=== PATIENT | female | born 1955 | race Caucasian/White ===

== ENCOUNTER 2016-09-24 12:48 | Observation (INO) | payer OTHER, MEDICAID ==
[2016-09-24 14:10] LABS: BASOPHILS # (AUTO) 0.1 X10^3/uL (0.0-0.1); BASOPHILS % (AUTO) 0.9 % (0.2-1.0); EOSINOPHILS # (AUTO) 0.2 x10^3/uL (0.0-0.2); EOSINOPHILS % (AUTO) 3.6 % (0.9-2.9); HEMATOCRIT 32.3 % (36.0-47.0); HEMOGLOBIN 11.1 g/dL (12.0-16.0); LYMPHOCYTES # (AUTO) 1.3 X10^3/uL (1.3-2.9); MEAN CORPUSCULAR HEMOGLOBIN 29.9 pg (27.0-34.0); MEAN CORPUSCULAR HGB CONC 34.2 g/dL (33.0-35.0); MEAN CORPUSCULAR VOLUME 87.4 fL (80.0-100.0); MEAN PLATELET VOLUME 8.6 fL (7.4-11.0); MONOCYTES # (AUTO) 0.5 x10^3/uL (0.3-0.8); MONOCYTES % (AUTO) 7.9 % (0.0-13.0); NEUTROPHILS % (AUTO) 66.6 % (42.0-75.0); PLATELET COUNT 192 X10^3/uL (150.0-450.0); RED CELL DISTRIBUTION WIDTH 15.4 % (11.6-16.5); WHITE BLOOD COUNT 6.1 X10^3/uL (3.6-10.0)
[2016-09-24 14:36] LABS: B-TYPE NATRIURETIC PEPTIDE 205 pg/mL (0-79)
[2016-09-24 14:48] VITALS: BMI 39.3
[2016-09-24 14:55] LABS: ALANINE AMINOTRANSFERASE 25 Units/L (12-78); ALBUMIN 3.5 g/dL (3.4-5.0); ALKALINE PHOSPHATASE 172 Units/L (46-116); ASPARTATE AMINO TRANSFERASE 19 Units/L (15-37); BLOOD UREA NITROGEN 25 mg/dL (7-18); CALCIUM 9.1 mg/dL (8.5-10.1); CARBON DIOXIDE 31.6 mmol/L (21-32); CHLORIDE 107 mmol/L (98-107); CKMB % 3.6 % (<4); CREATINE KINASE 129 Units/L (26-192); GLUCOSE 81 mg/dL (65-99); SODIUM 143 mmol/L (136-145); TOTAL PROTEIN 7.6 g/dL (6.4-8.2); TROPONIN I < 0.02 ng/mL (0-1.5); eGFR BLACK RACES > 60 (>60); eGFR NON BLACK RACES > 60 (>60)
[2016-09-24 14:56] LABS: CREATINE KINASE MB 4.7 ng/mL (0-4.0)
[2016-09-24] MEDS: NS 1000 ML 1,000 ML IV SCH (15:30)
[2016-09-24] MEDS: LASIX IVP SCH ×2 (15:30→20:56)
--- NOTE | 2016-09-24 15:37 | RAD ---
HISTORY: CHF. Study: Portable chest. Comparison: Chest x-ray dated October 22, 2015. Findings: The cardiac silhouette is at the upper limits of normal. Prominent perihilar vasculature with cephal ization of vessels and diffuse alveolar /interstitial markings . No obvious pleural effusion, pneumo thorax , or focal consolidation . Persistent eventration of the right hemidiaphragm. The osseous str uctures appear unchanged. IMPRESSION: Constellation of findings likely representing pulmonary edema secondary to congestive he art failure. Underlying infiltrate not entirely excluded. Reported By:
[2016-09-24 18:15] LABS: CKMB % 2.3 % (<4); CREATINE KINASE 177 Units/L (26-192); TROPONIN I < 0.02 ng/mL (0-1.5)
[2016-09-24] MEDS: COREG TAB 6.25 MG PO SCH (20:56)
[2016-09-24] MEDS: KLONOPIN TAB 1 MG PO SCH (20:56)
[2016-09-24] MEDS: TOUJEO SOLOSTAR PEN SC SCH (20:57)
[2016-09-24] MEDS: ISOSORBIDE DINITRATE PO SCH (20:57)
[2016-09-24] MEDS: ZYLOPRIM PO SCH (20:57)
[2016-09-24] MEDS: CELEXA PO SCH (20:57)
[2016-09-24] MEDS: LYRICA CAP 150 MG PO SCH (20:57)
[2016-09-24] MEDS ORDERED: CRESTOR TAB 10 MG PO SCH (21:00)
[2016-09-24] MEDS: LASIX PO SCH (21:01)
[2016-09-24 22:04] LABS: CKMB % 3.2 % (<4); CREATINE KINASE 109 Units/L (26-192); CREATINE KINASE MB 3.5 ng/mL (0-4.0); TROPONIN I < 0.02 ng/mL (0-1.5)
[2016-09-24] MEDS ORDERED: NORCO 5/325 MG TAB PO PRN (22:52)
[2016-09-25] MEDS ORDERED: GLUCOPHAGE ONE ×2 (05:14→17:12)
[2016-09-25] MEDS: LASIX PO SCH (05:28)
[2016-09-25] MEDS: GLUCOTROL PO SCH ×2 (06:28→17:16)
[2016-09-25] MEDS: GLUCOPHAGE PO SCH ×2 (06:28→17:15)
[2016-09-25 06:37] LABS: BASOPHILS # (AUTO) 0.1 X10^3/uL (0.0-0.1); BASOPHILS % (AUTO) 0.9 % (0.2-1.0); EOSINOPHILS # (AUTO) 0.3 x10^3/uL (0.0-0.2); EOSINOPHILS % (AUTO) 4.4 % (0.9-2.9); HEMATOCRIT 30.4 % (36.0-47.0); HEMOGLOBIN 10.6 g/dL (12.0-16.0); LYMPHOCYTES # (AUTO) 1.4 X10^3/uL (1.3-2.9); LYMPHOCYTES % (AUTO) 21.3 % (21.0-51.0); MEAN CORPUSCULAR HEMOGLOBIN 30.3 pg (27.0-34.0); MEAN CORPUSCULAR HGB CONC 34.8 g/dL (33.0-35.0); MEAN CORPUSCULAR VOLUME 87.2 fL (80.0-100.0); MEAN PLATELET VOLUME 9.3 fL (7.4-11.0); MONOCYTES # (AUTO) 0.7 x10^3/uL (0.3-0.8); MONOCYTES % (AUTO) 10.4 % (0.0-13.0); PLATELET COUNT 196 X10^3/uL (150.0-450.0); RED BLOOD COUNT 3.48 X10^6/uL (3.5-5.4); RED CELL DISTRIBUTION WIDTH 15.3 % (11.6-16.5); WHITE BLOOD COUNT 6.4 X10^3/uL (3.6-10.0)
[2016-09-25 06:53] LABS: ALANINE AMINOTRANSFERASE 21 Units/L (12-78); ALKALINE PHOSPHATASE 149 Units/L (46-116); ASPARTATE AMINO TRANSFERASE 15 Units/L (15-37); BLOOD UREA NITROGEN 28 mg/dL (7-18); CALCIUM 8.6 mg/dL (8.5-10.1); CARBON DIOXIDE 33.1 mmol/L (21-32); CHLORIDE 104 mmol/L (98-107); COR CA(FOR HYPOALB) 9.4 mg/dL (8.5-10.1); COR NA(FOR HYPERGLY) 144 mmol/L (136-145); CREATININE 1.07 mg/dL (0.55-1.02); GLUCOSE 174 mg/dL (65-99); SODIUM 142 mmol/L (136-145); TOTAL PROTEIN 6.8 g/dL (6.4-8.2); eGFR BLACK RACES > 60 (>60); eGFR NON BLACK RACES 55 (>60)
[2016-09-25 07:13] LABS: B-TYPE NATRIURETIC PEPTIDE 168 pg/mL (0-79)
--- NOTE | 2016-09-25 07:31 | RAD ---
HISTORY: Follow up congestive heart failure, shortness of breath Study: Chest one view Comparison: September 24, 2016 Findings: The heart is mildly enlarged. No definite congestive heart failure is identified. No acute alveolar infiltrates or pleural effusions are identified. The right hemidiaphragm is elevated. Perihilar subs egmental atelectasis is present on the right and to a lesser extent on the left. No pleural effusion s are identified. The bony thorax is unremarkable. IMPRESSION: Cardiomegaly without congestive heart failure Bilateral perihilar subsegmental atelectasis Reported By:
[2016-09-25] MEDS: ISOSORBIDE DINITRATE PO SCH ×2 (09:28→21:01)
[2016-09-25] MEDS: LYRICA CAP 150 MG PO SCH ×2 (09:28→21:00)
[2016-09-25] MEDS: ZYLOPRIM PO SCH (09:28)
[2016-09-25] MEDS: HYZAAR 50/12.5 MG PO SCH (09:28)
[2016-09-25] MEDS: COREG TAB 6.25 MG PO SCH ×2 (09:28→21:02)
--- NOTE | 2016-09-25 11:20 | DR.UPDATE ---
H&P Update History and Physical Update: WAS SEEN IN OUR OFFICE TODAY. A H&P WAS COMPLETED PRIOR TO DISCHARGE. PATIENT HAS BEEN SEEN AND EXAMINED WITH NO CHANGES NOTED. Changes noted: NO Yes with the following:
[2016-09-25] MEDS: LASIX IVP SCH ×2 (11:50→21:00)
[2016-09-25] MEDS: ECOTRIN TAB 325 MG PO SCH (11:51)
[2016-09-25] MEDS ORDERED: SNACK - Diabetic Appropriate PO SCH (20:00)
[2016-09-25] MEDS ORDERED: CRESTOR TAB 10 MG PO SCH (21:00)
[2016-09-25] MEDS: KLONOPIN TAB 1 MG PO SCH (21:03)
[2016-09-25] MEDS: CELEXA PO SCH (21:03)
[2016-09-25] MEDS: TOUJEO SOLOSTAR PEN SC SCH (21:04)
[2016-09-26] MEDS: NS 1000 ML 1,000 ML IV SCH ×2 (03:41→14:34)
[2016-09-26 06:09] LABS: BASOPHILS # (AUTO) 0.1 X10^3/uL (0.0-0.1); HEMATOCRIT 32.5 % (36.0-47.0); LYMPHOCYTES # (AUTO) 1.5 X10^3/uL (1.3-2.9); WHITE BLOOD COUNT 6.5 X10^3/uL (3.6-10.0)
[2016-09-26 06:15] LABS: BASOPHILS % (AUTO) 0.8 % (0.2-1.0); EOSINOPHILS # (AUTO) 0.2 x10^3/uL (0.0-0.2); EOSINOPHILS % (AUTO) 3.7 % (0.9-2.9); HEMOGLOBIN 11.1 g/dL (12.0-16.0); MEAN CORPUSCULAR HEMOGLOBIN 29.7 pg (27.0-34.0); MEAN CORPUSCULAR HGB CONC 34.2 g/dL (33.0-35.0); MEAN CORPUSCULAR VOLUME 86.9 fL (80.0-100.0); MEAN PLATELET VOLUME 9.2 fL (7.4-11.0); MONOCYTES # (AUTO) 0.5 x10^3/uL (0.3-0.8); MONOCYTES % (AUTO) 8.3 % (0.0-13.0); NEUTROPHILS # (AUTO) 4.2 x10^3/uL (2.2-4.8); NEUTROPHILS % (AUTO) 64.2 % (42.0-75.0); PLATELET COUNT 219 X10^3/uL (150.0-450.0); RED BLOOD COUNT 3.74 X10^6/uL (3.5-5.4); RED CELL DISTRIBUTION WIDTH 15.3 % (11.6-16.5)
[2016-09-26] MEDS ORDERED: GLUCOPHAGE ONE (06:17)
[2016-09-26] MEDS: GLUCOPHAGE PO SCH (06:18)
[2016-09-26] MEDS: GLUCOTROL PO SCH (06:19)
[2016-09-26 06:21] LABS: ALANINE AMINOTRANSFERASE 19 Units/L (12-78); ALKALINE PHOSPHATASE 143 Units/L (46-116); ASPARTATE AMINO TRANSFERASE 14 Units/L (15-37); BLOOD UREA NITROGEN 36 mg/dL (7-18); CALCIUM 8.5 mg/dL (8.5-10.1); CARBON DIOXIDE 34.8 mmol/L (21-32); CHLORIDE 106 mmol/L (98-107); COR CA(FOR HYPOALB) 9.3 mg/dL (8.5-10.1); CREATININE 1.05 mg/dL (0.55-1.02); GLUCOSE 66 mg/dL (65-99); SODIUM 144 mmol/L (136-145); TOTAL PROTEIN 6.8 g/dL (6.4-8.2); eGFR BLACK RACES > 60 (>60); eGFR NON BLACK RACES 56 (>60)
[2016-09-26 08:42] VITALS: BP 132/63
[2016-09-26] MEDS: LYRICA CAP 150 MG PO SCH (09:49)
[2016-09-26] MEDS: COREG TAB 6.25 MG PO SCH (09:50)
[2016-09-26] MEDS: ISOSORBIDE DINITRATE PO SCH (09:50)
[2016-09-26] MEDS: HYZAAR 50/12.5 MG PO SCH (09:50)
[2016-09-26] MEDS: ECOTRIN TAB 325 MG PO SCH (09:50)
[2016-09-26] MEDS: ZYLOPRIM PO SCH (09:51)
[2016-09-26] MEDS ORDERED: K-LYTE EFFERVESCENT PO PRN (12:53)
[2016-09-26] MEDS ORDERED: K-RIDER 10 MEQ/NS 100 ML 10 MEQ/100 ML BAG IV PRN (12:53)
[2016-09-26] MEDS ORDERED: POTASSIUM CHLORIDE LIQ 20 MEQ UDC PO PRN (12:53)
[2016-09-26] MEDS ORDERED: K-DUR TAB 20 MEQ PO PRN (12:53)
== END 2016-09-26 16:10 | disposition home or self-care (01) ==
LOC: OBS 12:48 → MED/SURG 09-25 16:35
PROVIDERS: ADMIT Internal Medicine; ATTEND Internal Medicine
DX: I50.9 Heart failure, unspecified (principal); R60.0 Localized edema; I25.10 Atherosclerotic heart disease of native coronary artery without angina pectoris; E11.8 Type 2 diabetes mellitus with unspecified complications; I25.2 Old myocardial infarction; R06.02 Shortness of breath; D64.89 Other specified anemias; I51.7 Cardiomegaly; R94.30 Abnormal result of cardiovascular function study, unspecified
CPT/HCPCS: 36415; 71010; 80053; 82550; 82553; 82947; 83880; 84484; 85025; 93005; 94760; 99217; A4216; A4222; G0378; J1940

== ENCOUNTER 2018-02-09 16:04 | Inpatient (IN) ==
[2018-02-09 17:59] LABS: BASOPHILS # (AUTO) 0.1 X10^3/uL (0.0-0.1); BASOPHILS % (AUTO) 0.9 % (0.2-1.0); EOSINOPHILS # (AUTO) 0.3 x10^3/uL (0.0-0.2); EOSINOPHILS % (AUTO) 4.4 % (0.9-2.9); HEMATOCRIT 31.8 % (36.0-47.0); HEMOGLOBIN 10.8 g/dL (12.0-16.0); LYMPHOCYTES # (AUTO) 0.9 X10^3/uL (1.3-2.9); LYMPHOCYTES % (AUTO) 14.2 % (21.0-51.0); MEAN CORPUSCULAR HEMOGLOBIN 29.9 pg (27.0-34.0); MEAN CORPUSCULAR VOLUME 87.8 fL (80.0-100.0); MEAN PLATELET VOLUME 8.3 fL (7.4-11.0); MONOCYTES # (AUTO) 0.4 x10^3/uL (0.3-0.8); MONOCYTES % (AUTO) 6.8 % (0.0-13.0); NEUTROPHILS # (AUTO) 4.6 x10^3/uL (2.2-4.8); NEUTROPHILS % (AUTO) 73.7 % (42.0-75.0); PLATELET COUNT 190 X10^3/uL (150.0-450.0); RED BLOOD COUNT 3.62 X10^6/uL (3.5-5.4); WHITE BLOOD COUNT 6.2 X10^3/uL (3.6-10.0)
--- NOTE | 2018-02-09 18:01 | RAD ---
History: Shortness of breath Study: PA and lateral chest Comparison: September 25, 2016 Findings: There is unchanged elevation of the right hemidiaphragm. There is horizontal linear density in the right upper lobe similar to prior exam. There is horizontal linear densities at the right lung base as well. The left lung is clear. There is no evidence for effusion. Impression: Chronically elevated right hemidiaphragm with apparent scarring in the right upper and lower lobes. Reported By:
[2018-02-09] MEDS ORDERED: HEPARIN SODIUM IN D5W 25,000 UNITS/500 ML BAG IV PRN (18:07)
[2018-02-09] MEDS: ULTRAM PO PRN (18:09)
[2018-02-09] MEDS: ASPIRIN 81 MG CHEWTAB PO SCH (18:09)
[2018-02-09] MEDS: LASIX IVP SCH ×2 (18:10→21:57)
[2018-02-09] MEDS: HYZAAR 50/12.5 MG PO SCH (18:10)
[2018-02-09 18:19] LABS: ALANINE AMINOTRANSFERASE 21 Units/L (12-78); ALBUMIN 3.5 g/dL (3.4-5.0); ALKALINE PHOSPHATASE 172 Units/L (46-116); ASPARTATE AMINO TRANSFERASE 16 Units/L (15-37); BLOOD UREA NITROGEN 40 mg/dL (7-18); CALCIUM 9.2 mg/dL (8.5-10.1); CARBON DIOXIDE 29.3 mmol/L (21-32); CHLORIDE 104 mmol/L (98-107); COR NA(FOR HYPERGLY) 141 mmol/L (136-145); CREATINE KINASE 96 Units/L (26-192); CREATINE KINASE MB 2.9 ng/mL (0-4.0); CREATININE 1.38 mg/dL (0.55-1.02); SODIUM 141 mmol/L (136-145); TOTAL PROTEIN 7.4 g/dL (6.4-8.2); TROPONIN I < 0.02 ng/mL (0-1.5); eGFR NON BLACK RACES 41 (>60)
[2018-02-09 18:21] LABS: B-TYPE NATRIURETIC PEPTIDE 294 pg/mL (0-79)
[2018-02-09] MEDS ORDERED: HEPARIN SODIUM INJ 5000 UNITS ONE (19:19)
[2018-02-09] MEDS ORDERED: HEPARIN SODIUM INJ 5000 UNITS IVP ONE (19:33)
[2018-02-09] MEDS: SNACK - Diabetic Appropriate PO SCH (20:20)
[2018-02-09 21:26] LABS: BILIRUBIN,URINE NEGATIVE (NEGATIVE); BLOOD/HEMOGLOBIN,URINE 1+ (NEGATIVE); GLUCOSE, URINE NEGATIVE (NEGATIVE); KETONES,URINE NEGATIVE (NEGATIVE); LEUKOCYTE ESTERASE ,URINE NEGATIVE (NEGATIVE); NITRITES,URINE NEGATIVE (NEGATIVE); PH,URINE 6.5 (5.0 - 8.0); PROTEIN,URINE 2+ (NEGATIVE); UROBILINOGEN,URINE NORMAL (NORMAL)
[2018-02-09 21:43] LABS: AMORPHOUS SEDIMENT,UR 1+ /HPF (NEGATIVE); APPEARANCE,URINE SLIGHTLY HAZY (CLEAR); BACTERIA,URINE 2+ /HPF (NEGATIVE); COLOR,URINE PALE YELLOW (YELLOW); RBC,URINE 0-2 /HPF (NONE SEEN); SQUAMOUS EPITHELIAL CELL,UR RARE /HPF (NEGATIVE)
[2018-02-09 21:48] LABS: CKMB % 2.6 % (<4); CREATINE KINASE 91 Units/L (26-192); CREATINE KINASE MB 2.4 ng/mL (0-4.0); TROPONIN I < 0.02 ng/mL (0-1.5)
[2018-02-09] MEDS: TOUJEO SOLOSTAR PEN SC SCH (21:50)
[2018-02-09] MEDS: CRESTOR TAB 10 MG PO SCH (21:57)
[2018-02-09] MEDS: KLONOPIN TAB 1 MG PO SCH (21:57)
[2018-02-09] MEDS: COREG TAB 6.25 MG PO SCH (21:57)
[2018-02-09] MEDS: ZANAFLEX PO SCH (21:58)
[2018-02-10 01:31] VITALS: BMI 36.8
[2018-02-10 02:02] LABS: CREATINE KINASE 76 Units/L (26-192); CREATINE KINASE MB 2.3 ng/mL (0-4.0); TROPONIN I < 0.02 ng/mL (0-1.5)
[2018-02-10 06:34] LABS: BASOPHILS % (AUTO) 0.8 % (0.2-1.0); EOSINOPHILS # (AUTO) 0.3 x10^3/uL (0.0-0.2); EOSINOPHILS % (AUTO) 4.2 % (0.9-2.9); HEMATOCRIT 28.5 % (36.0-47.0); HEMOGLOBIN 9.7 g/dL (12.0-16.0); LYMPHOCYTES # (AUTO) 1.1 X10^3/uL (1.3-2.9); LYMPHOCYTES % (AUTO) 17.7 % (21.0-51.0); MEAN CORPUSCULAR HEMOGLOBIN 30.1 pg (27.0-34.0); MEAN CORPUSCULAR HGB CONC 34.2 g/dL (33.0-35.0); MEAN CORPUSCULAR VOLUME 88.2 fL (80.0-100.0); MEAN PLATELET VOLUME 8.8 fL (7.4-11.0); MONOCYTES # (AUTO) 0.5 x10^3/uL (0.3-0.8); MONOCYTES % (AUTO) 8.3 % (0.0-13.0); NEUTROPHILS # (AUTO) 4.2 x10^3/uL (2.2-4.8); PLATELET COUNT 184 X10^3/uL (150.0-450.0); RED BLOOD COUNT 3.23 X10^6/uL (3.5-5.4); RED CELL DISTRIBUTION WIDTH 15.1 % (11.6-16.5); WHITE BLOOD COUNT 6.1 X10^3/uL (3.6-10.0)
[2018-02-10 06:56] LABS: ALBUMIN 3.2 g/dL (3.4-5.0); CARBON DIOXIDE 28.9 mmol/L (21-32); COR CA(FOR HYPOALB) 9.6 mg/dL (8.5-10.1); CREATININE 1.25 mg/dL (0.55-1.02); TOTAL PROTEIN 6.8 g/dL (6.4-8.2)
[2018-02-10] MEDS: HYZAAR 50/12.5 MG PO SCH (10:11)
[2018-02-10] MEDS: ASPIRIN 81 MG CHEWTAB PO SCH (10:11)
[2018-02-10] MEDS: COREG TAB 6.25 MG PO SCH ×2 (10:11→21:45)
[2018-02-10] MEDS: PLAVIX PO SCH (10:12)
[2018-02-10] MEDS: LASIX IVP SCH (10:12)
[2018-02-10] MEDS ORDERED: MAG-OX TAB PO SCH (10:30)
[2018-02-10] MEDS: NEURONTIN TAB 600 MG PO SCH ×3 (11:52→21:45)
[2018-02-10] MEDS: MAG-OX TAB PO SCH (12:01)
[2018-02-10] MEDS ORDERED: NORMODYNE INJ 20 MG VIAL IVP PRN (17:12)
[2018-02-10] MEDS: SNACK - Diabetic Appropriate PO SCH (20:42)
[2018-02-10] MEDS ORDERED: CELEXA PO SCH (21:00)
[2018-02-10] MEDS: TOUJEO SOLOSTAR PEN SC SCH (21:40)
[2018-02-10] MEDS: ZANAFLEX PO SCH (21:46)
[2018-02-10] MEDS: CRESTOR TAB 10 MG PO SCH (21:46)
[2018-02-10] MEDS: KLONOPIN TAB 1 MG PO SCH (21:46)
[2018-02-10] MEDS: ULTRAM PO PRN (21:51)
[2018-02-11 06:22] LABS: BASOPHILS % (AUTO) 0.6 % (0.2-1.0); EOSINOPHILS # (AUTO) 0.3 x10^3/uL (0.0-0.2); EOSINOPHILS % (AUTO) 3.9 % (0.9-2.9); HEMATOCRIT 30.6 % (36.0-47.0); HEMOGLOBIN 10.5 g/dL (12.0-16.0); LYMPHOCYTES # (AUTO) 0.9 X10^3/uL (1.3-2.9); LYMPHOCYTES % (AUTO) 12.4 % (21.0-51.0); MEAN CORPUSCULAR HEMOGLOBIN 30.1 pg (27.0-34.0); MEAN CORPUSCULAR HGB CONC 34.3 g/dL (33.0-35.0); MEAN CORPUSCULAR VOLUME 87.7 fL (80.0-100.0); MEAN PLATELET VOLUME 8.8 fL (7.4-11.0); MONOCYTES # (AUTO) 0.6 x10^3/uL (0.3-0.8); MONOCYTES % (AUTO) 8.9 % (0.0-13.0); NEUTROPHILS # (AUTO) 5.1 x10^3/uL (2.2-4.8); NEUTROPHILS % (AUTO) 74.2 % (42.0-75.0); PLATELET COUNT 207 X10^3/uL (150.0-450.0); RED BLOOD COUNT 3.49 X10^6/uL (3.5-5.4); WHITE BLOOD COUNT 6.9 X10^3/uL (3.6-10.0)
[2018-02-11 06:35] LABS: ALANINE AMINOTRANSFERASE 16 Units/L (12-78); ALBUMIN 3.2 g/dL (3.4-5.0); ALKALINE PHOSPHATASE 148 Units/L (46-116); ASPARTATE AMINO TRANSFERASE 11 Units/L (15-37); BLOOD UREA NITROGEN 35 mg/dL (7-18); CALCIUM 9.1 mg/dL (8.5-10.1); CARBON DIOXIDE 30.8 mmol/L (21-32); CHLORIDE 104 mmol/L (98-107); COR CA(FOR HYPOALB) 9.7 mg/dL (8.5-10.1); COR NA(FOR HYPERGLY) 145 mmol/L (136-145); CREATININE 1.12 mg/dL (0.55-1.02); SODIUM 142 mmol/L (136-145); TOTAL PROTEIN 6.8 g/dL (6.4-8.2); eGFR NON BLACK RACES 52 (>60)
[2018-02-11] MEDS: NEURONTIN TAB 600 MG PO SCH (06:59)
[2018-02-11] MEDS: ASPIRIN 81 MG CHEWTAB PO SCH (09:58)
[2018-02-11] MEDS: PLAVIX PO SCH (09:58)
[2018-02-11] MEDS: HYZAAR 50/12.5 MG PO SCH (09:59)
[2018-02-11] MEDS: COREG TAB 6.25 MG PO SCH (09:59)
[2018-02-11] MEDS: MAG-OX TAB PO SCH (09:59)
[2018-02-11 10:37] VITALS: BP 161/72
[2018-02-11] MEDS ORDERED: NS 100 ML IV 100 ML IV ONE (11:49)
[2018-02-11] MEDS ORDERED: MAXZIDE 37.5/25 MG PO SCH (13:00)
--- NOTE | 2018-02-11 13:34 | CT ---
HISTORY: Shortness of breath, hypertension Study: CT chest with contrast Comparison: Radiograph 02/09/2018, CT 03/08/2015 Technique: Multiple axial images of the chest were obtained from the thoracic inlet to the upper abdomen after the administration of IV contrast. Dose reduction techniques including Automated Exposure Control (AEC) and adjustment of mA and kV were utilized. Findings: Coronary atherosclerotic disease with interval placement of stents in the LAD and RCA. Normal sized heart. No pericardial effusion. There is chronic right pleural thickening. There is bibasilar atelectasis. No infiltrate, pneumothorax or significant effusion is identified The lungs are clear without effusion, consolidation, or pneumothorax. Airways are patent. No mass or adenopathy is seen. There are degenerative changes of the bony thorax with mild vertebral body height loss is sclerosis of the T12 vertebral body that is unchanged from prior. No new fracture identified. Incidental note of pneumobilia suggesting previous sphincterotomy. IMPRESSION: 1. No evidence of acute cardiopulmonary abnormality. 2. Coronary atherosclerotic disease with interval placement of stents in the LAD and RCA. 3. Additional stable chronic findings as described. Reported By:
--- NOTE | 2018-02-12 19:19 | DR.UPDATE ---
H&P Update History and Physical Update: PRESENTED TO THE OFFICE WITH COMPLAINTS OF SHORTNESS OF BREATH. SHE IS STATUS POST STENT REPLACEMENT 3 WEEKS AGO. SHE WAS ADMITTED FOR FURTHER EVALUATION AND TREATMENT. SHE HAS BEEN SEEN AND EXAMINED WITH NO CHANGES NOTED TO H&P. Changes noted: NO Yes with the following:
== END 2018-02-11 14:30 | disposition home or self-care (01) | DRG 292 ==
LOC: OBS → ICU 17:26
PROVIDERS: ADMIT Internal Medicine; ATTEND Internal Medicine
DX: R06.02 Shortness of breath; B96.1 Klebsiella pneumoniae [K. pneumoniae] as the cause of diseases classified elsewhere; N39.0 Urinary tract infection, site not specified; I50.9 Heart failure, unspecified; Z95.5 Presence of coronary angioplasty implant and graft; I25.10 Atherosclerotic heart disease of native coronary artery without angina pectoris; E11.65 Type 2 diabetes mellitus with hyperglycemia
CPT/HCPCS: 36415; 71020; 71046; 71260; 80053; 81001; 82550; 82553; 83605; 83880; 84484; 85025; 85610; 85730; 87086; 87088; 87186; 93005; 93306; A4216; A4222; G0378; J1644; J1940; J7050

== ENCOUNTER 2020-05-18 07:57 | Inpatient (IN) ==
--- NOTE | 2020-05-18 08:41 | DR.SOBA ---
HPI Time Seen Time Seen by Provider: 05/18/20 08:35 Primary Care Physician Primary Care Physician: LAURA SANCHEZ HPI Comment HPI Comment: Cough and sob for the past week which has worsened since going to ER in [place] yesterday where she was told cxr was "alright" but her daughter then asks her "how much fluid did they get off"? She's not sure if she was in failure but was sent home on amoxil and prednisone which have not helped; some chills but no fever, abd pain, n/v/d, le swelling or rash; she got her second covid vaccine more than two weeks ago. Complaints Chief Complaint:: PT C/O SOB FOR A WEEK , AND PT CALLED LAURA SANCHEZ ON WEDNESDAY AND PT WAS TOLD TO KEEP DOING WHAT SHE HAD BEEN DOING ,BR Self Treatment fo Chief Complaint: NONE COVID-19 Coronavirus risk:travel/contact w/high risk person: No Has patient experienced Coronavirus symptoms: No Source History Provided: Patient Mode of Arrival Mode of Arrival: Wheelchair Timing Onset of Chief Complaint: 05/11/20 PMH PMH Past Medical History: Yes Past Medical History: COPD, Coronary Artery Disease, Dyslipidemia and Hypertension Past Surgical History: Yes Surgical History: Angioplasty/Stents, Cholecystectomy and Lithotripsy Family History History of Family Medical Conditions: Yes Family Medical History: Diabetes Mellitus, Cancer and Hypertension Social History Does patient currently use any type of tobacco product: No Have you used tobacco products in the last 12 months: No Type of Tobacco Use: None Does any household member use tobacco: No Alcohol Use: None Do you use any recreational Drugs:: No Lives With: Family Lives Where: Home Travel Risk Coronavirus risk:travel/contact w/high risk person: No Has patient experienced Coronavirus symptoms: No Infectious screening In the last 2 months have you had wt loss of >10#?: NO Have you had fever, night sweats or hemotysis?: No Have you traveled outside the country in the last 6 months?: No Isolation: Droplet ROS Review of Systems Eyes: No Symptoms Reported ENTM: No Symptoms Reported Cardiovascular: No Symptoms Reported Gastrointestinal/Abdominal: No Symptoms Reported Genitourinary: No Symptoms Reported Musculoskeletal: No Symptoms Reported Integumentary: No Symptoms Reported Hematologic/Lymphatic: No Symptoms Reported Endocrine: No Symptoms Reported PE Vital Signs Vitals: Temperature 97.9 F Pulse Rate 76 Respiratory Rate 18 Blood Pressure [Right Arm] 125/56 Blood Pressure 119/55 O2 Sat by Pulse Oximetry 96 General Limitations: No Limitations General Appearance: Alert and In No Apparent Distress Head Head Exam: Normal Inspection Eyes Eye exam: Normal Appearance ENT ENT Exam: Normal Exam Neck Neck Exam: Normal Inspection Chest Chest Inspection: Normal Inspection Respiratory Respiratory Exam: Other (sob with talking) Respiratory Exam: Bilateral: Clear to Auscultation and Bilateral: Decreased Breath Sounds Cardiovascular Cardiovascular Exam: Regular Rate and Normal Rhythm Abdominal Exam Abdominal Exam: Normal Inspection, Normal Bowel Sounds and Soft Extremities Extremities Exam: Normal Inspection Back Back Exam: Normal Inspection Neurologic Neurological Exam: Alert and Oriented X3 Psychiatric Psychiatric Exam: Anxious Skin Skin Exam: Warm, Dry, Intact and Normal Color MDM Differential Diagnosis Differential Diagnosis: Bronchitis, COPD, Pneumonia and Pulmonary embolism COURSE Reevaluation 1st: Improved (breathing easier) Consultation Call Returned: 12:00 (s/w Roberta Griffith; accepts admission for Dr Johnson; advis ed levaqchris and denise; abx switched) Consultation Comments: confirmed w/Dr Teran at 1:15 pm [facility] Labs Reviewed Laboratory Results Reviewed?: Yes Result Diagrams: 05/18/20 08:57 05/18/20 08:57 Laboratory: WBC 16.1 X10^3/uL (3.6-10.0) H 05/18/20 08:57 RBC 3.84 X10^6/uL (3.5-5.4) 05/18/20 08:57 Hgb 10.9 g/dL (12.0-16.0) L 05/18/20 08:57 Hct 33.5 % (36.0-47.0) L 05/18/20 08:57 MCV 87.2 fL (80.0-100.0) 05/18/20 08:57 MCH 28.5 pg (27.0-34.0) 05/18/20 08:57 MCHC 32.7 g/dL (33.0-35.0) L 05/18/20 08:57 RDW 14.6 % (11.6-16.5) 05/18/20 08:57 Plt Count 306 X10^3/uL (150.0-450.0) 05/18/20 08:57 Plt Count Comment Adequate (ADEQUATE) 05/18/20 08:57 MPV 8.0 fL (7.4-11.0) 05/18/20 08:57 Neut % (Auto) 89.1 % (42.0-75.0) H 05/18/20 08:57 Lymph % (Auto) 2.7 % (21.0-51.0) L 05/18/20 08:57 [place] % (Auto) 6.7 % (0.0-13.0) 05/18/20 08:57 Eos % (Auto) 0.2 % (0.9-2.9) L 05/18/20 08:57 Baso % (Auto) 1.3 % (0.2-1.0) H 05/18/20 08:57 Neut # (Auto) 14.4 x10^3/uL (2.2-4.8) H 05/18/20 08:57 Lymph # (Auto) 0.4 X10^3/uL (1.3-2.9) L 05/18/20 08:57 [place] # (Auto) 1.1 x10^3/uL (0.3-0.8) H 05/18/20 08:57 Eos # (Auto) 0.0 x10^3/uL (0.0-0.2) 05/18/20 08:57 Baso # (Auto) 0.2 X10^3/uL (0.0-0.1) H 05/18/20 08:57 Absolute Nucleated RBC 0.0 /100WBC 05/18/20 08:57 Total Counted 100 05/18/20 08:57 Neutrophils % (Manual) 86 % (39-76) H 05/18/20 08:57 Band Neutrophils % 8 % (0-10) 05/18/20 08:57 Lymphocytes % (Manual) 3 % (13-43) L 05/18/20 08:57 Monocytes % (Manual) 3 % (4-9) L 05/18/20 08:57 Plt Morphology Comment Normal (NORMAL) 05/18/20 08:57 RBC Morphology Normal (NORMAL) 05/18/20 08:57 D-Dimer 1.78 ug/ml (0.0-0.57) H* 05/18/20 08:57 Sample Site Right brachial 05/18/20 09:01 ABG pH 7.450 (7.35-7.45) 05/18/20 09:01 ABG pCO2 32.0 mmHg (35.0-45.0) L 05/18/20 09:01 ABG pO2 53.0 mmHg (80.0-100.0) L 05/18/20 09:01 ABG HCO3 22.2 mmol/L (22-26) 05/18/20 09:01 ABG O2 Saturation 89.0 % (90-100) L 05/18/20 09:01 ABG Base Excess -1.1 mmol/L (-2.0-2.0) 05/18/20 09:01 Russ Test Na 05/18/20 09:01 A-a Gradient 57.0 mmHg 05/18/20 09:01 FiO2 21.0 05/18/20 09:01 Blood Gas Comments Jakub well aw 05/18/20 09:01 Sodium 137 mmol/L (136-145) 05/18/20 08:57 Corrected Sodium 141 mmol/L (136-145) 05/18/20 08:57 Potassium 4.6 mmol/L (3.5-5.1) 05/18/20 08:57 Chloride 103 mmol/L (98-107) 05/18/20 08:57 Carbon Dioxide 23.8 mmol/L (21-32) 05/18/20 08:57 BUN 47 mg/dL (7-18) H 05/18/20 08:57 Creatinine 1.28 mg/dL (0.55-1.02) H 05/18/20 08:57 Est GFR (MDRD) Af Amer 54 (>60) L 05/18/20 08:57 Est GFR (MDRD) Non-Af 44 (>60) L 05/18/20 08:57 Glucose 252 mg/dL (65-99) H 05/18/20 08:57 Calcium 9.0 mg/dL (8.5-10.1) 05/18/20 08:57 Corrected Calcium 10.2 mg/dL (8.5-10.1) H 05/18/20 08:57 Total Bilirubin 0.40 mg/dL (0.2-1.0) 05/18/20 08:57 AST 15 Units/L (15-37) 05/18/20 08:57 ALT 28 Units/L (12-78) 05/18/20 08:57 Alkaline Phosphatase 301 Units/L (46-116) H 05/18/20 08:57 Creatine Kinase 57 Units/L (26-192) 05/18/20 08:57 CK-MB (CK-2) 1.4 ng/mL (0-4.0) 05/18/20 08:57 CK/CKMB % Calc 2.5 % (<4) 05/18/20 08:57 Troponin I < 0.02 ng/mL (0-1.5) 05/18/20 08:57 B-Natriuretic Peptide 930 pg/mL (0-79) H* 05/18/20 08:57 Total Protein 7.1 g/dL (6.4-8.2) 05/18/20 08:57 Albumin 2.5 g/dL (3.4-5.0) L 05/18/20 08:57 Globulin 4.6 g/dL (2.5-4.5) H 05/18/20 08:57 Albumin/Globulin Ratio 0.5 Ratio (1.1-2.1) L 05/18/20 08:57 Specimen Type Clean catch urine 05/18/20 08:53 Urine Color Yellow (YELLOW) 05/18/20 08:53 Urine Appearance Clear (CLEAR) 05/18/20 08:53 Urine pH 5.0 (5.0 - 8.0) 05/18/20 08:53 Ur Specific [place] 1.010 (1.000-1.030) 05/18/20 08:53 Urine Protein 3+ (NEGATIVE) 05/18/20 08:53 Urine Glucose (UA) 4+ (NEGATIVE) 05/18/20 08:53 Urine Ketones Negative (NEGATIVE) 05/18/20 08:53 Urine Occult Blood 1+ (NEGATIVE) 05/18/20 08:53 Urine Nitrite Negative (NEGATIVE) 05/18/20 08:53 Urine Bilirubin Negative (NEGATIVE) 05/18/20 08:53 Urine Urobilinogen Normal (NORMAL) 05/18/20 08:53 Ur Leukocyte Esterase Negative (NEGATIVE) 05/18/20 08:53 Urine RBC 3-5 /HPF (0-3) A 05/18/20 08:53 Urine WBC 0-2 /HPF (0-5) 05/18/20 08:53 Ur Squamous Epith Cells Few /HPF (NEGATIVE) 05/18/20 08:53 Amorphous Sediment 1+ /HPF (NEGATIVE) 05/18/20 08:53 Urine Bacteria 1+ /HPF (NEGATIVE) 05/18/20 08:53 Granular Casts Few /LPF (NEGATIVE) 05/18/20 08:53 Ur Culture Indicated? No/not indicated 05/18/20 08:53 XRAY XRAY Interpreted by: Radiologist X-ray Results: CXR: Cardiac enlargement with pulmonary vascular congestion. Airspace disease medial right lung may represent pneumonia, less likely asymmetric alveolar edema. Correlate clinically with follow-up. CT chest: 1. No evidence of pulmonary thromboembolism. 2. Right upper and right lower lobe pneumonia 3. Other findings, as above Opioid Opioid Risk Tool Age (Jaden box if 16-45): No History of Preadolescent Sexual Abuse: No Total: 0 Total Score Risk Category: Low Risk Copyright: Tamez predicting aberrant behaviors Diagnosis Discharge Problem: Acquired lymphocytosis, Acute renal insufficiency CHF (congestive heart failure) Qualifiers: Heart failure type: unspecified Heart failure chronicity: acute on chronic Qualified Code(s): I50.9 - Heart failure, unspecified Pneumonia involving right lung Qualifiers: Pneumonia type: due to unspecified organism Lung location: upper lobe of lung Qualified Code(s): J18.9 - Pneumonia, unspecified organism Chest pain Qualifiers: Chest pain type: chest pain on breathing Qualified Code(s): R07.1 - Chest pain on breathing Instructions Forms: Patient Portal Social Distancing ADDITIONAL NOTES Additional Notes Additional Notes: failed outpt therapy; admit with iv abx, gentle diuresis
[2020-05-18 09:07] LABS: ABG BASE EXCESS -1.1 mmol/L (-2.0-2.0); ABG HCO3 22.2 mmol/L (22-26)
--- NOTE | 2020-05-18 09:23 | RAD ---
HISTORYSOBSTUDYAP [id number] cardiac enlargement and right diaphragm elevation. Marked pulmonary vascular congestion with probable airspace disease in the medial right lung, obscuring the hilar complex and right superior mediastinal border. No pleural fluid or pneumothorax seen.IMPRESSIONCardiac enlargement with pulmonary vascular congestion. Airspace disease medial right lung may represent pneumonia, less likely asymmetric alveolar edema. Correlate clinically with follow-up.Electronically signed by: LEXX MUNOZ (May 18, 2020 09:21:31)
[2020-05-18] MEDS ORDERED: NORCO 5/325 MG TAB PO ONE (09:26)
[2020-05-18] MEDS ORDERED: LASIX IVP ONE ×3 (09:26→19:48)
[2020-05-18 09:27] LABS: BASOPHILS # (AUTO) 0.2 X10^3/uL (0.0-0.1); BASOPHILS % (AUTO) 1.3 % (0.2-1.0); EOSINOPHILS % (AUTO) 0.2 % (0.9-2.9); HEMATOCRIT 33.5 % (36.0-47.0); HEMOGLOBIN 10.9 g/dL (12.0-16.0); LYMPHOCYTES # (AUTO) 0.4 X10^3/uL (1.3-2.9); LYMPHOCYTES % (AUTO) 2.7 % (21.0-51.0); MEAN CORPUSCULAR HEMOGLOBIN 28.5 pg (27.0-34.0); MEAN CORPUSCULAR HGB CONC 32.7 g/dL (33.0-35.0); MEAN CORPUSCULAR VOLUME 87.2 fL (80.0-100.0); MONOCYTES # (AUTO) 1.1 x10^3/uL (0.3-0.8); MONOCYTES % (AUTO) 6.7 % (0.0-13.0); NEUTROPHILS # (AUTO) 14.4 x10^3/uL (2.2-4.8); NEUTROPHILS % (AUTO) 89.1 % (42.0-75.0); PLATELET COUNT 306 X10^3/uL (150.0-450.0); RED BLOOD COUNT 3.84 X10^6/uL (3.5-5.4); RED CELL DISTRIBUTION WIDTH 14.6 % (11.6-16.5); WHITE BLOOD COUNT 16.1 X10^3/uL (3.6-10.0)
[2020-05-18] MEDS ORDERED: ROCEPHIN VIAL 1 GRAM 1 G in NS 100 ML IV + SPIKE MINIBAG* 100 ML IV ONE (09:27)
[2020-05-18 09:28] LABS: BLOOD UREA NITROGEN 47 mg/dL (7-18); CARBON DIOXIDE 23.8 mmol/L (21-32); CHLORIDE 103 mmol/L (98-107); COR NA(FOR HYPERGLY) 141 mmol/L (136-145); CREATININE 1.28 mg/dL (0.55-1.02); SODIUM 137 mmol/L (136-145); TROPONIN I < 0.02 ng/mL (0-1.5); eGFR NON BLACK RACES 44 (>60)
[2020-05-18 09:33] LABS: ALANINE AMINOTRANSFERASE 28 Units/L (12-78); ALBUMIN 2.5 g/dL (3.4-5.0); ALKALINE PHOSPHATASE 301 Units/L (46-116); ASPARTATE AMINO TRANSFERASE 15 Units/L (15-37); CKMB % 2.5 % (<4); COR CA(FOR HYPOALB) 10.2 mg/dL (8.5-10.1); CREATINE KINASE 57 Units/L (26-192); CREATINE KINASE MB 1.4 ng/mL (0-4.0); TOTAL PROTEIN 7.1 g/dL (6.4-8.2)
[2020-05-18 09:34] LABS: BILIRUBIN,URINE NEGATIVE (NEGATIVE); BLOOD/HEMOGLOBIN,URINE 1+ (NEGATIVE); GLUCOSE, URINE 4+ (NEGATIVE); KETONES,URINE NEGATIVE (NEGATIVE); LEUKOCYTE ESTERASE ,URINE NEGATIVE (NEGATIVE); NITRITES,URINE NEGATIVE (NEGATIVE); PROTEIN,URINE 3+ (NEGATIVE); UROBILINOGEN,URINE NORMAL (NORMAL)
[2020-05-18 09:35] LABS: APPEARANCE,URINE CLEAR (CLEAR); COLOR,URINE YELLOW (YELLOW)
[2020-05-18] MEDS ORDERED: ROCEPHIN 1 GRAM IV PREMIX 1 G/50 ML IV.SOLN. IV ONE (09:35)
[2020-05-18] MEDS ORDERED: NORCO 5/325 MG TAB ONE (09:35)
[2020-05-18 09:44] LABS: BAND NEUTROPHILS % 8 % (0-10)
[2020-05-18 09:45] LABS: PLATELET MORPHOLOGY COMMENT NORMAL (NORMAL)
[2020-05-18 09:46] LABS: AMORPHOUS SEDIMENT,UR 1+ /HPF (NEGATIVE); BACTERIA,URINE 1+ /HPF (NEGATIVE); GRANULAR CASTS,URINE FEW /LPF (NEGATIVE); SQUAMOUS EPITHELIAL CELL,UR FEW /HPF (NEGATIVE)
--- NOTE | 2020-05-18 11:15 | CT ---
HISTORYELEVATED D DIMER, SOBSTUDYCTA CHESTCOMPARISONChest radiograph from 05/18/2020TECHNIQUEMultiple axial images of the chest were obtained from the thoracic inlet to the upper abdomen after the administration of IV contrast. 3D reconstructions utilizing axial MIPS imaging was performed and reviewed. Dose reduction techniques including Automated Exposure Control (AEC) and adjustment of mA and kV were utilized.FINDINGSPulmonary Arteries:No central or segmental pulmonary embolus.Thoracic Aorta:The thoracic aorta is normal in its contour without evidence for aneurysmal dilatation.Heart: No significant abnormality.Lungs/Pleura: There is ground-glass opacity and airspace consolidation within the medial right upper lobe and right lower lobe, most compatible with pneumonia. Left lung clear. No pleural effusion or pneumothorax.Lymph nodes: No significant thoracic lymphadenopathy.Other: NoneUpper abdomen: Pneumobilia is likely related to prior instrumentation of the ampulla. No acute findings in the upper abdomenOsseous Structures: No acute osseous findings.IMPRESSION1. No evidence of pulmonary thromboembolism.2. Right upper and right lower lobe pneumonia3. Other findings, as aboveElectronically signed by: Sonny Pappas (May 18, 2020 11:13:30)
[2020-05-18] MEDS ORDERED: NORCO 5/325 MG TAB PO PRN (11:44)
[2020-05-18] MEDS ORDERED: ROCEPHIN VIAL 1 GRAM 1 G in NS 100 ML IV + SPIKE MINIBAG* 100 ML IV SCH (11:46)
[2020-05-18] MEDS ORDERED: ZITHROMAX INJ 500 MG VIAL 500 MG in NS 250 ML IV 250 ML IV SCH (11:47)
[2020-05-18] MEDS ORDERED: FORTAZ or TAZICEF VIAL INJ 2 G in NS 100 ML IV + SPIKE MINIBAG* 100 ML IV SCH (12:04)
[2020-05-18] MEDS ORDERED: NS 250 ML IV 250 ML IV ONE (12:36)
[2020-05-18] MEDS ORDERED: LEVAQUIN PREMIX IV 500 MG 500 MG/100 ML BAG IV ONE (12:37)
[2020-05-18] MEDS: LEVAQUIN PREMIX IV 500 MG 500 MG/100 ML BAG IV SCH (12:44)
[2020-05-18] MEDS: FORTAZ or TAZICEF VIAL INJ 2 G in NS 100 ML IV + SPIKE MINIBAG* 100 ML IV SCH ×2 (15:32→22:00)
[2020-05-18] MEDS: NORCO 5/325 MG TAB PO PRN (15:54)
[2020-05-18] MEDS ORDERED: DUONEB 0.5 MG/3 MG (3 mL) NEB ONE (16:09)
[2020-05-18] MEDS ORDERED: SALINE 3% 15 ML NEB TX ONE (16:10)
[2020-05-18] MEDS ORDERED: SALINE 3% 15 ML NEB TX NEB ONE (16:21)
[2020-05-18] MEDS: DUONEB 0.5 MG/3 MG (3 mL) NEB SCH ×2 (16:30→20:18)
[2020-05-18] MEDS: HumuLIN R SUBCUT PRN ×2 (17:44→20:51)
[2020-05-18] MEDS ORDERED: PULMICORT NEB TX 0.5 MG NEB ONE (19:37)
[2020-05-18] MEDS ORDERED: CELEXA ONE (19:49)
[2020-05-18] MEDS ORDERED: CRESTOR TAB 10 MG PO ONE (19:49)
[2020-05-18] MEDS ORDERED: COREG TAB 6.25 MG ONE (19:49)
--- NOTE | 2020-05-18 19:49 | DR.H&P ---
H&P - History & Physical for Day of: H&P Date: 05/18/20 - Chief Complaint Chief Complaint: SOB, COUGH, CHILLS - History of Present Illness History of Present Illness: IS A 64 YEAR OLD PATIENT OF OURS WHO PRESENTED TO THE ER WITH COMPLAINTS OF COUGH, SHORNESS OF BREATH, AND CHILLS SYPOTOMS REPORTEDLY STARTED ABOUT A WEEK AGO AND HAVE PROGRESSIVELY GOTTEN WORSE. SHORTNESS OF BREATH IS WORSE ON EXERTION. SHE WAS SEEN IN THE [place], [place] ER YESTERDAY, WHERE SHE WAS TREATED FOR BRONCHITIS AND SENT HOME ON AMOXIL AND PREDNISONE. SHE DENIES FEVER, ABDOMINAL PAIN, CHEST PAIN, NAUSEA, VOMITING, DIARRHEA, LE SWELLING, OR RASH. OTHER PMH INCLUDES COPD, CAD, DYSLIPIDEMIA, HTN. ON EXAMINATION, HEART IS REGULAR IN RATE AND RHYTHM. BILATERAL LUNGS ARE NOTED WITH SCATTERED WHEEZING THROUGHOUT. ABDOMEN IS ROUND, SOFT, AND NON-TENDER WITH NORMAL BOWEL SOUNDS NOTED IN ALL QUADRANTS. NO SWELLING NOTED TO LOWER EXTREMITIES. HER VITALS ON ARRIVAL TO THE ER WERE: 97.9-87-20-92%-119/75. LABS WERE OBTAINED. ABNORMAL LAB VALUES INCLUDE THE FOLLOWING: WBC 16.1, HGB 10.9, HCT 33.5, D-DIMER 1.78, BUN 47, CREATININE 1.28, GLUCOSE 252, ALK PHOS 301, BNP 930, ALBUMIN 2.5, GLOBULIN 4.6. URINALYSIS REVEALED: WBC 0-2, RBC 3-5, BACTERIA 1+, LEUKOCYTES NEGATIVE, OCCULT BLOOD 1+, PROTEIN 3+. BLOOD AND SPUTUM CULTURES WERE SET UP. COVID, INFLUENZA, AND RSV NEGATIVE. AN ABG WAS OBTAINED AND REVEALED: PH 7.450, PC02 32, P02 53, HC03 22.2, 02 SAT 89, A-A GRADIENT 57, FI02 21.0. A CHEST XRAY WAS OBTAINED AND REVEALED: Cardiac enlargement with pulmonary vascular congestion. Airspace disease medial right lung may represent pneumonia, less likely asymmetric alveolar edema. EKG OBTAINED AND REVEALED: SINUS RHYTHM WITH HR 85. CHEST CTA OBTAINED AND REVEALED: 1. No evidence of pulmonary thromboembolism. 2. Right upper and right lower lobe pneumonia. SHE WAS PLACED ON NASAL CANNULA. SATURATIONS INCREASED TO 96-97%. IN THE ER, SHE WAS GIVEN LASIX 40MG IV X 1 DOSE, NORCO 5/325MG PO X 1 DOSE, ROCEPHIN 1G IV X 1 DOSE, AND A SALINE NEB TX. SHE REPORTED ONLY SLIGHT IMPROVEMENT IN SYMPTOMS. SHE WAS ADMITTED TO THE HOSPITAL FOR FURTHER EVALUATION AND TREATMENT OF RUL AND RLL PNEUMONIA, MILD CHF, HYPOXIA, AND COPD. SHE WAS STARTED ON LEVAQUIN 500MG IV D AILY, FORTAZ 2G IV Q8H, DUONEBS QID, PULMICORT BID, LASIX 40MG IV DAILY, HUMULIN R SLIDING SCALE, OTBS ACHS, COREG 6.25MG PO BID, CELEXA 20MG PO HS, KLONOPIN 1MG PO HS, PLAVIX 75MG PO DAILY, NORCO 5/325MG PO Q6H PRN, COZAAR 50MG PO DAILY, MAG-OX 400MG PO DAILY, CRESTOR 20MG PO HS. OTHERWISE, WE PLAN TO FOLLOW UP WITH AM LABS AND CONTINUE TO MONITOR. TIME SPENT ON CLINICAL ASSESSMENT, REVIEWING LABS AND IMAGING, DECISION MAKING, AND DOCUMENTATION WAS GREATER THAN 75 MINUTES. - Past Medical History Past Medical History: Coronary Artery Disease, Hypertension, Dyslipidemia, COPD - Past Surgical History Surgical History: Angioplasty/Stents, Cholecystectomy, Lithotripsy, Other - Family History Family Medical History: Diabetes Mellitus, Cancer, ID, Hypertension - Social History Does patient currently use any type of tobacco product: No Have you used tobacco products in the last 12 months: No Type of Tobacco Use: None Does any household member use tobacco: No Alcohol Use: None Drug Use: None - Medications Home Medications: codeine Allergy (Verified 02/09/18 18:08) doxycycline Allergy (Verified 02/09/18 18:08) CONTINUE taking the following medications cyclobenzaprine 10 mg PO BID PRN 05/18/20 [History] empagliflozin [Jardiance] 25 mg PO DAILY 05/18/20 [History] glipizide 10 mg PO DAILY 05/18/20 [History] insulin detemir U-100 [Levemir U-100 Insulin] 43 unit SUBCUT BID 05/18/20 [History] losartan 50 mg PO QDAY 05/18/20 [History] - Review of Systems Constitutional: See HPI, Chills, Weakness Eyes: No Symptoms Reported ENT: No Symptoms Reported Respiratory: See HPI, Cough, Shortness of Breath, Wheezing. denies: Sputum Cardiovascular: No Symptoms Reported Gastrointestinal: No Symptoms Reported Genitourinary: No Symptoms Reported Musculoskeletal: No Symptoms Reported Skin: No Symptoms Reported Neurological: Weakness - Physical Exam Vital Signs: Temperature 98.1 F Pulse Rate 80 Respiratory Rate 18 Blood Pressure [Right Arm] 123/60 Blood Pressure 119/55 O2 Sat by Pulse Oximetry 100 Oriented: Normal Eyes: Normal Ear: Normal Nose: Normal Throat: Normal Respiratory: Wheezes Throughout Cardiovascular: Normal : Normal Auscultation: Bowel Sounds: Normal Palpation: Normal Tenderness: Normal Skin: Normal Musculoskeletal: Normal Psychiatric: Normal Mood Description: Calm Affect: Normal Speech Pattern: Clear - Assessment/Plan (1) Multifocal pneumonia Status: Acute Plan: ADMIT, SUPPLEMENTAL OXYGEN, LEVAQUIN 500MG IV DAILY, FORTAZ 2G IV Q8H, DUONEBS QID, PULMICORT BID, LASIX 40MG IV DAILY, HUMULIN R SLIDING SCALE, OTBS ACHS, COREG 6.25MG PO BID, CELEXA 20MG PO HS, KLONOPIN 1MG PO HS, PLAVIX 75MG PO DAILY, NORCO 5/325MG PO Q6H PRN, COZAAR 50MG PO DAILY, MAG-OX 400MG PO DAILY, CRESTOR 20MG PO HS. (2) Hypoxia Status: Acute (3) COPD (chronic obstructive pulmonary disease) Qualifiers: COPD type: unspecified COPD Qualified Code(s): J44.9 - Chronic obstructive pulmonary disease, unspecified Status: Acute (4) CHF (congestive heart failure) Qualifiers: Heart failure type: unspecified Heart failure chronicity: acute on chronic Qualified Code(s): I50.9 - Heart failure, unspecified Status: Acute - Review H&P Reviewed: Yes Patient was examined?: No - Allergies Allergies/Adverse Reactions: Allergies Allergy/AdvReac Type Severity Reaction Status Date / Time codeine Allergy Verified 02/09/18 18:08 doxycycline Allergy Verified 02/09/18 18:08
[2020-05-18] MEDS: SNACK - Diabetic Appropriate PO SCH (20:00)
[2020-05-18] MEDS: PULMICORT NEB TX 0.5 MG NEB SCH (20:18)
[2020-05-18] MEDS: CELEXA PO SCH (20:45)
[2020-05-18] MEDS: COREG TAB 6.25 MG PO SCH (20:45)
[2020-05-18] MEDS: CRESTOR TAB 10 MG PO SCH (20:46)
[2020-05-18] MEDS: KLONOPIN TAB 1 MG PO PRN (20:46)
[2020-05-18] MEDS: LASIX IVP SCH (20:51)
[2020-05-19] MEDS: NORCO 5/325 MG TAB PO PRN (00:02)
[2020-05-19] MEDS ORDERED: MAG-OX TAB ONE (04:55)
[2020-05-19] MEDS: HumuLIN R SUBCUT PRN ×3 (06:05→20:42)
[2020-05-19] MEDS: FORTAZ or TAZICEF VIAL INJ 2 G in NS 100 ML IV + SPIKE MINIBAG* 100 ML IV SCH ×3 (06:07→21:00)
[2020-05-19] MEDS: MAG-OX TAB PO SCH (06:07)
[2020-05-19 06:32] LABS: BASOPHILS % (AUTO) 0.2 % (0.2-1.0); EOSINOPHILS # (AUTO) 0.2 x10^3/uL (0.0-0.2); EOSINOPHILS % (AUTO) 1.3 % (0.9-2.9); HEMATOCRIT 31.1 % (36.0-47.0); HEMOGLOBIN 10.4 g/dL (12.0-16.0); LYMPHOCYTES # (AUTO) 0.8 X10^3/uL (1.3-2.9); LYMPHOCYTES % (AUTO) 6.9 % (21.0-51.0); MEAN CORPUSCULAR HEMOGLOBIN 28.8 pg (27.0-34.0); MEAN CORPUSCULAR HGB CONC 33.4 g/dL (33.0-35.0); MEAN CORPUSCULAR VOLUME 86.4 fL (80.0-100.0); MEAN PLATELET VOLUME 7.9 fL (7.4-11.0); MONOCYTES % (AUTO) 8.1 % (0.0-13.0); NEUTROPHILS # (AUTO) 9.8 x10^3/uL (2.2-4.8); NEUTROPHILS % (AUTO) 83.5 % (42.0-75.0); PLATELET COUNT 253 X10^3/uL (150.0-450.0); RED CELL DISTRIBUTION WIDTH 14.3 % (11.6-16.5); WHITE BLOOD COUNT 11.7 X10^3/uL (3.6-10.0)
[2020-05-19 06:39] LABS: ALBUMIN 2.1 g/dL (3.4-5.0); CALCIUM 8.6 mg/dL (8.5-10.1); CARBON DIOXIDE 23.7 mmol/L (21-32); COR CA(FOR HYPOALB) 10.1 mg/dL (8.5-10.1); CREATININE 1.42 mg/dL (0.55-1.02); TOTAL PROTEIN 6.7 g/dL (6.4-8.2)
[2020-05-19] MEDS: PLAVIX PO SCH (09:10)
[2020-05-19] MEDS: LASIX IVP SCH (09:10)
[2020-05-19] MEDS: LEVAQUIN PREMIX IV 500 MG 500 MG/100 ML BAG IV SCH (09:10)
[2020-05-19] MEDS: COZAAR PO SCH (09:10)
[2020-05-19] MEDS: COREG TAB 6.25 MG PO SCH ×2 (09:10→20:39)
[2020-05-19] MEDS: DUONEB 0.5 MG/3 MG (3 mL) NEB SCH ×4 (09:30→21:05)
[2020-05-19] MEDS: PULMICORT NEB TX 0.5 MG NEB SCH ×2 (09:30→21:05)
[2020-05-19] MEDS: TORADOL 30 MG VIAL IVP SCH ×3 (11:51→21:00)
[2020-05-19 12:55] VITALS: BMI 34.8
[2020-05-19] MEDS: KLONOPIN TAB 1 MG PO PRN (20:39)
[2020-05-19] MEDS: CRESTOR TAB 10 MG PO SCH (20:39)
[2020-05-19] MEDS: CELEXA PO SCH (20:40)
[2020-05-19] MEDS: SNACK - Diabetic Appropriate PO SCH (20:53)
--- NOTE | 2020-05-19 22:28 | PCM.PROG ---
Progress Note - Progress Note for Day of Date of Exam: 05/19/20 - Subjective Subjective: WAS ADMITTED FOR TREATMENT OF MULTIFOCAL PNEUMONIA, HYPOXIA, COPD, AND CHF. SHE HAS A PMH OF PMH INCLUDES COPD, CAD, DYSLIPIDEMIA, HTN. TODAY, SHE IS ALERT AND ORIENTED, LYING IN BED ON MORNING ROUNDS. SHE CONTINUES WITH COMPLAINTS OF SHORTNESS OF BREATH AND A NON-PRODUCTIVE COUGH. SHE REPORTS BILATERAL RIB PAIN WHEN SHE COUGHS. SHE IS CURRENTLY UTILIZING OXYGEN VIA NASAL CANNULA AT 2 L/MIN. ON EXAMINATION, HEART IS REGULAR IN RATE AND RHYTHM. BILATERAL LUNGS ARE NOTED WITH SCATTERED WHEEZING THROUGHOUT. ABDOMEN IS ROUND, SOFT, AND NON-TENDER WITH NORMAL BOWEL SOUNDS NOTED IN ALL QUADRANTS. HER VITALS THIS MORNING ARE: 97.6-74-20-98%-121/56. LABS WERE OBTAINED. ABNORMAL LAB VALUES INCLUDE THE FOLLOWING: WBC 11.7, HGB 10.4, HCT 31.1, BUN 47, CREATININE 1.42, GLUCOSE 162, ALK PHOS 274, BNP 390, ALBUMIN 2.1, GLOBULIN 4.6. BLOOD AND SPUTUM CULTURES ARE PENDING. CHEST XRAY REVEALED: PERSISTENT RIGHT SIDED AIRSPACE DISEASE CONSITENT WITH UPPER AND LOWER LOBE PNEUMONIA. HE IS CURRENTLY RECEIVING LEVAQUIN 500MG IV DAILY, FORTAZ 2G IV Q8H, DUONEBS QID, PULMICORT BID, LASIX 40MG IV DAILY, HUMULIN R SLIDING SCALE, OTBS ACHS, COREG 6.25MG PO BID, CELEXA 20MG PO HS, KLONOPIN 1MG PO HS, PLAVIX 75MG PO DAILY, NORCO 5/325MG PO Q6H PRN, COZAAR 50MG PO DAILY, MAG-OX 400MG PO DAILY, CRESTOR 20MG PO HS. TODAY, WE WILL ADD TORADOL 15MG IV Q6H. WE WILL CHANGE LASIX TO 20MG IV BID. OTHERWISE, WE WILL CONTINUE WITH CURRENT PLAN OF CARE TODAY. WE PLAN TO FOLLOW UP WITH AM LABS AND CONTINUE TO MONITOR. TIME SPENT ON CLINICAL ASSESSMENT, REVIEWING LABS AND IMAGING, DECISION MAKING, AND DOCUMENTATION WAS GREATER THAN 45 MINUTES. - Past Medical Family Social History Past Med/Fam/Surg Hx: No changes since H&P Allergies: Allergies codeine Allergy (Verified 02/09/18 18:08) doxycycline Allergy (Verified 02/09/18 18:08) - Review of Systems ROS: No change since H&P - Vital Signs and I&O's Vital Signs: Temperature 98.0 F Pulse Rate [Left Radial] 75 Pulse Rate 75 Respiratory Rate 20 Blood Pressure [Left Arm] 134/61 Blood Pressure [Right Arm] 124/60 Blood Pressure 119/55 O2 Sat by Pulse Oximetry 96 Intake and Output: Intake & Output 05/17/20 05/18/20 05/19/20 05/20/20 11:59 11:59 11:59 11:59 Intake Total 1696 / 1696 2200 / 2200 Balance 1696 / 1696 2200 / 2200 - Physical Exam Oriented: Normal Eyes: Normal Ear: Normal Nose: Normal Throat: Normal Respiratory: Generalized, Wheezes Cardiovascular: Normal : Normal Auscultation: Bowel Sounds: Normal Palpation: Normal Tenderness: Normal Skin: Normal Musculoskeletal: Normal Psychiatric: Normal Mood Description: Calm Affect: Normal Speech Pattern: Clear, Appropriate - Laboratory and Diagnostics Result Diagrams: 05/19/20 05:59 05/19/20 05:59 Labs: 05/18/20 17:00 Sputum - Expectorated Sputum - Final Laboratory WBC 11.7 X10^3/uL (3.6-10.0) H 05/19/20 05:59 RBC 3.60 X10^6/uL (3.5-5.4) 05/19/20 05:59 Hgb 10.4 g/dL (12.0-16.0) L 05/19/20 05:59 Hct 31.1 % (36.0-47.0) L 05/19/20 05:59 MCV 86.4 fL (80.0-100.0) 05/19/20 05:59 MCH 28.8 pg (27.0-34.0) 05/19/20 05:59 MCHC 33.4 g/dL (33.0-35.0) 05/19/20 05:59 RDW 14.3 % (11.6-16.5) 05/19/20 05:59 Plt Count 253 X10^3/uL (150.0-450.0) 05/19/20 05:59 Plt Count Comment Adequate (ADEQUATE) 05/18/20 08:57 MPV 7.9 fL (7.4-11.0) 05/19/20 05:59 Neut % (Auto) 83.5 % (42.0-75.0) H 05/19/20 05:59 Lymph % (Auto) 6.9 % (21.0-51.0) L 05/19/20 05:59 [place] % (Auto) 8.1 % (0.0-13.0) 05/19/20 05:59 Eos % (Auto) 1.3 % (0.9-2.9) 05/19/20 05:59 Baso % (Auto) 0.2 % (0.2-1.0) 05/19/20 05:59 Neut # (Auto) 9.8 x10^3/uL (2.2-4.8) H 05/19/20 05:59 Lymph # (Auto) 0.8 X10^3/uL (1.3-2.9) L 05/19/20 05:59 [place] # (Auto) 1.0 x10^3/uL (0.3-0.8) H 05/19/20 05:59 Eos # (Auto) 0.2 x10^3/uL (0.0-0.2) 05/19/20 05:59 Baso # (Auto) 0.0 X10^3/uL (0.0-0.1) 05/19/20 05:59 Absolute Nucleated RBC 0.1 /100WBC 05/19/20 05:59 Total Counted 100 05/18/20 08:57 Neutrophils % (Manual) 86 % (39-76) H 05/18/20 08:57 Band Neutrophils % 8 % (0-10) 05/18/20 08:57 Lymphocytes % (Manual) 3 % (13-43) L 05/18/20 08:57 Monocytes % (Manual) 3 % (4-9) L 05/18/20 08:57 Plt Morphology Comment Normal (NORMAL) 05/18/20 08:57 RBC Morphology Normal (NORMAL) 05/18/20 08:57 D-Dimer 1.78 ug/ml (0.0-0.57) H* 05/18/20 08:57 Sample Site Right brachial 05/18/20 09:01 ABG pH 7.450 (7.35-7.45) 05/18/20 09:01 ABG pCO2 32.0 mmHg (35.0-45.0) L 05/18/20 09:01 ABG pO2 53.0 mmHg (80.0-100.0) L 05/18/20 09:01 ABG HCO3 22.2 mmol/L (22-26) 05/18/20 09:01 ABG O2 Saturation 89.0 % (90-100) L 05/18/20 09:01 ABG Base Excess -1.1 mmol/L (-2.0-2.0) 05/18/20 09:01 Russ Test Na 05/18/20 09:01 A-a Gradient 57.0 mmHg 05/18/20 09:01 FiO2 21.0 05/18/20 09:01 Blood Gas Comments Jakub well aw 05/18/20 09:01 Sodium 136 mmol/L (136-145) 05/19/20 05:59 Corrected Sodium 137 mmol/L (136-145) 05/19/20 05:59 Potassium 4.4 mmol/L (3.5-5.1) 05/19/20 05:59 Chloride 103 mmol/L (98-107) 05/19/20 05:59 Carbon Dioxide 23.7 mmol/L (21-32) 05/19/20 05:59 BUN 47 mg/dL (7-18) H 05/19/20 05:59 Creatinine 1.42 mg/dL (0.55-1.02) H 05/19/20 05:59 Est GFR (MDRD) Af Amer 48 (>60) L 05/19/20 05:59 Est GFR (MDRD) Non-Af 39 (>60) L 05/19/20 05:59 Glucose 162 mg/dL (65-99) H 05/19/20 05:59 POC Glucose (mg/dL) 338 mg/dL (65-99) H 05/19/20 19:40 Calcium 8.6 mg/dL (8.5-10.1) 05/19/20 05:59 Corrected Calcium 10.1 mg/dL (8.5-10.1) 05/19/20 05:59 Magnesium 2.3 mg/dL (1.7-2.9) 05/18/20 17:56 Total Bilirubin 0.60 mg/dL (0.2-1.0) 05/19/20 05:59 AST 17 Units/L (15-37) 05/19/20 05:59 ALT 20 Units/L (12-78) 05/19/20 05:59 Alkaline Phosphatase 274 Units/L (46-116) H 05/19/20 05:59 Creatine Kinase 57 Units/L (26-192) 05/18/20 08:57 CK-MB (CK-2) 1.4 ng/mL (0-4.0) 05/18/20 08:57 CK/CKMB % Calc 2.5 % (<4) 05/18/20 08:57 Troponin I < 0.02 ng/mL (0-1.5) 05/18/20 08:57 B-Natriuretic Peptide 390 pg/mL (0-79) H 05/19/20 05:59 Total Protein 6.7 g/dL (6.4-8.2) 05/19/20 05:59 Albumin 2.1 g/dL (3.4-5.0) L 05/19/20 05:59 Globulin 4.6 g/dL (2.5-4.5) H 05/19/20 05:59 Albumin/Globulin Ratio 0.5 Ratio (1.1-2.1) L 05/19/20 05:59 Specimen Type Clean catch urine 05/18/20 08:53 Urine Color Yellow (YELLOW) 05/18/20 08:53 Urine Appearance Clear (CLEAR) 05/18/20 08:53 Urine pH 5.0 (5.0 - 8.0) 05/18/20 08:53 Ur Specific [place] 1.010 (1.000-1.030) 05/18/20 08:53 Urine Protein 3+ (NEGATIVE) 05/18/20 08:53 Urine Glucose (UA) 4+ (NEGATIVE) 05/18/20 08:53 Urine Ketones Negative (NEGATIVE) 05/18/20 08:53 Urine Occult Blood 1+ (NEGATIVE) 05/18/20 08:53 Urine Nitrite Negative (NEGATIVE) 05/18/20 08:53 Urine Bilirubin Negative (NEGATIVE) 05/18/20 08:53 Urine Urobilinogen Normal (NORMAL) 05/18/20 08:53 Ur Leukocyte Esterase Negative (NEGATIVE) 05/18/20 08:53 Urine RBC 3-5 /HPF (0-3) A 05/18/20 08:53 Urine WBC 0-2 /HPF (0-5) 05/18/20 08:53 Ur Squamous Epith Cells Few /HPF (NEGATIVE) 05/18/20 08:53 Amorphous Sediment 1+ /HPF (NEGATIVE) 05/18/20 08:53 Urine Bacteria 1+ /HPF (NEGATIVE) 05/18/20 08:53 Granular Casts Few /LPF (NEGATIVE) 05/18/20 08:53 Ur Culture Indicated? No/not indicated 05/18/20 08:53 SARS-CoV-2 (PCR) Negative (NEGATIVE) 05/18/20 11:33 Influenza Type A (PCR) Negative (NEGATIVE) 05/18/20 11:33 Influenza Type B (PCR) Negative (NEGATIVE) 05/18/20 11:33 RSV (PCR) Negative (NEGATIVE) 05/18/20 11:33 - Plan (1) Multifocal pneumonia Status: Acute Plan: SUPPLEMENTAL OXYGEN, LEVAQUIN 500MG IV DAILY, FORTAZ 2G IV Q8H, DUONEBS QID, PULMICORT BID, LASIX 20MG IV BID, TORADOL 15MG IV Q6H, HUMULIN R SLIDING SCALE, OTBS ACHS, COREG 6.25MG PO BID, CELEXA 20MG PO HS, KLONOPIN 1MG PO HS, PLAVIX 75MG PO DAILY, NORCO 5/325MG PO Q6H PRN, COZAAR 50MG PO DAILY, MAG-OX 400MG PO DAILY, CRESTOR 20MG PO HS. (2) Hypoxia Status: Acute (3) COPD (chronic obstructive pulmonary disease) Status: Acute Qualifiers: COPD type: unspecified COPD Qualified Code(s): J44.9 - Chronic obstructive pulmonary disease, unspecified (4) CHF (congestive heart failure) Status: Acute Qualifiers: Heart failure type: unspecified Heart failure chronicity: acute on chronic Qualified Code(s): I50.9 - Heart failure, unspecified
[2020-05-20] MEDS: TORADOL 30 MG VIAL IVP SCH ×3 (03:36→16:55)
[2020-05-20] MEDS: HumuLIN R SUBCUT PRN ×3 (06:08→21:20)
[2020-05-20] MEDS: FORTAZ or TAZICEF VIAL INJ 2 G in NS 100 ML IV + SPIKE MINIBAG* 100 ML IV SCH ×3 (06:09→20:45)
[2020-05-20] MEDS: MAG-OX TAB PO SCH (06:10)
[2020-05-20 06:13] LABS: BASOPHILS % (AUTO) 0.3 % (0.2-1.0); EOSINOPHILS # (AUTO) 0.2 x10^3/uL (0.0-0.2); EOSINOPHILS % (AUTO) 1.8 % (0.9-2.9); HEMATOCRIT 28.7 % (36.0-47.0); HEMOGLOBIN 9.8 g/dL (12.0-16.0); LYMPHOCYTES # (AUTO) 0.5 X10^3/uL (1.3-2.9); LYMPHOCYTES % (AUTO) 4.9 % (21.0-51.0); MEAN CORPUSCULAR HEMOGLOBIN 29.5 pg (27.0-34.0); MEAN CORPUSCULAR HGB CONC 34.1 g/dL (33.0-35.0); MEAN CORPUSCULAR VOLUME 86.6 fL (80.0-100.0); MEAN PLATELET VOLUME 7.8 fL (7.4-11.0); MONOCYTES # (AUTO) 0.7 x10^3/uL (0.3-0.8); MONOCYTES % (AUTO) 6.9 % (0.0-13.0); NEUTROPHILS # (AUTO) 8.7 x10^3/uL (2.2-4.8); NEUTROPHILS % (AUTO) 86.1 % (42.0-75.0); PLATELET COUNT 240 X10^3/uL (150.0-450.0); RED BLOOD COUNT 3.31 X10^6/uL (3.5-5.4); RED CELL DISTRIBUTION WIDTH 14.5 % (11.6-16.5); WHITE BLOOD COUNT 10.1 X10^3/uL (3.6-10.0)
[2020-05-20 06:30] LABS: ALBUMIN 1.8 g/dL (3.4-5.0); CALCIUM 8.5 mg/dL (8.5-10.1); CARBON DIOXIDE 23.7 mmol/L (21-32); COR CA(FOR HYPOALB) 10.3 mg/dL (8.5-10.1); CREATININE 1.38 mg/dL (0.55-1.02); TOTAL PROTEIN 6.3 g/dL (6.4-8.2)
--- NOTE | 2020-05-20 07:32 | RAD ---
HISTORYSOBSTUDYCHEST, 1 VIEWCOMPARISONOne day prior.TECHNIQUEAP view of the chestFINDINGSCardiac and mediastinal contours are within normal limits. Similar appearance of right perihilar airspace opacity. No discernible pleural effusion or pneumothorax.IMPRESSIONNo significant change.Electronically signed by: Ishaan Noriega (May 20, 2020 07:29:58)
[2020-05-20] MEDS: PLAVIX PO SCH (08:47)
[2020-05-20] MEDS: LASIX IVP SCH ×2 (08:48→16:55)
[2020-05-20] MEDS: COREG TAB 6.25 MG PO SCH ×2 (08:48→20:45)
[2020-05-20] MEDS: COZAAR PO SCH (08:48)
[2020-05-20] MEDS: LEVAQUIN PREMIX IV 500 MG 500 MG/100 ML BAG IV SCH (08:49)
[2020-05-20] MEDS: DUONEB 0.5 MG/3 MG (3 mL) NEB SCH ×4 (09:20→20:55)
[2020-05-20] MEDS: PULMICORT NEB TX 0.5 MG NEB SCH ×2 (09:20→20:55)
[2020-05-20] MEDS ORDERED: ALBUMIN HUMAN 25%- 100 ML 100 ML ONE (09:56)
[2020-05-20] MEDS ORDERED: DIFLUCAN 200 MG IV PREMIX* 200 MG/100 ML BAG IV ONE (09:56)
[2020-05-20] MEDS: ALBUMIN HUMAN 25%- 100 ML 100 ML IV SCH (10:01)
--- NOTE | 2020-05-20 10:02 | PCM.PROG ---
Progress Note - Progress Note for Day of Date of Exam: 05/20/20 - Subjective Subjective: WAS ADMITTED FOR TREATMENT OF MULTIFOCAL PNEUMONIA, HYPOXIA, COPD, AND CHF. SHE HAS A PMH OF PMH INCLUDES COPD, CAD, DYSLIPIDEMIA, HTN. TODAY, SHE IS ALERT AND ORIENTED, LYING IN BED ON MORNING ROUNDS. SHE CONTINUES WITH COMPLAINTS OF SHORTNESS OF BREATH AND A NON-PRODUCTIVE COUGH. SHE REPORTS BILATERAL RIB PAIN WHEN SHE COUGHS. SHE DOES ADMIT TO SLIGHT IMPROVEMENT IN SYMPTOMS SINCE ADMISSION. SHE IS CURRENTLY UTILIZING OXYGEN VIA NASAL CANNULA AT 2 L/MIN. ON EXAMINATION, HEART IS REGULAR IN RATE AND RHYTHM. BILATERAL LUNGS ARE NOTED WITH SCATTERED WHEEZING THROUGHOUT. ABDOMEN IS ROUND, SOFT, AND NON- TENDER WITH NORMAL BOWEL SOUNDS NOTED IN ALL QUADRANTS. HER VITALS THIS MORNING ARE: 99.0-74-24-96%-133/60. LABS WERE OBTAINED. ABNORMAL LAB VALUES INCLUDE THE FOLLOWING: WBC 10.1, RBC 3.31, HGB 9.8, HCT 28.7, BUN 47, CREATININE 1.38, GLUCOSE 226, AST 14, ALK PHOS 266, TOTAL PROTEIN 6.3, ALBUMIN 1.8. BLOOD AND SPUTUM CULTURES ARE PENDING. SHE DOES HAVE AN ABUNDANT AMOUNT OF YEAST IN SPUTUM. CHEST XRAY REVEALED: Cardiac and mediastinal contours are within normal limits. Similar appearance of right perihilar airspace opacity. No discernible pleural effusion or pneumothorax. SHE IS CURRENTLY RECEIVING LEVAQUIN 500MG IV DAILY, FORTAZ 2G IV Q8H, DUONEBS QID, PULMICORT BID, LASIX 20MG IV BID, TORADOL 15MG IV Q6H, HUMULIN R SLIDING SCALE, OTBS ACHS, COREG 6.25MG PO BID, CELEXA 20MG PO HS, KLONOPIN 1MG PO HS, PLAVIX 75MG PO DAILY, NORCO 5/325MG PO Q6H PRN, COZAAR 50MG PO DAILY, MAG-OX 400MG PO DAILY, CRESTOR 20MG PO HS. WE WILL CONTINUE WITH CURRENT PLAN OF CARE TODAY AND ADD DIFLUCAN 200MG IV DAILY. OTHERWISE, WE PLAN TO FOLLOW UP WITH AM LABS AND CONTINUE TO MONITOR. TIME SPENT ON CLINICAL ASSESSMENT, REVIEWING LABS AND IMAGING, DECISION MAKING, AND DOCUMENTATION WAS GREATER THAN 45 MINUTES. - Past Medical Family Social History Past Med/Fam/Surg Hx: No changes since H&P Allergies: Allergies codeine Allergy (Verified 12/12/18 18:08) doxycycline Allergy (Verified 02/09/18 18:08) - Review of Systems ROS: No change since H&P - Vital Signs and I&O's Vital Signs: Temperature 99.0 F Pulse Rate [Left Radial] 74 Pulse Rate 74 Respiratory Rate 24 Blood Pressure [Left Arm] 133/60 Blood Pressure [Right Arm] 124/60 Blood Pressure 119/55 O2 Sat by Pulse Oximetry 96 Intake and Output: Intake & Output 05/17/20 05/18/20 05/19/20 05/20/20 11:59 11:59 11:59 11:59 Intake Total 1696 / 1696 4200 / 4200 Balance 1696 / 1696 4200 / 4200 - Physical Exam Oriented: Normal Eyes: Normal Ear: Normal Nose: Normal Throat: Normal Respiratory: Generalized, Wheezes Cardiovascular: Normal : Normal Auscultation: Bowel Sounds: Normal Palpation: Normal Tenderness: Normal Skin: Normal Musculoskeletal: Normal Psychiatric: Normal Mood Description: Calm Affect: Normal Speech Pattern: Clear, Appropriate - Laboratory and Diagnostics Result Diagrams: 05/20/20 05:30 05/20/20 05:30 Labs: 05/18/20 14:12 Blood Blood Culture - Preliminary 05/18/20 14:06 Blood Blood Culture - Preliminary 05/18/20 17:00 Sputum - Expectorated Sputum Sputum Culture - Preliminary 05/18/20 17:00 Sputum - Expectorated Sputum - Final Laboratory WBC 10.1 X10^3/uL (3.6-10.0) H 05/20/20 05:30 RBC 3.31 X10^6/uL (3.5-5.4) L 05/20/20 05:30 Hgb 9.8 g/dL (12.0-16.0) L 05/20/20 05:30 Hct 28.7 % (36.0-47.0) L 05/20/20 05:30 MCV 86.6 fL (80.0-100.0) 05/20/20 05:30 MCH 29.5 pg (27.0-34.0) 05/20/20 05:30 MCHC 34.1 g/dL (33.0-35.0) 05/20/20 05:30 RDW 14.5 % (11.6-16.5) 05/20/20 05:30 Plt Count 240 X10^3/uL (150.0-450.0) 05/20/20 05:30 Plt Count Comment Adequate (ADEQUATE) 05/18/20 08:57 MPV 7.8 fL (7.4-11.0) 05/20/20 05:30 Neut % (Auto) 86.1 % (42.0-75.0) H 05/20/20 05:30 Lymph % (Auto) 4.9 % (21.0-51.0) L 05/20/20 05:30 [place] % (Auto) 6.9 % (0.0-13.0) 05/20/20 05:30 Eos % (Auto) 1.8 % (0.9-2.9) 05/20/20 05:30 Baso % (Auto) 0.3 % (0.2-1.0) 05/20/20 05:30 Neut # (Auto) 8.7 x10^3/uL (2.2-4.8) H 05/20/20 05:30 Lymph # (Auto) 0.5 X10^3/uL (1.3-2.9) L 05/20/20 05:30 [place] # (Auto) 0.7 x10^3/uL (0.3-0.8) 05/20/20 05:30 Eos # (Auto) 0.2 x10^3/uL (0.0-0.2) 05/20/20 05:30 Baso # (Auto) 0.0 X10^3/uL (0.0-0.1) 05/20/20 05:30 Absolute Nucleated RBC 0.1 /100WBC 05/20/20 05:30 Total Counted 100 05/18/20 08:57 Neutrophils % (Manual) 86 % (39-76) H 05/18/20 08:57 Band Neutrophils % 8 % (0-10) 05/18/20 08:57 Lymphocytes % (Manual) 3 % (13-43) L 05/18/20 08:57 Monocytes % (Manual) 3 % (4-9) L 05/18/20 08:57 Plt Morphology Comment Normal (NORMAL) 05/18/20 08:57 RBC Morphology Normal (NORMAL) 05/18/20 08:57 D-Dimer 1.78 ug/ml (0.0-0.57) H* 05/18/20 08:57 Sample Site Right brachial 05/18/20 09:01 ABG pH 7.450 (7.35-7.45) 05/18/20 09:01 ABG pCO2 32.0 mmHg (35.0-45.0) L 05/18/20 09:01 ABG pO2 53.0 mmHg (80.0-100.0) L 05/18/20 09:01 ABG HCO3 22.2 mmol/L (22-26) 05/18/20 09:01 ABG O2 Saturation 89.0 % (90-100) L 05/18/20 09:01 ABG Base Excess -1.1 mmol/L (-2.0-2.0) 05/18/20 09:01 Russ Test Na 05/18/20 09:01 A-a Gradient 57.0 mmHg 05/18/20 09:01 FiO2 21.0 05/18/20 09:01 Blood Gas Comments Jakub well aw 05/18/20 09:01 Sodium 138 mmol/L (136-145) 05/20/20 05:30 Corrected Sodium 141 mmol/L (136-145) 05/20/20 05:30 Potassium 4.5 mmol/L (3.5-5.1) 05/20/20 05:30 Chloride 104 mmol/L (98-107) 05/20/20 05:30 Carbon Dioxide 23.7 mmol/L (21-32) 05/20/20 05:30 BUN 47 mg/dL (7-18) H 05/20/20 05:30 Creatinine 1.38 mg/dL (0.55-1.02) H 05/20/20 05:30 Est GFR (MDRD) Af Amer 49 (>60) L 05/20/20 05:30 Est GFR (MDRD) Non-Af 41 (>60) L 05/20/20 05:30 Glucose 226 mg/dL (65-99) H 05/20/20 05:30 POC Glucose (mg/dL) 201 mg/dL (65-99) H 05/20/20 05:38 Calcium 8.5 mg/dL (8.5-10.1) 05/20/20 05:30 Corrected Calcium 10.3 mg/dL (8.5-10.1) H 05/20/20 05:30 Magnesium 2.3 mg/dL (1.7-2.9) 05/18/20 17:56 Total Bilirubin 0.40 mg/dL (0.2-1.0) 05/20/20 05:30 AST 14 Units/L (15-37) L 05/20/20 05:30 ALT 24 Units/L (12-78) 05/20/20 05:30 Alkaline Phosphatase 266 Units/L (46-116) H 05/20/20 05:30 Creatine Kinase 57 Units/L (26-192) 05/18/20 08:57 CK-MB (CK-2) 1.4 ng/mL (0-4.0) 05/18/20 08:57 CK/CKMB % Calc 2.5 % (<4) 05/18/20 08:57 Troponin I < 0.02 ng/mL (0-1.5) 05/18/20 08:57 B-Natriuretic Peptide 390 pg/mL (0-79) H 05/19/20 05:59 Total Protein 6.3 g/dL (6.4-8.2) L 05/20/20 05:30 Albumin 1.8 g/dL (3.4-5.0) L 05/20/20 05:30 Globulin 4.5 g/dL (2.5-4.5) 05/20/20 05:30 Albumin/Globulin Ratio 0.4 Ratio (1.1-2.1) L 05/20/20 05:30 Specimen Type Clean catch urine 05/18/20 08:53 Urine Color Yellow (YELLOW) 05/18/20 08:53 Urine Appearance Clear (CLEAR) 05/18/20 08:53 Urine pH 5.0 (5.0 - 8.0) 05/18/20 08:53 Ur Specific [place] 1.010 (1.000-1.030) 05/18/20 08:53 Urine Protein 3+ (NEGATIVE) 05/18/20 08:53 Urine Glucose (UA) 4+ (NEGATIVE) 05/18/20 08:53 Urine Ketones Negative (NEGATIVE) 05/18/20 08:53 Urine Occult Blood 1+ (NEGATIVE) 05/18/20 08:53 Urine Nitrite Negative (NEGATIVE) 05/18/20 08:53 Urine Bilirubin Negative (NEGATIVE) 05/18/20 08:53 Urine Urobilinogen Normal (NORMAL) 05/18/20 08:53 Ur Leukocyte Esterase Negative (NEGATIVE) 05/18/20 08:53 Urine RBC 3-5 /HPF (0-3) A 05/18/20 08:53 Urine WBC 0-2 /HPF (0-5) 05/18/20 08:53 Ur Squamous Epith Cells Few /HPF (NEGATIVE) 05/18/20 08:53 Amorphous Sediment 1+ /HPF (NEGATIVE) 05/18/20 08:53 Urine Bacteria 1+ /HPF (NEGATIVE) 05/18/20 08:53 Granular Casts Few /LPF (NEGATIVE) 05/18/20 08:53 Ur Culture Indicated? No/not indicated 05/18/20 08:53 SARS-CoV-2 (PCR) Negative (NEGATIVE) 05/18/20 11:33 Influenza Type A (PCR) Negative (NEGATIVE) 05/18/20 11:33 Influenza Type B (PCR) Negative (NEGATIVE) 05/18/20 11:33 RSV (PCR) Negative (NEGATIVE) 05/18/20 11:33 - Plan (1) Multifocal pneumonia Status: Acute Plan: SUPPLEMENTAL OXYGEN, LEVAQUIN 500MG IV DAILY, FORTAZ 2G IV Q8H, DIFLUCAN 200MG IV DAILY, DUONEBS QID, PULMICORT BID, LASIX 20MG IV BID, TORADOL 15MG IV Q6H, HUMULIN R SLIDING SCALE, OTBS ACHS, COREG 6.25MG PO BID, CELEXA 20MG PO HS, KLONOPIN 1MG PO HS, PLAVIX 75MG PO DAILY, NORCO 5/325MG PO Q6H PRN, COZAAR 50MG PO DAILY, MAG-OX 400MG PO DAILY, CRESTOR 20MG PO HS. (2) Hypoxia Status: Acute (3) COPD (chronic obstructive pulmonary disease) Status: Acute Qualifiers: COPD type: unspecified COPD Qualified Code(s): J44.9 - Chronic obstructive pulmonary disease, unspecified (4) CHF (congestive heart failure) Status: Acute Qualifiers: Heart failure type: unspecified Heart failure chronicity: acute on chronic Qualified Code(s): I50.9 - Heart failure, unspecified
[2020-05-20] MEDS: DIFLUCAN 200 MG IV PREMIX* 200 MG/100 ML BAG IV SCH (10:05)
[2020-05-20] MEDS ORDERED: LOVENOX INJ 40 MG SYR SC ONE (10:30)
[2020-05-20] MEDS: LOVENOX INJ 40 MG SYR SC SCH (10:40)
[2020-05-20] MEDS: TORADOL 15 MG VIAL IVP SCH (20:45)
[2020-05-20] MEDS: CELEXA PO SCH (20:45)
[2020-05-20] MEDS: CRESTOR TAB 10 MG PO SCH (20:45)
[2020-05-20] MEDS: SNACK - Diabetic Appropriate PO SCH (23:29)
[2020-05-21] MEDS: TORADOL 15 MG VIAL IVP SCH ×2 (04:49→10:10)
[2020-05-21] MEDS: FORTAZ or TAZICEF VIAL INJ 2 G in NS 100 ML IV + SPIKE MINIBAG* 100 ML IV SCH ×2 (05:02→14:48)
[2020-05-21 05:24] LABS: BASOPHILS # (AUTO) 0.1 X10^3/uL (0.0-0.1); BASOPHILS % (AUTO) 1.2 % (0.2-1.0); EOSINOPHILS # (AUTO) 0.2 x10^3/uL (0.0-0.2); EOSINOPHILS % (AUTO) 1.5 % (0.9-2.9); HEMATOCRIT 29.3 % (36.0-47.0); HEMOGLOBIN 9.6 g/dL (12.0-16.0); LYMPHOCYTES # (AUTO) 0.5 X10^3/uL (1.3-2.9); LYMPHOCYTES % (AUTO) 5.5 % (21.0-51.0); MEAN CORPUSCULAR HEMOGLOBIN 28.7 pg (27.0-34.0); MEAN CORPUSCULAR HGB CONC 32.9 g/dL (33.0-35.0); MEAN CORPUSCULAR VOLUME 87.3 fL (80.0-100.0); MEAN PLATELET VOLUME 8.1 fL (7.4-11.0); MONOCYTES # (AUTO) 0.7 x10^3/uL (0.3-0.8); MONOCYTES % (AUTO) 6.9 % (0.0-13.0); NEUTROPHILS # (AUTO) 8.5 x10^3/uL (2.2-4.8); NEUTROPHILS % (AUTO) 84.9 % (42.0-75.0); PLATELET COUNT 251 X10^3/uL (150.0-450.0); RED BLOOD COUNT 3.36 X10^6/uL (3.5-5.4); RED CELL DISTRIBUTION WIDTH 14.3 % (11.6-16.5)
[2020-05-21 05:44] LABS: ALBUMIN 2.1 g/dL (3.4-5.0); CALCIUM 8.6 mg/dL (8.5-10.1); CARBON DIOXIDE 24.5 mmol/L (21-32); COR CA(FOR HYPOALB) 10.1 mg/dL (8.5-10.1); CREATININE 1.21 mg/dL (0.55-1.02); TOTAL PROTEIN 6.5 g/dL (6.4-8.2)
[2020-05-21] MEDS: HumuLIN R SUBCUT PRN ×2 (06:29→11:14)
[2020-05-21] MEDS: DUONEB 0.5 MG/3 MG (3 mL) NEB SCH (08:18)
[2020-05-21] MEDS: PULMICORT NEB TX 0.5 MG NEB SCH (08:18)
[2020-05-21] MEDS ORDERED: DIFLUCAN 200 MG IV PREMIX* 200 MG/100 ML BAG IV ONE (09:45)
[2020-05-21] MEDS ORDERED: ALBUMIN HUMAN 25%- 100 ML 100 ML ONE (09:46)
[2020-05-21] MEDS ORDERED: LOVENOX INJ 40 MG SYR SC ONE (09:46)
[2020-05-21] MEDS ORDERED: TORADOL 15 MG VIAL ONE (09:46)
[2020-05-21 10:04] LABS: ABG BASE EXCESS 0.5 mmol/L (-2.0-2.0); ABG HCO3 24.6 mmol/L (22-26)
[2020-05-21 10:05] LABS: ABG ALLEN TEST POS
[2020-05-21] MEDS: ALBUMIN HUMAN 25%- 100 ML 100 ML IV SCH (10:08)
[2020-05-21] MEDS: MAG-OX TAB PO SCH (10:08)
[2020-05-21] MEDS: DIFLUCAN 200 MG IV PREMIX* 200 MG/100 ML BAG IV SCH (10:09)
[2020-05-21] MEDS: LOVENOX INJ 40 MG SYR SC SCH (10:09)
[2020-05-21] MEDS: LEVAQUIN PREMIX IV 500 MG 500 MG/100 ML BAG IV SCH (10:09)
[2020-05-21] MEDS: COZAAR PO SCH (10:09)
[2020-05-21] MEDS: LASIX IVP SCH (10:09)
[2020-05-21] MEDS: COREG TAB 6.25 MG PO SCH (10:09)
[2020-05-21] MEDS: PLAVIX PO SCH (10:10)
[2020-05-21 12:47] VITALS: BP 153/67
== END 2020-05-21 15:10 | disposition home or self-care (01) | DRG 193 ==
LOC: ER 08:05 → MED/SURG 11:28
PROVIDERS: ADMIT Internal Medicine; ATTEND Internal Medicine
DX: E78.2 Mixed hyperlipidemia; R26.89 Other abnormalities of gait and mobility; Z20.822 Contact with and (suspected) exposure to COVID-19; R07.1 Chest pain on breathing; I50.9 Heart failure, unspecified; I11.0 Hypertensive heart disease with heart failure; I25.10 Atherosclerotic heart disease of native coronary artery without angina pectoris; J18.8 Other pneumonia, unspecified organism; R06.02 Shortness of breath; B37.1 Pulmonary candidiasis; J44.9 Chronic obstructive pulmonary disease, unspecified

== ENCOUNTER 2020-12-19 09:10 | Inpatient (IN) ==
[2020-12-19] MEDS ORDERED: PHARMACY CONSULT - VANCOMYCIN XX SCH (12:20)
[2020-12-19 12:29] VITALS: BMI 34.3
[2020-12-19 13:14] LABS: BASOPHILS # (AUTO) 0.1 X10^3/uL (0.0-0.1); BASOPHILS % (AUTO) 0.8 % (0.2-1.0); EOSINOPHILS # (AUTO) 0.3 x10^3/uL (0.0-0.2); EOSINOPHILS % (AUTO) 3.7 % (0.9-2.9); HEMATOCRIT 36.1 % (36.0-47.0); HEMOGLOBIN 12.5 g/dL (12.0-16.0); LYMPHOCYTES # (AUTO) 1.4 X10^3/uL (1.3-2.9); LYMPHOCYTES % (AUTO) 16.5 % (21.0-51.0); MEAN CORPUSCULAR HEMOGLOBIN 29.4 pg (27.0-34.0); MEAN CORPUSCULAR HGB CONC 34.5 g/dL (33.0-35.0); MEAN PLATELET VOLUME 7.6 fL (7.4-11.0); MONOCYTES # (AUTO) 0.7 x10^3/uL (0.3-0.8); MONOCYTES % (AUTO) 8.1 % (0.0-13.0); NEUTROPHILS # (AUTO) 6.1 x10^3/uL (2.2-4.8); NEUTROPHILS % (AUTO) 70.9 % (42.0-75.0); PLATELET COUNT 256 X10^3/uL (150.0-450.0); RED BLOOD COUNT 4.24 X10^6/uL (3.5-5.4); RED CELL DISTRIBUTION WIDTH 14.4 % (11.6-16.5); WHITE BLOOD COUNT 8.7 X10^3/uL (3.6-10.0)
[2020-12-19 13:30] LABS: ALBUMIN 2.9 g/dL (3.4-5.0); CALCIUM 8.9 mg/dL (8.5-10.1); CARBON DIOXIDE 23.6 mmol/L (21-32); COR CA(FOR HYPOALB) 9.8 mg/dL (8.5-10.1); CREATININE 1.44 mg/dL (0.55-1.02); TOTAL PROTEIN 7.4 g/dL (6.4-8.2)
[2020-12-19] MEDS: VANCOMYCIN IV *PREMIX 1 G/200 ML BAG 1 G/200 ML PIGGYBACK IV SCH ×2 (13:36→21:02)
[2020-12-19] MEDS ORDERED: POLYMYXIN B SULFATE ONE (13:37)
[2020-12-19] MEDS ORDERED: BETADINE SOLN ONE (13:37)
[2020-12-19] MEDS ORDERED: XYLOCAINE 1 % (PLAIN) ONE (13:37)
[2020-12-19] MEDS: MORPHINE SULFATE INJ 2 MG INJ IVP PRN ×3 (13:37→21:16)
[2020-12-19] MEDS ORDERED: NS 1000 ML 1,000 ML ONE (13:39)
[2020-12-19 13:50] LABS: BILIRUBIN,URINE NEGATIVE (NEGATIVE); BLOOD/HEMOGLOBIN,URINE 2+ (NEGATIVE); GLUCOSE, URINE 4+ (NEGATIVE); KETONES,URINE NEGATIVE (NEGATIVE); LEUKOCYTE ESTERASE ,URINE 3+ (NEGATIVE); NITRITES,URINE NEGATIVE (NEGATIVE); PROTEIN,URINE 3+ (NEGATIVE); UROBILINOGEN,URINE NORMAL (NORMAL)
[2020-12-19] MEDS: DUONEB 0.5 MG/3 MG (3 mL) NEB SCH ×2 (13:50→21:17)
[2020-12-19] MEDS ORDERED: FENTANYL VIAL INJ 100 mcg ONE (13:51)
[2020-12-19] MEDS ORDERED: VERSED ONE (13:59)
[2020-12-19] MEDS ORDERED: DIPRIVAN VIAL ONE (13:59)
[2020-12-19] MEDS ORDERED: DUONEB 0.5 MG/3 MG (3 mL) NEB SCH (14:00)
[2020-12-19] MEDS ORDERED: BACTROBAN TOPICAL OINT ONE (14:21)
[2020-12-19 14:22] LABS: APPEARANCE,URINE HAZY (CLEAR); COLOR,URINE PALE YELLOW (YELLOW)
[2020-12-19 14:23] LABS: BACTERIA,URINE 2+ /HPF (NEGATIVE); RBC,URINE 0-2 /HPF (0-3); SQUAMOUS EPITHELIAL CELL,UR NUMEROUS /HPF (NEGATIVE)
[2020-12-19 14:24] LABS: RENAL EPITHELIAL CELLS,URINE MODERATE /HPF (NEGATIVE); YEAST,URINE RARE /HPF (NEGATIVE)
[2020-12-19] MEDS: COREG TAB 6.25 MG PO SCH ×2 (16:55→21:04)
[2020-12-19] MEDS: HumuLIN R SUBCUT PRN ×2 (16:56→21:21)
[2020-12-19] MEDS: SNACK - Diabetic Appropriate PO SCH (20:05)
[2020-12-19] MEDS: CELEXA PO SCH (21:02)
[2020-12-19] MEDS: CRESTOR TAB 10 MG PO SCH (21:04)
[2020-12-19] MEDS: LEVEMIR SC SCH (21:07)
[2020-12-20] MEDS: ULTRAM PO PRN ×2 (01:48→08:10)
[2020-12-20] MEDS: KLONOPIN TAB 1 MG PO PRN ×2 (01:49→21:02)
[2020-12-20] MEDS: DUONEB 0.5 MG/3 MG (3 mL) NEB SCH ×3 (05:45→20:16)
[2020-12-20] MEDS: MORPHINE SULFATE INJ 2 MG INJ IVP PRN ×3 (05:45→22:08)
[2020-12-20 06:13] LABS: BASOPHILS # (AUTO) 0.1 X10^3/uL (0.0-0.1); BASOPHILS % (AUTO) 0.8 % (0.2-1.0); EOSINOPHILS # (AUTO) 0.2 x10^3/uL (0.0-0.2); EOSINOPHILS % (AUTO) 3.3 % (0.9-2.9); HEMATOCRIT 34.7 % (36.0-47.0); LYMPHOCYTES # (AUTO) 1.1 X10^3/uL (1.3-2.9); LYMPHOCYTES % (AUTO) 15.1 % (21.0-51.0); MEAN CORPUSCULAR HEMOGLOBIN 29.3 pg (27.0-34.0); MEAN CORPUSCULAR HGB CONC 34.4 g/dL (33.0-35.0); MEAN CORPUSCULAR VOLUME 85.2 fL (80.0-100.0); MEAN PLATELET VOLUME 8.1 fL (7.4-11.0); MONOCYTES # (AUTO) 0.6 x10^3/uL (0.3-0.8); NEUTROPHILS # (AUTO) 5.4 x10^3/uL (2.2-4.8); NEUTROPHILS % (AUTO) 72.8 % (42.0-75.0); PLATELET COUNT 207 X10^3/uL (150.0-450.0); RED BLOOD COUNT 4.08 X10^6/uL (3.5-5.4); RED CELL DISTRIBUTION WIDTH 14.6 % (11.6-16.5); WHITE BLOOD COUNT 7.4 X10^3/uL (3.6-10.0)
[2020-12-20 06:22] LABS: ALBUMIN 2.6 g/dL (3.4-5.0); CALCIUM 8.5 mg/dL (8.5-10.1); CARBON DIOXIDE 21.9 mmol/L (21-32); COR CA(FOR HYPOALB) 9.6 mg/dL (8.5-10.1); CREATININE 1.26 mg/dL (0.55-1.02); TOTAL PROTEIN 6.8 g/dL (6.4-8.2)
[2020-12-20] MEDS: HumuLIN R SUBCUT PRN ×4 (07:02→21:14)
[2020-12-20] MEDS: VANCOMYCIN IV *PREMIX 1 G/200 ML BAG 1 G/200 ML PIGGYBACK IV SCH ×2 (08:09→22:07)
[2020-12-20] MEDS: ELAVIL PO SCH (08:10)
[2020-12-20] MEDS: COREG TAB 6.25 MG PO SCH ×2 (08:10→21:02)
[2020-12-20] MEDS: MAG-OX TAB PO SCH (08:10)
[2020-12-20] MEDS: COZAAR PO SCH (08:10)
[2020-12-20] MEDS: GLUCOTROL XL 24-HR PO SCH (08:10)
[2020-12-20] MEDS: LEVEMIR SC SCH ×2 (08:12→21:02)
[2020-12-20] MEDS ORDERED: PATIENT'S HOME MEDICATION (Magnesium Oxide 400 mg magnesium Tablet) PO SCH (09:00)
--- NOTE | 2020-12-20 09:29 | DR.H&P ---
H&P - History & Physical for Day of: H&P Date: 12/19/20 - Chief Complaint Chief Complaint: RIGHT INDEX FINGER WOUND, SWELLING - History of Present Illness History of Present Illness: IS A 65 YEAR OLD PATIENT OF OURS. SHE IS A DIRECT ADMISSION TO THE HOSPITAL DUE TO INFECTED WOUND AND CELLULITIS OF THE RIGHT INDEX FINGER. PATIENT REPORTS THAT SHE WAS GRATING CORN ABOUT TWO WEEKS AGO AND RAN THE TIP OF HER FINGER ACROSS THE GRATER. PATIENT HAS ERYTHEMA AND EDEMA FROM THE TIP OF THE FINGER, TO THE BASE. THERE IS ABSCESS FORMATION AND NECROTIC TISSUE AROUND THE DISTAL INDEX FINGER. SHE WAS EVALUATED BY , GENERAL SURGEON, TODAY. HE RECOMMENDED DEBRIDEMENT AND IV ANTIBIOTICS. PATIENT REPORTS THROBBING PAIN TO THE RIGHT INDEX FINGER. PAIN IS RATED A 6/10. HER PMH INCLUDES CAD, HYPERLIPIDEMIA, HTN, COPD, DM II, CARDIAC STENTS, CHOLECYSTECTOMY, AND LITHOTRIPSY. ON ARRIVAL TO THE HOSPITAL, VITALS WERE 98.1-62-20-97%-153/68. LABS WERE OBTAINED. ABNORMAL LAB VALUES INCLUDED THE FOLLOWING: SODIUM 135, BUN 36, CREATININE 1.44, GLUCOSE 162, AST 12, ALK PHOS 137, ALBUMIN 2.9. WBC WAS NORMAL AT 8.7. URINALYSIS WAS OBTAINED DUE TO PAINFUL URINATION AND REAVEALED: WBC 20-30, RBC 0-2, LEUKOCYTES 3+, BACTERIA 2+, OCCULT BLOOD 2+. COVID, INFLUENZA, AND RSV NEGATIVE. BLOOD AND WOUND CULTURES WERE OBTAINED. PLANS FOR DEBRIDEMENT TODAY. WE ARE IN AGREEMENT WITH PLANS. SHE WAS STARTED ON NORMAL SALINE AT 50 ML/HR, VANCOMYCIN 1G IV Q12H, LEVAQUIN 500MG IV DAILY, MORPHINE SULFATE 2MG IV Q4H PRN, OTBS ACHS, HUMULIN R SLIDING SCALE, AND HOME MEDICATIONS OF [place], COREG, CELEXA, KLONOPIN, FLEXERIL, GLUCOTROL, LEVEMIR, COZAAR, MAG-OX, CRESTOR, AND ULTRAM WERE RESUMED. OTHERWISE, WE PLAN TO FOLLOW UP WITH AM LABS AND CONTINUE TO MONITOR. TIME SPENT ON CLINICAL ASSESSMENT, REVIEWING LABS AND IMAGING, DECISION MAKING, AND DOCUMENTATION GREATER THAN 75 MINUTES. - Past Medical History Past Medical History: Coronary Artery Disease, Hypertension, Dyslipidemia, COPD - Past Surgical History Surgical History: Angioplasty/Stents, Cholecystectomy, Lithotripsy, Other - Family History Family Medical History: Diabetes Mellitus, Cancer, [place], Hypertension - Social History Does patient currently use any type of tobacco product: No Have you used tobacco products in the last 12 months: No Type of Tobacco Use: None Does any household member use tobacco: No Alcohol Use: None Drug Use: None - Medications Home Medications: codeine Allergy (Verified 02/09/18 18:08) doxycycline Allergy (Verified 02/09/18 18:08) CONTINUE taking the following medications amitriptyline 25 mg PO DAILY 12/19/20 [History] losartan 50 mg PO DAILY 12/19/20 [History] sulfamethoxazole-trimethoprim 1 tab PO BID 12/19/20 [History] tramadol 50 mg PO QID PRN 12/19/20 [History] - Review of Systems Constitutional: Weakness Eyes: No Symptoms Reported ENT: No Symptoms Reported Respiratory: No Symptoms Reported Cardiovascular: No Symptoms Reported Gastrointestinal: No Symptoms Reported Genitourinary: See HPI, Dysuria Musculoskeletal: See HPI, Other (RIGHT INDEX FINGER PAIN ) Skin: See HPI (RIGHT INDEX FINGER WOUND, ABSCESS, SWELLING ), Wound Neurological: No Symptoms Reported - Physical Exam Vital Signs: Temperature 97.1 F Pulse Rate [Left Brachial] 66 Pulse Rate [Right Brachial] 62 Pulse Rate 97 Respiratory Rate 20 Blood Pressure [Right Arm] 153/68 Blood Pressure [Left Arm] 138/63 O2 Sat by Pulse Oximetry 93 Oriented: Normal Eyes: Normal Ear: Normal Nose: Normal Throat: Normal Respiratory: Clear Throughout Cardiovascular: Normal : Dysuria Auscultation: Bowel Sounds: Normal Palpation: Normal Tenderness: Normal Skin: Red, Tender, Hot, Wound Musculoskeletal: Right (RIGHT INDEX FINGER SWELLING ), Swelling, Tender Psychiatric: Normal Mood Description: Calm Affect: Normal Speech Pattern: Clear - Assessment/Plan (1) Cellulitis of finger of right hand Status: Acute Plan: DEBRIDEMENT TODAY, NORMAL SALINE AT 50 ML/HR, VANCOMYCIN 1G IV Q12H, LEVAQUIN 500MG IV DAILY, MORPHINE SULFATE 2MG IV Q4H PRN, OTBS ACHS, HUMULIN R SLIDING SCALE, RESUME HOME MEDS (2) Abscess of finger, right Status: Acute (3) Urinary tract infection Qualifiers: Urinary tract infection type: site unspecified Hematuria presence: with hematuria Qualified Code(s): N39.0 - Urinary tract infection, site not specified; R31.9 - Hematuria, unspecified Status: Acute - Allergies Allergies/Adverse Reactions: Allergies Allergy/AdvReac Type Severity Reaction Status Date / Time codeine Allergy Verified 02/09/18 18:08 doxycycline Allergy Verified 02/09/18 18:08
[2020-12-20] MEDS ORDERED: NS 100 ML IV 100 ML ONE (09:41)
[2020-12-20] MEDS: LEVAQUIN PREMIX IV 500 MG 500 MG/100 ML BAG IV SCH (10:50)
--- NOTE | 2020-12-20 11:02 | PCM.PROG ---
Progress Note - Progress Note for Day of Date of Exam: 12/20/20 - Subjective Subjective: IS BEING TREATED FOR CELLULITIS OF THE RIGHT INDEX FINGER, RIGHT FINGER ABSCESS, AND URINARY TRACT INFECTION. SHE IS STATUS POST DEBRIDEMENT OF WOUND. TODAY, SHE IS ALERT AND ORIENTED, SITTING UP IN BED ON MORNING ROUNDS. SHE REPORTS MILD, THROBBING PAIN TO THE FINGER. SHE ALSO C ONTINUES WITH PAINFUL URINATION, BUT DOES REPORT MILD IMPROVEMENT IN SYMPTOMS TODAY. ON EXAMINATION, HEART IS REGULAR IN RATE AND RHYTHM. BILATERAL LUNGS ARE CLEAR TO AUSCULTATION. ABDOMEN IS ROUND, SOFT, AND NON-TENDER WITH NON-TENDER WITH NORMAL BOWEL SOUNDS NOTED IN ALL QUADRANTS. BULKY DRESSING NOTED TO RIGHT HAND. HER VITALS THIS MORNING ARE: 97.1-66-18-93%-138/63. LABS WERE OBTAINED. ABNORMAL LAB VALUES INCLUDE THE FOLLOWING: HCT 34.7, BUN 34, CREATININE 1.26, GLUCOSE 205, ALT 11, ALK PHOS 126, ALBUMIN 2.6. BLOOD AND WOUND CULTURES PENDING. SHE IS CURRENTLY RECEIVING NORMAL SALINE AT 50 ML/HR, VANCOMYCIN 1G IV Q12H, LEVAQUIN 500MG IV DAILY, MORPHINE SULFATE 2MG IV Q4H PRN, OTBS ACHS, H UMULIN R SLIDING SCALE, AND HOME MEDICATIONS OF ELAVIL, COREG, CELEXA, KLONOPIN, FLEXERIL, GLUCOTROL, LEVEMIR, COZAAR, MAG-OX, CRESTOR, AND ULTRAM WERE RESUMED. WE WILL CONTINUE WITH CURRENT PLAN OF CARE TODAY. OTHERWISE, WE WILL FOLLOW UP WITH AM LABS AND CONTINUE TO MONITOR. TIME SPENT ON CLINICAL ASSESSMENT, REVIEWING LABS AND IMAGING, DECISION MAKING, AND DOCUMENTATION GREATER THAN 75 MINUTES. - Past Medical Family Social History Past Med/Fam/Surg Hx: No changes since H&P Allergies: Allergies codeine Allergy (Verified 02/09/18 18:08) doxycycline Allergy (Verified 02/09/18 18:08) - Review of Systems ROS: No change since H&P - Vital Signs and I&O's Vital Signs: Temperature 97.1 F Pulse Rate [Left Brachial] 66 Pulse Rate [Right Brachial] 62 Pulse Rate 97 Respiratory Rate 20 Blood Pressure [Right Arm] 153/68 Blood Pressure [Left Arm] 138/63 O2 Sat by Pulse Oximetry 93 Intake and Output: Intake & Output 10/19/12/18/20 12/19/20 12/20/20 11:59 11:59 11:59 11:59 Intake Total 2250 Output Total 160 / 160 Balance 2090 - Physical Exam Oriented: Normal Eyes: Normal Ear: Normal Nose: Normal Throat: Normal Respiratory: Generalized, Diminished Cardiovascular: Normal : Dysuria Auscultation: Bowel Sounds: Normal Palpation: Normal Tenderness: Normal Skin: Red, Tender, Hot, Wound Musculoskeletal: Right (RIGHT INDEX FINGER SWELLING ), Swelling, Tender Psychiatric: Normal Mood Description: Calm Affect: Normal Speech Pattern: Clear - Laboratory and Diagnostics Result Diagrams: 12/20/20 05:30 12/20/20 05:30 Labs: 12/19/20 14:13 Finger - Right Index Wound Gram Stain - Final 12/19/20 14:13 Finger - Right Index Wound Culture - Preliminary Laboratory WBC 7.4 X10^3/uL (3.6-10.0) 12/20/20 05:30 RBC 4.08 X10^6/uL (3.5-5.4) 12/20/20 05:30 Hgb 12.0 g/dL (12.0-16.0) 12/20/20 05:30 Hct 34.7 % (36.0-47.0) L 12/20/20 05:30 MCV 85.2 fL (80.0-100.0) 12/20/20 05:30 MCH 29.3 pg (27.0-34.0) 12/20/20 05:30 MCHC 34.4 g/dL (33.0-35.0) 12/20/20 05:30 RDW 14.6 % (11.6-16.5) 12/20/20 05:30 Plt Count 207 X10^3/uL (150.0-450.0) 12/20/20 05:30 MPV 8.1 fL (7.4-11.0) 12/20/20 05:30 Neut % (Auto) 72.8 % (42.0-75.0) 12/20/20 05:30 Lymph % (Auto) 15.1 % (21.0-51.0) L 12/20/20 05:30 [place] % (Auto) 8.0 % (0.0-13.0) 12/20/20 05:30 Eos % (Auto) 3.3 % (0.9-2.9) H 12/20/20 05:30 Baso % (Auto) 0.8 % (0.2-1.0) 12/20/20 05:30 Neut # (Auto) 5.4 x10^3/uL (2.2-4.8) H 12/20/20 05:30 Lymph # (Auto) 1.1 X10^3/uL (1.3-2.9) L 12/20/20 05:30 [place] # (Auto) 0.6 x10^3/uL (0.3-0.8) 12/20/20 05:30 Eos # (Auto) 0.2 x10^3/uL (0.0-0.2) 12/20/20 05:30 Baso # (Auto) 0.1 X10^3/uL (0.0-0.1) 12/20/20 05:30 Absolute Nucleated RBC 0.1 /100WBC 12/20/20 05:30 Sodium 136 mmol/L (136-145) 12/20/20 05:30 Corrected Sodium 139 mmol/L (136-145) 12/20/20 05:30 Potassium 5.1 mmol/L (3.5-5.1) 12/20/20 05:30 Chloride 104 mmol/L (98-107) 12/20/20 05:30 Carbon Dioxide 21.9 mmol/L (21-32) 12/20/20 05:30 BUN 34 mg/dL (7-18) H 12/20/20 05:30 Creatinine 1.26 mg/dL (0.55-1.02) H 12/20/20 05:30 Est GFR (MDRD) Af Amer 54 (>60) L 12/20/20 05:30 Est GFR (MDRD) Non-Af 45 (>60) L 12/20/20 05:30 Glucose 205 mg/dL (65-99) H 12/20/20 05:30 POC Glucose (mg/dL) 193 mg/dL (65-99) H 12/20/20 05:44 Calcium 8.5 mg/dL (8.5-10.1) 12/20/20 05:30 Corrected Calcium 9.6 mg/dL (8.5-10.1) 12/20/20 05:30 Total Bilirubin 0.30 mg/dL (0.2-1.0) 12/20/20 05:30 AST 20 Units/L (15-37) 12/20/20 05:30 ALT 11 Units/L (12-78) L 12/20/20 05:30 Alkaline Phosphatase 126 Units/L (46-116) H 12/20/20 05:30 Total Protein 6.8 g/dL (6.4-8.2) 12/20/20 05:30 Albumin 2.6 g/dL (3.4-5.0) L 12/20/20 05:30 Globulin 4.2 g/dL (2.5-4.5) 12/20/20 05:30 Albumin/Globulin Ratio 0.6 Ratio (1.1-2.1) L 12/20/20 05:30 Specimen Type Clean catch urine 12/19/20 13:30 Urine Color Pale yellow (YELLOW) 12/19/20 13:30 Urine Appearance Hazy (CLEAR) 12/19/20 13:30 Urine pH 5.0 (5.0 - 8.0) 12/19/20 13:30 Ur Specific [place] 1.015 (1.000-1.030) 12/19/20 13:30 Urine Protein 3+ (NEGATIVE) 12/19/20 13:30 Urine Glucose (UA) 4+ (NEGATIVE) 12/19/20 13:30 Urine Ketones Negative (NEGATIVE) 12/19/20 13:30 Urine Occult Blood 2+ (NEGATIVE) 12/19/20 13:30 Urine Nitrite Negative (NEGATIVE) 12/19/20 13:30 Urine Bilirubin Negative (NEGATIVE) 12/19/20 13:30 Urine Urobilinogen Normal (NORMAL) 12/19/20 13:30 Ur Leukocyte Esterase 3+ (NEGATIVE) 12/19/20 13:30 Urine RBC 0-2 /HPF (0-3) 12/19/20 13:30 Urine WBC 20-30 /HPF (0-5) A 12/19/20 13:30 Ur Squamous Epith Cells Numerous /HPF (NEGATIVE) 12/19/20 13:30 Ur Renal Epithelial Cell Moderate /HPF (NEGATIVE) 12/19/20 13:30 Urine Bacteria 2+ /HPF (NEGATIVE) 12/19/20 13:30 Urine Yeast Rare /HPF (NEGATIVE) 12/19/20 13:30 Ur Culture Indicated? No/not indicated 12/19/20 13:30 SARS-CoV-2 (PCR) Negative (NEGATIVE) 12/19/20 09:53 Influenza Type A (PCR) Negative (NEGATIVE) 12/19/20 09:53 Influenza Type B (PCR) Negative (NEGATIVE) 12/19/20 09:53 RSV (PCR) Negative (NEGATIVE) 12/19/20 09:53 - Plan (1) Cellulitis of finger of right hand Status: Acute Plan: NORMAL SALINE AT 50 ML/HR, VANCOMYCIN 1G IV Q12H, LEVAQUIN 500MG IV DAILY, MORPHINE SULFATE 2MG IV Q4H PRN, OTBS ACHS, HUMULIN R SLIDING SCALE, RESUME HOME MEDS (2) Abscess of finger, right Status: Acute (3) Urinary tract infection Status: Acute Qualifiers: Urinary tract infection type: site unspecified Hematuria presence: with hematuria Qualified Code(s): N39.0 - Urinary tract infection, site not specified; R31.9 - Hematuria, unspecified
[2020-12-20] MEDS: PATIENT'S HOME MEDICATION (Empagliflozin [Jardiance] 25 mg Tablet) PO SCH (11:23)
[2020-12-20] MEDS: PERCOCET TAB 5/325 MG PO PRN (11:24)
--- NOTE | 2020-12-20 12:52 | DR.PROGNOT ---
Hospital Progress Notes - Progress Note for Day of: Progress Note Date: 12/20/20 - Chief Complaint Chief Complaint: c/o pain RT index finger .. mild drainage . dressing was changed .. packing in place . culture showed Staph Coag positive so far . LEDY/CREA 34/1.6. BS 238. U/A with positive Bacteria and WBC . afebrile . - Past Medical Family Social History Past Med/Fam/Surg Hx: No changes since H&P Allergies: Allergies codeine Allergy (Verified 02/09/18 18:08) doxycycline Allergy (Verified 02/09/18 18:08) - Review Of Systems ROS: No change since H&P - Vital Signs Vital Signs: Temperature 97.9 F Pulse Rate [Left Brachial] 62 Pulse Rate [Right Brachial] 62 Pulse Rate 97 Respiratory Rate 20 Blood Pressure [Right Arm] 153/68 Blood Pressure [Left Arm] 136/63 O2 Sat by Pulse Oximetry 92 - Physical Exam Oriented: Normal Eyes: Normal Ear: Normal Nose: Normal Throat: Normal Respiratory: Generalized, Diminished Cardiovascular: Normal : Dysuria GI:Auscultation: Normal GI:Palpation: Normal GI: Tenderness: Normal Skin: Red, Tender, Hot, Wound (cellulitis RT index finger with erythema , edema and tendernes of the 2nd , third phalanx .. ) Musculoskeletal: Right (RIGHT INDEX FINGER SWELLING ), Swelling, Tender Psychiatric: Normal Mood Description: Calm Affect: Normal Speech Pattern: Clear - Laboratory and Diagnostics Result Diagrams: 12/20/20 05:30 12/20/20 05:30 Labs: 12/19/20 14:13 Finger - Right Index Wound Gram Stain - Final 12/19/20 14:13 Finger - Right Index Wound Culture - Preliminary Laboratory WBC 7.4 X10^3/uL (3.6-10.0) 12/20/20 05:30 RBC 4.08 X10^6/uL (3.5-5.4) 12/20/20 05:30 Hgb 12.0 g/dL (12.0-16.0) 12/20/20 05:30 Hct 34.7 % (36.0-47.0) L 12/20/20 05:30 MCV 85.2 fL (80.0-100.0) 12/20/20 05:30 MCH 29.3 pg (27.0-34.0) 12/20/20 05:30 MCHC 34.4 g/dL (33.0-35.0) 12/20/20 05:30 RDW 14.6 % (11.6-16.5) 12/20/20 05:30 Plt Count 207 X10^3/uL (150.0-450.0) 12/20/20 05:30 MPV 8.1 fL (7.4-11.0) 12/20/20 05:30 Neut % (Auto) 72.8 % (42.0-75.0) 12/20/20 05:30 Lymph % (Auto) 15.1 % (21.0-51.0) L 12/20/20 05:30 [place] % (Auto) 8.0 % (0.0-13.0) 12/20/20 05:30 Eos % (Auto) 3.3 % (0.9-2.9) H 12/20/20 05:30 Baso % (Auto) 0.8 % (0.2-1.0) 12/20/20 05:30 Neut # (Auto) 5.4 x10^3/uL (2.2-4.8) H 12/20/20 05:30 Lymph # (Auto) 1.1 X10^3/uL (1.3-2.9) L 12/20/20 05:30 [place] # (Auto) 0.6 x10^3/uL (0.3-0.8) 12/20/20 05:30 Eos # (Auto) 0.2 x10^3/uL (0.0-0.2) 12/20/20 05:30 Baso # (Auto) 0.1 X10^3/uL (0.0-0.1) 12/20/20 05:30 Absolute Nucleated RBC 0.1 /100WBC 12/20/20 05:30 Sodium 136 mmol/L (136-145) 12/20/20 05:30 Corrected Sodium 139 mmol/L (136-145) 12/20/20 05:30 Potassium 5.1 mmol/L (3.5-5.1) 12/20/20 05:30 Chloride 104 mmol/L (98-107) 12/20/20 05:30 Carbon Dioxide 21.9 mmol/L (21-32) 12/20/20 05:30 BUN 34 mg/dL (7-18) H 12/20/20 05:30 Creatinine 1.26 mg/dL (0.55-1.02) H 12/20/20 05:30 Est GFR (MDRD) Af Amer 54 (>60) L 12/20/20 05:30 Est GFR (MDRD) Non-Af 45 (>60) L 12/20/20 05:30 Glucose 205 mg/dL (65-99) H 12/20/20 05:30 POC Glucose (mg/dL) 238 mg/dL (65-99) H 12/20/20 11:19 Calcium 8.5 mg/dL (8.5-10.1) 12/20/20 05:30 Corrected Calcium 9.6 mg/dL (8.5-10.1) 12/20/20 05:30 Total Bilirubin 0.30 mg/dL (0.2-1.0) 12/20/20 05:30 AST 20 Units/L (15-37) 12/20/20 05:30 ALT 11 Units/L (12-78) L 12/20/20 05:30 Alkaline Phosphatase 126 Units/L (46-116) H 12/20/20 05:30 Total Protein 6.8 g/dL (6.4-8.2) 12/20/20 05:30 Albumin 2.6 g/dL (3.4-5.0) L 12/20/20 05:30 Globulin 4.2 g/dL (2.5-4.5) 12/20/20 05:30 Albumin/Globulin Ratio 0.6 Ratio (1.1-2.1) L 12/20/20 05:30 Specimen Type Clean catch urine 12/19/20 13:30 Urine Color Pale yellow (YELLOW) 12/19/20 13:30 Urine Appearance Hazy (CLEAR) 12/19/20 13:30 Urine pH 5.0 (5.0 - 8.0) 12/19/20 13:30 Ur Specific [place] 1.015 (1.000-1.030) 12/19/20 13:30 Urine Protein 3+ (NEGATIVE) 12/19/20 13:30 Urine Glucose (UA) 4+ (NEGATIVE) 12/19/20 13:30 Urine Ketones Negative (NEGATIVE) 12/19/20 13:30 Urine Occult Blood 2+ (NEGATIVE) 12/19/20 13:30 Urine Nitrite Negative (NEGATIVE) 12/19/20 13:30 Urine Bilirubin Negative (NEGATIVE) 12/19/20 13:30 Urine Urobilinogen Normal (NORMAL) 12/19/20 13:30 Ur Leukocyte Esterase 3+ (NEGATIVE) 12/19/20 13:30 Urine RBC 0-2 /HPF (0-3) 12/19/20 13:30 Urine WBC 20-30 /HPF (0-5) A 12/19/20 13:30 Ur Squamous Epith Cells Numerous /HPF (NEGATIVE) 12/19/20 13:30 Ur Renal Epithelial Cell Moderate /HPF (NEGATIVE) 12/19/20 13:30 Urine Bacteria 2+ /HPF (NEGATIVE) 12/19/20 13:30 Urine Yeast Rare /HPF (NEGATIVE) 12/19/20 13:30 Ur Culture Indicated? No/not indicated 12/19/20 13:30 SARS-CoV-2 (PCR) Negative (NEGATIVE) 12/19/20 09:53 Influenza Type A (PCR) Negative (NEGATIVE) 12/19/20 09:53 Influenza Type B (PCR) Negative (NEGATIVE) 12/19/20 09:53 RSV (PCR) Negative (NEGATIVE) 12/19/20 09:53 - Assessment and Plan 1: cellulitis with abscess formation RT index ( infected old wound ..). s/p debridement in the OR .( staph infection, R.O MRSA ) .. DM Type ll . CAD and stenting .., HTN .CKD,. same local care ,keep packing , elevation on IV pole . IV Vancomycin awaiting final culture . pain control . Diabetic control and medical consult - Problem Patient Problems: Patient Problems Abscess of finger, right (Acute) L02.511 Cellulitis of finger of right hand (Acute) L03.011 Urinary tract infection (Acute) N39.0
[2020-12-20] MEDS: NS 1000 ML 1,000 ML IV SCH (14:14)
[2020-12-20] MEDS: SNACK - Diabetic Appropriate PO SCH (20:04)
[2020-12-20] MEDS ORDERED: PHARMACY COMMENT IV ONE (20:30)
[2020-12-20] MEDS: CRESTOR TAB 10 MG PO SCH (21:02)
[2020-12-20] MEDS: CELEXA PO SCH (21:02)
[2020-12-20] MEDS: FLEXERIL TAB 10 MG PO PRN (21:02)
[2020-12-20 22:02] LABS: CREATININE 1.53 mg/dL (0.55-1.02)
--- NOTE | 2020-12-21 05:34 | DR.PROGNOT ---
Hospital Progress Notes - Progress Note for Day of: Progress Note Date: 12/21/20 - Chief Complaint Chief Complaint: less pain RT index finger .. mild drainage . dressing was changed .. packing in place . culture showed Staph Coag positive so far . LEDY/CREA 34/1.6. BS 265. Vancomycin level 19. afebrile . U/A with positive Bacteria and WBC . afebrile . - Past Medical Family Social History Past Med/Fam/Surg Hx: No changes since H&P Allergies: Allergies codeine Allergy (Verified 02/09/18 18:08) doxycycline Allergy (Verified 02/09/18 18:08) - Review Of Systems ROS: No change since H&P - Vital Signs Vital Signs: Temperature 97.8 F Pulse Rate [Left Brachial] 66 Pulse Rate [Right Brachial] 62 Pulse Rate 69 Respiratory Rate 18 Blood Pressure [Right Arm] 153/68 Blood Pressure [Left Arm] 132/62 O2 Sat by Pulse Oximetry 97 - Physical Exam Oriented: Normal Eyes: Normal Ear: Normal Nose: Normal Throat: Normal Respiratory: Generalized, Diminished Cardiovascular: Normal : Dysuria GI:Auscultation: Normal GI:Palpation: Normal GI: Tenderness: Normal Skin: Red, Tender, Hot, Wound (cellulitis RT index finger with erythema , edema and tendernes of the 2nd , third phalanx .. ) Musculoskeletal: Right (RIGHT INDEX FINGER SWELLING ), Swelling, Tender Psychiatric: Normal Mood Description: Calm Affect: Normal Speech Pattern: Clear, Appropriate - Laboratory and Diagnostics Result Diagrams: 12/20/20 05:30 12/20/20 21:10 Labs: 12/19/20 14:13 Finger - Right Index Wound Gram Stain - Final 12/19/20 14:13 Finger - Right Index Wound Culture - Preliminary Laboratory WBC 7.4 X10^3/uL (3.6-10.0) 12/20/20 05:30 RBC 4.08 X10^6/uL (3.5-5.4) 12/20/20 05:30 Hgb 12.0 g/dL (12.0-16.0) 12/20/20 05:30 Hct 34.7 % (36.0-47.0) L 12/20/20 05:30 MCV 85.2 fL (80.0-100.0) 12/20/20 05:30 MCH 29.3 pg (27.0-34.0) 12/20/20 05:30 MCHC 34.4 g/dL (33.0-35.0) 12/20/20 05:30 RDW 14.6 % (11.6-16.5) 12/20/20 05:30 Plt Count 207 X10^3/uL (150.0-450.0) 12/20/20 05:30 MPV 8.1 fL (7.4-11.0) 12/20/20 05:30 Neut % (Auto) 72.8 % (42.0-75.0) 12/20/20 05:30 Lymph % (Auto) 15.1 % (21.0-51.0) L 12/20/20 05:30 [place] % (Auto) 8.0 % (0.0-13.0) 12/20/20 05:30 Eos % (Auto) 3.3 % (0.9-2.9) H 12/20/20 05:30 Baso % (Auto) 0.8 % (0.2-1.0) 12/20/20 05:30 Neut # (Auto) 5.4 x10^3/uL (2.2-4.8) H 12/20/20 05:30 Lymph # (Auto) 1.1 X10^3/uL (1.3-2.9) L 12/20/20 05:30 [place] # (Auto) 0.6 x10^3/uL (0.3-0.8) 12/20/20 05:30 Eos # (Auto) 0.2 x10^3/uL (0.0-0.2) 12/20/20 05:30 Baso # (Auto) 0.1 X10^3/uL (0.0-0.1) 12/20/20 05:30 Absolute Nucleated RBC 0.1 /100WBC 12/20/20 05:30 Sodium 136 mmol/L (136-145) 12/20/20 05:30 Corrected Sodium 139 mmol/L (136-145) 12/20/20 05:30 Potassium 5.1 mmol/L (3.5-5.1) 12/20/20 05:30 Chloride 104 mmol/L (98-107) 12/20/20 05:30 Carbon Dioxide 21.9 mmol/L (21-32) 12/20/20 05:30 BUN 34 mg/dL (7-18) H 12/20/20 05:30 Creatinine 1.53 mg/dL (0.55-1.02) H 12/20/20 21:10 Est GFR (MDRD) Af Amer 54 (>60) L 12/20/20 05:30 Est GFR (MDRD) Non-Af 45 (>60) L 12/20/20 05:30 Glucose 205 mg/dL (65-99) H 12/20/20 05:30 POC Glucose (mg/dL) 265 mg/dL (65-99) H 12/20/20 19:34 Calcium 8.5 mg/dL (8.5-10.1) 12/20/20 05:30 Corrected Calcium 9.6 mg/dL (8.5-10.1) 12/20/20 05:30 Total Bilirubin 0.30 mg/dL (0.2-1.0) 12/20/20 05:30 AST 20 Units/L (15-37) 12/20/20 05:30 ALT 11 Units/L (12-78) L 12/20/20 05:30 Alkaline Phosphatase 126 Units/L (46-116) H 12/20/20 05:30 Total Protein 6.8 g/dL (6.4-8.2) 12/20/20 05:30 Albumin 2.6 g/dL (3.4-5.0) L 12/20/20 05:30 Globulin 4.2 g/dL (2.5-4.5) 12/20/20 05:30 Albumin/Globulin Ratio 0.6 Ratio (1.1-2.1) L 12/20/20 05:30 Specimen Type Clean catch urine 12/19/20 13:30 Urine Color Pale yellow (YELLOW) 12/19/20 13:30 Urine Appearance Hazy (CLEAR) 12/19/20 13:30 Urine pH 5.0 (5.0 - 8.0) 12/19/20 13:30 Ur Specific [place] 1.015 (1.000-1.030) 12/19/20 13:30 Urine Protein 3+ (NEGATIVE) 12/19/20 13:30 Urine Glucose (UA) 4+ (NEGATIVE) 12/19/20 13:30 Urine Ketones Negative (NEGATIVE) 12/19/20 13:30 Urine Occult Blood 2+ (NEGATIVE) 12/19/20 13:30 Urine Nitrite Negative (NEGATIVE) 12/19/20 13:30 Urine Bilirubin Negative (NEGATIVE) 12/19/20 13:30 Urine Urobilinogen Normal (NORMAL) 12/19/20 13:30 Ur Leukocyte Esterase 3+ (NEGATIVE) 12/19/20 13:30 Urine RBC 0-2 /HPF (0-3) 12/19/20 13:30 Urine WBC 20-30 /HPF (0-5) A 12/19/20 13:30 Ur Squamous Epith Cells Numerous /HPF (NEGATIVE) 12/19/20 13:30 Ur Renal Epithelial Cell Moderate /HPF (NEGATIVE) 12/19/20 13:30 Urine Bacteria 2+ /HPF (NEGATIVE) 12/19/20 13:30 Urine Yeast Rare /HPF (NEGATIVE) 12/19/20 13:30 Ur Culture Indicated? No/not indicated 12/19/20 13:30 Vancomycin Trough 19.0 ug/mL (15-20) 12/20/20 21:10 SARS-CoV-2 (PCR) Negative (NEGATIVE) 12/19/20 09:53 Influenza Type A (PCR) Negative (NEGATIVE) 12/19/20 09:53 Influenza Type B (PCR) Negative (NEGATIVE) 12/19/20 09:53 RSV (PCR) Negative (NEGATIVE) 12/19/20 09:53 - Assessment and Plan 1: cellulitis with abscess formation RT index ( infected old wound ..). s/p debridement in the OR .( staph infection, R.O MRSA ) .. DM Type ll . CAD and stenting .., HTN .CKD,. same local care ,keep packing , elevation on IV pole . IV Vancomycin. pain control . Diabetic control and medical f/u - Problem Patient Problems: Patient Problems Abscess of finger, right (Acute) L02.511 Cellulitis of finger of right hand (Acute) L03.011 Urinary tract infection (Acute) N39.0
[2020-12-21] MEDS: HumuLIN R SUBCUT PRN ×4 (06:01→21:06)
[2020-12-21] MEDS: DUONEB 0.5 MG/3 MG (3 mL) NEB SCH ×3 (06:05→20:07)
[2020-12-21 06:58] LABS: BASOPHILS # (AUTO) 0.1 X10^3/uL (0.0-0.1); BASOPHILS % (AUTO) 0.7 % (0.2-1.0); EOSINOPHILS # (AUTO) 0.3 x10^3/uL (0.0-0.2); EOSINOPHILS % (AUTO) 4.9 % (0.9-2.9); HEMATOCRIT 30.8 % (36.0-47.0); HEMOGLOBIN 10.7 g/dL (12.0-16.0); LYMPHOCYTES # (AUTO) 1.3 X10^3/uL (1.3-2.9); LYMPHOCYTES % (AUTO) 18.6 % (21.0-51.0); MEAN CORPUSCULAR HEMOGLOBIN 29.7 pg (27.0-34.0); MEAN CORPUSCULAR HGB CONC 34.7 g/dL (33.0-35.0); MEAN CORPUSCULAR VOLUME 85.7 fL (80.0-100.0); MEAN PLATELET VOLUME 7.7 fL (7.4-11.0); MONOCYTES # (AUTO) 0.5 x10^3/uL (0.3-0.8); MONOCYTES % (AUTO) 8.1 % (0.0-13.0); NEUTROPHILS # (AUTO) 4.6 x10^3/uL (2.2-4.8); NEUTROPHILS % (AUTO) 67.7 % (42.0-75.0); PLATELET COUNT 249 X10^3/uL (150.0-450.0); RED BLOOD COUNT 3.59 X10^6/uL (3.5-5.4); RED CELL DISTRIBUTION WIDTH 14.6 % (11.6-16.5); WHITE BLOOD COUNT 6.7 X10^3/uL (3.6-10.0)
[2020-12-21 07:18] LABS: ALBUMIN 2.5 g/dL (3.4-5.0); CALCIUM 8.6 mg/dL (8.5-10.1); CARBON DIOXIDE 21.9 mmol/L (21-32); COR CA(FOR HYPOALB) 9.8 mg/dL (8.5-10.1); CREATININE 1.35 mg/dL (0.55-1.02); TOTAL PROTEIN 6.6 g/dL (6.4-8.2)
[2020-12-21] MEDS: MORPHINE SULFATE INJ 2 MG INJ IVP PRN (07:41)
[2020-12-21] MEDS: LEVEMIR SC SCH ×2 (08:38→20:59)
[2020-12-21] MEDS: PATIENT'S HOME MEDICATION (Empagliflozin [Jardiance] 25 mg Tablet) PO SCH (08:48)
[2020-12-21] MEDS: COZAAR PO SCH (08:48)
[2020-12-21] MEDS: ELAVIL PO SCH (08:48)
[2020-12-21] MEDS: COREG TAB 6.25 MG PO SCH ×2 (08:48→20:59)
[2020-12-21] MEDS: MAG-OX TAB PO SCH (08:49)
[2020-12-21] MEDS: LEVAQUIN PREMIX IV 500 MG 500 MG/100 ML BAG IV SCH (08:49)
[2020-12-21] MEDS: VANCOMYCIN IV *PREMIX 1 G/200 ML BAG 1 G/200 ML PIGGYBACK IV SCH ×2 (08:49→20:58)
[2020-12-21] MEDS: GLUCOTROL XL 24-HR PO SCH (08:49)
[2020-12-21] MEDS: NS 1000 ML 1,000 ML IV SCH (09:31)
--- NOTE | 2020-12-21 10:40 | PCM.PROG ---
Progress Note - Progress Note for Day of Date of Exam: 12/21/20 - Subjective Subjective: IS BEING TREATED FOR CELLULITIS OF THE RIGHT INDEX FINGER, RIGHT FINGER ABSCESS, AND URINARY TRACT INFECTION. SHE IS STATUS POST DEBRIDEMENT OF WOUND. TODAY, SHE IS ALERT AND ORIENTED, SITTING UP IN BED ON MORNING ROUNDS. SHE REPORTS MILD, THROBBING PAIN TO THE FINGER. SHE ALSO C ONTINUES WITH PAINFUL URINATION, BUT DOES REPORT MILD IMPROVEMENT IN SYMPTOMS TODAY. ON EXAMINATION, HEART IS REGULAR IN RATE AND RHYTHM. BILATERAL LUNGS ARE CLEAR TO AUSCULTATION. ABDOMEN IS ROUND, SOFT, AND NON-TENDER WITH NON-TENDER WITH NORMAL BOWEL SOUNDS NOTED IN ALL QUADRANTS. BULKY DRESSING NOTED TO RIGHT HAND. HER VITALS THIS MORNING ARE: 97.8-68-18-98%-137/63. LABS WERE OBTAINED. ABNORMAL LAB VALUES INCLUDE THE FOLLOWING: HGB 10.7, HCT 30.8, CHLORIDE 108, BUN 32, CREATININE 1.35, GLUCOSE 225, AST 11, ALT 11, ALK PHOS 129, ALBUMIN 2.5. WOUND CULTURES REPORTS GROWTH OF MRSA. SHE IS CURRENTLY RECEIVING NORMAL SALINE AT 50 ML/HR, VANCOMYCIN 1G IV Q12H, LEVAQUIN 500MG IV DAILY, MORPHINE SULFATE 2MG IV Q4H PRN, OTBS ACHS, HUMULIN R SLIDING SCALE, AND HOME MEDICATIONS OF ELAV[place], COREG, CELEXA, KLONOPIN, FLEXERIL, GLUCOTROL, LEVEMIR, COZAAR, MAG-OX, CRESTOR, AND ULTRAM WERE RESUMED. WE WILL CONTINUE WITH CURRENT PLAN OF CARE TODAY. OTHERWISE, WE WILL FOLLOW UP WITH AM LABS AND CONTINUE TO MONITOR. TIME SPENT ON CLINICAL ASSESSMENT, REVIEWING LABS AND IMAGING, DECISION MAKING, AND D OCUMENTATION GREATER THAN 75 MINUTES. - Past Medical Family Social History Past Med/Fam/Surg Hx: No changes since H&P Allergies: Allergies codeine Allergy (Verified 02/09/18 18:08) doxycycline Allergy (Verified 02/09/18 18:08) - Review of Systems ROS: No change since H&P - Vital Signs and I&O's Vital Signs: Temperature 97.8 F Pulse Rate [Left Brachial] 68 Pulse Rate [Right Brachial] 62 Pulse Rate 66 Respiratory Rate 18 Blood Pressure [Right Arm] 153/68 Blood Pressure [Left Arm] 137/63 O2 Sat by Pulse Oximetry 98 Intake and Output: Intake & Output 12/18/20 12/19/20 12/20/20 12/21/20 11:59 11:59 11:59 11:59 Intake Total 2251 / 2251 2923 / 2923 Output Total 160 / 160 Balance 2090 2923 / 2923 - Physical Exam Oriented: Normal Eyes: Normal Ear: Normal Nose: Normal Throat: Normal Respiratory: Generalized, Diminished Cardiovascular: Normal : Dysuria Auscultation: Bowel Sounds: Normal Palpation: Normal Tenderness: Normal Skin: Red, Tender, Hot, Wound (cellulitis RT index finger with erythema , edema and tendernes of the 2nd , third phalanx .. ) Musculoskeletal: Right (RIGHT INDEX FINGER SWELLING ), Swelling, Tender Psychiatric: Normal Mood Description: Calm Affect: Normal Speech Pattern: Clear, Appropriate - Laboratory and Diagnostics Result Diagrams: 12/21/20 06:36 12/21/20 06:36 Labs: 12/19/20 14:13 Finger - Right Index Wound Gram Stain - Final 12/19/20 14:13 Finger - Right Index Wound Culture - Final Methicillin Resis Staph Aureus Laboratory WBC 6.7 X10^3/uL (3.6-10.0) 12/21/20 06:36 RBC 3.59 X10^6/uL (3.5-5.4) 12/21/20 06:36 Hgb 10.7 g/dL (12.0-16.0) L 12/21/20 06:36 Hct 30.8 % (36.0-47.0) L 12/21/20 06:36 MCV 85.7 fL (80.0-100.0) 12/21/20 06:36 MCH 29.7 pg (27.0-34.0) 12/21/20 06:36 MCHC 34.7 g/dL (33.0-35.0) 12/21/20 06:36 RDW 14.6 % (11.6-16.5) 12/21/20 06:36 Plt Count 249 X10^3/uL (150.0-450.0) 12/21/20 06:36 MPV 7.7 fL (7.4-11.0) 12/21/20 06:36 Neut % (Auto) 67.7 % (42.0-75.0) 12/21/20 06:36 Lymph % (Auto) 18.6 % (21.0-51.0) L 12/21/20 06:36 [place] % (Auto) 8.1 % (0.0-13.0) 12/21/20 06:36 Eos % (Auto) 4.9 % (0.9-2.9) H 12/21/20 06:36 Baso % (Auto) 0.7 % (0.2-1.0) 12/21/20 06:36 Neut # (Auto) 4.6 x10^3/uL (2.2-4.8) 12/21/20 06:36 Lymph # (Auto) 1.3 X10^3/uL (1.3-2.9) 12/21/20 06:36 [place] # (Auto) 0.5 x10^3/uL (0.3-0.8) 12/21/20 06:36 Eos # (Auto) 0.3 x10^3/uL (0.0-0.2) H 12/21/20 06:36 Baso # (Auto) 0.1 X10^3/uL (0.0-0.1) 12/21/20 06:36 Absolute Nucleated RBC 0.0 /100WBC 12/21/20 06:36 Sodium 139 mmol/L (136-145) 12/21/20 06:36 Corrected Sodium 142 mmol/L (136-145) 12/21/20 06:36 Potassium 4.7 mmol/L (3.5-5.1) 12/21/20 06:36 Chloride 108 mmol/L (98-107) H 12/21/20 06:36 Carbon Dioxide 21.9 mmol/L (21-32) 12/21/20 06:36 BUN 32 mg/dL (7-18) H 12/21/20 06:36 Creatinine 1.35 mg/dL (0.55-1.02) H 12/21/20 06:36 Est GFR (MDRD) Af Amer 50 (>60) L 12/21/20 06:36 Est GFR (MDRD) Non-Af 42 (>60) L 12/21/20 06:36 Glucose 225 mg/dL (65-99) H 12/21/20 06:36 POC Glucose (mg/dL) 198 mg/dL (65-99) H 12/21/20 05:55 Calcium 8.6 mg/dL (8.5-10.1) 12/21/20 06:36 Corrected Calcium 9.8 mg/dL (8.5-10.1) 12/21/20 06:36 Total Bilirubin 0.20 mg/dL (0.2-1.0) 12/21/20 06:36 AST 11 Units/L (15-37) L 12/21/20 06:36 ALT 11 Units/L (12-78) L 12/21/20 06:36 Alkaline Phosphatase 129 Units/L (46-116) H 12/21/20 06:36 Total Protein 6.6 g/dL (6.4-8.2) 12/21/20 06:36 Albumin 2.5 g/dL (3.4-5.0) L 12/21/20 06:36 Globulin 4.1 g/dL (2.5-4.5) 12/21/20 06:36 Albumin/Globulin Ratio 0.6 Ratio (1.1-2.1) L 12/21/20 06:36 Specimen Type Clean catch urine 12/19/20 13:30 Urine Color Pale yellow (YELLOW) 12/19/20 13:30 Urine Appearance Hazy (CLEAR) 12/19/20 13:30 Urine pH 5.0 (5.0 - 8.0) 12/19/20 13:30 Ur Specific [place] 1.015 (1.000-1.030) 12/19/20 13:30 Urine Protein 3+ (NEGATIVE) 12/19/20 13:30 Urine Glucose (UA) 4+ (NEGATIVE) 12/19/20 13:30 Urine Ketones Negative (NEGATIVE) 12/19/20 13:30 Urine Occult Blood 2+ (NEGATIVE) 12/19/20 13:30 Urine Nitrite Negative (NEGATIVE) 12/19/20 13:30 Urine Bilirubin Negative (NEGATIVE) 12/19/20 13:30 Urine Urobilinogen Normal (NORMAL) 12/19/20 13:30 Ur Leukocyte Esterase 3+ (NEGATIVE) 12/19/20 13:30 Urine RBC 0-2 /HPF (0-3) 12/19/20 13:30 Urine WBC 20-30 /HPF (0-5) A 12/19/20 13:30 Ur Squamous Epith Cells Numerous /HPF (NEGATIVE) 12/19/20 13:30 Ur Renal Epithelial Cell Moderate /HPF (NEGATIVE) 12/19/20 13:30 Urine Bacteria 2+ /HPF (NEGATIVE) 12/19/20 13:30 Urine Yeast Rare /HPF (NEGATIVE) 12/19/20 13:30 Ur Culture Indicated? No/not indicated 12/19/20 13:30 Vancomycin Trough 19.0 ug/mL (15-20) 12/20/20 21:10 SARS-CoV-2 (PCR) Negative (NEGATIVE) 12/19/20 09:53 Influenza Type A (PCR) Negative (NEGATIVE) 12/19/20 09:53 Influenza Type B (PCR) Negative (NEGATIVE) 12/19/20 09:53 RSV (PCR) Negative (NEGATIVE) 12/19/20 09:53 - Plan (1) Cellulitis of finger of right hand Status: Acute Plan: NORMAL SALINE AT 50 ML/HR, VANCOMYCIN 1G IV Q12H, LEVAQUIN 500MG IV DAILY, MORPHINE SULFATE 2MG IV Q4H PRN, OTBS ACHS, HUMULIN R SLIDING SCALE, RESUME HOME MEDS (2) Abscess of finger, right Status: Acute (3) Urinary tract infection Status: Acute Qualifiers: Urinary tract infection type: site unspecified Hematuria presence: with hematuria Qualified Code(s): N39.0 - Urinary tract infection, site not specified; R31.9 - Hematuria, unspecified
[2020-12-21] MEDS: TORADOL 30 MG VIAL IVP SCH ×3 (11:20→23:00)
[2020-12-21] MEDS: SNACK - Diabetic Appropriate PO SCH (20:00)
[2020-12-21] MEDS: CRESTOR TAB 10 MG PO SCH (20:58)
[2020-12-21] MEDS: KLONOPIN TAB 1 MG PO PRN (20:58)
[2020-12-21] MEDS: CELEXA PO SCH (20:59)
[2020-12-22] MEDS: MORPHINE SULFATE INJ 2 MG INJ IVP PRN ×4 (02:06→23:49)
[2020-12-22] MEDS: DUONEB 0.5 MG/3 MG (3 mL) NEB SCH ×4 (05:05→21:05)
[2020-12-22] MEDS: TORADOL 30 MG VIAL IVP SCH ×4 (05:07→22:00)
[2020-12-22] MEDS: HumuLIN R SUBCUT PRN ×4 (05:50→22:01)
[2020-12-22 06:44] LABS: BASOPHILS % (AUTO) 0.7 % (0.2-1.0); EOSINOPHILS # (AUTO) 0.3 x10^3/uL (0.0-0.2); EOSINOPHILS % (AUTO) 3.7 % (0.9-2.9); HEMATOCRIT 32.2 % (36.0-47.0); HEMOGLOBIN 11.2 g/dL (12.0-16.0); LYMPHOCYTES # (AUTO) 1.2 X10^3/uL (1.3-2.9); LYMPHOCYTES % (AUTO) 17.3 % (21.0-51.0); MEAN CORPUSCULAR HEMOGLOBIN 29.5 pg (27.0-34.0); MEAN CORPUSCULAR HGB CONC 34.7 g/dL (33.0-35.0); MEAN CORPUSCULAR VOLUME 85.1 fL (80.0-100.0); MEAN PLATELET VOLUME 7.6 fL (7.4-11.0); MONOCYTES # (AUTO) 0.5 x10^3/uL (0.3-0.8); NEUTROPHILS # (AUTO) 4.8 x10^3/uL (2.2-4.8); NEUTROPHILS % (AUTO) 70.3 % (42.0-75.0); PLATELET COUNT 224 X10^3/uL (150.0-450.0); RED BLOOD COUNT 3.79 X10^6/uL (3.5-5.4); RED CELL DISTRIBUTION WIDTH 14.7 % (11.6-16.5); WHITE BLOOD COUNT 6.8 X10^3/uL (3.6-10.0)
[2020-12-22 06:52] LABS: ALBUMIN 2.4 g/dL (3.4-5.0); CALCIUM 8.3 mg/dL (8.5-10.1); CARBON DIOXIDE 21.1 mmol/L (21-32); COR CA(FOR HYPOALB) 9.6 mg/dL (8.5-10.1); CREATININE 1.24 mg/dL (0.55-1.02); TOTAL PROTEIN 6.5 g/dL (6.4-8.2)
[2020-12-22] MEDS: LEVEMIR SC SCH ×2 (08:37→22:00)
[2020-12-22] MEDS: ELAVIL PO SCH (08:49)
[2020-12-22] MEDS: COZAAR PO SCH (08:49)
[2020-12-22] MEDS: PATIENT'S HOME MEDICATION (Empagliflozin [Jardiance] 25 mg Tablet) PO SCH (08:49)
[2020-12-22] MEDS: LEVAQUIN PREMIX IV 500 MG 500 MG/100 ML BAG IV SCH (08:49)
[2020-12-22] MEDS: GLUCOTROL XL 24-HR PO SCH (08:49)
[2020-12-22] MEDS: COREG TAB 6.25 MG PO SCH ×2 (08:49→21:59)
[2020-12-22] MEDS: MAG-OX TAB PO SCH (08:50)
[2020-12-22 09:48] LABS: CREATININE 1.18 mg/dL (0.55-1.02)
[2020-12-22 09:55] LABS: VANCOMYCIN,TROUGH 25.6 ug/mL (15-20)
[2020-12-22] MEDS: VANCOMYCIN IV *PREMIX 1 G/200 ML BAG 1 G/200 ML PIGGYBACK IV SCH (09:57)
[2020-12-22] MEDS: MYCOLOG-II CREAM TOP SCH ×2 (10:15→22:00)
[2020-12-22] MEDS: NS 1000 ML 1,000 ML IV SCH (10:24)
[2020-12-22] MEDS: MILK OF MAGNESIA PO SCH (14:48)
--- NOTE | 2020-12-22 18:14 | PCM.PROG ---
Progress Note - Progress Note for Day of Date of Exam: 12/22/20 - Subjective Subjective: IS BEING TREATED FOR CELLULITIS OF THE RIGHT INDEX FINGER, RIGHT FINGER ABSCESS, AND URINARY TRACT INFECTION. SHE IS STATUS POST DEBRIDEMENT OF WOUND. TODAY, SHE IS ALERT AND ORIENTED, SITTING UP IN BED ON MORNING ROUNDS. SHE REPORTS MILD, THROBBING PAIN TO THE FINGER. SHE ALSO C ONTINUES WITH PAINFUL URINATION, BUT DOES REPORT MILD IMPROVEMENT IN SYMPTOMS TODAY. ON EXAMINATION, HEART IS REGULAR IN RATE AND RHYTHM. BILATERAL LUNGS ARE CLEAR TO AUSCULTATION. ABDOMEN IS ROUND, SOFT, AND NON-TENDER WITH NON-TENDER WITH NORMAL BOWEL SOUNDS NOTED IN ALL QUADRANTS. BULKY DRESSING NOTED TO RIGHT HAND. HER VITALS THIS MORNING ARE: 97.6-58-20-96%-153/69. LABS WERE OBTAINED. ABNORMAL LAB VALUES INCLUDE THE FOLLOWING: HGB 11.2, HCT 32.2, CHLORIDE 110, BUN 29, CREATININE 1.24, GLUCOSE 202, CALCIUM 8.3, AST 14, ALK PHOS 120, ALBUMIN 2.4. WOUND CULTURES REPORTS GROWTH OF MRSA. SHE IS CURRENTLY RECEIVING NORMAL SALINE AT 50 ML/HR, VANCOMYCIN 1G IV Q12H, LEVAQUIN 500MG IV DAILY, MORPHINE SULFATE 2MG IV Q4H PRN, OTBS ACHS, HUMULIN R SLIDING SCALE, AND HOME MEDICATIONS OF ELAVIL, COREG, CELEXA, KLONOPIN, FLEXERIL, GLUCOTROL, LEVEMIR, COZAAR, MAG- OX, CRESTOR, AND ULTRAM WERE RESUMED. WE WILL CONTINUE WITH CURRENT PLAN OF CARE TODAY. OTHERWISE, WE WILL FOLLOW UP WITH AM LABS AND CONTINUE TO MONITOR. TIME SPENT ON CLINICAL ASSESSMENT, REVIEWING LABS AND IMAGING, DECISION MAKING, AND DOCUMENTATION GREATER THAN 45 MINUTES. - Past Medical Family Social History Past Med/Fam/Surg Hx: No changes since H&P Allergies: Allergies codeine Allergy (Verified 02/09/18 18:08) doxycycline Allergy (Verified 02/09/18 18:08) - Review of Systems ROS: No change since H&P - Vital Signs and I&O's Vital Signs: Temperature 97.7 F Pulse Rate [Left Brachial] 69 Pulse Rate [Right Brachial] 62 Pulse Rate 70 Respiratory Rate 20 Blood Pressure [Right Arm] 153/68 Blood Pressure [Left Arm] 156/69 O2 Sat by Pulse Oximetry 99 Intake and Output: Intake & Output 10/22/21 10/23/21 10/24/21 10/25/21 11:59 11:59 11:59 11:59 Intake Total 2251 / 2251 2923 / 2923 4239 / 4239 1508 / 1508 Output Total 160 / 160 Balance 2090 2923 / 2923 4239 / 4239 1508 / 1508 - Physical Exam Oriented: Normal Eyes: Normal Ear: Normal Nose: Normal Throat: Normal Respiratory: Generalized, Diminished Cardiovascular: Normal : Dysuria Auscultation: Bowel Sounds: Normal Tenderness: Normal Skin: Red, Tender, Hot, Wound (cellulitis RT index finger with erythema , edema and tendernes of the 2nd , third phalanx .. ) Musculoskeletal: Right (RIGHT INDEX FINGER SWELLING ), Swelling, Tender Psychiatric: Normal Mood Description: Calm Affect: Normal Speech Pattern: Clear, Appropriate - Laboratory and Diagnostics Result Diagrams: 12/22/20 06:03 12/22/20 09:02 Labs: 12/20/20 14:10 Urine,Clean Catch Urine Culture - Final 12/19/20 13:00 Blood Blood Culture - Preliminary 12/19/20 13:00 Blood Blood Culture - Preliminary 12/19/20 14:13 Finger - Right Index Wound Gram Stain - Final 12/19/20 14:13 Finger - Right Index Wound Culture - Final Methicillin Resis Staph Aureus Laboratory WBC 6.8 X10^3/uL (3.6-10.0) 12/22/20 06:03 RBC 3.79 X10^6/uL (3.5-5.4) 12/22/20 06:03 Hgb 11.2 g/dL (12.0-16.0) L 12/22/20 06:03 Hct 32.2 % (36.0-47.0) L 12/22/20 06:03 MCV 85.1 fL (80.0-100.0) 12/22/20 06:03 MCH 29.5 pg (27.0-34.0) 12/22/20 06:03 MCHC 34.7 g/dL (33.0-35.0) 12/22/20 06:03 RDW 14.7 % (11.6-16.5) 12/22/20 06:03 Plt Count 224 X10^3/uL (150.0-450.0) 12/22/20 06:03 MPV 7.6 fL (7.4-11.0) 12/22/20 06:03 Neut % (Auto) 70.3 % (42.0-75.0) 12/22/20 06:03 Lymph % (Auto) 17.3 % (21.0-51.0) L 12/22/20 06:03 [place] % (Auto) 8.0 % (0.0-13.0) 12/22/20 06:03 Eos % (Auto) 3.7 % (0.9-2.9) H 12/22/20 06:03 Baso % (Auto) 0.7 % (0.2-1.0) 12/22/20 06:03 Neut # (Auto) 4.8 x10^3/uL (2.2-4.8) 12/22/20 06:03 Lymph # (Auto) 1.2 X10^3/uL (1.3-2.9) L 12/22/20 06:03 [place] # (Auto) 0.5 x10^3/uL (0.3-0.8) 12/22/20 06:03 Eos # (Auto) 0.3 x10^3/uL (0.0-0.2) H 12/22/20 06:03 Baso # (Auto) 0.0 X10^3/uL (0.0-0.1) 12/22/20 06:03 Absolute Nucleated RBC 0.1 /100WBC 12/22/20 06:03 Sodium 142 mmol/L (136-145) 12/22/20 06:03 Corrected Sodium 144 mmol/L (136-145) 12/22/20 06:03 Potassium 4.4 mmol/L (3.5-5.1) 12/22/20 06:03 Chloride 110 mmol/L (98-107) H 12/22/20 06:03 Carbon Dioxide 21.1 mmol/L (21-32) 12/22/20 06:03 BUN 29 mg/dL (7-18) H 12/22/20 06:03 Creatinine 1.18 mg/dL (0.55-1.02) H 12/22/20 09:02 Est GFR (MDRD) Af Amer 55 (>60) L 12/22/20 06:03 Est GFR (MDRD) Non-Af 46 (>60) L 12/22/20 06:03 Glucose 202 mg/dL (65-99) H 12/22/20 06:03 POC Glucose (mg/dL) 227 mg/dL (65-99) H 12/22/20 16:07 Calcium 8.3 mg/dL (8.5-10.1) L 12/22/20 06:03 Corrected Calcium 9.6 mg/dL (8.5-10.1) 12/22/20 06:03 Total Bilirubin 0.20 mg/dL (0.2-1.0) 12/22/20 06:03 AST 14 Units/L (15-37) L 12/22/20 06:03 ALT 15 Units/L (12-78) 12/22/20 06:03 Alkaline Phosphatase 120 Units/L (46-116) H 12/22/20 06:03 Total Protein 6.5 g/dL (6.4-8.2) 12/22/20 06:03 Albumin 2.4 g/dL (3.4-5.0) L 12/22/20 06:03 Globulin 4.1 g/dL (2.5-4.5) 12/22/20 06:03 Albumin/Globulin Ratio 0.6 Ratio (1.1-2.1) L 12/22/20 06:03 Specimen Type Clean catch urine 12/19/20 13:30 Urine Color Pale yellow (YELLOW) 12/19/20 13:30 Urine Appearance Hazy (CLEAR) 12/19/20 13:30 Urine pH 5.0 (5.0 - 8.0) 12/19/20 13:30 Ur Specific [place] 1.015 (1.000-1.030) 12/19/20 13:30 Urine Protein 3+ (NEGATIVE) 12/19/20 13:30 Urine Glucose (UA) 4+ (NEGATIVE) 12/19/20 13:30 Urine Ketones Negative (NEGATIVE) 12/19/20 13:30 Urine Occult Blood 2+ (NEGATIVE) 12/19/20 13:30 Urine Nitrite Negative (NEGATIVE) 12/19/20 13:30 Urine Bilirubin Negative (NEGATIVE) 12/19/20 13:30 Urine Urobilinogen Normal (NORMAL) 12/19/20 13:30 Ur Leukocyte Esterase 3+ (NEGATIVE) 12/19/20 13:30 Urine RBC 0-2 /HPF (0-3) 12/19/20 13:30 Urine WBC 20-30 /HPF (0-5) A 12/19/20 13:30 Ur Squamous Epith Cells Numerous /HPF (NEGATIVE) 12/19/20 13:30 Ur Renal Epithelial Cell Moderate /HPF (NEGATIVE) 12/19/20 13:30 Urine Bacteria 2+ /HPF (NEGATIVE) 12/19/20 13:30 Urine Yeast Rare /HPF (NEGATIVE) 12/19/20 13:30 Ur Culture Indicated? No/not indicated 12/19/20 13:30 Vancomycin Trough 25.6 ug/mL (15-20) H* 12/22/20 09:02 SARS-CoV-2 (PCR) Negative (NEGATIVE) 12/19/20 09:53 Influenza Type A (PCR) Negative (NEGATIVE) 12/19/20 09:53 Influenza Type B (PCR) Negative (NEGATIVE) 12/19/20 09:53 RSV (PCR) Negative (NEGATIVE) 12/19/20 09:53 - Plan (1) Cellulitis of finger of right hand Status: Acute Plan: NORMAL SALINE AT 50 ML/HR, VANCOMYCIN 1G IV Q12H, LEVAQUIN 500MG IV DAILY, MORPHINE SULFATE 2MG IV Q4H PRN, OTBS ACHS, HUMULIN R SLIDING SCALE, RESUME HOME MEDS (2) Abscess of finger, right Status: Acute (3) Urinary tract infection Status: Acute Qualifiers: Urinary tract infection type: site unspecified Hematuria presence: with hematuria Qualified Code(s): N39.0 - Urinary tract infection, site not specified; R31.9 - Hematuria, unspecified
[2020-12-22] MEDS: SNACK - Diabetic Appropriate PO SCH (20:05)
[2020-12-22] MEDS ORDERED: COLACE CAP 100 MG PO SCH (21:00)
[2020-12-22] MEDS: CELEXA PO SCH (21:59)
[2020-12-22] MEDS: CRESTOR TAB 10 MG PO SCH (21:59)
[2020-12-22] MEDS: VANCOMYCIN IV *PREMIX 750 mg/150 ML BAG 750 MG/150 ML PIGGYBACK IV SCH (22:00)
[2020-12-22] MEDS: MIRALAX POWDER (1 DOSE 17 G) PO SCH (22:00)
[2020-12-22] MEDS: KLONOPIN TAB 1 MG PO PRN (22:05)
[2020-12-22] MEDS ORDERED: DULCOLAX SUPPOSITORY 10 MG RECTAL ONE (22:31)
[2020-12-23] MEDS: TORADOL 30 MG VIAL IVP SCH ×4 (05:18→22:25)
[2020-12-23 05:42] LABS: BASOPHILS # (AUTO) 0.1 X10^3/uL (0.0-0.1); BASOPHILS % (AUTO) 0.5 % (0.2-1.0); EOSINOPHILS # (AUTO) 0.3 x10^3/uL (0.0-0.2); EOSINOPHILS % (AUTO) 3.5 % (0.9-2.9); HEMATOCRIT 35.5 % (36.0-47.0); HEMOGLOBIN 12.1 g/dL (12.0-16.0); LYMPHOCYTES % (AUTO) 10.9 % (21.0-51.0); MEAN CORPUSCULAR HEMOGLOBIN 29.1 pg (27.0-34.0); MEAN CORPUSCULAR HGB CONC 34.2 g/dL (33.0-35.0); MEAN CORPUSCULAR VOLUME 85.1 fL (80.0-100.0); MEAN PLATELET VOLUME 7.9 fL (7.4-11.0); MONOCYTES # (AUTO) 0.8 x10^3/uL (0.3-0.8); MONOCYTES % (AUTO) 8.2 % (0.0-13.0); NEUTROPHILS # (AUTO) 7.3 x10^3/uL (2.2-4.8); NEUTROPHILS % (AUTO) 76.9 % (42.0-75.0); PLATELET COUNT 211 X10^3/uL (150.0-450.0); RED BLOOD COUNT 4.17 X10^6/uL (3.5-5.4); RED CELL DISTRIBUTION WIDTH 14.6 % (11.6-16.5); WHITE BLOOD COUNT 9.4 X10^3/uL (3.6-10.0)
[2020-12-23 05:59] LABS: ALANINE AMINOTRANSFERASE 18 Units/L (12-78); ALBUMIN 2.6 g/dL (3.4-5.0); ALKALINE PHOSPHATASE 136 Units/L (46-116); ASPARTATE AMINO TRANSFERASE 26 Units/L (15-37); BLOOD UREA NITROGEN 24 mg/dL (7-18); CALCIUM 8.6 mg/dL (8.5-10.1); CARBON DIOXIDE 19.1 mmol/L (21-32); CHLORIDE 111 mmol/L (98-107); COR CA(FOR HYPOALB) 9.7 mg/dL (8.5-10.1); COR NA(FOR HYPERGLY) 142 mmol/L (136-145); CREATININE 0.96 mg/dL (0.55-1.02); SODIUM 141 mmol/L (136-145); TOTAL PROTEIN 6.7 g/dL (6.4-8.2); eGFR NON BLACK RACES > 60 (>60)
[2020-12-23] MEDS: DUONEB 0.5 MG/3 MG (3 mL) NEB SCH ×3 (06:08→21:21)
[2020-12-23] MEDS: MILK OF MAGNESIA PO SCH ×3 (08:26→21:21)
[2020-12-23] MEDS: LEVAQUIN PREMIX IV 500 MG 500 MG/100 ML BAG IV SCH (08:27)
[2020-12-23] MEDS: COZAAR PO SCH (08:28)
[2020-12-23] MEDS: ELAVIL PO SCH (08:29)
[2020-12-23] MEDS: GLUCOTROL XL 24-HR PO SCH (08:29)
[2020-12-23] MEDS: COREG TAB 6.25 MG PO SCH ×2 (08:30→21:20)
[2020-12-23] MEDS: MAG-OX TAB PO SCH (08:31)
[2020-12-23] MEDS ORDERED: HYDROGEN PEROXIDE 3% ONE (09:41)
[2020-12-23] MEDS: MYCOLOG-II CREAM TOP SCH ×2 (10:00→21:21)
[2020-12-23] MEDS: VANCOMYCIN IV *PREMIX 750 mg/150 ML BAG 750 MG/150 ML PIGGYBACK IV SCH ×2 (10:00→21:22)
[2020-12-23] MEDS ORDERED: BACTROBAN TOPICAL OINT ONE (10:26)
[2020-12-23] MEDS: COLACE CAP 100 MG PO SCH ×2 (11:00→21:20)
--- NOTE | 2020-12-23 11:37 | PCM.PROG ---
Progress Note - Progress Note for Day of Date of Exam: 12/23/20 - Subjective Subjective: IS BEING TREATED FOR CELLULITIS OF THE RIGHT INDEX FINGER, RIGHT FINGER ABSCESS, AND URINARY TRACT INFECTION. SHE IS STATUS POST DEBRIDEMENT OF WOUND. TODAY, SHE IS ALERT AND ORIENTED, SITTING UP IN BED ON MORNING ROUNDS. SHE CONTINUES WITH MILD, THROBBING PAIN TO THE FINGER. SHE ALSO REPORTS CONSTIPATION TODAY. ON EXAMINATION, HEART IS REGULAR IN RATE AND RHYTHM. BILATERAL LUNGS ARE CLEAR TO AUSCULTATION. ABDOMEN IS ROUND, SOFT, AND NON- TENDER WITH NON-TENDER WITH NORMAL BOWEL SOUNDS NOTED IN ALL QUADRANTS. BULKY DRESSING NOTED TO RIGHT HAND. HER VITALS THIS MORNING ARE: 9 7.4-82-20-95%-125/58. LABS WERE OBTAINED. ABNORMAL LAB VALUES INCLUDE THE FOLLOWING: HCT 35.5, POTASSIUM 5.2, CHLORIDE 111, CARBON DIOXIDE 19.1, BUN 24, GLUCOSE 139, ALK PHOS 136, ALBUMIN 2.6. WOUND CULTURES REPORTS GROWTH OF MRSA. SHE IS CURRENTLY RECEIVING NORMAL SALINE AT 50 ML/HR, VANCOMYCIN 1G IV Q12H, LEVAQUIN 500MG IV DAILY, MORPHINE SULFATE 2MG IV Q4H PRN, OTBS ACHS, HUMULIN R SLIDING SCALE, AND HOME MEDICATIONS OF ELAVIL, COREG, CELEXA, KLONOPIN, FLEXERIL, GLUCOTROL, LEVEMIR, COZAAR, MAG-OX, CRESTOR, AND ULTRAM WERE RESUMED. WE WILL CONTINUE WITH CURRENT PLAN OF CARE TODAY. WE WILL ADD COLACE 100MG PO BID, MILK OF MAGNESIA 30ML PO BID, AND MIRALAX 17G PO HS. WILL ASSESS WOUND TODAY AND CONTINUE TO FOLLOW. OTHERWISE, WE WILL FOLLOW UP WITH AM LABS AND CONTINUE TO MONITOR. TIME SPENT ON CLINICAL ASSESSMENT, REVIEWING LABS AND IMAGING, DECISION MAKING, AND DOCUMENTATION GREATER THAN 45 MINUTES. - Past Medical Family Social History Past Med/Fam/Surg Hx: No changes since H&P Allergies: Allergies codeine Allergy (Verified 02/09/18 18:08) doxycycline Allergy (Verified 02/09/18 18:08) - Review of Systems ROS: No change since H&P - Vital Signs and I&O's Vital Signs: Temperature 97.4 F Pulse Rate [Left Brachial] 69 Pulse Rate [Right Brachial] 62 Pulse Rate 82 Respiratory Rate 20 Blood Pressure [Right Arm] 153/68 Blood Pressure [Left Arm] 125/58 O2 Sat by Pulse Oximetry 95 Intake and Output: Intake & Output 12/20/20 12/21/20 12/22/20 12/23/20 11:59 11:59 11:59 11:59 Intake Total 2251 / 2251 2923 / 2923 4239 / 4239 2618 / 2618 Output Total 160 / 160 Balance 2090 2923 / 2923 4239 / 4239 2618 / 2618 - Physical Exam Oriented: Normal Eyes: Normal Ear: Normal Nose: Normal Throat: Normal Respiratory: Generalized, Diminished Cardiovascular: Normal : Dysuria Auscultation: Bowel Sounds: Normal Palpation: Normal Tenderness: Normal Skin: Red, Tender, Hot, Wound (cellulitis RT index finger with erythema , edema and tendernes of the 2nd , third phalanx .. ) Musculoskeletal: Right (RIGHT INDEX FINGER SWELLING ), Swelling, Tender Psychiatric: Normal Mood Description: Calm Affect: Normal Speech Pattern: Clear, Appropriate - Laboratory and Diagnostics Result Diagrams: 12/23/20 04:52 12/23/20 04:52 Labs: 12/20/20 14:10 Urine,Clean Catch Urine Culture - Final 12/19/20 13:00 Blood Blood Culture - Preliminary 12/19/20 13:00 Blood Blood Culture - Preliminary 12/19/20 14:13 Finger - Right Index Wound Gram Stain - Final 12/19/20 14:13 Finger - Right Index Wound Culture - Final Methicillin Resis Staph Aureus Laboratory WBC 9.4 X10^3/uL (3.6-10.0) 12/23/20 04:52 RBC 4.17 X10^6/uL (3.5-5.4) 12/23/20 04:52 Hgb 12.1 g/dL (12.0-16.0) 12/23/20 04:52 Hct 35.5 % (36.0-47.0) L 12/23/20 04:52 MCV 85.1 fL (80.0-100.0) 12/23/20 04:52 MCH 29.1 pg (27.0-34.0) 12/23/20 04:52 MCHC 34.2 g/dL (33.0-35.0) 12/23/20 04:52 RDW 14.6 % (11.6-16.5) 12/23/20 04:52 Plt Count 211 X10^3/uL (150.0-450.0) 12/23/20 04:52 MPV 7.9 fL (7.4-11.0) 12/23/20 04:52 Neut % (Auto) 76.9 % (42.0-75.0) H 12/23/20 04:52 Lymph % (Auto) 10.9 % (21.0-51.0) L 12/23/20 04:52 [place] % (Auto) 8.2 % (0.0-13.0) 12/23/20 04:52 Eos % (Auto) 3.5 % (0.9-2.9) H 12/23/20 04:52 Baso % (Auto) 0.5 % (0.2-1.0) 12/23/20 04:52 Neut # (Auto) 7.3 x10^3/uL (2.2-4.8) H 12/23/20 04:52 Lymph # (Auto) 1.0 X10^3/uL (1.3-2.9) L 12/23/20 04:52 [place] # (Auto) 0.8 x10^3/uL (0.3-0.8) 12/23/20 04:52 Eos # (Auto) 0.3 x10^3/uL (0.0-0.2) H 12/23/20 04:52 Baso # (Auto) 0.1 X10^3/uL (0.0-0.1) 12/23/20 04:52 Absolute Nucleated RBC 0.1 /100WBC 12/23/20 04:52 Sodium 141 mmol/L (136-145) 12/23/20 04:52 Corrected Sodium 142 mmol/L (136-145) 12/23/20 04:52 Potassium 5.2 mmol/L (3.5-5.1) H 12/23/20 04:52 Chloride 111 mmol/L (98-107) H 12/23/20 04:52 Carbon Dioxide 19.1 mmol/L (21-32) L 12/23/20 04:52 BUN 24 mg/dL (7-18) H 12/23/20 04:52 Creatinine 0.96 mg/dL (0.55-1.02) 12/23/20 04:52 Est GFR (MDRD) Af Amer > 60 (>60) 12/23/20 04:52 Est GFR (MDRD) Non-Af > 60 (>60) 12/23/20 04:52 Glucose 139 mg/dL (65-99) H 12/23/20 04:52 POC Glucose (mg/dL) 118 mg/dL (65-99) H 12/23/20 05:24 Calcium 8.6 mg/dL (8.5-10.1) 12/23/20 04:52 Corrected Calcium 9.7 mg/dL (8.5-10.1) 12/23/20 04:52 Total Bilirubin 0.20 mg/dL (0.2-1.0) 12/23/20 04:52 AST 26 Units/L (15-37) 12/23/20 04:52 ALT 18 Units/L (12-78) 12/23/20 04:52 Alkaline Phosphatase 136 Units/L (46-116) H 12/23/20 04:52 Total Protein 6.7 g/dL (6.4-8.2) 12/23/20 04:52 Albumin 2.6 g/dL (3.4-5.0) L 12/23/20 04:52 Globulin 4.1 g/dL (2.5-4.5) 12/23/20 04:52 Albumin/Globulin Ratio 0.6 Ratio (1.1-2.1) L 12/23/20 04:52 Specimen Type Clean catch urine 12/19/20 13:30 Urine Color Pale yellow (YELLOW) 12/19/20 13:30 Urine Appearance Hazy (CLEAR) 12/19/20 13:30 Urine pH 5.0 (5.0 - 8.0) 12/19/20 13:30 Ur Specific [place] 1.015 (1.000-1.030) 12/19/20 13:30 Urine Protein 3+ (NEGATIVE) 12/19/20 13:30 Urine Glucose (UA) 4+ (NEGATIVE) 12/19/20 13:30 Urine Ketones Negative (NEGATIVE) 12/19/20 13:30 Urine Occult Blood 2+ (NEGATIVE) 12/19/20 13:30 Urine Nitrite Negative (NEGATIVE) 12/19/20 13:30 Urine Bilirubin Negative (NEGATIVE) 12/19/20 13:30 Urine Urobilinogen Normal (NORMAL) 12/19/20 13:30 Ur Leukocyte Esterase 3+ (NEGATIVE) 12/19/20 13:30 Urine RBC 0-2 /HPF (0-3) 12/19/20 13:30 Urine WBC 20-30 /HPF (0-5) A 12/19/20 13:30 Ur Squamous Epith Cells Numerous /HPF (NEGATIVE) 12/19/20 13:30 Ur Renal Epithelial Cell Moderate /HPF (NEGATIVE) 12/19/20 13:30 Urine Bacteria 2+ /HPF (NEGATIVE) 12/19/20 13:30 Urine Yeast Rare /HPF (NEGATIVE) 12/19/20 13:30 Ur Culture Indicated? No/not indicated 12/19/20 13:30 Vancomycin Trough 25.6 ug/mL (15-20) H* 12/22/20 09:02 SARS-CoV-2 (PCR) Negative (NEGATIVE) 12/19/20 09:53 Influenza Type A (PCR) Negative (NEGATIVE) 12/19/20 09:53 Influenza Type B (PCR) Negative (NEGATIVE) 12/19/20 09:53 RSV (PCR) Negative (NEGATIVE) 12/19/20 09:53 - Plan (1) Cellulitis of finger of right hand Status: Acute Plan: NORMAL SALINE AT 50 ML/HR, VANCOMYCIN 1G IV Q12H, LEVAQUIN 500MG IV DAILY, MORPHINE SULFATE 2MG IV Q4H PRN, OTBS ACHS, HUMULIN R SLIDING SCALE, RESUME HOME MEDS (2) Abscess of finger, right Status: Acute (3) Urinary tract infection Status: Acute Qualifiers: Urinary tract infection type: site unspecified Hematuria presence: with hematuria Qualified Code(s): N39.0 - Urinary tract infection, site not specified; R31.9 - Hematuria, unspecified
--- NOTE | 2020-12-23 11:58 | RAD ---
HISTORYR/O OSTEOMYLITIS, RIGHT 2ND DIGIT SWELLING, REDNESS AFTER CUTTING FINGER X 2 WEEKS AGO, PT HAD DEBRIDMENT ON 12/20/2020.brSTUDYHAND, RIGHT three views right handCOMPARISONNoneFINDINGSThere are destructive changes in the distal phalanx of the index finger. In the setting of infection this may be due to osteomyelitis. There is diffuse soft tissue edema at the location. Minimal emphysema in the soft tissues also. 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 No dislocation.IMPRESSION1. Findings consistent with osteomyelitisElectronically signed by: Alfa Hutchins (Dec 23, 2020 11:57:34)
[2020-12-23] MEDS: LEVEMIR SC SCH ×2 (12:54→21:20)
--- NOTE | 2020-12-23 14:17 | DR.PROGNOT ---
Hospital Progress Notes - Progress Note for Day of: Progress Note Date: 12/23/20 - Chief Complaint Chief Complaint: less pain RT index finger .. all packings were removed . finger was soaked with H2O2 and redressed with 4x4 . C&S showed MRSA sensive to Clindamycin and Sulfa . to have CT od the Rt index finer . - Past Medical Family Social History Past Med/Fam/Surg Hx: No changes since H&P Allergies: Allergies codeine Allergy (Verified 02/09/18 18:08) doxycycline Allergy (Verified 02/09/18 18:08) - Review Of Systems ROS: No change since H&P - Vital Signs Vital Signs: Temperature 97.8 F Pulse Rate [Left Brachial] 68 Pulse Rate [Right Brachial] 62 Pulse Rate 82 Respiratory Rate 20 Blood Pressure [Right Arm] 153/68 Blood Pressure [Left Arm] 125/59 O2 Sat by Pulse Oximetry 95 - Physical Exam Oriented: Normal Eyes: Normal Ear: Normal Nose: Normal Throat: Normal Respiratory: Generalized, Diminished Cardiovascular: Normal : Dysuria GI:Auscultation: Normal GI:Palpation: Normal GI: Tenderness: Normal Skin: Red, Tender, Hot, Wound (cellulitis RT index finger with erythema , edema and tendernes of the 2nd , third phalanx .. ) Musculoskeletal: Right (RIGHT INDEX FINGER SWELLING ), Swelling, Tender Psychiatric: Normal Mood Description: Calm Affect: Normal Speech Pattern: Clear, Appropriate - Laboratory and Diagnostics Result Diagrams: 12/23/20 04:52 12/23/20 04:52 Labs: 12/20/20 14:10 Urine,Clean Catch Urine Culture - Final 12/19/20 13:00 Blood Blood Culture - Preliminary 12/19/20 13:00 Blood Blood Culture - Preliminary 12/19/20 14:13 Finger - Right Index Wound Gram Stain - Final 12/19/20 14:13 Finger - Right Index Wound Culture - Final Methicillin Resis Staph Aureus Laboratory WBC 9.4 X10^3/uL (3.6-10.0) 12/23/20 04:52 RBC 4.17 X10^6/uL (3.5-5.4) 12/23/20 04:52 Hgb 12.1 g/dL (12.0-16.0) 12/23/20 04:52 Hct 35.5 % (36.0-47.0) L 12/23/20 04:52 MCV 85.1 fL (80.0-100.0) 12/23/20 04:52 MCH 29.1 pg (27.0-34.0) 12/23/20 04:52 MCHC 34.2 g/dL (33.0-35.0) 12/23/20 04:52 RDW 14.6 % (11.6-16.5) 12/23/20 04:52 Plt Count 211 X10^3/uL (150.0-450.0) 12/23/20 04:52 MPV 7.9 fL (7.4-11.0) 12/23/20 04:52 Neut % (Auto) 76.9 % (42.0-75.0) H 12/23/20 04:52 Lymph % (Auto) 10.9 % (21.0-51.0) L 12/23/20 04:52 [place] % (Auto) 8.2 % (0.0-13.0) 12/23/20 04:52 Eos % (Auto) 3.5 % (0.9-2.9) H 12/23/20 04:52 Baso % (Auto) 0.5 % (0.2-1.0) 12/23/20 04:52 Neut # (Auto) 7.3 x10^3/uL (2.2-4.8) H 12/23/20 04:52 Lymph # (Auto) 1.0 X10^3/uL (1.3-2.9) L 12/23/20 04:52 [place] # (Auto) 0.8 x10^3/uL (0.3-0.8) 12/23/20 04:52 Eos # (Auto) 0.3 x10^3/uL (0.0-0.2) H 12/23/20 04:52 Baso # (Auto) 0.1 X10^3/uL (0.0-0.1) 12/23/20 04:52 Absolute Nucleated RBC 0.1 /100WBC 12/23/20 04:52 Sodium 141 mmol/L (136-145) 12/23/20 04:52 Corrected Sodium 142 mmol/L (136-145) 12/23/20 04:52 Potassium 5.2 mmol/L (3.5-5.1) H 12/23/20 04:52 Chloride 111 mmol/L (98-107) H 12/23/20 04:52 Carbon Dioxide 19.1 mmol/L (21-32) L 12/23/20 04:52 BUN 24 mg/dL (7-18) H 12/23/20 04:52 Creatinine 0.96 mg/dL (0.55-1.02) 12/23/20 04:52 Est GFR (MDRD) Af Amer > 60 (>60) 12/23/20 04:52 Est GFR (MDRD) Non-Af > 60 (>60) 12/23/20 04:52 Glucose 139 mg/dL (65-99) H 12/23/20 04:52 POC Glucose (mg/dL) 150 mg/dL (65-99) H 12/23/20 12:44 Calcium 8.6 mg/dL (8.5-10.1) 12/23/20 04:52 Corrected Calcium 9.7 mg/dL (8.5-10.1) 12/23/20 04:52 Total Bilirubin 0.20 mg/dL (0.2-1.0) 12/23/20 04:52 AST 26 Units/L (15-37) 12/23/20 04:52 ALT 18 Units/L (12-78) 12/23/20 04:52 Alkaline Phosphatase 136 Units/L (46-116) H 12/23/20 04:52 Total Protein 6.7 g/dL (6.4-8.2) 12/23/20 04:52 Albumin 2.6 g/dL (3.4-5.0) L 12/23/20 04:52 Globulin 4.1 g/dL (2.5-4.5) 12/23/20 04:52 Albumin/Globulin Ratio 0.6 Ratio (1.1-2.1) L 12/23/20 04:52 Specimen Type Clean catch urine 12/19/20 13:30 Urine Color Pale yellow (YELLOW) 12/19/20 13:30 Urine Appearance Hazy (CLEAR) 12/19/20 13:30 Urine pH 5.0 (5.0 - 8.0) 12/19/20 13:30 Ur Specific [place] 1.015 (1.000-1.030) 12/19/20 13:30 Urine Protein 3+ (NEGATIVE) 12/19/20 13:30 Urine Glucose (UA) 4+ (NEGATIVE) 12/19/20 13:30 Urine Ketones Negative (NEGATIVE) 12/19/20 13:30 Urine Occult Blood 2+ (NEGATIVE) 12/19/20 13:30 Urine Nitrite Negative (NEGATIVE) 12/19/20 13:30 Urine Bilirubin Negative (NEGATIVE) 12/19/20 13:30 Urine Urobilinogen Normal (NORMAL) 12/19/20 13:30 Ur Leukocyte Esterase 3+ (NEGATIVE) 12/19/20 13:30 Urine RBC 0-2 /HPF (0-3) 12/19/20 13:30 Urine WBC 20-30 /HPF (0-5) A 12/19/20 13:30 Ur Squamous Epith Cells Numerous /HPF (NEGATIVE) 12/19/20 13:30 Ur Renal Epithelial Cell Moderate /HPF (NEGATIVE) 12/19/20 13:30 Urine Bacteria 2+ /HPF (NEGATIVE) 12/19/20 13:30 Urine Yeast Rare /HPF (NEGATIVE) 12/19/20 13:30 Ur Culture Indicated? No/not indicated 12/19/20 13:30 Vancomycin Trough 25.6 ug/mL (15-20) H* 12/22/20 09:02 SARS-CoV-2 (PCR) Negative (NEGATIVE) 12/19/20 09:53 Influenza Type A (PCR) Negative (NEGATIVE) 12/19/20 09:53 Influenza Type B (PCR) Negative (NEGATIVE) 12/19/20 09:53 RSV (PCR) Negative (NEGATIVE) 12/19/20 09:53 - Assessment and Plan 1: MRSA infection RT index finger .. cellulitis with abscess formation . s/p debridement . DM Type ll . CAD and stenting .., HTN .CKD,. same local care ,keep packing , elevation on IV pole . IV Vancomycin. pain control . Diabetic control and medical f/u. x Ray and CT Rt index finger to R.O osteomyelitis RT hand . - Problem Patient Problems: Patient Problems Abscess of finger, right (Acute) L02.511 Cellulitis of finger of right hand (Acute) L03.011 Urinary tract infection (Acute) N39.0
[2020-12-23] MEDS: NS 1000 ML 1,000 ML IV SCH (14:53)
[2020-12-23] MEDS: MORPHINE SULFATE INJ 2 MG INJ IVP PRN (15:58)
[2020-12-23] MEDS: HumuLIN R SUBCUT PRN ×2 (16:15→21:22)
[2020-12-23] MEDS: SNACK - Diabetic Appropriate PO SCH (21:19)
[2020-12-23] MEDS: CRESTOR TAB 10 MG PO SCH (21:20)
[2020-12-23] MEDS: BACTROBAN TOPICAL OINT TOP SCH (21:20)
[2020-12-23] MEDS: CELEXA PO SCH (21:20)
[2020-12-23] MEDS: MIRALAX POWDER (1 DOSE 17 G) PO SCH (21:21)
[2020-12-23] MEDS: KLONOPIN TAB 1 MG PO PRN (21:22)
[2020-12-24] MEDS: MORPHINE SULFATE INJ 2 MG INJ IVP PRN ×2 (02:25→14:56)
[2020-12-24] MEDS: TORADOL 30 MG VIAL IVP SCH (05:24)
[2020-12-24] MEDS: DUONEB 0.5 MG/3 MG (3 mL) NEB SCH ×3 (05:53→21:12)
[2020-12-24 06:13] LABS: BASOPHILS % (AUTO) 0.4 % (0.2-1.0); EOSINOPHILS # (AUTO) 0.2 x10^3/uL (0.0-0.2); EOSINOPHILS % (AUTO) 1.6 % (0.9-2.9); HEMATOCRIT 31.8 % (36.0-47.0); HEMOGLOBIN 10.9 g/dL (12.0-16.0); LYMPHOCYTES # (AUTO) 0.9 X10^3/uL (1.3-2.9); LYMPHOCYTES % (AUTO) 8.5 % (21.0-51.0); MEAN CORPUSCULAR HEMOGLOBIN 29.3 pg (27.0-34.0); MEAN CORPUSCULAR HGB CONC 34.1 g/dL (33.0-35.0); MEAN CORPUSCULAR VOLUME 85.8 fL (80.0-100.0); MEAN PLATELET VOLUME 7.8 fL (7.4-11.0); MONOCYTES # (AUTO) 0.9 x10^3/uL (0.3-0.8); MONOCYTES % (AUTO) 8.7 % (0.0-13.0); NEUTROPHILS # (AUTO) 8.4 x10^3/uL (2.2-4.8); NEUTROPHILS % (AUTO) 80.8 % (42.0-75.0); PLATELET COUNT 206 X10^3/uL (150.0-450.0); RED CELL DISTRIBUTION WIDTH 14.6 % (11.6-16.5); WHITE BLOOD COUNT 10.5 X10^3/uL (3.6-10.0)
[2020-12-24 06:21] LABS: ALANINE AMINOTRANSFERASE 23 Units/L (12-78); ALBUMIN 2.5 g/dL (3.4-5.0); ALKALINE PHOSPHATASE 151 Units/L (46-116); ASPARTATE AMINO TRANSFERASE 34 Units/L (15-37); BLOOD UREA NITROGEN 26 mg/dL (7-18); CALCIUM 8.6 mg/dL (8.5-10.1); CARBON DIOXIDE 21.1 mmol/L (21-32); CHLORIDE 108 mmol/L (98-107); COR CA(FOR HYPOALB) 9.8 mg/dL (8.5-10.1); CREATININE 0.99 mg/dL (0.55-1.02); SODIUM 139 mmol/L (136-145); TOTAL PROTEIN 6.6 g/dL (6.4-8.2); eGFR NON BLACK RACES 59 (>60)
[2020-12-24] MEDS ORDERED: PHARMACY COMMENT IV NR (08:30)
[2020-12-24] MEDS: LEVAQUIN PREMIX IV 500 MG 500 MG/100 ML BAG IV SCH (08:51)
[2020-12-24] MEDS: COLACE CAP 100 MG PO SCH ×2 (08:52→22:00)
[2020-12-24] MEDS: ELAVIL PO SCH (08:52)
[2020-12-24] MEDS: COREG TAB 6.25 MG PO SCH ×2 (08:52→21:32)
[2020-12-24] MEDS: COZAAR PO SCH (08:52)
[2020-12-24] MEDS: BACTROBAN TOPICAL OINT TOP SCH ×2 (08:53→21:31)
[2020-12-24] MEDS: MILK OF MAGNESIA PO SCH ×2 (08:53→22:00)
[2020-12-24] MEDS: MAG-OX TAB PO SCH (08:53)
[2020-12-24] MEDS: LEVEMIR SC SCH ×2 (08:54→19:45)
[2020-12-24] MEDS ORDERED: HYDROGEN PEROXIDE 3% ONE (09:11)
[2020-12-24] MEDS: MYCOLOG-II CREAM TOP SCH ×2 (09:30→22:45)
--- NOTE | 2020-12-24 09:39 | DR.PROGNOT ---
Hospital Progress Notes - Progress Note for Day of: Progress Note Date: 12/24/20 - Chief Complaint Chief Complaint: feeling better with less pain , less swelling . Vanco level was high 25 .. BS 118 .. K 5.6 . Xray showed osteomyelitis RT index finger tip . - Past Medical Family Social History Past Med/Fam/Surg Hx: No changes since H&P Allergies: Allergies codeine Allergy (Verified 02/09/18 18:08) doxycycline Allergy (Verified 02/09/18 18:08) - Review Of Systems ROS: No change since H&P - Vital Signs Vital Signs: Temperature 98.3 F Pulse Rate [Left Brachial] 72 Pulse Rate [Right Brachial] 62 Pulse Rate 87 Respiratory Rate 20 Blood Pressure [Right Arm] 153/68 Blood Pressure [Left Arm] 106/53 O2 Sat by Pulse Oximetry 95 - Physical Exam Oriented: Normal Eyes: Normal Ear: Normal Nose: Normal Throat: Normal Respiratory: Generalized, Diminished Cardiovascular: Normal : Dysuria GI:Auscultation: Normal GI:Palpation: Normal GI: Tenderness: Normal Skin: Red, Tender, Hot, Wound (cmoderate swelling of RT index finger . less erythema .) Musculoskeletal: Right (RIGHT INDEX FINGER SWELLING ), Swelling, Tender Psychiatric: Normal Mood Description: Calm Affect: Normal Speech Pattern: Clear, Appropriate - Laboratory and Diagnostics Result Diagrams: 12/24/20 05:18 12/24/20 05:18 Labs: 12/20/20 14:10 Urine,Clean Catch Urine Culture - Final 12/19/20 13:00 Blood Blood Culture - Preliminary 12/19/20 13:00 Blood Blood Culture - Preliminary 12/19/20 14:13 Finger - Right Index Wound Gram Stain - Final 12/19/20 14:13 Finger - Right Index Wound Culture - Final Methicillin Resis Staph Aureus Laboratory WBC 10.5 X10^3/uL (3.6-10.0) H 12/24/20 05:18 RBC 3.70 X10^6/uL (3.5-5.4) 12/24/20 05:18 Hgb 10.9 g/dL (12.0-16.0) L 12/24/20 05:18 Hct 31.8 % (36.0-47.0) L 12/24/20 05:18 MCV 85.8 fL (80.0-100.0) 12/24/20 05:18 MCH 29.3 pg (27.0-34.0) 12/24/20 05:18 MCHC 34.1 g/dL (33.0-35.0) 12/24/20 05:18 RDW 14.6 % (11.6-16.5) 12/24/20 05:18 Plt Count 206 X10^3/uL (150.0-450.0) 12/24/20 05:18 MPV 7.8 fL (7.4-11.0) 12/24/20 05:18 Neut % (Auto) 80.8 % (42.0-75.0) H 12/24/20 05:18 Lymph % (Auto) 8.5 % (21.0-51.0) L 12/24/20 05:18 [place] % (Auto) 8.7 % (0.0-13.0) 12/24/20 05:18 Eos % (Auto) 1.6 % (0.9-2.9) 12/24/20 05:18 Baso % (Auto) 0.4 % (0.2-1.0) 12/24/20 05:18 Neut # (Auto) 8.4 x10^3/uL (2.2-4.8) H 12/24/20 05:18 Lymph # (Auto) 0.9 X10^3/uL (1.3-2.9) L 12/24/20 05:18 [place] # (Auto) 0.9 x10^3/uL (0.3-0.8) H 12/24/20 05:18 Eos # (Auto) 0.2 x10^3/uL (0.0-0.2) 12/24/20 05:18 Baso # (Auto) 0.0 X10^3/uL (0.0-0.1) 12/24/20 05:18 Absolute Nucleated RBC 0.1 /100WBC 12/24/20 05:18 Sodium 139 mmol/L (136-145) 12/24/20 05:18 Corrected Sodium TNP 12/24/20 05:18 Potassium 5.6 mmol/L (3.5-5.1) H 12/24/20 05:18 Chloride 108 mmol/L (98-107) H 12/24/20 05:18 Carbon Dioxide 21.1 mmol/L (21-32) 12/24/20 05:18 BUN 26 mg/dL (7-18) H 12/24/20 05:18 Creatinine 0.99 mg/dL (0.55-1.02) 12/24/20 05:18 Est GFR (MDRD) Af Amer > 60 (>60) 12/24/20 05:18 Est GFR (MDRD) Non-Af 59 (>60) 12/24/20 05:18 Glucose 78 mg/dL (65-99) 12/24/20 05:18 POC Glucose (mg/dL) 80 mg/dL (65-99) 12/24/20 05:22 Calcium 8.6 mg/dL (8.5-10.1) 12/24/20 05:18 Corrected Calcium 9.8 mg/dL (8.5-10.1) 12/24/20 05:18 Total Bilirubin 0.50 mg/dL (0.2-1.0) 12/24/20 05:18 AST 34 Units/L (15-37) 12/24/20 05:18 ALT 23 Units/L (12-78) 12/24/20 05:18 Alkaline Phosphatase 151 Units/L (46-116) H 12/24/20 05:18 Total Protein 6.6 g/dL (6.4-8.2) 12/24/20 05:18 Albumin 2.5 g/dL (3.4-5.0) L 12/24/20 05:18 Globulin 4.1 g/dL (2.5-4.5) 12/24/20 05:18 Albumin/Globulin Ratio 0.6 Ratio (1.1-2.1) L 12/24/20 05:18 Specimen Type Clean catch urine 12/19/20 13:30 Urine Color Pale yellow (YELLOW) 12/19/20 13:30 Urine Appearance Hazy (CLEAR) 12/19/20 13:30 Urine pH 5.0 (5.0 - 8.0) 12/19/20 13:30 Ur Specific [place] 1.015 (1.000-1.030) 12/19/20 13:30 Urine Protein 3+ (NEGATIVE) 12/19/20 13:30 Urine Glucose (UA) 4+ (NEGATIVE) 12/19/20 13:30 Urine Ketones Negative (NEGATIVE) 12/19/20 13:30 Urine Occult Blood 2+ (NEGATIVE) 12/19/20 13:30 Urine Nitrite Negative (NEGATIVE) 12/19/20 13:30 Urine Bilirubin Negative (NEGATIVE) 12/19/20 13:30 Urine Urobilinogen Normal (NORMAL) 12/19/20 13:30 Ur Leukocyte Esterase 3+ (NEGATIVE) 12/19/20 13:30 Urine RBC 0-2 /HPF (0-3) 12/19/20 13:30 Urine WBC 20-30 /HPF (0-5) A 12/19/20 13:30 Ur Squamous Epith Cells Numerous /HPF (NEGATIVE) 12/19/20 13:30 Ur Renal Epithelial Cell Moderate /HPF (NEGATIVE) 12/19/20 13:30 Urine Bacteria 2+ /HPF (NEGATIVE) 12/19/20 13:30 Urine Yeast Rare /HPF (NEGATIVE) 12/19/20 13:30 Ur Culture Indicated? No/not indicated 12/19/20 13:30 Vancomycin Trough 25.6 ug/mL (15-20) H* 12/22/20 09:02 SARS-CoV-2 (PCR) Negative (NEGATIVE) 12/19/20 09:53 Influenza Type A (PCR) Negative (NEGATIVE) 12/19/20 09:53 Influenza Type B (PCR) Negative (NEGATIVE) 12/19/20 09:53 RSV (PCR) Negative (NEGATIVE) 12/19/20 09:53 - Assessment and Plan 1: MRSA infection RT index finger .. cellulitis with abscess formation and osteomyelitis . s/p debridement . DM Type ll . CAD and stenting .., HTN .CKD,. for placement of PIC line . NVA to change dressing , IV ATB at home for 6 weeks - Problem Patient Problems: Patient Problems Abscess of finger, right (Acute) L02.511 Cellulitis of finger of right hand (Acute) L03.011 Urinary tract infection (Acute) N39.0
--- NOTE | 2020-12-24 10:49 | RAD ---
HISTORYPICC PLACEMENT HX: CAD, HTN, COPD, DM SX: STENTS, GB.brSTUDYCHEST, 1 [id number] silhouette is stable in size. There is stable elevation of the right hemidiaphragm. Previously seen right perihilar opacities persist but appear overall improved since prior. Left lung remains predominantly clear. No significant pleural effusion is identified. Left-sided PICC is well positioned, terminating over the SVC without pneumothorax.IMPRESSIONSatisfactory left-sided PICC placement without pneumothorax.Persistent but improving right perihilar airspace disease.Electronically signed by: HUGO MORALES (Dec 24, 2020 10:47:28)
--- NOTE | 2020-12-24 11:11 | PCM.PROG ---
Progress Note - Progress Note for Day of Date of Exam: 12/24/20 - Subjective Subjective: IS BEING TREATED FOR CELLULITIS OF THE RIGHT INDEX FINGER, RIGHT FINGER ABSCESS, AND URINARY TRACT INFECTION. SHE IS STATUS POST DEBRIDEMENT OF WOUND. TODAY, SHE IS ALERT AND ORIENTED, SITTING UP IN BED ON MORNING ROUNDS. SHE CONTINUES WITH MILD, THROBBING PAIN TO THE FINGER. ON EXAMINATION, HEART IS REGULAR IN RATE AND RHYTHM. BILATERAL LUNGS ARE CLEAR TO AUSCULTATION. ABDOMEN IS ROUND, SOFT, AND NON-TENDER WITH NON-TENDER WITH NORMAL BOWEL SOUNDS NOTED IN ALL QUADRANTS. BULKY DRESSING NOTED TO RIGHT HAND. HER VITALS THIS MORNING ARE: 98.3-72-18-96%-106/53. LABS WERE OBTAINED. ABNORMAL LAB VALUES INCLUDE THE FOLLOWING: WBC 10.5, HGB 10.9, HCT 31.8, CHLORIDE 5.6, CHLORIDE 108, BUN 26, ALK PHOS 151, ALBUMIN 2.5. WOUND CULTURES REPORTS GROWTH OF MRSA. A RIGHT HAND XRAY WAS OBTAINED YESTERDAY AND REVEALED: 1. Findings consistent with osteomyelitis. SHE IS CURRENTLY RECEIVING NORMAL SALINE AT 50 ML/HR, VANCOMYCIN 1G IV Q12H, LEVAQUIN 500MG IV DAILY, MORPHINE SULFATE 2MG IV Q4H PRN, COLACE 100MG PO BID, MILK OF MAGNESIA 30ML PO BID, AND MIRALAX 17G PO HS, OTBS ACHS, HUMULIN R SLIDING SCALE, AND HOME MEDICATIONS OF ELAVIL, COREG, CELEXA, KLONOPIN, FLEXERIL, GLUCOTROL, LEVEMIR, COZAAR, MAG-OX, CRESTOR, AND ULTRAM WERE RESUMED. SHE WILL REQUIRE AN EXTENDED COURSE OF IV ANTIBIOTICS. WE WILL INSERT A PICC LINE TODAY. OTHERWISE, WE WILL CONTINUE WITH CURRENT PLAN OF CARE. WILL CONTINUE TO FOLLOW PATIENT. OTHERWISE, WE WILL FOLLOW UP WITH AM LABS AND CONTINUE TO MONITOR. TIME SPENT ON CLINICAL ASSESSMENT, REVIEWING LABS AND IMAGING, DECISION MAKING, AND DOCUMENTATION GREATER THAN 45 MINUTES. - Past Medical Family Social History Past Med/Fam/Surg Hx: No changes since H&P Allergies: Allergies codeine Allergy (Verified 02/09/18 18:08) doxycycline Allergy (Verified 02/09/18 18:08) - Review of Systems ROS: No change since H&P - Vital Signs and I&O's Vital Signs: Temperature 98.3 F Pulse Rate [Left Brachial] 72 Pulse Rate [Right Brachial] 62 Pulse Rate 87 Respiratory Rate 20 Blood Pressure [Right Arm] 153/68 Blood Pressure [Left Arm] 106/53 O2 Sat by Pulse Oximetry 95 Intake and Output: Intake & Output 12/21/20 12/22/20 12/23/20 12/24/20 11:59 11:59 11:59 11:59 Intake Total 2923 / 2923 4239 / 4239 2618 / 2618 4014 / 4014 Balance 2923 / 2923 4239 / 4239 2618 / 2618 4014 / 4014 - Physical Exam Oriented: Normal Eyes: Normal Ear: Normal Nose: Normal Throat: Normal Respiratory: Generalized, Diminished Cardiovascular: Normal : Dysuria Auscultation: Bowel Sounds: Normal Tenderness: Normal Skin: Red, Tender, Hot, Wound (cmoderate swelling of RT index finger . less erythema .) Musculoskeletal: Right (RIGHT INDEX FINGER SWELLING ), Swelling, Tender Psychiatric: Normal Mood Description: Calm Affect: Normal Speech Pattern: Clear, Appropriate - Laboratory and Diagnostics Result Diagrams: 12/24/20 05:18 12/24/20 05:18 Labs: 12/20/20 14:10 Urine,Clean Catch Urine Culture - Final 12/19/20 13:00 Blood Blood Culture - Preliminary 12/19/20 13:00 Blood Blood Culture - Preliminary 12/19/20 14:13 Finger - Right Index Wound Gram Stain - Final 12/19/20 14:13 Finger - Right Index Wound Culture - Final Methicillin Resis Staph Aureus Laboratory WBC 10.5 X10^3/uL (3.6-10.0) H 12/24/20 05:18 RBC 3.70 X10^6/uL (3.5-5.4) 12/24/20 05:18 Hgb 10.9 g/dL (12.0-16.0) L 12/24/20 05:18 Hct 31.8 % (36.0-47.0) L 12/24/20 05:18 MCV 85.8 fL (80.0-100.0) 12/24/20 05:18 MCH 29.3 pg (27.0-34.0) 12/24/20 05:18 MCHC 34.1 g/dL (33.0-35.0) 12/24/20 05:18 RDW 14.6 % (11.6-16.5) 12/24/20 05:18 Plt Count 206 X10^3/uL (150.0-450.0) 12/24/20 05:18 MPV 7.8 fL (7.4-11.0) 12/24/20 05:18 Neut % (Auto) 80.8 % (42.0-75.0) H 12/24/20 05:18 Lymph % (Auto) 8.5 % (21.0-51.0) L 12/24/20 05:18 [place] % (Auto) 8.7 % (0.0-13.0) 12/24/20 05:18 Eos % (Auto) 1.6 % (0.9-2.9) 12/24/20 05:18 Baso % (Auto) 0.4 % (0.2-1.0) 12/24/20 05:18 Neut # (Auto) 8.4 x10^3/uL (2.2-4.8) H 12/24/20 05:18 Lymph # (Auto) 0.9 X10^3/uL (1.3-2.9) L 12/24/20 05:18 [place] # (Auto) 0.9 x10^3/uL (0.3-0.8) H 12/24/20 05:18 Eos # (Auto) 0.2 x10^3/uL (0.0-0.2) 12/24/20 05:18 Baso # (Auto) 0.0 X10^3/uL (0.0-0.1) 12/24/20 05:18 Absolute Nucleated RBC 0.1 /100WBC 12/24/20 05:18 Sodium 139 mmol/L (136-145) 12/24/20 05:18 Corrected Sodium TNP 12/24/20 05:18 Potassium 5.6 mmol/L (3.5-5.1) H 12/24/20 05:18 Chloride 108 mmol/L (98-107) H 12/24/20 05:18 Carbon Dioxide 21.1 mmol/L (21-32) 12/24/20 05:18 BUN 26 mg/dL (7-18) H 12/24/20 05:18 Creatinine 0.99 mg/dL (0.55-1.02) 12/24/20 05:18 Est GFR (MDRD) Af Amer > 60 (>60) 12/24/20 05:18 Est GFR (MDRD) Non-Af 59 (>60) 12/24/20 05:18 Glucose 78 mg/dL (65-99) 12/24/20 05:18 POC Glucose (mg/dL) 80 mg/dL (65-99) 12/24/20 05:22 Calcium 8.6 mg/dL (8.5-10.1) 12/24/20 05:18 Corrected Calcium 9.8 mg/dL (8.5-10.1) 12/24/20 05:18 Total Bilirubin 0.50 mg/dL (0.2-1.0) 12/24/20 05:18 AST 34 Units/L (15-37) 12/24/20 05:18 ALT 23 Units/L (12-78) 12/24/20 05:18 Alkaline Phosphatase 151 Units/L (46-116) H 12/24/20 05:18 Total Protein 6.6 g/dL (6.4-8.2) 12/24/20 05:18 Albumin 2.5 g/dL (3.4-5.0) L 12/24/20 05:18 Globulin 4.1 g/dL (2.5-4.5) 12/24/20 05:18 Albumin/Globulin Ratio 0.6 Ratio (1.1-2.1) L 12/24/20 05:18 Specimen Type Clean catch urine 12/19/20 13:30 Urine Color Pale yellow (YELLOW) 12/19/20 13:30 Urine Appearance Hazy (CLEAR) 12/19/20 13:30 Urine pH 5.0 (5.0 - 8.0) 12/19/20 13:30 Ur Specific [place] 1.015 (1.000-1.030) 12/19/20 13:30 Urine Protein 3+ (NEGATIVE) 12/19/20 13:30 Urine Glucose (UA) 4+ (NEGATIVE) 12/19/20 13:30 Urine Ketones Negative (NEGATIVE) 12/19/20 13:30 Urine Occult Blood 2+ (NEGATIVE) 12/19/20 13:30 Urine Nitrite Negative (NEGATIVE) 12/19/20 13:30 Urine Bilirubin Negative (NEGATIVE) 12/19/20 13:30 Urine Urobilinogen Normal (NORMAL) 12/19/20 13:30 Ur Leukocyte Esterase 3+ (NEGATIVE) 12/19/20 13:30 Urine RBC 0-2 /HPF (0-3) 12/19/20 13:30 Urine WBC 20-30 /HPF (0-5) A 12/19/20 13:30 Ur Squamous Epith Cells Numerous /HPF (NEGATIVE) 12/19/20 13:30 Ur Renal Epithelial Cell Moderate /HPF (NEGATIVE) 12/19/20 13:30 Urine Bacteria 2+ /HPF (NEGATIVE) 12/19/20 13:30 Urine Yeast Rare /HPF (NEGATIVE) 12/19/20 13:30 Ur Culture Indicated? No/not indicated 12/19/20 13:30 Vancomycin Trough 25.6 ug/mL (15-20) H* 12/22/20 09:02 SARS-CoV-2 (PCR) Negative (NEGATIVE) 12/19/20 09:53 Influenza Type A (PCR) Negative (NEGATIVE) 12/19/20 09:53 Influenza Type B (PCR) Negative (NEGATIVE) 12/19/20 09:53 RSV (PCR) Negative (NEGATIVE) 12/19/20 09:53 - Plan (1) Cellulitis of finger of right hand Status: Acute Plan: NORMAL SALINE AT 50 ML/HR, VANCOMYCIN 1G IV Q12H, LEVAQUIN 500MG IV DAILY, MORPHINE SULFATE 2MG IV Q4H PRN, OTBS ACHS, HUMULIN R SLIDING SCALE, RESUME HOME MEDS (2) Abscess of finger, right Status: Acute (3) Urinary tract infection Status: Acute Qualifiers: Urinary tract infection type: site unspecified Hematuria presence: with hematuria Qualified Code(s): N39.0 - Urinary tract infection, site not specified; R31.9 - Hematuria, unspecified
[2020-12-24] MEDS: NS 1000 ML 1,000 ML IV SCH (11:24)
--- NOTE | 2020-12-24 11:25 | DR.UPDATE ---
H&P Update History and Physical Update: History and Physical reviewed and patient examined. Changes noted: NO Yes with the following:will place picc for termite treater helper antibiotics H&P Reviewed: Yes Patient was examined?: Yes Procedures (ALL) - Central Line Placement PCM.CLCO: written consent Time out performed: Yes Patient placed pm monitor/pulse ox: Yes prep: mask, gown, gloves, other Centrial line prep: chlorhexidine scrub, sterile drapes applied Local anesthsia used: lidocane 1% Ultrasound used for placement: Yes (left cephalic id'd via u/s, and cannulation visualized) Central line lumen ininserted: double (5.5fr arrow picc) Post procedure: good blood return, all ports aspirated, flushed,capped, sterile dressing applied Post procedure xray: tip oc catheter in good position, no pneumothorax seen Patient tolerated procedure: Yes Complications: none
[2020-12-24 12:36] LABS: CREATININE 1.28 mg/dL (0.55-1.02)
[2020-12-24 12:44] LABS: VANCOMYCIN,TROUGH 21.5 ug/mL (15-20)
[2020-12-24] MEDS: VANCOMYCIN IV *PREMIX 750 mg/150 ML BAG 750 MG/150 ML PIGGYBACK IV SCH ×2 (13:07→21:35)
[2020-12-24] MEDS: GLUCOTROL XL 24-HR PO SCH (13:07)
[2020-12-24] MEDS ORDERED: LASIX IVP ONE (17:40)
[2020-12-24] MEDS: HumuLIN R SUBCUT PRN (18:05)
[2020-12-24] MEDS: SNACK - Diabetic Appropriate PO SCH (20:30)
[2020-12-24] MEDS: CELEXA PO SCH (21:31)
[2020-12-24] MEDS: CRESTOR TAB 10 MG PO SCH (21:33)
[2020-12-24] MEDS: PERCOCET TAB 5/325 MG PO PRN (21:54)
[2020-12-24] MEDS: KLONOPIN TAB 1 MG PO PRN (22:00)
[2020-12-24] MEDS: MIRALAX POWDER (1 DOSE 17 G) PO SCH (22:00)
[2020-12-24] MEDS: FLEXERIL TAB 10 MG PO PRN (22:00)
[2020-12-25] MEDS: PERCOCET TAB 5/325 MG PO PRN ×4 (04:40→21:40)
[2020-12-25] MEDS: DUONEB 0.5 MG/3 MG (3 mL) NEB SCH ×3 (05:30→20:35)
[2020-12-25 06:08] LABS: BASOPHILS % (AUTO) 0.4 % (0.2-1.0); EOSINOPHILS # (AUTO) 0.1 x10^3/uL (0.0-0.2); HEMATOCRIT 32.1 % (36.0-47.0); HEMOGLOBIN 10.9 g/dL (12.0-16.0); LYMPHOCYTES # (AUTO) 0.9 X10^3/uL (1.3-2.9); LYMPHOCYTES % (AUTO) 8.1 % (21.0-51.0); MEAN CORPUSCULAR HEMOGLOBIN 29.3 pg (27.0-34.0); MEAN PLATELET VOLUME 8.1 fL (7.4-11.0); MONOCYTES % (AUTO) 8.9 % (0.0-13.0); NEUTROPHILS # (AUTO) 9.3 x10^3/uL (2.2-4.8); NEUTROPHILS % (AUTO) 81.6 % (42.0-75.0); PLATELET COUNT 188 X10^3/uL (150.0-450.0); RED BLOOD COUNT 3.74 X10^6/uL (3.5-5.4); WHITE BLOOD COUNT 11.3 X10^3/uL (3.6-10.0)
[2020-12-25 06:11] LABS: ALBUMIN 2.5 g/dL (3.4-5.0); CALCIUM 8.5 mg/dL (8.5-10.1); COR CA(FOR HYPOALB) 9.7 mg/dL (8.5-10.1); CREATININE 1.32 mg/dL (0.55-1.02); TOTAL PROTEIN 6.9 g/dL (6.4-8.2)
--- NOTE | 2020-12-25 08:54 | RAD ---
HISTORYShortness of breathSTUDYChest AP [id number] e is a left-sided PICC line in good position. Heart size is normal. Bilateral perihilar interstitial lung changes and areas of subsegmental atelectasis are slightly less prominent than the prior examination. Right hemidiaphragm is elevated. No alveolar infiltrates, areas of consolidation, pneumothoraces or pleural effusions identified. Bony thorax is unremarkable.IMPRESSIONNo change bilateral perihilar interstitial changes bilateral perihilar subsegmental atelectasisElectronically signed by: MARIO JENSEN (Dec 25, 2020 08:52:46)
[2020-12-25] MEDS ORDERED: LASIX PO SCH (09:00)
[2020-12-25] MEDS: LEVAQUIN PREMIX IV 250 MG 250 MG/50 ML BAG IV SCH (09:59)
[2020-12-25] MEDS: LASIX IVP SCH ×3 (10:00→17:06)
[2020-12-25] MEDS: COREG TAB 6.25 MG PO SCH ×2 (10:00→21:26)
[2020-12-25] MEDS: VANCOMYCIN IV *PREMIX 1 G/200 ML BAG 1 G/200 ML PIGGYBACK IV SCH (10:00)
[2020-12-25] MEDS: ELAVIL PO SCH (10:02)
[2020-12-25] MEDS: MILK OF MAGNESIA PO SCH ×2 (10:03→21:52)
[2020-12-25] MEDS: COZAAR PO SCH (10:03)
[2020-12-25] MEDS: MAG-OX TAB PO SCH (10:03)
[2020-12-25] MEDS: BACTROBAN TOPICAL OINT TOP SCH ×2 (10:03→21:26)
[2020-12-25] MEDS: GLUCOTROL XL 24-HR PO SCH (10:03)
[2020-12-25] MEDS: MYCOLOG-II CREAM TOP SCH ×2 (10:04→21:26)
[2020-12-25] MEDS: COLACE CAP 100 MG PO SCH ×2 (10:12→21:52)
[2020-12-25] MEDS: NS 1000 ML 1,000 ML IV SCH (10:37)
[2020-12-25] MEDS: LEVEMIR SC SCH (10:39)
[2020-12-25] MEDS: HumuLIN R SUBCUT PRN ×3 (12:07→20:40)
--- NOTE | 2020-12-25 12:28 | PCM.PROG ---
Progress Note - Progress Note for Day of Date of Exam: 12/25/20 - Subjective Subjective: IS BEING TREATED FOR CELLULITIS OF THE RIGHT INDEX FINGER, RIGHT FINGER ABSCESS, AND URINARY TRACT INFECTION. SHE IS STATUS POST DEBRIDEMENT OF WOUND. TODAY, SHE IS ALERT AND ORIENTED, SITTING UP IN BED ON MORNING ROUNDS. SHE CONTINUES WITH MILD, THROBBING PAIN TO THE FINGER. SHE ALSO COMPLAINS OF SHORTNESS OF BREATH. ON EXAMINATION, HEART IS REGULAR IN RATE AND RHYTHM. BILATERAL LUNGS ARE NOTED WITH RALES THROUGHOUT. ABDOMEN IS ROUND, SOFT, AND NON-TENDER WITH NON-TENDER WITH NORMAL BOWEL SOUNDS NOTED IN ALL QUADRANTS. HER VITALS THIS MORNING ARE: 98.7-70-20-94%-124/58. LABS WERE OBTAINED. ABNORMAL LAB VALUES INCLUDE THE FOLLOWING: WBC 11.3, HGB 10.9, HCT 32.1, SODIUM 134, CARBON DIOXIDE 20.0, BUN 32, CREATININE 1.32, GLUCOSE 183, ALK PHOS 161, ALBUMIN 2.5. WOUND CULTURES REPORTS GROWTH OF MRSA. A RIGHT HAND XRAY WAS OBTAINED YESTERDAY AND REVEALED: 1. Findings consistent with osteomyelitis. A CHEST XRAY WAS OBTAINED THIS MORNING AND REVEALED: No change bilateral perihilar interstitial changes bilateral perihilar subsegmental atelectasis. SHE IS CURRENTLY RECEIVING NORMAL SALINE AT 50 ML/HR, VANCOMYCIN 1G IV Q12H, LEVAQUIN 500MG IV DAILY, MORPHINE SULFATE 2MG IV Q4H PRN, COLACE 100MG PO BID, MILK OF MAGNESIA 30ML PO BID, AND MIRALAX 17G PO HS, OTBS ACHS, HUMULIN R SLIDING SCALE, AND HOME MEDICATIONS OF ELAVIL, COREG, CELEXA, KLONOPIN, FLEXERIL, GLUCOTROL, L EVEMIR, COZAAR, MAG-OX, CRESTOR, AND ULTRAM WERE RESUMED. SHE WILL REQUIRE AN EXTENDED COURSE OF IV ANTIBIOTICS. A PICC LINE WAS INSERTED YESTERDAY. TODAY, WE WILL ADD LASIX 40MG IV BID. OTHERWISE, WE WILL CONTINUE WITH CURRENT PLAN OF CARE. WILL CONTINUE TO FOLLOW PATIENT. TIME SPENT ON CLINICAL ASSESSMENT, REVIEWING LABS AND IMAGING, DECISION MAKING, AND DOCUMENTATION GREATER THAN 45 MINUTES. - Past Medical Family Social History Past Med/Fam/Surg Hx: No changes since H&P Allergies: Allergies codeine Allergy (Verified 02/09/18 18:08) doxycycline Allergy (Verified 02/09/18 18:08) - Review of Systems ROS: No change since H&P - Vital Signs and I&O's Vital Signs: Temperature 98.7 F Pulse Rate [Left Brachial] 70 Pulse Rate [Right Brachial] 62 Pulse Rate 88 Respiratory Rate 18 Blood Pressure [Right Arm] 153/68 Blood Pressure [Left Arm] 124/58 O2 Sat by Pulse Oximetry 96 Intake and Output: Intake & Output 12/23/20 12/24/20 12/25/20 12/26/20 11:59 11:59 11:59 11:59 Intake Total 2618 / 2618 4014 / 4014 1767 / 1767 Balance 2618 / 2618 4014 / 4014 176 / 176 - Physical Exam Oriented: Normal Eyes: Normal Ear: Normal Nose: Normal Throat: Normal Respiratory: Generalized, Diminished Cardiovascular: Normal : Dysuria Auscultation: Bowel Sounds: Normal Tenderness: Normal Skin: Red, Tender, Hot, Wound (cmoderate swelling of RT index finger . less erythema .) Musculoskeletal: Right (RIGHT INDEX FINGER SWELLING ), Swelling, Tender Psychiatric: Normal Mood Description: Calm Affect: Normal Speech Pattern: Clear, Appropriate - Laboratory and Diagnostics Result Diagrams: 12/25/20 04:54 12/25/20 04:54 Labs: 12/19/20 13:00 Blood Blood Culture - Final 12/19/20 13:00 Blood Blood Culture - Final 12/20/20 14:10 Urine,Clean Catch Urine Culture - Final 12/19/20 14:13 Finger - Right Index Wound Gram Stain - Final 12/19/20 14:13 Finger - Right Index Wound Culture - Final Methicillin Resis Staph Aureus Laboratory WBC 11.3 X10^3/uL (3.6-10.0) H 12/25/20 04:54 RBC 3.74 X10^6/uL (3.5-5.4) 12/25/20 04:54 Hgb 10.9 g/dL (12.0-16.0) L 12/25/20 04:54 Hct 32.1 % (36.0-47.0) L 12/25/20 04:54 MCV 86.0 fL (80.0-100.0) 12/25/20 04:54 MCH 29.3 pg (27.0-34.0) 12/25/20 04:54 MCHC 34.0 g/dL (33.0-35.0) 12/25/20 04:54 RDW 15.0 % (11.6-16.5) 12/25/20 04:54 Plt Count 188 X10^3/uL (150.0-450.0) 12/25/20 04:54 MPV 8.1 fL (7.4-11.0) 12/25/20 04:54 Neut % (Auto) 81.6 % (42.0-75.0) H 12/25/20 04:54 Lymph % (Auto) 8.1 % (21.0-51.0) L 12/25/20 04:54 [place] % (Auto) 8.9 % (0.0-13.0) 12/25/20 04:54 Eos % (Auto) 1.0 % (0.9-2.9) 12/25/20 04:54 Baso % (Auto) 0.4 % (0.2-1.0) 12/25/20 04:54 Neut # (Auto) 9.3 x10^3/uL (2.2-4.8) H 12/25/20 04:54 Lymph # (Auto) 0.9 X10^3/uL (1.3-2.9) L 12/25/20 04:54 [place] # (Auto) 1.0 x10^3/uL (0.3-0.8) H 12/25/20 04:54 Eos # (Auto) 0.1 x10^3/uL (0.0-0.2) 12/25/20 04:54 Baso # (Auto) 0.0 X10^3/uL (0.0-0.1) 12/25/20 04:54 Absolute Nucleated RBC 0.0 /100WBC 12/25/20 04:54 Sodium 134 mmol/L (136-145) L 12/25/20 04:54 Corrected Sodium 136 mmol/L (136-145) 12/25/20 04:54 Potassium 4.8 mmol/L (3.5-5.1) 12/25/20 04:54 Chloride 101 mmol/L (98-107) 12/25/20 04:54 Carbon Dioxide 20.0 mmol/L (21-32) L 12/25/20 04:54 BUN 32 mg/dL (7-18) H 12/25/20 04:54 Creatinine 1.32 mg/dL (0.55-1.02) H 12/25/20 04:54 Est GFR (MDRD) Af Amer 52 (>60) L 12/25/20 04:54 Est GFR (MDRD) Non-Af 43 (>60) L 12/25/20 04:54 Glucose 183 mg/dL (65-99) H 12/25/20 04:54 POC Glucose (mg/dL) 204 mg/dL (65-99) H 12/25/20 11:28 Calcium 8.5 mg/dL (8.5-10.1) 12/25/20 04:54 Corrected Calcium 9.7 mg/dL (8.5-10.1) 12/25/20 04:54 Total Bilirubin 0.80 mg/dL (0.2-1.0) 12/25/20 04:54 AST 16 Units/L (15-37) 12/25/20 04:54 ALT 20 Units/L (12-78) 12/25/20 04:54 Alkaline Phosphatase 161 Units/L (46-116) H 12/25/20 04:54 Total Protein 6.9 g/dL (6.4-8.2) 12/25/20 04:54 Albumin 2.5 g/dL (3.4-5.0) L 12/25/20 04:54 Globulin 4.4 g/dL (2.5-4.5) 12/25/20 04:54 Albumin/Globulin Ratio 0.6 Ratio (1.1-2.1) L 12/25/20 04:54 Specimen Type Clean catch urine 12/19/20 13:30 Urine Color Pale yellow (YELLOW) 12/19/20 13:30 Urine Appearance Hazy (CLEAR) 12/19/20 13:30 Urine pH 5.0 (5.0 - 8.0) 12/19/20 13:30 Ur Specific [place] 1.015 (1.000-1.030) 12/19/20 13:30 Urine Protein 3+ (NEGATIVE) 12/19/20 13:30 Urine Glucose (UA) 4+ (NEGATIVE) 12/19/20 13:30 Urine Ketones Negative (NEGATIVE) 12/19/20 13:30 Urine Occult Blood 2+ (NEGATIVE) 12/19/20 13:30 Urine Nitrite Negative (NEGATIVE) 12/19/20 13:30 Urine Bilirubin Negative (NEGATIVE) 12/19/20 13:30 Urine Urobilinogen Normal (NORMAL) 12/19/20 13:30 Ur Leukocyte Esterase 3+ (NEGATIVE) 12/19/20 13:30 Urine RBC 0-2 /HPF (0-3) 12/19/20 13:30 Urine WBC 20-30 /HPF (0-5) A 12/19/20 13:30 Ur Squamous Epith Cells Numerous /HPF (NEGATIVE) 12/19/20 13:30 Ur Renal Epithelial Cell Moderate /HPF (NEGATIVE) 12/19/20 13:30 Urine Bacteria 2+ /HPF (NEGATIVE) 12/19/20 13:30 Urine Yeast Rare /HPF (NEGATIVE) 12/19/20 13:30 Ur Culture Indicated? No/not indicated 12/19/20 13:30 Vancomycin Trough 21.5 ug/mL (15-20) H* 12/24/20 11:39 SARS-CoV-2 (PCR) Negative (NEGATIVE) 12/19/20 09:53 Influenza Type A (PCR) Negative (NEGATIVE) 12/19/20 09:53 Influenza Type B (PCR) Negative (NEGATIVE) 12/19/20 09:53 RSV (PCR) Negative (NEGATIVE) 12/19/20 09:53 - Plan (1) Cellulitis of finger of right hand Status: Acute Plan: NORMAL SALINE AT 50 ML/HR, VANCOMYCIN 1G IV Q12H, LEVAQUIN 500MG IV DAILY, MORPHINE SULFATE 2MG IV Q4H PRN, OTBS ACHS, HUMULIN R SLIDING SCALE, RESUME HOME MEDS (2) Abscess of finger, right Status: Acute (3) Urinary tract infection Status: Acute Qualifiers: Urinary tract infection type: site unspecified Hematuria presence: with hematuria Qualified Code(s): N39.0 - Urinary tract infection, site not specified; R31.9 - Hematuria, unspecified
--- NOTE | 2020-12-25 15:03 | DR.PROGNOT ---
Hospital Progress Notes - Progress Note for Day of: Progress Note Date: 12/25/20 - Chief Complaint Chief Complaint: moderate SOB . still having Pain RT index finger .no drainage . BS 204... Vanco level 21.5. BUN/Crear 32/1.32. WBC 11.3 - Past Medical Family Social History Past Med/Fam/Surg Hx: No changes since H&P Allergies: Allergies codeine Allergy (Verified 02/09/18 18:08) doxycycline Allergy (Verified 02/09/18 18:08) - Review Of Systems ROS: No change since H&P - Vital Signs Vital Signs: Temperature 98.3 F Pulse Rate [Left Brachial] 78 Pulse Rate [Right Brachial] 62 Pulse Rate 88 Respiratory Rate 20 Blood Pressure [Right Arm] 153/68 Blood Pressure [Left Arm] 142/73 O2 Sat by Pulse Oximetry 98 - Physical Exam Oriented: Normal Eyes: Normal Ear: Normal Nose: Normal Throat: Normal Respiratory: Generalized, Diminished Cardiovascular: Normal : Dysuria GI:Auscultation: Normal GI:Palpation: Normal GI: Tenderness: Normal Skin: Red, Tender, Hot, Wound (cmoderate swelling of RT index finger with erythema .. no active drainage .) Musculoskeletal: Right (RIGHT INDEX FINGER SWELLING ), Swelling, Tender Psychiatric: Normal Mood Description: Calm Affect: Normal Speech Pattern: Clear, Appropriate - Laboratory and Diagnostics Result Diagrams: 12/25/20 04:54 12/25/20 04:54 Labs: 12/19/20 13:00 Blood Blood Culture - Final 12/19/20 13:00 Blood Blood Culture - Final 12/20/20 14:10 Urine,Clean Catch Urine Culture - Final 12/19/20 14:13 Finger - Right Index Wound Gram Stain - Final 12/19/20 14:13 Finger - Right Index Wound Culture - Final Methicillin Resis Staph Aureus Laboratory WBC 11.3 X10^3/uL (3.6-10.0) H 12/25/20 04:54 RBC 3.74 X10^6/uL (3.5-5.4) 12/25/20 04:54 Hgb 10.9 g/dL (12.0-16.0) L 12/25/20 04:54 Hct 32.1 % (36.0-47.0) L 12/25/20 04:54 MCV 86.0 fL (80.0-100.0) 12/25/20 04:54 MCH 29.3 pg (27.0-34.0) 12/25/20 04:54 MCHC 34.0 g/dL (33.0-35.0) 12/25/20 04:54 RDW 15.0 % (11.6-16.5) 12/25/20 04:54 Plt Count 188 X10^3/uL (150.0-450.0) 12/25/20 04:54 MPV 8.1 fL (7.4-11.0) 12/25/20 04:54 Neut % (Auto) 81.6 % (42.0-75.0) H 12/25/20 04:54 Lymph % (Auto) 8.1 % (21.0-51.0) L 12/25/20 04:54 [place] % (Auto) 8.9 % (0.0-13.0) 12/25/20 04:54 Eos % (Auto) 1.0 % (0.9-2.9) 12/25/20 04:54 Baso % (Auto) 0.4 % (0.2-1.0) 12/25/20 04:54 Neut # (Auto) 9.3 x10^3/uL (2.2-4.8) H 12/25/20 04:54 Lymph # (Auto) 0.9 X10^3/uL (1.3-2.9) L 12/25/20 04:54 [place] # (Auto) 1.0 x10^3/uL (0.3-0.8) H 12/25/20 04:54 Eos # (Auto) 0.1 x10^3/uL (0.0-0.2) 12/25/20 04:54 Baso # (Auto) 0.0 X10^3/uL (0.0-0.1) 12/25/20 04:54 Absolute Nucleated RBC 0.0 /100WBC 12/25/20 04:54 Sodium 134 mmol/L (136-145) L 12/25/20 04:54 Corrected Sodium 136 mmol/L (136-145) 12/25/20 04:54 Potassium 4.8 mmol/L (3.5-5.1) 12/25/20 04:54 Chloride 101 mmol/L (98-107) 12/25/20 04:54 Carbon Dioxide 20.0 mmol/L (21-32) L 12/25/20 04:54 BUN 32 mg/dL (7-18) H 12/25/20 04:54 Creatinine 1.32 mg/dL (0.55-1.02) H 12/25/20 04:54 Est GFR (MDRD) Af Amer 52 (>60) L 12/25/20 04:54 Est GFR (MDRD) Non-Af 43 (>60) L 12/25/20 04:54 Glucose 183 mg/dL (65-99) H 12/25/20 04:54 POC Glucose (mg/dL) 204 mg/dL (65-99) H 12/25/20 11:28 Calcium 8.5 mg/dL (8.5-10.1) 12/25/20 04:54 Corrected Calcium 9.7 mg/dL (8.5-10.1) 12/25/20 04:54 Total Bilirubin 0.80 mg/dL (0.2-1.0) 12/25/20 04:54 AST 16 Units/L (15-37) 12/25/20 04:54 ALT 20 Units/L (12-78) 12/25/20 04:54 Alkaline Phosphatase 161 Units/L (46-116) H 12/25/20 04:54 Total Protein 6.9 g/dL (6.4-8.2) 12/25/20 04:54 Albumin 2.5 g/dL (3.4-5.0) L 12/25/20 04:54 Globulin 4.4 g/dL (2.5-4.5) 12/25/20 04:54 Albumin/Globulin Ratio 0.6 Ratio (1.1-2.1) L 12/25/20 04:54 Specimen Type Clean catch urine 12/19/20 13:30 Urine Color Pale yellow (YELLOW) 12/19/20 13:30 Urine Appearance Hazy (CLEAR) 12/19/20 13:30 Urine pH 5.0 (5.0 - 8.0) 12/19/20 13:30 Ur Specific [place] 1.015 (1.000-1.030) 12/19/20 13:30 Urine Protein 3+ (NEGATIVE) 12/19/20 13:30 Urine Glucose (UA) 4+ (NEGATIVE) 12/19/20 13:30 Urine Ketones Negative (NEGATIVE) 12/19/20 13:30 Urine Occult Blood 2+ (NEGATIVE) 12/19/20 13:30 Urine Nitrite Negative (NEGATIVE) 12/19/20 13:30 Urine Bilirubin Negative (NEGATIVE) 12/19/20 13:30 Urine Urobilinogen Normal (NORMAL) 12/19/20 13:30 Ur Leukocyte Esterase 3+ (NEGATIVE) 12/19/20 13:30 Urine RBC 0-2 /HPF (0-3) 12/19/20 13:30 Urine WBC 20-30 /HPF (0-5) A 12/19/20 13:30 Ur Squamous Epith Cells Numerous /HPF (NEGATIVE) 12/19/20 13:30 Ur Renal Epithelial Cell Moderate /HPF (NEGATIVE) 12/19/20 13:30 Urine Bacteria 2+ /HPF (NEGATIVE) 12/19/20 13:30 Urine Yeast Rare /HPF (NEGATIVE) 12/19/20 13:30 Ur Culture Indicated? No/not indicated 12/19/20 13:30 Vancomycin Trough 21.5 ug/mL (15-20) H* 12/24/20 11:39 SARS-CoV-2 (PCR) Negative (NEGATIVE) 12/19/20 09:53 Influenza Type A (PCR) Negative (NEGATIVE) 12/19/20 09:53 Influenza Type B (PCR) Negative (NEGATIVE) 12/19/20 09:53 RSV (PCR) Negative (NEGATIVE) 12/19/20 09:53 - Assessment and Plan 1: MRSA infection RT index finger .. cellulitis with abscess formation and osteomyelitis . s/p debridement . DM Type ll . CAD and stenting .., HTN .CKD,. plan : IV ATB for 6 weeks .. 2- local care with irrigation with H2O2 daily then apply Bactroban . - Problem Patient Problems: Patient Problems Abscess of finger, right (Acute) L02.511 Cellulitis of finger of right hand (Acute) L03.011 Urinary tract infection (Acute) N39.0
[2020-12-25] MEDS: SNACK - Diabetic Appropriate PO SCH (20:24)
[2020-12-25] MEDS: FLEXERIL TAB 10 MG PO PRN (20:50)
[2020-12-25] MEDS: KLONOPIN TAB 1 MG PO PRN (20:50)
[2020-12-25] MEDS: CRESTOR TAB 10 MG PO SCH (21:26)
[2020-12-25] MEDS: CELEXA PO SCH (21:26)
[2020-12-25] MEDS: MIRALAX POWDER (1 DOSE 17 G) PO SCH (21:53)
[2020-12-26] MEDS: DUONEB 0.5 MG/3 MG (3 mL) NEB SCH ×3 (05:22→20:45)
[2020-12-26 06:25] LABS: BASOPHILS % (AUTO) 0.4 % (0.2-1.0); EOSINOPHILS # (AUTO) 0.3 x10^3/uL (0.0-0.2); EOSINOPHILS % (AUTO) 3.2 % (0.9-2.9); HEMATOCRIT 30.8 % (36.0-47.0); HEMOGLOBIN 10.4 g/dL (12.0-16.0); LYMPHOCYTES # (AUTO) 0.8 X10^3/uL (1.3-2.9); LYMPHOCYTES % (AUTO) 8.4 % (21.0-51.0); MEAN CORPUSCULAR HEMOGLOBIN 29.1 pg (27.0-34.0); MEAN CORPUSCULAR HGB CONC 33.8 g/dL (33.0-35.0); MEAN PLATELET VOLUME 7.9 fL (7.4-11.0); MONOCYTES # (AUTO) 0.7 x10^3/uL (0.3-0.8); MONOCYTES % (AUTO) 7.4 % (0.0-13.0); NEUTROPHILS # (AUTO) 7.7 x10^3/uL (2.2-4.8); NEUTROPHILS % (AUTO) 80.6 % (42.0-75.0); PLATELET COUNT 208 X10^3/uL (150.0-450.0); RED BLOOD COUNT 3.58 X10^6/uL (3.5-5.4); RED CELL DISTRIBUTION WIDTH 14.6 % (11.6-16.5); WHITE BLOOD COUNT 9.6 X10^3/uL (3.6-10.0)
[2020-12-26 06:29] LABS: ALBUMIN 2.3 g/dL (3.4-5.0); CALCIUM 8.5 mg/dL (8.5-10.1); CARBON DIOXIDE 23.6 mmol/L (21-32); COR CA(FOR HYPOALB) 9.9 mg/dL (8.5-10.1); CREATININE 1.43 mg/dL (0.55-1.02); TOTAL PROTEIN 6.8 g/dL (6.4-8.2)
--- NOTE | 2020-12-26 07:19 | RAD ---
HISTORYSOBSTUDYCHEST, 1 [id number]/27/2021.TECHNIQUEAP view of the chestFINExcela [facility] P[facility] line in good position. Cardiac and mediastinal contours are within normal limits. No significant change in bilateral interstitial and patchy opacities, particularly in the perihilar regions. Elevated right hemidiaphragm is stable. No definite pleural effusion or pneumothorax. Soft tissue attenuation limits evaluation.IMPRESSIONNo significant change.Electronically signed by: Ishaan Noriega (Dec 26, 2020 07:17:34)
[2020-12-26] MEDS: LEVEMIR SC SCH (09:28)
[2020-12-26] MEDS: BACTROBAN TOPICAL OINT TOP SCH ×2 (09:37→20:49)
[2020-12-26] MEDS: COLACE CAP 100 MG PO SCH ×2 (09:37→20:49)
[2020-12-26] MEDS: COREG TAB 6.25 MG PO SCH ×2 (09:37→20:49)
[2020-12-26] MEDS: ELAVIL PO SCH (09:38)
[2020-12-26] MEDS: LASIX IVP SCH ×2 (09:39→17:30)
[2020-12-26] MEDS: MAG-OX TAB PO SCH (09:39)
[2020-12-26] MEDS: GLUCOTROL XL 24-HR PO SCH (09:39)
[2020-12-26] MEDS: COZAAR PO SCH (09:39)
[2020-12-26] MEDS: MILK OF MAGNESIA PO SCH ×2 (09:40→20:50)
[2020-12-26] MEDS: LEVAQUIN PREMIX IV 250 MG 250 MG/50 ML BAG IV SCH (09:40)
[2020-12-26] MEDS: VANCOMYCIN IV *PREMIX 1 G/200 ML BAG 1 G/200 ML PIGGYBACK IV SCH (09:40)
[2020-12-26] MEDS: MYCOLOG-II CREAM TOP SCH ×2 (09:40→20:50)
--- NOTE | 2020-12-26 10:31 | PCM.PROG ---
Progress Note - Progress Note for Day of Date of Exam: 12/26/20 - Subjective Subjective: IS BEING TREATED FOR CELLULITIS OF THE RIGHT INDEX FINGER, OSTEOMYELITIS, RIGHT FINGER ABSCESS, AND URINARY TRACT INFECTION. SHE IS STATUS POST DEBRIDEMENT OF WOUND. TODAY, SHE IS ALERT AND ORIENTED, SITTING UP IN BED ON MORNING ROUNDS. SHE CONTINUES WITH MILD, THROBBING PAIN TO THE FINGER. SHE ALSO CONTINUES WITH COMPLAINS OF SHORTNESS OF BREATH. ON EXAMINATION, HEART IS REGULAR IN RATE AND RHYTHM. BILATERAL LUNGS ARE NOTED WITH WHEEZING THROUGHOUT. ABDOMEN IS ROUND, SOFT, AND NON-TENDER WITH NON-TENDER WITH NORMAL BOWEL SOUNDS NOTED IN ALL QUADRANTS. HER VITALS THIS MORNING ARE: 98.9-79-26-97%-140/65. LABS WERE OBTAINED. ABNORMAL LAB VALUES INCLUDE THE FOLLOWING: HGB 10.4, HCT 30.8, BUN 39, CREATININE 1.43, GLUCOSE 127, AST 11, ALK PHOS 156, BNP 468, ALBUMIN 2.3. WOUND CULTURES REPORTS GROWTH OF MRSA. A CHEST XRAY WAS OBTAINED AND REVEALED: Left upper extremity PICC line in good position. Cardiac and mediastinal contours are within normal limits. No significant change in bilateral interstitial and patchy opacities, particularly in the perihilar regions. Elevated right hemidiaphragm is stable. No definite pleural effusion or pneumothorax. Soft tissue attenuation limits evaluation. SHE IS CURRENTLY RECEIVING NORMAL SALINE AT 50 ML/HR, VANCOMYCIN 1G IV Q12H, LASIX 40MG IV BID, LEVAQUIN 500MG IV DAILY, MORPHINE SULFATE 2MG IV Q4H PRN, COLACE 100MG PO BID, MILK OF MAGNESIA 30ML PO BID, AND MIRALAX 17G PO HS, OTBS ACHS, HUMULIN R SLIDING SCALE, AND HOME MEDICATIONS OF ELAVIL, COREG, CELEXA, KLONOPIN, FLEXERIL, GLUCOTROL, LEVEMIR, COZAAR, MAG-OX, CRESTOR, AND ULTRAM WERE RESUMED. SHE WILL REQUIRE AN EXTENDED COURSE OF IV ANTIBIOTICS. A PICC LINE WAS INSERTED. OTHERWISE, WE WILL CONTINUE WITH CURRENT PLAN OF CARE. WILL CONTINUE TO FOLLOW PATIENT. TIME SPENT ON CLINICAL ASSESSMENT, REVIEWING LABS AND IMAGING, DECISION MAKING, AND DOCUMENTATION GREATER THAN 45 MINUTES. - Past Medical Family Social History Past Med/Fam/Surg Hx: No changes since H&P Allergies: Allergies codeine Allergy (Verified 02/09/18 18:08) doxycycline Allergy (Verified 02/09/18 18:08) - Review of Systems ROS: No change since H&P - Vital Signs and I&O's Vital Signs: Temperature 98.9 F Pulse Rate [Left Brachial] 79 Pulse Rate [Right Brachial] 62 Pulse Rate 78 Respiratory Rate 26 Blood Pressure [Right Arm] 153/68 Blood Pressure [Left Arm] 140/65 O2 Sat by Pulse Oximetry 97 Intake and Output: Intake & Output 12/23/20 12/24/20 12/25/20 12/26/20 11:59 11:59 11:59 11:59 Intake Total 2618 / 2618 4014 / 4014 1767 / 1767 3309 / 3309 Balance 2618 / 2618 4014 / 4014 1767 / 1767 3309 / 3309 - Physical Exam Oriented: Normal Eyes: Normal Ear: Normal Nose: Normal Throat: Normal Respiratory: Generalized, Diminished Cardiovascular: Normal : Dysuria Auscultation: Bowel Sounds: Normal Tenderness: Normal Skin: Red, Tender, Hot, Wound (cmoderate swelling of RT index finger with erythema .. no active drainage .) Musculoskeletal: Right (RIGHT INDEX FINGER SWELLING ), Swelling, Tender Psychiatric: Normal Mood Description: Calm Affect: Normal Speech Pattern: Clear, Appropriate - Laboratory and Diagnostics Result Diagrams: 12/26/20 05:10 12/26/20 05:10 Labs: 12/19/20 13:00 Blood Blood Culture - Final 12/19/20 13:00 Blood Blood Culture - Final 12/20/20 14:10 Urine,Clean Catch Urine Culture - Final 12/19/20 14:13 Finger - Right Index Wound Gram Stain - Final 12/19/20 14:13 Finger - Right Index Wound Culture - Final Methicillin Resis Staph Aureus Laboratory WBC 9.6 X10^3/uL (3.6-10.0) 12/26/20 05:10 RBC 3.58 X10^6/uL (3.5-5.4) 12/26/20 05:10 Hgb 10.4 g/dL (12.0-16.0) L 12/26/20 05:10 Hct 30.8 % (36.0-47.0) L 12/26/20 05:10 MCV 86.0 fL (80.0-100.0) 12/26/20 05:10 MCH 29.1 pg (27.0-34.0) 12/26/20 05:10 MCHC 33.8 g/dL (33.0-35.0) 12/26/20 05:10 RDW 14.6 % (11.6-16.5) 12/26/20 05:10 Plt Count 208 X10^3/uL (150.0-450.0) 12/26/20 05:10 MPV 7.9 fL (7.4-11.0) 12/26/20 05:10 Neut % (Auto) 80.6 % (42.0-75.0) H 12/26/20 05:10 Lymph % (Auto) 8.4 % (21.0-51.0) L 12/26/20 05:10 [place] % (Auto) 7.4 % (0.0-13.0) 12/26/20 05:10 Eos % (Auto) 3.2 % (0.9-2.9) H 12/26/20 05:10 Baso % (Auto) 0.4 % (0.2-1.0) 12/26/20 05:10 Neut # (Auto) 7.7 x10^3/uL (2.2-4.8) H 12/26/20 05:10 Lymph # (Auto) 0.8 X10^3/uL (1.3-2.9) L 12/26/20 05:10 [place] # (Auto) 0.7 x10^3/uL (0.3-0.8) 12/26/20 05:10 Eos # (Auto) 0.3 x10^3/uL (0.0-0.2) H 12/26/20 05:10 Baso # (Auto) 0.0 X10^3/uL (0.0-0.1) 12/26/20 05:10 Absolute Nucleated RBC 0.0 /100WBC 12/26/20 05:10 Sodium 138 mmol/L (136-145) 12/26/20 05:10 Corrected Sodium 139 mmol/L (136-145) 12/26/20 05:10 Potassium 4.3 mmol/L (3.5-5.1) 12/26/20 05:10 Chloride 105 mmol/L (98-107) 12/26/20 05:10 Carbon Dioxide 23.6 mmol/L (21-32) 12/26/20 05:10 BUN 39 mg/dL (7-18) H 12/26/20 05:10 Creatinine 1.43 mg/dL (0.55-1.02) H 12/26/20 05:10 Est GFR (MDRD) Af Amer 47 (>60) L 12/26/20 05:10 Est GFR (MDRD) Non-Af 39 (>60) L 12/26/20 05:10 Glucose 127 mg/dL (65-99) H 12/26/20 05:10 POC Glucose (mg/dL) 140 mg/dL (65-99) H 12/26/20 05:32 Calcium 8.5 mg/dL (8.5-10.1) 12/26/20 05:10 Corrected Calcium 9.9 mg/dL (8.5-10.1) 12/26/20 05:10 Total Bilirubin 0.50 mg/dL (0.2-1.0) 12/26/20 05:10 AST 11 Units/L (15-37) L 12/26/20 05:10 ALT 17 Units/L (12-78) 12/26/20 05:10 Alkaline Phosphatase 156 Units/L (46-116) H 12/26/20 05:10 B-Natriuretic Peptide 468 pg/mL (0-79) H 12/26/20 05:10 Total Protein 6.8 g/dL (6.4-8.2) 12/26/20 05:10 Albumin 2.3 g/dL (3.4-5.0) L 12/26/20 05:10 Globulin 4.5 g/dL (2.5-4.5) 12/26/20 05:10 Albumin/Globulin Ratio 0.5 Ratio (1.1-2.1) L 12/26/20 05:10 Specimen Type Clean catch urine 12/19/20 13:30 Urine Color Pale yellow (YELLOW) 12/19/20 13:30 Urine Appearance Hazy (CLEAR) 12/19/20 13:30 Urine pH 5.0 (5.0 - 8.0) 12/19/20 13:30 Ur Specific [place] 1.015 (1.000-1.030) 12/19/20 13:30 Urine Protein 3+ (NEGATIVE) 12/19/20 13:30 Urine Glucose (UA) 4+ (NEGATIVE) 12/19/20 13:30 Urine Ketones Negative (NEGATIVE) 12/19/20 13:30 Urine Occult Blood 2+ (NEGATIVE) 12/19/20 13:30 Urine Nitrite Negative (NEGATIVE) 12/19/20 13:30 Urine Bilirubin Negative (NEGATIVE) 12/19/20 13:30 Urine Urobilinogen Normal (NORMAL) 12/19/20 13:30 Ur Leukocyte Esterase 3+ (NEGATIVE) 12/19/20 13:30 Urine RBC 0-2 /HPF (0-3) 12/19/20 13:30 Urine WBC 20-30 /HPF (0-5) A 12/19/20 13:30 Ur Squamous Epith Cells Numerous /HPF (NEGATIVE) 12/19/20 13:30 Ur Renal Epithelial Cell Moderate /HPF (NEGATIVE) 12/19/20 13:30 Urine Bacteria 2+ /HPF (NEGATIVE) 12/19/20 13:30 Urine Yeast Rare /HPF (NEGATIVE) 12/19/20 13:30 Ur Culture Indicated? No/not indicated 12/19/20 13:30 Vancomycin Trough 21.5 ug/mL (15-20) H* 12/24/20 11:39 SARS-CoV-2 (PCR) Negative (NEGATIVE) 12/19/20 09:53 Influenza Type A (PCR) Negative (NEGATIVE) 12/19/20 09:53 Influenza Type B (PCR) Negative (NEGATIVE) 12/19/20 09:53 RSV (PCR) Negative (NEGATIVE) 12/19/20 09:53 - Plan (1) Cellulitis of finger of right hand Status: Acute Plan: NORMAL SALINE AT 50 ML/HR, VANCOMYCIN 1G IV Q12H, LEVAQUIN 500MG IV DAILY, MORPHINE SULFATE 2MG IV Q4H PRN, OTBS ACHS, HUMULIN R SLIDING SCALE, RESUME HOME MEDS (2) Abscess of finger, right Status: Acute (3) Urinary tract infection Status: Acute Qualifiers: Urinary tract infection type: site unspecified Hematuria presence: with hematuria Qualified Code(s): N39.0 - Urinary tract infection, site not specified; R31.9 - Hematuria, unspecified
[2020-12-26] MEDS: PULMICORT NEB TX 0.5 MG NEB SCH ×2 (11:10→20:45)
[2020-12-26] MEDS: HumuLIN R SUBCUT PRN ×3 (11:36→20:50)
[2020-12-26] MEDS ORDERED: HYDROGEN PEROXIDE 3% ONE (13:48)
[2020-12-26] MEDS: PERCOCET TAB 5/325 MG PO PRN (18:22)
[2020-12-26] MEDS: SNACK - Diabetic Appropriate PO SCH (20:49)
[2020-12-26] MEDS: CELEXA PO SCH (20:49)
[2020-12-26] MEDS: CRESTOR TAB 10 MG PO SCH (20:50)
[2020-12-26] MEDS: MIRALAX POWDER (1 DOSE 17 G) PO SCH (20:50)
[2020-12-27] MEDS: HumuLIN R SUBCUT PRN ×2 (05:44→11:57)
[2020-12-27] MEDS: PERCOCET TAB 5/325 MG PO PRN (05:45)
[2020-12-27] MEDS: DUONEB 0.5 MG/3 MG (3 mL) NEB SCH (06:01)
[2020-12-27 06:37] LABS: BASOPHILS % (AUTO) 0.4 % (0.2-1.0); EOSINOPHILS # (AUTO) 0.4 x10^3/uL (0.0-0.2); EOSINOPHILS % (AUTO) 4.8 % (0.9-2.9); HEMATOCRIT 30.3 % (36.0-47.0); HEMOGLOBIN 10.5 g/dL (12.0-16.0); LYMPHOCYTES # (AUTO) 1.1 X10^3/uL (1.3-2.9); LYMPHOCYTES % (AUTO) 13.2 % (21.0-51.0); MEAN CORPUSCULAR HEMOGLOBIN 29.5 pg (27.0-34.0); MEAN CORPUSCULAR HGB CONC 34.6 g/dL (33.0-35.0); MEAN CORPUSCULAR VOLUME 85.4 fL (80.0-100.0); MEAN PLATELET VOLUME 7.7 fL (7.4-11.0); MONOCYTES # (AUTO) 0.6 x10^3/uL (0.3-0.8); MONOCYTES % (AUTO) 6.9 % (0.0-13.0); NEUTROPHILS % (AUTO) 74.7 % (42.0-75.0); PLATELET COUNT 233 X10^3/uL (150.0-450.0); RED BLOOD COUNT 3.55 X10^6/uL (3.5-5.4); RED CELL DISTRIBUTION WIDTH 14.6 % (11.6-16.5)
[2020-12-27 06:56] LABS: ALBUMIN 2.3 g/dL (3.4-5.0); CALCIUM 8.6 mg/dL (8.5-10.1); CARBON DIOXIDE 23.3 mmol/L (21-32); CREATININE 1.21 mg/dL (0.55-1.02); TOTAL PROTEIN 6.8 g/dL (6.4-8.2)
--- NOTE | 2020-12-27 07:12 | RAD ---
HISTORYSOBSTUDYCHEST, 1 [id number]/28/2021.TECHNIQUEAP view of the chestFINExcela [facility] PICC line in good position.The cardiac and mediastinal contours appear stable. Similar appearance of bilateral interstitial and linear opacities. Elevated right hemidiaphragm. No pleural effusion or pneumothorax identified. Soft tissue attenuation limits evaluation.IMPRESSIONNo significant change.Electronically signed by: Ishaan Noriega (Dec 27, 2020 07:11:15)
[2020-12-27] MEDS: PULMICORT NEB TX 0.5 MG NEB SCH (08:25)
--- NOTE | 2020-12-27 08:59 | DR.PROGNOT ---
Hospital Progress Notes - Progress Note for Day of: Progress Note Date: 12/26/20 - Chief Complaint Chief Complaint: moderate SOB . still having Pain RT index finger .no drainage . BS 204... Vanco level 21.5. BUN/Crear 36/1.2. WBC 9.6. dressing was changed .. - Past Medical Family Social History Past Med/Fam/Surg Hx: No changes since H&P Allergies: Allergies codeine Allergy (Verified 02/09/18 18:08) doxycycline Allergy (Verified 02/09/18 18:08) - Review Of Systems ROS: No change since H&P - Vital Signs Vital Signs: Temperature 98.0 F Pulse Rate [Left Brachial] 72 Pulse Rate [Right Brachial] 62 Pulse Rate 84 Respiratory Rate 20 Blood Pressure [Right Arm] 153/68 Blood Pressure [Left Arm] 147/66 O2 Sat by Pulse Oximetry 95 - Physical Exam Oriented: Normal Eyes: Normal Ear: Normal Nose: Normal Throat: Normal Respiratory: Generalized, Diminished Cardiovascular: Normal : Dysuria GI:Auscultation: Normal GI:Palpation: Normal GI: Tenderness: Normal Skin: Wound (cmoderate swelling of RT index finger with erythema .. no active drainage .) Musculoskeletal: Right (RIGHT INDEX FINGER SWELLING ), Swelling, Tender Psychiatric: Normal Mood Description: Calm Affect: Normal Speech Pattern: Clear, Appropriate - Laboratory and Diagnostics Result Diagrams: 12/27/20 05:25 12/27/20 05:25 Labs: 12/19/20 13:00 Blood Blood Culture - Final 12/19/20 13:00 Blood Blood Culture - Final 12/20/20 14:10 Urine,Clean Catch Urine Culture - Final 12/19/20 14:13 Finger - Right Index Wound Gram Stain - Final 12/19/20 14:13 Finger - Right Index Wound Culture - Final Methicillin Resis Staph Aureus Laboratory WBC 8.0 X10^3/uL (3.6-10.0) 12/27/20 05:25 RBC 3.55 X10^6/uL (3.5-5.4) 12/27/20 05:25 Hgb 10.5 g/dL (12.0-16.0) L 12/27/20 05:25 Hct 30.3 % (36.0-47.0) L 12/27/20 05:25 MCV 85.4 fL (80.0-100.0) 12/27/20 05:25 MCH 29.5 pg (27.0-34.0) 12/27/20 05:25 MCHC 34.6 g/dL (33.0-35.0) 12/27/20 05:25 RDW 14.6 % (11.6-16.5) 12/27/20 05:25 Plt Count 233 X10^3/uL (150.0-450.0) 12/27/20 05:25 MPV 7.7 fL (7.4-11.0) 12/27/20 05:25 Neut % (Auto) 74.7 % (42.0-75.0) 12/27/20 05:25 Lymph % (Auto) 13.2 % (21.0-51.0) L 12/27/20 05:25 [place] % (Auto) 6.9 % (0.0-13.0) 12/27/20 05:25 Eos % (Auto) 4.8 % (0.9-2.9) H 12/27/20 05:25 Baso % (Auto) 0.4 % (0.2-1.0) 12/27/20 05:25 Neut # (Auto) 6.0 x10^3/uL (2.2-4.8) H 12/27/20 05:25 Lymph # (Auto) 1.1 X10^3/uL (1.3-2.9) L 12/27/20 05:25 [place] # (Auto) 0.6 x10^3/uL (0.3-0.8) 12/27/20 05:25 Eos # (Auto) 0.4 x10^3/uL (0.0-0.2) H 12/27/20 05:25 Baso # (Auto) 0.0 X10^3/uL (0.0-0.1) 12/27/20 05:25 Absolute Nucleated RBC 0.1 /100WBC 12/27/20 05:25 Sodium 139 mmol/L (136-145) 12/27/20 05:25 Corrected Sodium 140 mmol/L (136-145) 12/27/20 05:25 Potassium 3.8 mmol/L (3.5-5.1) 12/27/20 05:25 Chloride 106 mmol/L (98-107) 12/27/20 05:25 Carbon Dioxide 23.3 mmol/L (21-32) 12/27/20 05:25 BUN 36 mg/dL (7-18) H 12/27/20 05:25 Creatinine 1.21 mg/dL (0.55-1.02) H 12/27/20 05:25 Est GFR (MDRD) Af Amer 57 (>60) L 12/27/20 05:25 Est GFR (MDRD) Non-Af 47 (>60) L 12/27/20 05:25 Glucose 160 mg/dL (65-99) H 12/27/20 05:25 POC Glucose (mg/dL) 165 mg/dL (65-99) H 12/27/20 05:35 Calcium 8.6 mg/dL (8.5-10.1) 12/27/20 05:25 Corrected Calcium 10.0 mg/dL (8.5-10.1) 12/27/20 05:25 Total Bilirubin 0.30 mg/dL (0.2-1.0) 12/27/20 05:25 AST 14 Units/L (15-37) L 12/27/20 05:25 ALT 17 Units/L (12-78) 12/27/20 05:25 Alkaline Phosphatase 165 Units/L (46-116) H 12/27/20 05:25 B-Natriuretic Peptide 468 pg/mL (0-79) H 12/26/20 05:10 Total Protein 6.8 g/dL (6.4-8.2) 12/27/20 05:25 Albumin 2.3 g/dL (3.4-5.0) L 12/27/20 05:25 Globulin 4.5 g/dL (2.5-4.5) 12/27/20 05:25 Albumin/Globulin Ratio 0.5 Ratio (1.1-2.1) L 12/27/20 05:25 Specimen Type Clean catch urine 12/19/20 13:30 Urine Color Pale yellow (YELLOW) 12/19/20 13:30 Urine Appearance Hazy (CLEAR) 12/19/20 13:30 Urine pH 5.0 (5.0 - 8.0) 12/19/20 13:30 Ur Specific [place] 1.015 (1.000-1.030) 12/19/20 13:30 Urine Protein 3+ (NEGATIVE) 12/19/20 13:30 Urine Glucose (UA) 4+ (NEGATIVE) 12/19/20 13:30 Urine Ketones Negative (NEGATIVE) 12/19/20 13:30 Urine Occult Blood 2+ (NEGATIVE) 12/19/20 13:30 Urine Nitrite Negative (NEGATIVE) 12/19/20 13:30 Urine Bilirubin Negative (NEGATIVE) 12/19/20 13:30 Urine Urobilinogen Normal (NORMAL) 12/19/20 13:30 Ur Leukocyte Esterase 3+ (NEGATIVE) 12/19/20 13:30 Urine RBC 0-2 /HPF (0-3) 12/19/20 13:30 Urine WBC 20-30 /HPF (0-5) A 12/19/20 13:30 Ur Squamous Epith Cells Numerous /HPF (NEGATIVE) 12/19/20 13:30 Ur Renal Epithelial Cell Moderate /HPF (NEGATIVE) 12/19/20 13:30 Urine Bacteria 2+ /HPF (NEGATIVE) 12/19/20 13:30 Urine Yeast Rare /HPF (NEGATIVE) 12/19/20 13:30 Ur Culture Indicated? No/not indicated 12/19/20 13:30 Vancomycin Trough 21.5 ug/mL (15-20) H* 12/24/20 11:39 SARS-CoV-2 (PCR) Negative (NEGATIVE) 12/19/20 09:53 Influenza Type A (PCR) Negative (NEGATIVE) 12/19/20 09:53 Influenza Type B (PCR) Negative (NEGATIVE) 12/19/20 09:53 RSV (PCR) Negative (NEGATIVE) 12/19/20 09:53 - Assessment and Plan 1: osteomyelitis with MRSA infection RT index finger .. . s/p debridement . DM Type ll . CAD and stenting .., HTN .CKD,. plan : IV ATB for 6 weeks .. 2- local care with irrigation with H2O2 daily then apply Bactroban . - Problem Patient Problems: Patient Problems Abscess of finger, right (Acute) L02.511 Cellulitis of finger of right hand (Acute) L03.011 Urinary tract infection (Acute) N39.0
[2020-12-27] MEDS: VANCOMYCIN IV *PREMIX 1 G/200 ML BAG 1 G/200 ML PIGGYBACK IV SCH (09:20)
[2020-12-27] MEDS: LASIX IVP SCH (09:20)
[2020-12-27] MEDS: LEVAQUIN PREMIX IV 250 MG 250 MG/50 ML BAG IV SCH (09:20)
[2020-12-27] MEDS: GLUCOTROL XL 24-HR PO SCH (09:21)
[2020-12-27] MEDS: COLACE CAP 100 MG PO SCH (09:21)
[2020-12-27] MEDS: MAG-OX TAB PO SCH (09:21)
[2020-12-27] MEDS: ELAVIL PO SCH (09:21)
[2020-12-27] MEDS: COREG TAB 6.25 MG PO SCH (09:22)
[2020-12-27] MEDS: BACTROBAN TOPICAL OINT TOP SCH (09:22)
[2020-12-27] MEDS: COZAAR PO SCH (09:22)
[2020-12-27] MEDS: MYCOLOG-II CREAM TOP SCH (09:23)
[2020-12-27] MEDS: LEVEMIR SC SCH (09:27)
[2020-12-27] MEDS ORDERED: NS 100 ML IV 100 ML ONE (09:41)
[2020-12-27] MEDS: MILK OF MAGNESIA PO SCH (10:18)
[2020-12-27 11:43] VITALS: BP 151/68
[2020-12-28] MEDS ORDERED: PHARMACY COMMENT IV NR (08:30)
== END 2020-12-27 12:40 | disposition home or self-care (01) | DRG 603 ==
LOC: MED/SURG → OBSVTOIN 09:26 → INTOOBSV 09:26
PROVIDERS: ADMIT Surgery; ATTEND Surgery
DX: E78.2 Mixed hyperlipidemia; R31.9 Hematuria, unspecified; R06.02 Shortness of breath; Z20.822 Contact with and (suspected) exposure to COVID-19; I25.10 Atherosclerotic heart disease of native coronary artery without angina pectoris; I12.9 Hypertensive chronic kidney disease with stage 1 through stage 4 chronic kidney disease, or unspecified chronic kidney disease; N39.0 Urinary tract infection, site not specified; B95.62 Methicillin resistant Staphylococcus aureus infection as the cause of diseases classified elsewhere; L03.011 Cellulitis of right finger; M86.9 Osteomyelitis, unspecified; N18.9 Chronic kidney disease, unspecified; J44.9 Chronic obstructive pulmonary disease, unspecified; E11.65 Type 2 diabetes mellitus with hyperglycemia; L02.511 Cutaneous abscess of right hand

== ENCOUNTER 2022-04-25 13:01 | Inpatient (IN) ==
[2022-04-25 13:05] VITALS: BMI 32.3
[2022-04-25] MEDS ORDERED: MORPHINE SULFATE INJ 4 MG IVP ONE (13:40)
[2022-04-25] MEDS ORDERED: ZOFRAN INJ 4 MG VIAL IVP ONE (13:40)
[2022-04-25] MEDS ORDERED: MORPHINE SULFATE INJ 4 MG ONE (13:42)
[2022-04-25] MEDS ORDERED: ZOFRAN INJ 4 MG VIAL ONE (13:43)
--- NOTE | 2022-04-25 13:44 | DR.EXTPAIN ---
HPI Time seen Time Seen by Provider: 04/25/22 13:33 PCP Primary Care Physician: LAURA HPI Comment HPI Comment: LEFT FOOT INFECTION Complaint/Symptoms Chief Complaint Doctor Comments: LEFT FOOT PAIN PRESENTLY BEING TREATED BY DR LU FOR INFECTION. Chief Complaint:: PT. C/O LEFT FOOT PAIN AND INFECTION. PT. STATES SHE SEEN DR. MANDUJANO WEDNESDAY IN THE OFFICE AND HE PLANNED TO DO AN OUT PATIENT PROCEDURE IN THE COMING WEEK ON FOOT BUT PT. STATES FOOT HAS GOTTEN WORSE SINCE LAST NIGHT. AREA APPEARED TO BOTTOM OF LEFT FOOT 2 WEEKS AGO. FLUID FILLED BLISTER NOTED TO BOTTOM OF FOOT. Self Treatment fo Chief Complaint: CIPRO COVID-19 Coronavirus risk:travel/contact w/high risk person: No Has patient experienced Coronavirus symptoms: No Nurses notes reviewed Nurses Notes Review: Yes Source History Provided: Patient Mode of arrival Mode of Arrival: Wheelchair Timing Onset of Chief Complaint: 04/11/22 PMH PMH Past Medical History: Yes Past Medical History: COPD, Coronary Artery Disease, Dyslipidemia and Hypertension Past Surgical History: Yes Surgical History: Angioplasty/Stents, Cholecystectomy, Lithotripsy and Other Family History History of Family Medical Conditions: Yes Family Medical History: Diabetes Mellitus, Cancer, [place] and Hypertension Social History Does patient currently use any type of tobacco product: No Have you used tobacco products in the last 12 months: No Type of Tobacco Use: None Does any household member use tobacco: No Alcohol Use: None Do you use any recreational Drugs:: No Lives With: Family Lives Where: Home Travel Risk Coronavirus risk:travel/contact w/high risk person: No Has patient experienced Coronavirus symptoms: No Infectious screening In the last 2 months have you had wt loss of >10#?: NO Have you had fever, night sweats or hemotysis?: No Have you traveled outside the country in the last 6 months?: No Isolation: Standard ROS Review of Systems Constitutional: No Symptoms Reported Eyes: No Symptoms Reported ENTM: No Symptoms Reported Respiratoy: No Symptoms Reported Cardiovascular: No Symptoms Reported Gastrointestinal/Abdominal: No Symptoms Reported Genitourinary: No Symptoms Reported Neurological: No Symptoms Reported Musculoskeletal: See HPI, Left and Foot Integumentary: No Symptoms Reported Hematologic/Lymphatic: No Symptoms Reported Endocrine: No Symptoms Reported Psychiatric: No Symptoms Reported All Other Systems: Reviewed and Negative PE Vital Signs Vitals: Temperature 97.9 F Pulse Rate 93 Respiratory Rate 18 Blood Pressure [Right Arm] 138/64 Blood Pressure 115/58 O2 Sat by Pulse Oximetry 95 General Limitations: No Limitations General Appearance: Alert and In No Apparent Distress Head Head Exam: Normal Inspection and Atraumatic Eyes Eye exam: Normal Appearance ENT ENT Exam: Normal Exam Neck Neck Exam: Normal Inspection Chest Chest Inspection: Normal Inspection Respiratory Respiratory Exam: Normal Lung Sounds Bilat Respiratory Exam: Bilateral: Clear to Auscultation Cardiovascular Cardiovascular Exam: Regular Rate and Normal Rhythm Abdominal Exam Abdominal Exam: Normal Inspection, Normal Bowel Sounds and Soft Extremities Extremities Exam: Tenderness and Edema Lower Extremities Foot/Toe Exam: Tenderness, Swelling and Ecchymosis Gait Exam: Not Tested/Not Observed Back Back Exam: Normal Inspection Neurological Neurological Exam: Alert, Oriented X3 and CN II-XII Intact Psychiatric Psychiatric Exam: Normal Affect and Normal Mood Skin Skin Exam: Warm, Dry, Intact and Normal Color MDM Differential Diagnosis Differential Diagnosis: Sprain and Other (CELLULITIS) COURSE Treatment Treatment: SEE ORDERS WHILE IN ER. DICUSSED ADMISSION AND CONSULT FOR DR LU Consultation Call Returned: 14:14 Education/Counseling Education/Counseling: Patient Educated On: Treatment, Diagnosis and Prognosis ROR Labs Reviewed Laboratory Results Reviewed?: Yes Result Diagrams: 04/30/22 05:24 04/30/22 05:24 Laboratory: 04/25/22 14:08 Blood Blood Culture - Final 04/25/22 14:00 Blood Blood Culture - Final 04/25/22 13:45 Foot - Left Wound Gram Stain - Final 04/25/22 13:45 Foot - Left Wound Culture - Final Methicillin Resis Staph Aureus WBC 10.2 X10^3/uL (3.6-10.0) H 04/25/22 13:55 RBC 3.96 X10^6/uL (3.5-5.4) 04/25/22 13:55 Hgb 12.0 g/dL (12.0-16.0) 04/25/22 13:55 Hct 34.8 % (36.0-47.0) L 04/25/22 13:55 MCV 87.9 fL (80.0-100.0) 04/25/22 13:55 MCH 30.3 pg (27.0-34.0) 04/25/22 13:55 MCHC 34.5 g/dL (33.0-35.0) 04/25/22 13:55 RDW 13.9 % (11.6-16.5) 04/25/22 13:55 Plt Count 166 X10^3/uL (150.0-450.0) 04/25/22 13:55 MPV 8.5 fL (7.4-11.0) 04/25/22 13:55 Neut % (Auto) 76.6 % (42.0-75.0) H 04/25/22 13:55 Lymph % (Auto) 12.8 % (21.0-51.0) L 04/25/22 13:55 [place] % (Auto) 6.1 % (0.0-13.0) 04/25/22 13:55 Eos % (Auto) 4.0 % (0.9-2.9) H 04/25/22 13:55 Baso % (Auto) 0.5 % (0.2-1.0) 04/25/22 13:55 Neut # (Auto) 7.8 x10^3/uL (2.2-4.8) H 04/25/22 13:55 Lymph # (Auto) 1.3 X10^3/uL (1.3-2.9) 04/25/22 13:55 [place] # (Auto) 0.6 x10^3/uL (0.3-0.8) 04/25/22 13:55 Eos # (Auto) 0.4 x10^3/uL (0.0-0.2) H 04/25/22 13:55 Baso # (Auto) 0.0 X10^3/uL (0.0-0.1) 04/25/22 13:55 Absolute Nucleated RBC 0.1 /100WBC 04/25/22 13:55 Sodium 138 mmol/L (136-145) 04/25/22 13:55 Corrected Sodium 144 mmol/L (136-145) 04/25/22 13:55 Potassium 4.8 mmol/L (3.5-5.1) 04/25/22 13:55 Chloride 101 mmol/L (98-107) 04/25/22 13:55 Carbon Dioxide 29.6 mmol/L (21-32) 04/25/22 13:55 BUN 56 mg/dL (7-18) H 04/25/22 13:55 Creatinine 1.88 mg/dL (0.55-1.02) H 04/25/22 13:55 Est GFR (MDRD) Af Amer 34 (>60) L 04/25/22 13:55 Est GFR (MDRD) Non-Af 28 (>60) L 04/25/22 13:55 Glucose 334 mg/dL (65-99) H 04/25/22 13:55 Calcium 9.2 mg/dL (8.5-10.1) 04/25/22 13:55 Corrected Calcium 9.8 mg/dL (8.5-10.1) 04/25/22 13:55 Total Bilirubin 0.40 mg/dL (0.2-1.0) 04/25/22 13:55 AST 35 Units/L (15-37) 04/25/22 13:55 ALT 46 Units/L (12-78) 04/25/22 13:55 Alkaline Phosphatase 239 Units/L (46-116) H 04/25/22 13:55 Total Protein 7.5 g/dL (6.4-8.2) 04/25/22 13:55 Albumin 3.2 g/dL (3.4-5.0) L 04/25/22 13:55 Globulin 4.3 g/dL (2.5-4.5) 04/25/22 13:55 Albumin/Globulin Ratio 0.7 Ratio (1.1-2.1) L 04/25/22 13:55 XRAY XRAY Interpreted by: Radiologist X-ray Results: Name: Lori James [facility]#: [id number] : 1955 Sex: F Location: Order Number(s): [id number] Procedure(s):FOOT, LEFT Ordering Physician: EBONIE CORNEJO Primary Care: Logan Johnson Service Date: 04/25/22 Service Time: 1417 HISTORY Blister on bottom of foot, diabetes, neuropathy STUDY Left foot three views COMPARISON June 26, 2019 FINDINGS No acute fracture or dislocation or osteomyelitis. However there is now noted extensive chronic arthritic deformity of the midfoot with joint narrowing, bone sclerosis and midfoot collapse. IMPRESSION No acute findings. Compared to prior exam, interval development of severe midfoot deformity consistent with neuropathic arthropathy. Electronically signed by: LEXX MUNOZ (Apr 25, 2022 14:42:24) Opioid Opioid Risk Tool Age (Jaden box if 16-45): No History of Preadolescent Sexual Abuse: No Total: 0 Total Score Risk Category: Low Risk Copyright: Dashawn HDEZ predicting aberrant behaviors Discharge Plan Diagnosis Discharge Problem: Cellulitis of left foot, Diabetes Discharge Plan Patient Disposition: 09 ADMITTED INPATIENT Condition: Stable
[2022-04-25 14:03] LABS: BASOPHILS % (AUTO) 0.5 % (0.2-1.0); EOSINOPHILS # (AUTO) 0.4 x10^3/uL (0.0-0.2); HEMATOCRIT 34.8 % (36.0-47.0); LYMPHOCYTES # (AUTO) 1.3 X10^3/uL (1.3-2.9); LYMPHOCYTES % (AUTO) 12.8 % (21.0-51.0); MEAN CORPUSCULAR HEMOGLOBIN 30.3 pg (27.0-34.0); MEAN CORPUSCULAR HGB CONC 34.5 g/dL (33.0-35.0); MEAN CORPUSCULAR VOLUME 87.9 fL (80.0-100.0); MEAN PLATELET VOLUME 8.5 fL (7.4-11.0); MONOCYTES # (AUTO) 0.6 x10^3/uL (0.3-0.8); MONOCYTES % (AUTO) 6.1 % (0.0-13.0); NEUTROPHILS # (AUTO) 7.8 x10^3/uL (2.2-4.8); NEUTROPHILS % (AUTO) 76.6 % (42.0-75.0); RED BLOOD COUNT 3.96 X10^6/uL (3.5-5.4); RED CELL DISTRIBUTION WIDTH 13.9 % (11.6-16.5); WHITE BLOOD COUNT 10.2 X10^3/uL (3.6-10.0)
[2022-04-25] MEDS ORDERED: NS 1,000 ML IV 1,000 ML ONE (14:04)
[2022-04-25] MEDS: NS 1,000 ML IV 1,000 ML IV SCH (14:10)
[2022-04-25 14:16] LABS: ALBUMIN 3.2 g/dL (3.4-5.0); CALCIUM 9.2 mg/dL (8.5-10.1); CARBON DIOXIDE 29.6 mmol/L (21-32); COR CA(FOR HYPOALB) 9.8 mg/dL (8.5-10.1); CREATININE 1.88 mg/dL (0.55-1.02); TOTAL PROTEIN 7.5 g/dL (6.4-8.2)
[2022-04-25] MEDS ORDERED: VANCOMYCIN IV *PREMIX 1 G/200 ML BAG 1 G/200 ML PIGGYBACK IV ONE ×2 (14:24→14:33)
--- NOTE | 2022-04-25 14:43 | RAD ---
HISTORYBlister on bottom of foot, diabetes, neuropathySTUDYLeft foot three viewsCOMPARISONApril 2019FINDINGSNo acute fracture or dislocation or osteomyelitis. However there is now noted extensive chronic arthritic deformity of the midfoot with joint narrowing, bone sclerosis and midfoot collapse.IMPRESSIONNo acute findings. Compared to prior exam, interval development of severe midfoot deformity consistent with neuropathic arthropathy.Electronically signed by: LEXX MUNOZ (Apr 25, 2022 14:42:24)
[2022-04-25] MEDS ORDERED: PHARMACY CONSULT - VANCOMYCIN XX SCH (15:00)
[2022-04-25] MEDS: MORPHINE SULFATE INJ 4 MG IVP PRN ×2 (17:23→21:34)
--- NOTE | 2022-04-25 22:28 | CT ---
HISTORYLARGE BLISTER, CELLULITIS TO BOTTOM OF THE LEFT FOOT.br has large blister on the bottom of her foot. pt is diabetic with neuropathy. patient is having a debridement tomorrowSTUDYCT left lower extremity without contrastCOMPARISONLeft foot series performed today.TECHNIQUENoncontrast axial, coronal and sagittal CT imaging was performed through the left ankle and foot. Dose reduction techniques including Automated Exposure Control (AEC) and adjustment of mA and kV were utilized.FINDINGSBones: Severe destructive changes are seen along the midfoot, likely representing a neuropathic joint versus septic arthritis. No areas of suspicious cortical destruction are noted elsewhere along the foot. Calcaneal enthesophytes are seen with generalized osteopenia. No acute fracture or dislocation.Soft tissues: Along the plantar aspect of the midfoot is a large soft tissue prominence with internal areas of fluid attenuation measuring up to 5 cm, likely representing the patient's reported large blister. There is surrounding edema. No soft tissue gas or organized fluid collection is seen.IMPRESSIONProbable left foot neuropathic degenerative changes with a large blister along the plantar surface without evidence of associated acute osteomyelitis. Please correlate with clinical findings.Electronically signed by: Oniel Pressley (Apr 25, 2022 22:27:19)
[2022-04-26] MEDS: MORPHINE SULFATE INJ 4 MG IVP PRN ×2 (01:29→06:10)
[2022-04-26] MEDS: NS 1,000 ML IV 1,000 ML IV SCH ×2 (06:09→20:12)
[2022-04-26 06:26] LABS: BASOPHILS # (AUTO) 0.1 X10^3/uL (0.0-0.1); EOSINOPHILS # (AUTO) 0.4 x10^3/uL (0.0-0.2); EOSINOPHILS % (AUTO) 3.6 % (0.9-2.9); HEMATOCRIT 33.3 % (36.0-47.0); HEMOGLOBIN 11.6 g/dL (12.0-16.0); LYMPHOCYTES # (AUTO) 1.3 X10^3/uL (1.3-2.9); LYMPHOCYTES % (AUTO) 12.9 % (21.0-51.0); MEAN CORPUSCULAR HEMOGLOBIN 30.4 pg (27.0-34.0); MEAN CORPUSCULAR HGB CONC 34.8 g/dL (33.0-35.0); MEAN CORPUSCULAR VOLUME 87.2 fL (80.0-100.0); MEAN PLATELET VOLUME 8.8 fL (7.4-11.0); MONOCYTES # (AUTO) 0.8 x10^3/uL (0.3-0.8); MONOCYTES % (AUTO) 7.7 % (0.0-13.0); NEUTROPHILS # (AUTO) 7.6 x10^3/uL (2.2-4.8); NEUTROPHILS % (AUTO) 74.8 % (42.0-75.0); RED BLOOD COUNT 3.82 X10^6/uL (3.5-5.4); WHITE BLOOD COUNT 10.2 X10^3/uL (3.6-10.0)
[2022-04-26 06:44] LABS: ALBUMIN 2.8 g/dL (3.4-5.0); CALCIUM 8.8 mg/dL (8.5-10.1); CARBON DIOXIDE 26.5 mmol/L (21-32); COR CA(FOR HYPOALB) 9.8 mg/dL (8.5-10.1); CREATININE 1.43 mg/dL (0.55-1.02); TOTAL PROTEIN 6.7 g/dL (6.4-8.2)
--- NOTE | 2022-04-26 12:00 | DR.H&P ---
H&P History & Physical for Day of: H&P Date: 04/26/22 Chief Complaint Chief Complaint: Left foot pain Allergies Allergies Allergy/AdvReac Type Severity Reaction Status Date / Time codeine Allergy Unknown Verified 04/25/22 13:05 doxycycline Allergy Verified 04/25/22 13:05 History of Present Illness History of Present Illness: Pt is a 66 year old female admitted for cellulitis of left foot. Medicine consulted for medication management for chronic conditions. Labs/imaging: Wbc 10.2, Hgb 11.6, Plt 151, Na 137, K 4.8, Creatinine 1.43, Glucose 173, Wound/blood cultures pending. Foot XR: No acute findings. Compared to prior exam, interval development of severe midfoot deformity consistent with neuropathic arthropathy. CT lower extremity was obtained that revealed: Probable left foot neuropathic degenerative changes with a large blister along the plantar surface without evidence of associated acute osteomyelitis. Pt was started on IVF NS@75ml/h and antibiotics: IV Vancomycin. General surgery primary for patient. Will restart home medications. Continue to closely monitor and follow up labs in the morning. Past Medical History Past Medical History: COPD, Coronary Artery Disease, Dyslipidemia and Hypertensi on Past Surgical History Surgical History: Angioplasty/Stents Family History Family Medical History: Diabetes Mellitus, Cancer, [place] and Hypertension Social History Does patient currently use any type of tobacco product: No Have you used tobacco products in the last 12 months: No Type of Tobacco Use: None Does any household member use tobacco: No Alcohol Use: None Medications Home Medications: codeine Allergy (Unknown, Verified 04/25/22 13:05) doxycycline Allergy (Verified 04/25/22 13:05) CONTINUE taking the following medications ciprofloxacin HCl 500 mg tablet 1 tab PO BID 04/25/22 [History] ciprofloxacin HCl 500 mg tablet 1 tab PO BID 04/25/22 [History] duloxetine 30 mg capsule,delayed release 30 mg PO QDAY 04/25/22 [History] semaglutide 0.25 mg or 0.5 mg (2 mg/1.5 mL) subcutaneous pen injector (Ozempic) 1 mg subcut WEEKLY 04/25/22 [History] Labs Result Diagrams: 04/26/22 05:13 04/26/22 05:13 Labs: 04/25/22 13:45 Foot - Left Wound Gram Stain - Final 04/25/22 13:45 Foot - Left Wound Culture - Preliminary Laboratory WBC 10.2 X10^3/uL (3.6-10.0) H 04/26/22 05:13 RBC 3.82 X10^6/uL (3.5-5.4) 04/26/22 05:13 Hgb 11.6 g/dL (12.0-16.0) L 04/26/22 05:13 Hct 33.3 % (36.0-47.0) L 04/26/22 05:13 MCV 87.2 fL (80.0-100.0) 04/26/22 05:13 MCH 30.4 pg (27.0-34.0) 04/26/22 05:13 MCHC 34.8 g/dL (33.0-35.0) 04/26/22 05:13 RDW 14.0 % (11.6-16.5) 04/26/22 05:13 Plt Count 151 X10^3/uL (150.0-450.0) 04/26/22 05:13 MPV 8.8 fL (7.4-11.0) 04/26/22 05:13 Neut % (Auto) 74.8 % (42.0-75.0) 04/26/22 05:13 Lymph % (Auto) 12.9 % (21.0-51.0) L 04/26/22 05:13 [place] % (Auto) 7.7 % (0.0-13.0) 04/26/22 05:13 Eos % (Auto) 3.6 % (0.9-2.9) H 04/26/22 05:13 Baso % (Auto) 1.0 % (0.2-1.0) 04/26/22 05:13 Neut # (Auto) 7.6 x10^3/uL (2.2-4.8) H 04/26/22 05:13 Lymph # (Auto) 1.3 X10^3/uL (1.3-2.9) 04/26/22 05:13 [place] # (Auto) 0.8 x10^3/uL (0.3-0.8) 04/26/22 05:13 Eos # (Auto) 0.4 x10^3/uL (0.0-0.2) H 04/26/22 05:13 Baso # (Auto) 0.1 X10^3/uL (0.0-0.1) 04/26/22 05:13 Absolute Nucleated RBC 0.0 /100WBC 04/26/22 05:13 Sodium 137 mmol/L (136-145) 04/26/22 05:13 Corrected Sodium 139 mmol/L (136-145) 04/26/22 05:13 Potassium 4.8 mmol/L (3.5-5.1) 04/26/22 05:13 Chloride 102 mmol/L (98-107) 04/26/22 05:13 Carbon Dioxide 26.5 mmol/L (21-32) 04/26/22 05:13 BUN 47 mg/dL (7-18) H 04/26/22 05:13 Creatinine 1.43 mg/dL (0.55-1.02) H 04/26/22 05:13 Est GFR (MDRD) Af Amer 47 (>60) L 04/26/22 05:13 Est GFR (MDRD) Non-Af 39 (>60) L 04/26/22 05:13 Glucose 173 mg/dL (65-99) H 04/26/22 05:13 Calcium 8.8 mg/dL (8.5-10.1) 04/26/22 05:13 Corrected Calcium 9.8 mg/dL (8.5-10.1) 04/26/22 05:13 Total Bilirubin 0.50 mg/dL (0.2-1.0) 04/26/22 05:13 AST 44 Units/L (15-37) H 04/26/22 05:13 ALT 46 Units/L (12-78) 04/26/22 05:13 Alkaline Phosphatase 227 Units/L (46-116) H 04/26/22 05:13 Total Protein 6.7 g/dL (6.4-8.2) 04/26/22 05:13 Albumin 2.8 g/dL (3.4-5.0) L 04/26/22 05:13 Globulin 3.9 g/dL (2.5-4.5) 04/26/22 05:13 Albumin/Globulin Ratio 0.7 Ratio (1.1-2.1) L 04/26/22 05:13 Review of Systems Constitutional: No Symptoms Reported Eyes: No Symptoms Reported ENT: No Symptoms Reported Respiratory: No Symptoms Reported Cardiovascular: No Symptoms Reported Gastrointestinal: No Symptoms Reported Genitourinary: No Symptoms Reported Musculoskeletal: No Symptoms Reported Skin: Wound (left foot redness) Neurological: No Symptoms Reported Physical Exam Vital Signs: Temperature 97.9 F Pulse Rate [Apical] 81 Pulse Rate 93 Respiratory Rate 18 Blood Pressure [Left Arm] 126/58 Blood Pressure [Right Arm] 128/59 Blood Pressure 115/58 O2 Sat by Pulse Oximetry 96 Oriented: Normal Eyes: Normal Ear: Normal Nose: Normal Throat: Normal Respiratory: Clear Throughout Cardiovascular: Normal : Normal Auscultation: Bowel Sounds: Normal Palpation: Normal Tenderness: Normal Skin: Red (left foot) Musculoskeletal: Normal Psychiatric: Normal Mood Description: Calm and Appropriate Affect: Normal Speech Pattern: Clear and Appropriate Assessment/Plan (1) Cellulitis of left foot: Narrative Support Text: continue IV antibiotics Status: Acute (2) Diabetic neuropathy associated with diabetes mellitus due to underlying condition: Status: Acute (3) Hypertension: Status: Chronic (4) Hyperlipidemia: Status: Chronic Review H&P Reviewed: Yes Patient was examined?: Yes
[2022-04-26] MEDS: GLUCOTROL XL 24-HR PO SCH (12:41)
[2022-04-26] MEDS: LEVEMIR SC SCH ×2 (12:47→21:57)
[2022-04-26] MEDS ORDERED: PHARMACY CONSULT - VANCOMYCIN XX SCH (13:00)
[2022-04-26] MEDS ORDERED: VANCOMYCIN IV *PREMIX 1.25 G/250 ML BAG 1.25 G/250 ML PIGGYBACK IV SCH ×2 (15:00)
[2022-04-26] MEDS: SNACK - Diabetic Appropriate PO SCH (20:12)
[2022-04-26] MEDS: CRESTOR TAB 10 MG PO SCH (20:13)
[2022-04-26] MEDS: COREG TAB 6.25 MG PO SCH (20:13)
[2022-04-26] MEDS: FLEXERIL TAB 10 MG PO PRN (20:23)
[2022-04-26] MEDS: KLONOPIN TAB 1 MG PO PRN (20:23)
[2022-04-26] MEDS: PERCOCET TAB 5/325 MG PO PRN (22:40)
[2022-04-27] MEDS: NS 1,000 ML IV 1,000 ML IV SCH ×3 (04:08→22:26)
[2022-04-27 06:12] LABS: BASOPHILS % (AUTO) 0.4 % (0.2-1.0); EOSINOPHILS # (AUTO) 0.3 x10^3/uL (0.0-0.2); EOSINOPHILS % (AUTO) 3.8 % (0.9-2.9); HEMATOCRIT 33.1 % (36.0-47.0); HEMOGLOBIN 11.5 g/dL (12.0-16.0); LYMPHOCYTES # (AUTO) 1.5 X10^3/uL (1.3-2.9); LYMPHOCYTES % (AUTO) 19.3 % (21.0-51.0); MEAN CORPUSCULAR HGB CONC 34.8 g/dL (33.0-35.0); MEAN CORPUSCULAR VOLUME 86.2 fL (80.0-100.0); MEAN PLATELET VOLUME 8.3 fL (7.4-11.0); MONOCYTES # (AUTO) 0.6 x10^3/uL (0.3-0.8); MONOCYTES % (AUTO) 7.6 % (0.0-13.0); NEUTROPHILS # (AUTO) 5.5 x10^3/uL (2.2-4.8); NEUTROPHILS % (AUTO) 68.9 % (42.0-75.0); RED BLOOD COUNT 3.84 X10^6/uL (3.5-5.4); RED CELL DISTRIBUTION WIDTH 14.2 % (11.6-16.5); WHITE BLOOD COUNT 7.9 X10^3/uL (3.6-10.0)
[2022-04-27 06:20] LABS: ALANINE AMINOTRANSFERASE 54 Units/L (12-78); ALBUMIN 2.7 g/dL (3.4-5.0); ALKALINE PHOSPHATASE 259 Units/L (46-116); ASPARTATE AMINO TRANSFERASE 48 Units/L (15-37); BLOOD UREA NITROGEN 48 mg/dL (7-18); CALCIUM 8.9 mg/dL (8.5-10.1); CARBON DIOXIDE 25.5 mmol/L (21-32); CHLORIDE 105 mmol/L (98-107); COR CA(FOR HYPOALB) 9.9 mg/dL (8.5-10.1); CREATININE 1.42 mg/dL (0.55-1.02); SODIUM 139 mmol/L (136-145); TOTAL PROTEIN 6.6 g/dL (6.4-8.2); eGFR NON BLACK RACES 39 (>60)
[2022-04-27] MEDS ORDERED: PATIENT'S HOME MEDICATION (Magnesium Oxide 400 mg magnesium Tablet) PO SCH (09:00)
[2022-04-27] MEDS: LOVENOX INJ 40 MG SYR SC SCH (09:09)
--- NOTE | 2022-04-27 09:14 | EKG ---
Test Reason : pre op Blood Pressure : */* mmHG Vent. Rate : 56 BPM Atrial Rate : 234 BPM P-R Int : * ms QRS Dur : 72 ms QT Int : 404 ms P-R-T Axes : 118 23 37 degrees QTc Int : 389 ms Atrial flutter with 4:1 AV conduction Abnormal ECG No previous ECGs available Confirmed by Gerry Spring (4) on 04/27/2022 9:24:33 AM Referred By: Confirmed By: Gerry Spring
[2022-04-27] MEDS: VANCOMYCIN IV *PREMIX 1.25 G/250 ML BAG 1.25 G/250 ML PIGGYBACK IV SCH (09:22)
[2022-04-27] MEDS: MORPHINE SULFATE INJ 4 MG IVP PRN ×3 (09:22→18:21)
[2022-04-27] MEDS ORDERED: XYLOCAINE 2 % (PLAIN) ONE (10:15)
[2022-04-27] MEDS ORDERED: DIPRIVAN VIAL 20 ML ONE (10:15)
[2022-04-27] MEDS ORDERED: VERSED ONE (10:17)
[2022-04-27] MEDS ORDERED: ZOFRAN INJ 4 MG VIAL ONE (10:18)
[2022-04-27] MEDS ORDERED: PEPCID 20 MG VIAL ONE (10:18)
[2022-04-27] MEDS ORDERED: POLYMYXIN B SULFATE ONE (10:52)
[2022-04-27] MEDS ORDERED: BETADINE SOLN ONE (10:52)
[2022-04-27] MEDS ORDERED: NS 1,000 ML IV 1,000 ML ONE (11:00)
[2022-04-27] MEDS ORDERED: XYLOCAINE 1 % (PLAIN) ONE (11:06)
[2022-04-27] MEDS ORDERED: KETAMINE HCL ONE (11:08)
[2022-04-27] MEDS ORDERED: FENTANYL VIAL INJ 100 mcg ONE (11:18)
[2022-04-27] MEDS ORDERED: REGLAN INJ 10 MG VIAL ONE (11:35)
[2022-04-27] MEDS: COREG TAB 6.25 MG PO SCH ×2 (12:23→21:08)
[2022-04-27] MEDS: LEVEMIR SC SCH ×2 (12:24→21:09)
[2022-04-27] MEDS: CYMBALTA PO SCH (12:24)
[2022-04-27] MEDS: PATIENT'S HOME MEDICATION (Empagliflozin [Jardiance] 25 mg Tablet) PO SCH (12:24)
[2022-04-27] MEDS: GLUCOTROL XL 24-HR PO SCH (12:24)
[2022-04-27] MEDS: MAG-OX TAB PO SCH (12:26)
[2022-04-27] MEDS: ELAVIL PO SCH (12:26)
[2022-04-27] MEDS: PERCOCET TAB 5/325 MG PO PRN ×2 (12:27→22:00)
--- NOTE | 2022-04-27 12:46 | RAD ---
HISTORYPRE OP FOOT Relevant Clinical InformationSTUDYCHEST, 1 VIEWCOMPARISONNovember 2020.FINDINGSThe trachea is midline. The cardiac silhouette is enlarged but stable. The right hemidiaphragm is elevated. Chronic background changes of bronchitis/COPD are again identified. The lungs are clear without focal infiltrate or effusion. The bony thorax is unremarkable.IMPRESSIONNo acute cardiopulmonary abnormalities or changes seen, as above.Cardiomegaly and background changes of chronic bronchitis suggested.Elevated right hemidiaphragm persists.Electronically signed by: RONNI ROBERTS III (Apr 27, 2022 12:45:02)
[2022-04-27] MEDS: COZAAR PO SCH (14:25)
[2022-04-27] MEDS: CRESTOR TAB 10 MG PO SCH (21:08)
[2022-04-27] MEDS: COLACE CAP 100 MG PO SCH (21:08)
[2022-04-27] MEDS: SNACK - Diabetic Appropriate PO SCH (21:17)
[2022-04-27] MEDS: KLONOPIN TAB 1 MG PO PRN (21:59)
[2022-04-27] MEDS: FLEXERIL TAB 10 MG PO PRN (21:59)
[2022-04-28 06:00] LABS: BASOPHILS % (AUTO) 0.5 % (0.2-1.0); EOSINOPHILS # (AUTO) 0.3 x10^3/uL (0.0-0.2); EOSINOPHILS % (AUTO) 4.5 % (0.9-2.9); HEMATOCRIT 32.3 % (36.0-47.0); HEMOGLOBIN 11.2 g/dL (12.0-16.0); LYMPHOCYTES # (AUTO) 1.2 X10^3/uL (1.3-2.9); LYMPHOCYTES % (AUTO) 17.5 % (21.0-51.0); MEAN CORPUSCULAR HEMOGLOBIN 30.3 pg (27.0-34.0); MEAN CORPUSCULAR HGB CONC 34.6 g/dL (33.0-35.0); MEAN CORPUSCULAR VOLUME 87.6 fL (80.0-100.0); MEAN PLATELET VOLUME 8.4 fL (7.4-11.0); MONOCYTES # (AUTO) 0.6 x10^3/uL (0.3-0.8); MONOCYTES % (AUTO) 8.1 % (0.0-13.0); NEUTROPHILS # (AUTO) 4.8 x10^3/uL (2.2-4.8); NEUTROPHILS % (AUTO) 69.4 % (42.0-75.0); RED BLOOD COUNT 3.69 X10^6/uL (3.5-5.4); RED CELL DISTRIBUTION WIDTH 13.7 % (11.6-16.5)
[2022-04-28 06:10] LABS: ALBUMIN 2.6 g/dL (3.4-5.0); CALCIUM 8.4 mg/dL (8.5-10.1); CARBON DIOXIDE 26.3 mmol/L (21-32); COR CA(FOR HYPOALB) 9.5 mg/dL (8.5-10.1); CREATININE 1.29 mg/dL (0.55-1.02); TOTAL PROTEIN 6.3 g/dL (6.4-8.2)
[2022-04-28] MEDS: COREG TAB 6.25 MG PO SCH ×2 (09:21→20:48)
[2022-04-28] MEDS: COZAAR PO SCH (09:26)
[2022-04-28] MEDS: ELAVIL PO SCH (09:26)
[2022-04-28] MEDS: LOVENOX INJ 40 MG SYR SC SCH (09:27)
[2022-04-28] MEDS: GLUCOTROL XL 24-HR PO SCH (09:27)
[2022-04-28] MEDS: MAG-OX TAB PO SCH (09:27)
[2022-04-28] MEDS: VANCOMYCIN IV *PREMIX 1.25 G/250 ML BAG 1.25 G/250 ML PIGGYBACK IV SCH (09:28)
[2022-04-28] MEDS: PATIENT'S HOME MEDICATION (Empagliflozin [Jardiance] 25 mg Tablet) PO SCH (09:35)
[2022-04-28] MEDS: CYMBALTA PO SCH (09:35)
[2022-04-28] MEDS: LEVEMIR SC SCH ×2 (09:35→20:49)
[2022-04-28] MEDS: PERCOCET TAB 5/325 MG PO PRN ×2 (09:40→19:49)
[2022-04-28] MEDS: MORPHINE SULFATE INJ 4 MG IVP PRN (12:25)
[2022-04-28] MEDS: NS 1,000 ML IV 1,000 ML IV SCH ×2 (17:08→17:09)
[2022-04-28] MEDS: KLONOPIN TAB 1 MG PO PRN (20:48)
[2022-04-28] MEDS: FLEXERIL TAB 10 MG PO PRN (20:48)
[2022-04-28] MEDS: CRESTOR TAB 10 MG PO SCH (20:48)
[2022-04-28] MEDS: COLACE CAP 100 MG PO SCH (20:48)
[2022-04-28] MEDS: MILK OF MAGNESIA PO PRN (20:48)
[2022-04-28] MEDS: SNACK - Diabetic Appropriate PO SCH (20:49)
[2022-04-29] MEDS: NS 1,000 ML IV 1,000 ML IV SCH ×2 (01:10→15:47)
[2022-04-29 06:36] LABS: BASOPHILS % (AUTO) 0.4 % (0.2-1.0); EOSINOPHILS # (AUTO) 0.2 x10^3/uL (0.0-0.2); EOSINOPHILS % (AUTO) 2.9 % (0.9-2.9); HEMATOCRIT 32.4 % (36.0-47.0); HEMOGLOBIN 11.2 g/dL (12.0-16.0); LYMPHOCYTES # (AUTO) 1.3 X10^3/uL (1.3-2.9); LYMPHOCYTES % (AUTO) 15.5 % (21.0-51.0); MEAN CORPUSCULAR HGB CONC 34.5 g/dL (33.0-35.0); MEAN CORPUSCULAR VOLUME 86.9 fL (80.0-100.0); MEAN PLATELET VOLUME 7.9 fL (7.4-11.0); MONOCYTES # (AUTO) 0.8 x10^3/uL (0.3-0.8); MONOCYTES % (AUTO) 9.1 % (0.0-13.0); NEUTROPHILS % (AUTO) 72.1 % (42.0-75.0); RED BLOOD COUNT 3.73 X10^6/uL (3.5-5.4); RED CELL DISTRIBUTION WIDTH 13.9 % (11.6-16.5); WHITE BLOOD COUNT 8.3 X10^3/uL (3.6-10.0)
[2022-04-29 06:48] LABS: ALANINE AMINOTRANSFERASE 79 Units/L (12-78); ALBUMIN 2.7 g/dL (3.4-5.0); ALKALINE PHOSPHATASE 320 Units/L (46-116); ASPARTATE AMINO TRANSFERASE 94 Units/L (15-37); BLOOD UREA NITROGEN 32 mg/dL (7-18); CALCIUM 8.9 mg/dL (8.5-10.1); CARBON DIOXIDE 26.3 mmol/L (21-32); CHLORIDE 108 mmol/L (98-107); COR CA(FOR HYPOALB) 9.9 mg/dL (8.5-10.1); CREATININE 1.06 mg/dL (0.55-1.02); SODIUM 141 mmol/L (136-145); TOTAL PROTEIN 6.6 g/dL (6.4-8.2); eGFR NON BLACK RACES 55 (>60)
[2022-04-29] MEDS: MILK OF MAGNESIA PO PRN ×2 (08:16→12:02)
[2022-04-29] MEDS: GLUCOTROL XL 24-HR PO SCH (08:16)
[2022-04-29] MEDS: CYMBALTA PO SCH (08:16)
[2022-04-29] MEDS: MAG-OX TAB PO SCH (08:16)
[2022-04-29] MEDS: ELAVIL PO SCH (08:17)
[2022-04-29] MEDS: PERCOCET TAB 5/325 MG PO PRN ×2 (08:17→16:59)
[2022-04-29] MEDS: COZAAR PO SCH (08:17)
[2022-04-29] MEDS: COREG TAB 6.25 MG PO SCH ×2 (08:17→21:25)
[2022-04-29] MEDS: LEVEMIR SC SCH ×2 (08:18→21:31)
[2022-04-29] MEDS: PATIENT'S HOME MEDICATION (Empagliflozin [Jardiance] 25 mg Tablet) PO SCH (08:18)
[2022-04-29] MEDS: LOVENOX INJ 40 MG SYR SC SCH (08:18)
[2022-04-29] MEDS: VANCOMYCIN IV *PREMIX 1.25 G/250 ML BAG 1.25 G/250 ML PIGGYBACK IV SCH (08:20)
[2022-04-29] MEDS ORDERED: PHARMACY COMMENT IV ONE (08:30)
[2022-04-29 09:18] LABS: CREATININE 1.18 mg/dL (0.55-1.02); VANCOMYCIN,TROUGH 16.4 ug/mL (15-20)
--- NOTE | 2022-04-29 10:59 | PCM.PROG ---
Progress Note - Progress Note for Day of Date of Exam: 04/27/22 - Subjective Subjective: IS A 66 YEAR OLD FEMALE PATIENT OF OURS. SHE WAS ADMITTED INPATIENT STATUS FOR TREATMENT OF CELLULITIS OF THE RIGHT FOOT. SHE WAS ADMITTED BY , GENERAL SURGEON, AND WE WERE CONSULTED FOR MEDICAL MANAGEMENT FOR CHRONIC CONDITIONS. CHRONIC MEDICAL HISTORY INCLUDES: COPD, CAD, DYSLIPIDEMIA, HTN, ADVANCED PERIPHERAL DIABETIC NEUROPATHY, CARDIAC STENTS, CHOLECYSTECTOMY. ON ADMISSION, SHE WAS NOTED TO HAVE A LARGE ABSCESS LOCATED ON THE PLANTAR ASPECT OF THE LEFT FOOT. SHE HAD BEEN TREATED FOR INFECTION AN OUTPATIENT WITH ORAL ANTIBIOTICS. INFECTION STARTED TWO WEEKS AGO. SHE HAD A RECENT INCISION, DRAINAGE, AND DEBRIDEMENT IN THE OR, BUT CONTINUED TO HAVE SEVERE PAIN. A LOWER EXTREMITY CT WAS OBTAINED AND REVEALED: Probable left foot neuropathic degenerative changes with a large blister along the plantar surface without evidence of associated acute osteomyelitis. FURTHER DEBRIDEMENT WAS PLANNED BY . TODAY, SHE IS ALERT AND ORIENTED, LYING IN BED ON MORNING ROUNDS. SHE CONTINUES TO COMPLAIN OF PAIN TO THE LEFT FOOT. SHE DESCRIBES PAIN THROBBING AND INTERMITTENT. PAIN IMPROVES WITH USE OF PERCOCET. SHE CURRENTLY RATES PAIN A 3/10. ADDITIONALLY, SHE COMPLAINS OF DIFFUSE ABDOMINAL CRAMPING AND DENIES HAVING A BOWEL MOVEMENT IN A FEW DAYS. ON EXAMINATION, HEART IS REGULAR IN RATE AND RHYTHM. BILATERAL LUNGS ARE NOTED WITH DIMINISHED LUNG SOUNDS THROUGHOUT. ABDOMEN IS ROUND, SOFT, AND NOTED WITH LOWER QUADRANT TENDERNESS ON PALPATION. HYPERACTIVE BOWEL SOUNDS ARE NOTED. THERE IS ERRYTHEMA WITH ABSCESS NOTED TO THE LEFT FOOT. TRACE EDEMA NOTED. HER VITALS THIS MORNING ARE: 98.5-54-18-98%-124/59. LABS WERE OBTAINED. WBC 7.9, RBC 3.84, HGB 11.5, HCT 33.1, PLT COUNT 188, SODIUM 139, POTASSIUM 5.0, CHLORIDE 105, BUN 48, CREATININE 1.42, GLUCOSE 93, CALCIUM 8.9, AST 48, ALT 54, ALK PHOS 259, TOTAL PROTEIN 6.6, ALBUMIN 2.7. BLOOD AND WOUND CULTURES ARE PENDING. SHE IS CURRENTLY RECEIVING NORMAL SALINE AT 75 ML/HR, VANCOMYCIN 1.25G IV DAILY, PERCOCET 5/325MG Q6H PRN, OTBS ACHS, LOVENOX 40MG SC DAILY, MORPHINE SULFATE 3MG IV Q4H PRN, COLACE 100MG DAILY, MILK OF MAGNESIA 30ML BID PRN. HER HOEM MEDICATIONS OF ELAVIL, COREG, KLONOPIN, FLEXERIL, CYMBALTA, GLIPIZIDE, LEVEMIR, COZAAR, MAG-OX, AND CRESTOR WERE RESUMED. PLANS FOR DEBRIDEMENT TODAY. WE ARE IN AGREEMENT WITH PLANS. WE WILL HAVE PHYSICAL THERAPY WORK WITH HER TODAY. OTHERWISE, WE WILL FOLLOW-UP WITH AM LABS AND CONTINUE TO MONITOR. TIME SPENT ON CLINICAL ASSES SMENT, REVIWING LABS AND IMAGING, DECISION MAKING, AND DOCUMENTATION GREATER THAN 45 MINUTES. - Past Medical Family Social History Past Med/Fam/Surg Hx: No changes since H&P Allergies: Allergies codeine Allergy (Unknown, Verified 04/25/22 13:05) Reason: Drug allergy doxycycline Allergy (Verified 04/25/22 13:05) - Review of Systems ROS: No change since H&P - Vital Signs and I&O's Vital Signs: Temperature 98.3 F Pulse Rate [Apical] 80 Pulse Rate 93 Respiratory Rate 20 Blood Pressure [Left Arm] 143/92 Blood Pressure [Right Arm] 122/60 Blood Pressure 115/58 O2 Sat by Pulse Oximetry 100 Intake and Output: Intake & Output 04/26/22 04/27/22 04/28/22 04/29/22 11:59 11:59 11:59 11:59 Intake Total 1419 / 1419 3802 / 3802 2215 / 2215 Output Total 1010 / 1010 Balance 1419 / 1419 2792 / 2792 2215 / 2215 - Physical Exam Oriented: Normal Eyes: Normal Ear: Normal Nose: Normal Throat: Normal Respiratory: Generalized, Diminished Cardiovascular: Normal : Normal Auscultation: Bowel Sounds: Normal Palpation: Normal Tenderness: Normal Skin: Red (left foot), Wound Musculoskeletal: Left, Foot, Swelling, Tender Psychiatric: Normal Mood Description: Calm Affect: Normal Speech Pattern: Clear, Appropriate - Laboratory and Diagnostics Result Diagrams: 04/29/22 06:11 04/29/22 08:40 Labs: 04/27/22 11:30 Foot - Left Wound Gram Stain - Final 04/27/22 11:30 Foot - Left Wound Culture - Preliminary 04/26/22 08:55 Foot - Left Wound Culture - Preliminary Methicillin Resis Staph Aureus 04/25/22 13:45 Foot - Left Wound Gram Stain - Final 04/25/22 13:45 Foot - Left Wound Culture - Final Methicillin Resis Staph Aureus 04/25/22 14:08 Blood Blood Culture - Preliminary 04/25/22 14:00 Blood Blood Culture - Preliminary Laboratory WBC 7.0 X10^3/uL (3.6-10.0) 04/28/22 05:37 RBC 3.69 X10^6/uL (3.5-5.4) 04/28/22 05:37 Hgb 11.2 g/dL (12.0-16.0) L 04/28/22 05:37 Hct 32.3 % (36.0-47.0) L 04/28/22 05:37 MCV 87.6 fL (80.0-100.0) 04/28/22 05:37 MCH 30.3 pg (27.0-34.0) 04/28/22 05:37 MCHC 34.6 g/dL (33.0-35.0) 04/28/22 05:37 RDW 13.7 % (11.6-16.5) 04/28/22 05:37 Plt Count 174 X10^3/uL (150.0-450.0) 04/28/22 05:37 MPV 8.4 fL (7.4-11.0) 04/28/22 05:37 Neut % (Auto) 69.4 % (42.0-75.0) 04/28/22 05:37 Lymph % (Auto) 17.5 % (21.0-51.0) L 04/28/22 05:37 [place] % (Auto) 8.1 % (0.0-13.0) 04/28/22 05:37 Eos % (Auto) 4.5 % (0.9-2.9) H 04/28/22 05:37 Baso % (Auto) 0.5 % (0.2-1.0) 04/28/22 05:37 Neut # (Auto) 4.8 x10^3/uL (2.2-4.8) 04/28/22 05:37 Lymph # (Auto) 1.2 X10^3/uL (1.3-2.9) L 04/28/22 05:37 [place] # (Auto) 0.6 x10^3/uL (0.3-0.8) 04/28/22 05:37 Eos # (Auto) 0.3 x10^3/uL (0.0-0.2) H 04/28/22 05:37 Baso # (Auto) 0.0 X10^3/uL (0.0-0.1) 04/28/22 05:37 Absolute Nucleated RBC 0.0 /100WBC 04/28/22 05:37 Sodium 138 mmol/L (136-145) 04/28/22 05:37 Corrected Sodium 141 mmol/L (136-145) 04/28/22 05:37 Potassium 4.8 mmol/L (3.5-5.1) 04/28/22 05:37 Chloride 106 mmol/L (98-107) 04/28/22 05:37 Carbon Dioxide 26.3 mmol/L (21-32) 04/28/22 05:37 BUN 42 mg/dL (7-18) H 04/28/22 05:37 Creatinine 1.29 mg/dL (0.55-1.02) H 04/28/22 05:37 Est GFR (MDRD) Af Amer 53 (>60) L 04/28/22 05:37 Est GFR (MDRD) Non-Af 44 (>60) L 04/28/22 05:37 Glucose 230 mg/dL (65-99) H 04/28/22 05:37 Calcium 8.4 mg/dL (8.5-10.1) L 04/28/22 05:37 Corrected Calcium 9.5 mg/dL (8.5-10.1) 04/28/22 05:37 Total Bilirubin 0.40 mg/dL (0.2-1.0) 04/28/22 05:37 AST 32 Units/L (15-37) 04/28/22 05:37 ALT 47 Units/L (12-78) 04/28/22 05:37 Alkaline Phosphatase 258 Units/L (46-116) H 04/28/22 05:37 Total Protein 6.3 g/dL (6.4-8.2) L 04/28/22 05:37 Albumin 2.6 g/dL (3.4-5.0) L 04/28/22 05:37 Globulin 3.7 g/dL (2.5-4.5) 04/28/22 05:37 Albumin/Globulin Ratio 0.7 Ratio (1.1-2.1) L 04/28/22 05:37 Tissue Pathology To follow 04/27/22 11:30 - Plan (1) Cellulitis of left foot Status: Acute Plan: DEBRIDEMENT, CONTINUE WOUND CARE, AWAITING WOUND AND BLOOD CULTURES, NORMAL SALINE AT 75 ML/HR, VANCOMYCIN 1.25G IV DAILY, PERCOCET 5/325MG Q6H PRN, OTBS ACHS, LOVENOX 40MG SC DAILY, MORPHINE SULFATE 3MG IV Q4H PRN, COLACE 100MG DAILY, MILK OF MAGNESIA 30ML BID PRN. HER HOEM MEDICATIONS OF ELAVIL, COREG, KLONOPIN, FLEXERIL, CYMBALTA, GLIPIZIDE, LEVEMIR, COZAAR, MAG-OX, AND CRESTOR WERE RESUMED (2) Diabetic neuropathy associated with diabetes mellitus due to underlying condition Status: Acute Qualifiers: Diabetes mellitus complication detail: diabetic polyneuropathy Qualified Code(s): E08.42 - Diabetes mellitus due to underlying condition with diabetic polyneuropathy (3) Hypertension Status: Chronic Qualifiers: Hypertension type: primary hypertension Qualified Code(s): I10 - Essential (primary) hypertension (4) Hyperlipidemia Status: Chronic Qualifiers: Hyperlipidemia type: mixed hyperlipidemia Qualified Code(s): E78.2 - Mixed hyperlipidemia (5) Anxiety Status: Chronic (6) Depression Status: Chronic Qualifiers: Depression Type: major depressive disorder Major depression recurrence: recurrent Active/Remission status: remission status unspecified Qualified Code(s): F33.9 - Major depressive disorder, recurrent, unspecified (7) CAD (coronary artery disease) Status: Chronic Qualifiers: Coronary Disease-Associated Artery/Lesion type: [place] artery [place] vs. transplanted heart: [place] heart Associated angina: unspecified whether angina present Qualified Code(s): I25.10 - Atherosclerotic heart disease of [place] coronary artery without angina pectoris (8) COPD (chronic obstructive pulmonary disease) Status: Chronic Qualifiers: COPD type: unspecified COPD Qualified Code(s): J44.9 - Chronic obstructive pulmonary disease, unspecified
--- NOTE | 2022-04-29 11:05 | PCM.PROG ---
Progress Note - Progress Note for Day of Date of Exam: 04/28/22 - Subjective Subjective: IS A 66 YEAR OLD FEMALE PATIENT OF OURS AND . SHE IS CURRENTLY INPATIENT STATUS FOR TREATMENT OF CELLULITIS OF THE RIGHT FOOT. SHE IS DAY 1 POST OP DEBRIDEMENT OF WOUND. POST OPERATIVE DX INCLUDE: INFECTED CALLOUS OR PLANTAR WART LEFT FOOT WITH ABSCESS FORMATION. MSW TRICIA MEDICAL HISTORY INCLUDES: COPD, CAD, DYSLIPIDEMIA, HTN, ADVANCED PERIPHERAL DIABETIC NEUROPATHY, CARDIAC STENTS, CHOLECYSTECTOMY. A LOWER EXTREMITY CT WAS OBTAINED ON ADMISSION AND REVEALED: Probable left foot neuropathic degenerative changes with a large blister along the plantar surface without evidence of associated acute osteomyelitis. TODAY, SHE IS ALERT AND ORIENTED, LYING IN BED ON MORNING ROUNDS. SHE CONTINUES TO COMPLAIN OF PAIN TO THE LEFT FOOT. SHE DESCRIBES PAIN THROBBING AND INTERMITTENT. PAIN IMPROVES WITH USE OF PERCOCET. SHE CURRENTLY RATES PAIN A 2/10. ADDITIONALLY, SHE COMPLAINS OF DIFFUSE ABDOMINAL CRAMPING AND DENIES HAVING A BOWEL MOVEMENT IN SEVERAL DAYS. ON EXAMINATION, HEART IS REGULAR IN RATE AND RHYTHM. BILATERAL LUNGS ARE NOTED WITH DIMINISHED LUNG SOUNDS THROUGHOUT. ABDOMEN IS ROUND, SOFT, AND NOTED WITH LOWER QUADRANT TENDERNESS ON PALPATION. HYPERACTIVE BOWEL SOUNDS ARE NOTED. THERE IS ERRYTHEMA NOTED TO THE LEFT FOOT. WOUND IS PACKED WITH IODIFORM. HER VITALS THIS MORNING ARE: 97.6-54-20-97%-133/63. LABS WERE OBTAINED. WBC 7.0, RBC 3.69, HGB 11.2, HCT 32.3, PLT COUNT 174, SODIUM 138, POTASSIUM 4.8, CHLORIDE 106, BUN 42, CREATININE 1.29, GLUCOSE 230, CALCIUM 8.4, AST 32, ALT 47, ALK PHOS 258, TOTAL PROTEIN 6.3, ALBUMIN 2.6. BLOOD AND WOUND CULTURES ARE PENDING. SHE IS CURRENTLY RECEIVING NORMAL SALINE AT 75 ML/HR, VANCOMYCIN 1.25G IV DAILY, PERCOCET 5/325MG Q6H PRN, OTBS ACHS, LOVENOX 40MG SC DAILY, MORPHINE SULFATE 3MG IV Q4H PRN, COLACE 100MG DAILY, MILK OF MAGNESIA 30ML BID PRN. HER HOEM MEDICATIONS OF ELAVIL, COREG, KLONOPIN, FLEXERIL, CYMBALTA, GLIPIZIDE, LEVEMIR, COZAAR, MAG-OX, AND CRESTOR WERE RESUMED. WILL CONTINUE TO FOLLOW PATIENT FOR WOUND CARE. WE WILL HAVE PHYSICAL THERAPY WORK WITH HER TODAY. OTHERWISE, WE WILL FOLLOW-UP WITH AM LABS AND CONTINUE TO MONITOR. TIME SPENT ON CLINICAL ASSESSMENT, REVIWING LABS AND IMAGING, DECISION MAKING, AND DOCUMENTATION GREATER THAN 45 MINUTES. - Past Medical Family Social History Past Med/Fam/Surg Hx: No changes since H&P Allergies: Allergies codeine Allergy (Unknown, Verified 04/25/22 13:05) Reason: Drug allergy doxycycline Allergy (Verified 04/25/22 13:05) - Review of Systems ROS: No change since H&P - Vital Signs and I&O's Vital Signs: Temperature 97.8 F Pulse Rate [Apical] 72 Pulse Rate 93 Respiratory Rate 20 Blood Pressure [Left Arm] 127/61 Blood Pressure [Right Arm] 122/60 Blood Pressure 115/58 O2 Sat by Pulse Oximetry 97 Intake and Output: Intake & Output 04/26/22 04/27/22 04/28/22 04/29/22 11:59 11:59 11:59 11:59 Intake Total 1419 / 1419 3802 / 3802 2215 / 2215 3931 / 3931 Output Total 1010 / 1010 Balance 1419 / 1419 2792 / 2792 2215 / 2215 3931 / 3931 - Physical Exam Oriented: Normal Eyes: Normal Ear: Normal Nose: Normal Throat: Normal Respiratory: Generalized, Diminished Cardiovascular: Normal : Normal Auscultation: Bowel Sounds: Normal Tenderness: Normal Skin: Red (left foot), Wound Musculoskeletal: Left, Foot, Swelling, Tender Psychiatric: Normal Mood Description: Calm Affect: Normal Speech Pattern: Clear, Appropriate - Laboratory and Diagnostics Result Diagrams: 04/29/22 06:11 04/29/22 08:40 Labs: 04/26/22 08:55 Foot - Left Wound Culture - Final Methicillin Resis Staph Aureus 04/27/22 11:30 Foot - Left Wound Gram Stain - Final 04/27/22 11:30 Foot - Left Wound Culture - Preliminary 04/25/22 13:45 Foot - Left Wound Gram Stain - Final 04/25/22 13:45 Foot - Left Wound Culture - Final Methicillin Resis Staph Aureus 04/25/22 14:08 Blood Blood Culture - Preliminary 04/25/22 14:00 Blood Blood Culture - Preliminary Laboratory WBC 8.3 X10^3/uL (3.6-10.0) 04/29/22 06:11 RBC 3.73 X10^6/uL (3.5-5.4) 04/29/22 06:11 Hgb 11.2 g/dL (12.0-16.0) L 04/29/22 06:11 Hct 32.4 % (36.0-47.0) L 04/29/22 06:11 MCV 86.9 fL (80.0-100.0) 04/29/22 06:11 MCH 30.0 pg (27.0-34.0) 04/29/22 06:11 MCHC 34.5 g/dL (33.0-35.0) 04/29/22 06:11 RDW 13.9 % (11.6-16.5) 04/29/22 06:11 Plt Count 214 X10^3/uL (150.0-450.0) 04/29/22 06:11 MPV 7.9 fL (7.4-11.0) 04/29/22 06:11 Neut % (Auto) 72.1 % (42.0-75.0) 04/29/22 06:11 Lymph % (Auto) 15.5 % (21.0-51.0) L 04/29/22 06:11 [place] % (Auto) 9.1 % (0.0-13.0) 04/29/22 06:11 Eos % (Auto) 2.9 % (0.9-2.9) 04/29/22 06:11 Baso % (Auto) 0.4 % (0.2-1.0) 04/29/22 06:11 Neut # (Auto) 6.0 x10^3/uL (2.2-4.8) H 04/29/22 06:11 Lymph # (Auto) 1.3 X10^3/uL (1.3-2.9) 04/29/22 06:11 [place] # (Auto) 0.8 x10^3/uL (0.3-0.8) 04/29/22 06:11 Eos # (Auto) 0.2 x10^3/uL (0.0-0.2) 04/29/22 06:11 Baso # (Auto) 0.0 X10^3/uL (0.0-0.1) 04/29/22 06:11 Absolute Nucleated RBC 0.0 /100WBC 04/29/22 06:11 Sodium 141 mmol/L (136-145) 04/29/22 06:11 Corrected Sodium TNP 04/29/22 06:11 Potassium 4.4 mmol/L (3.5-5.1) 04/29/22 06:11 Chloride 108 mmol/L (98-107) H 04/29/22 06:11 Carbon Dioxide 26.3 mmol/L (21-32) 04/29/22 06:11 BUN 32 mg/dL (7-18) H 04/29/22 06:11 Creatinine 1.18 mg/dL (0.55-1.02) H 04/29/22 08:40 Est GFR (MDRD) Af Amer > 60 (>60) 04/29/22 06:11 Est GFR (MDRD) Non-Af 55 (>60) L 04/29/22 06:11 Glucose 53 mg/dL (65-99) L 04/29/22 06:11 Calcium 8.9 mg/dL (8.5-10.1) 04/29/22 06:11 Corrected Calcium 9.9 mg/dL (8.5-10.1) 04/29/22 06:11 Total Bilirubin 0.50 mg/dL (0.2-1.0) 04/29/22 06:11 AST 94 Units/L (15-37) H 04/29/22 06:11 ALT 79 Units/L (12-78) H 04/29/22 06:11 Alkaline Phosphatase 320 Units/L (46-116) H 04/29/22 06:11 Total Protein 6.6 g/dL (6.4-8.2) 04/29/22 06:11 Albumin 2.7 g/dL (3.4-5.0) L 04/29/22 06:11 Globulin 3.9 g/dL (2.5-4.5) 04/29/22 06:11 Albumin/Globulin Ratio 0.7 Ratio (1.1-2.1) L 04/29/22 06:11 Vancomycin Trough 16.4 ug/mL (15-20) 04/29/22 08:40 Tissue Pathology To follow 04/27/22 11:30 - Plan (1) Cellulitis of left foot Status: Acute Plan: DAY 1 POST DEBRIDEMENT, CONTINUE WOUND CARE, AWAITING WOUND AND BLOOD CULTURES, NORMAL SALINE AT 75 ML/HR, VANCOMYCIN 1.25G IV DAILY, PERCOCET 5/325MG Q6H PRN, OTBS ACHS, LOVENOX 40MG SC DAILY, MORPHINE SULFATE 3MG IV Q4H PRN, COLACE 100MG DAILY, MILK OF MAGNESIA 30ML BID PRN. 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 condition Status: Acute Qualifiers: Diabetes mellitus complication detail: diabetic polyneuropathy Qualified Code(s): E08.42 - Diabetes mellitus due to underlying condition with diabetic polyneuropathy (3) Hypertension Status: Chronic Qualifiers: Hypertension type: primary hypertension Qualified Code(s): I10 - Essential (primary) hypertension (4) Hyperlipidemia Status: Chronic Qualifiers: Hyperlipidemia type: mixed hyperlipidemia Qualified Code(s): E78.2 - Mixed hyperlipidemia (5) Anxiety Status: Chronic (6) Depression Status: Chronic Qualifiers: Depression Type: major depressive disorder Major depression recurrence: recurrent Active/Remission status: remission status unspecified Qualified Code(s): F33.9 - Major depressive disorder, recurrent, unspecified (7) CAD (coronary artery disease) Status: Chronic Qualifiers: Coronary Disease-Associated Artery/Lesion type: [place] artery [place] vs. transplanted heart: [place] heart Associated angina: unspecified whether angina present Qualified Code(s): I25.10 - Atherosclerotic heart disease of [place] coronary artery without angina pectoris (8) COPD (chronic obstructive pulmonary disease) Status: Chronic Qualifiers: COPD type: unspecified COPD Qualified Code(s): J44.9 - Chronic obstructive pulmonary disease, unspecified
[2022-04-29] MEDS: MIRALAX POWDER (1 DOSE 17 G) PO SCH (11:12)
[2022-04-29] MEDS ORDERED: MILK OF MAGNESIA ONE (11:54)
[2022-04-29] MEDS: MILK OF MAGNESIA PO SCH ×3 (12:03→21:25)
--- NOTE | 2022-04-29 13:47 | RAD ---
HISTORYABD PAINSTUDYKUB x-ray one viewCOMPARISONCT 09/23/2020FINDINGSStents are seen in the iliac veins. There is mild dilation of the rectum with hard fecal material. It measures 5.8 cm in diameter. There is likely mild diffuse constipation. Mild increased small and large bowel air is seen.IMPRESSIONLikely mild diffuse constipation and probable mild fecal impaction in the rectum.Electronically signed by: Chang Marsh (Apr 29, 2022 13:47:04)
[2022-04-29] MEDS: COLACE CAP 100 MG PO SCH (21:25)
[2022-04-29] MEDS: CRESTOR TAB 10 MG PO SCH (21:25)
[2022-04-29] MEDS: SNACK - Diabetic Appropriate PO SCH (21:30)
[2022-04-29] MEDS: MORPHINE SULFATE INJ 4 MG IVP PRN (22:25)
[2022-04-30] MEDS: PERCOCET TAB 5/325 MG PO PRN ×3 (00:44→14:40)
[2022-04-30] MEDS: NS 1,000 ML IV 1,000 ML IV SCH ×2 (01:20→06:00)
[2022-04-30 05:40] LABS: BASOPHILS % (AUTO) 0.2 % (0.2-1.0); EOSINOPHILS # (AUTO) 0.1 x10^3/uL (0.0-0.2); EOSINOPHILS % (AUTO) 1.1 % (0.9-2.9); HEMATOCRIT 29.9 % (36.0-47.0); HEMOGLOBIN 10.4 g/dL (12.0-16.0); LYMPHOCYTES % (AUTO) 10.2 % (21.0-51.0); MEAN CORPUSCULAR HEMOGLOBIN 30.2 pg (27.0-34.0); MEAN CORPUSCULAR HGB CONC 34.8 g/dL (33.0-35.0); MEAN CORPUSCULAR VOLUME 86.7 fL (80.0-100.0); MEAN PLATELET VOLUME 7.6 fL (7.4-11.0); MONOCYTES # (AUTO) 0.9 x10^3/uL (0.3-0.8); MONOCYTES % (AUTO) 8.6 % (0.0-13.0); NEUTROPHILS # (AUTO) 8.2 x10^3/uL (2.2-4.8); NEUTROPHILS % (AUTO) 79.9 % (42.0-75.0); RED BLOOD COUNT 3.44 X10^6/uL (3.5-5.4); RED CELL DISTRIBUTION WIDTH 13.6 % (11.6-16.5); WHITE BLOOD COUNT 10.2 X10^3/uL (3.6-10.0)
[2022-04-30 06:00] LABS: ALANINE AMINOTRANSFERASE 65 Units/L (12-78); ALBUMIN 2.6 g/dL (3.4-5.0); ALKALINE PHOSPHATASE 288 Units/L (46-116); ASPARTATE AMINO TRANSFERASE 42 Units/L (15-37); BLOOD UREA NITROGEN 27 mg/dL (7-18); CALCIUM 8.7 mg/dL (8.5-10.1); CARBON DIOXIDE 26.7 mmol/L (21-32); CHLORIDE 106 mmol/L (98-107); COR CA(FOR HYPOALB) 9.8 mg/dL (8.5-10.1); CREATININE 1.14 mg/dL (0.55-1.02); SODIUM 138 mmol/L (136-145); TOTAL PROTEIN 6.5 g/dL (6.4-8.2); eGFR NON BLACK RACES 50 (>60)
[2022-04-30] MEDS: GLUCOTROL XL 24-HR PO SCH (08:30)
[2022-04-30] MEDS: CYMBALTA PO SCH (08:31)
[2022-04-30] MEDS: COZAAR PO SCH (08:31)
[2022-04-30] MEDS: MAG-OX TAB PO SCH (08:31)
[2022-04-30] MEDS: COREG TAB 6.25 MG PO SCH (08:31)
[2022-04-30] MEDS: ELAVIL PO SCH (08:31)
[2022-04-30] MEDS: MILK OF MAGNESIA PO SCH (08:32)
[2022-04-30] MEDS: MIRALAX POWDER (1 DOSE 17 G) PO SCH (08:32)
[2022-04-30] MEDS: VANCOMYCIN IV *PREMIX 1.25 G/250 ML BAG 1.25 G/250 ML PIGGYBACK IV SCH (08:32)
[2022-04-30] MEDS: LOVENOX INJ 40 MG SYR SC SCH (08:32)
[2022-04-30] MEDS: LEVEMIR SC SCH (08:38)
[2022-04-30] MEDS ORDERED: LASIX PO PRN (10:11)
[2022-04-30] MEDS ORDERED: ULTRAM PO PRN (10:11)
[2022-04-30] MEDS ORDERED: PATIENT'S HOME MEDICATION (Semaglutide [Ozempic] 0.25 mg or 0.5 mg(2 mg/1.5 mL) pen inject SUBCUT SCH (10:15)
[2022-04-30] MEDS ORDERED: PLAVIX PO SCH (11:00)
[2022-04-30] MEDS: PATIENT'S HOME MEDICATION (Empagliflozin [Jardiance] 25 mg Tablet) PO SCH (12:08)
[2022-04-30 12:11] VITALS: BP 138/64
--- NOTE | 2022-05-01 20:40 | PCM.PROG ---
Progress Note - Progress Note for Day of Date of Exam: 04/29/22 - Subjective Subjective: IS A 66 YEAR OLD FEMALE PATIENT OF OURS AND . SHE IS CURRENTLY INPATIENT STATUS FOR TREATMENT OF CELLULITIS OF THE RIGHT FOOT. SHE IS DAY 2 POST OP DEBRIDEMENT OF WOUND. POST OPERATIVE DX INCLUDE: INFECTED CALLOUS OR PLANTAR WART LEFT FOOT WITH ABSCESS FORMATION. 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 A LOWER EXTREMITY CT WAS OBTAINED ON ADMISSION AND REVEALED: Probable left foot neuropathic degenerative changes with a large blister along the plantar surface without evidence of associated acute osteomyelitis. TODAY, SHE IS ALERT AND ORIENTED, LYING IN BED ON MORNING ROUNDS. SHE CONTINUES TO COMPLAIN OF PAIN TO THE LEFT FOOT. SHE DESCRIBES PAIN THROBBING AND INTERMITTENT. PAIN IMPROVES WITH USE OF PERCOCET. SHE CURRENTLY RATES PAIN A 4/10. ADDITIONALLY, SHE COMPLAINS OF DIFFUSE ABDOMINAL CRAMPING AND DENIES HAVING A BOWEL MOVEMENT IN SEVERAL DAYS. SHE HAD A SOAP SUDS ENEMA WITH SMALL RESULTS LAST NIGHT. ON EXAMINATION, HEART IS REGULAR IN RATE AND RHYTHM. BILATERAL LUNGS ARE NOTED WITH DIMINISHED LUNG SOUNDS THROUGHOUT. ABDOMEN IS ROUND, SOFT, AND NOTED WITH LOWER QUADRANT TENDERNESS ON PALPATION. HYPERACTIVE BOWEL SOUNDS ARE NOTED. THERE IS ERRYTHEMA NOTED TO THE LEFT FOOT. WOUND IS PACKED WITH IODIFORM. HER VITALS THIS MORNING ARE: 97.8-72-20-97%-127/61. LABS WERE OBTAINED. WBC 8.3, RBC 3.73, HGB 11.2, HCT 32.4, PLT COUNT 214, SODIUM 141, POTASSIUM 4.4, CHLORIDE 108, BUN 32, CREATININE 1.06, CALCIUM 8.9, AST 94, ALT 79, ALK PHOS 320, TOTAL PROTEIN 6.6, ALBUMIN 2.7. WOUND CULTURES ARE POSITIVE FOR GROWTH OF MRSA. SHE IS CURRENTLY RECEIVING NORMAL SALINE AT 75 ML/HR, VANCOMYCIN 1.25G IV DAILY, PERCOCET 5/325MG Q6H PRN, OTBS ACHS, LOVENOX 40MG SC DAILY, MORPHINE SULFATE 3MG IV Q4H PRN, COLACE 100MG DAILY, MILK OF MAGNESIA 30ML BID PRN. HER HOEM MEDICATIONS OF ELAVIL, COREG, KLONOPIN, FLEXERIL, CYMBALTA, GLIPIZIDE, LEVEMIR, COZAAR, MAG-OX, AND CRESTOR WERE RESUMED. WILL CONTINUE TO FOLLOW PATIENT FOR WOUND CARE. WE WILL HAVE PHYSICAL THERAPY WORK WITH HER TODAY. WE WILL OBTAIN A KUB. OTHERWISE, WE WILL FOLLOW-UP WITH AM LABS AND CONTINUE TO MONITOR. TIME SPENT ON CLINICAL ASSESSMENT, REVIWING LABS AND IMAGING, DECISION MAKING, AND DOCUMENTATION GREATER THAN 45 MINUTES. - Past Medical Family Social History Past Med/Fam/Surg Hx: No changes since H&P Allergies: Allergies codeine Allergy (Unknown, Verified 04/25/22 13:05) Reason: Drug allergy doxycycline Allergy (Verified 04/25/22 13:05) - Review of Systems ROS: No change since H&P - Vital Signs and I&O's Vital Signs: Temperature 98.4 F Pulse Rate [Apical] 90 Pulse Rate 93 Respiratory Rate 20 Blood Pressure [Left Arm] 138/64 Blood Pressure [Right Arm] 122/60 Blood Pressure 115/58 O2 Sat by Pulse Oximetry 94 Intake and Output: Intake & Output 04/29/22 04/30/22 05/01/22 05/02/22 11:59 11:59 11:59 11:59 Intake Total 3931 / 3931 3192 / 3192 263 / 263 Balance 3931 / 3931 3192 / 3192 263 / 263 - Physical Exam Oriented: Normal Eyes: Normal Ear: Normal Nose: Normal Throat: Normal Respiratory: Generalized, Diminished Cardiovascular: Normal : Normal Auscultation: Bowel Sounds: Normal Tenderness: Normal Skin: Red (left foot), Wound Musculoskeletal: Left, Foot, Swelling, Tender Psychiatric: Normal Mood Description: Calm Affect: Normal Speech Pattern: Clear, Appropriate - Laboratory and Diagnostics Result Diagrams: 04/30/22 05:24 04/30/22 05:24 Labs: 04/25/22 14:08 Blood Blood Culture - Final 04/25/22 14:00 Blood Blood Culture - Final 04/27/22 11:30 Foot - Left Wound Gram Stain - Final 04/27/22 11:30 Foot - Left Wound Culture - Final Methicillin Resis Staph Aureus 04/26/22 08:55 Foot - Left Wound Culture - Final Methicillin Resis Staph Aureus 04/25/22 13:45 Foot - Left Wound Gram Stain - Final 04/25/22 13:45 Foot - Left Wound Culture - Final Methicillin Resis Staph Aureus Laboratory WBC 10.2 X10^3/uL (3.6-10.0) H 04/30/22 05:24 RBC 3.44 X10^6/uL (3.5-5.4) L 04/30/22 05:24 Hgb 10.4 g/dL (12.0-16.0) L 04/30/22 05:24 Hct 29.9 % (36.0-47.0) L 04/30/22 05:24 MCV 86.7 fL (80.0-100.0) 04/30/22 05:24 MCH 30.2 pg (27.0-34.0) 04/30/22 05:24 MCHC 34.8 g/dL (33.0-35.0) 04/30/22 05:24 RDW 13.6 % (11.6-16.5) 04/30/22 05:24 Plt Count 210 X10^3/uL (150.0-450.0) 04/30/22 05:24 MPV 7.6 fL (7.4-11.0) 04/30/22 05:24 Neut % (Auto) 79.9 % (42.0-75.0) H 04/30/22 05:24 Lymph % (Auto) 10.2 % (21.0-51.0) L 04/30/22 05:24 [place] % (Auto) 8.6 % (0.0-13.0) 04/30/22 05:24 Eos % (Auto) 1.1 % (0.9-2.9) 04/30/22 05:24 Baso % (Auto) 0.2 % (0.2-1.0) 04/30/22 05:24 Neut # (Auto) 8.2 x10^3/uL (2.2-4.8) H 04/30/22 05:24 Lymph # (Auto) 1.0 X10^3/uL (1.3-2.9) L 04/30/22 05:24 [place] # (Auto) 0.9 x10^3/uL (0.3-0.8) H 04/30/22 05:24 Eos # (Auto) 0.1 x10^3/uL (0.0-0.2) 04/30/22 05:24 Baso # (Auto) 0.0 X10^3/uL (0.0-0.1) 04/30/22 05:24 Absolute Nucleated RBC 0.0 /100WBC 04/30/22 05:24 Sodium 138 mmol/L (136-145) 04/30/22 05:24 Corrected Sodium TNP 04/30/22 05:24 Potassium 5.1 mmol/L (3.5-5.1) 04/30/22 05:24 Chloride 106 mmol/L (98-107) 04/30/22 05:24 Carbon Dioxide 26.7 mmol/L (21-32) 04/30/22 05:24 BUN 27 mg/dL (7-18) H 04/30/22 05:24 Creatinine 1.14 mg/dL (0.55-1.02) H 04/30/22 05:24 Est GFR (MDRD) Af Amer > 60 (>60) 04/30/22 05:24 Est GFR (MDRD) Non-Af 50 (>60) L 04/30/22 05:24 Glucose 104 mg/dL (65-99) H 04/30/22 05:24 POC Glucose (mg/dL) 96 mg/dL (65-99) 04/30/22 05:19 Calcium 8.7 mg/dL (8.5-10.1) 04/30/22 05:24 Corrected Calcium 9.8 mg/dL (8.5-10.1) 04/30/22 05:24 Total Bilirubin 0.60 mg/dL (0.2-1.0) 04/30/22 05:24 AST 42 Units/L (15-37) H 04/30/22 05:24 ALT 65 Units/L (12-78) 04/30/22 05:24 Alkaline Phosphatase 288 Units/L (46-116) H 04/30/22 05:24 Total Protein 6.5 g/dL (6.4-8.2) 04/30/22 05:24 Albumin 2.6 g/dL (3.4-5.0) L 04/30/22 05:24 Globulin 3.9 g/dL (2.5-4.5) 04/30/22 05:24 Albumin/Globulin Ratio 0.7 Ratio (1.1-2.1) L 04/30/22 05:24 Vancomycin Trough 16.4 ug/mL (15-20) 04/29/22 08:40 Tissue Pathology To follow 04/27/22 11:30 - Plan (1) Cellulitis of left foot Status: Acute Plan: DAY 1 POST DEBRIDEMENT, CONTINUE WOUND CARE, AWAITING WOUND AND BLOOD CULTURES, NORMAL SALINE AT 75 ML/HR, VANCOMYCIN 1.25G IV DAILY, PERCOCET 5/325MG Q6H PRN, OTBS ACHS, LOVENOX 40MG SC DAILY, MORPHINE SULFATE 3MG IV Q4H PRN, COLACE 100MG DAILY, MILK OF MAGNESIA 30ML BID PRN. 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 condition Status: Acute Qualifiers: Diabetes mellitus complication detail: diabetic polyneuropathy Qualified Code(s): E08.42 - Diabetes mellitus due to underlying condition with diabetic polyneuropathy (3) Hypertension Status: Chronic Qualifiers: Hypertension type: primary hypertension Qualified Code(s): I10 - Essential (primary) hypertension (4) Hyperlipidemia Status: Chronic Qualifiers: Hyperlipidemia type: mixed hyperlipidemia Qualified Code(s): E78.2 - Mixed hyperlipidemia (5) Anxiety Status: Chronic (6) Depression Status: Chronic Qualifiers: Depression Type: major depressive disorder Major depression recurrence: recurrent Active/Remission status: remission status unspecified Qualified Code(s): F33.9 - Major depressive disorder, recurrent, unspecified (7) CAD (coronary artery disease) Status: Chronic Qualifiers: Coronary Disease-Associated Artery/Lesion type: [place] artery [place] vs. transplanted heart: [place] heart Associated angina: unspecified whether angina present Qualified Code(s): I25.10 - Atherosclerotic heart disease of [place] coronary artery without angina pectoris (8) COPD (chronic obstructive pulmonary disease) Status: Chronic Qualifiers: COPD type: unspecified COPD Qualified Code(s): J44.9 - Chronic obstructive pulmonary disease, unspecified
== END 2022-04-30 15:37 | disposition home health service (06) | DRG 571 ==
LOC: MED/SURG 13:01 → ER 13:01 → OBSVTOIN 15:02 → MED/SURG 15:36
PROVIDERS: ADMIT Internal Medicine; ATTEND Internal Medicine
DX: I25.10 Atherosclerotic heart disease of native coronary artery without angina pectoris; I10 Essential (primary) hypertension; M79.672 Pain in left foot; B95.62 Methicillin resistant Staphylococcus aureus infection as the cause of diseases classified elsewhere; E78.2 Mixed hyperlipidemia; E11.40 Type 2 diabetes mellitus with diabetic neuropathy, unspecified; R94.31 Abnormal electrocardiogram [ECG] [EKG]; R26.89 Other abnormalities of gait and mobility; F41.8 Other specified anxiety disorders; B07.0 Plantar wart; J44.9 Chronic obstructive pulmonary disease, unspecified; F33.9 Major depressive disorder, recurrent, unspecified; L03.116 Cellulitis of left lower limb; E11.65 Type 2 diabetes mellitus with hyperglycemia

== ENCOUNTER 2022-07-29 13:42 | Inpatient (IN) ==
--- NOTE | 2022-07-29 13:58 | DR.EXTPAIN ---
HPI Time seen Time Seen by Provider: 07/29/22 13:51 Complaint/Symptoms Chief Complaint Doctor Comments: 66 y/o female presents with infection of her right hand. 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 Pt pulled a piece of skin off the stump of her middle finger 4 days ago. Started swelling, bcoming red, of the R middle finger. Has streadily worsened. Having pain, swelling, erythema of the R 3rd finger, spreading into the right hand. + pain, worse with palpation, ROM. Nothing makes it better. Denies fever, chills, URI symptoms, bowel or bladder complaints. + h/o frequent cellulitis, h/o osteomyelitis in the past. Nurses notes reviewed Nurses Notes Review: Yes Source History Provided: Patient PMH PMH Past Medical History: COPD, Coronary Artery Disease, Dyslipidemia and Hypertension Past Surgical History: Yes Surgical History: Angioplasty/Stents Family History Family Medical History: Diabetes Mellitus, Cancer, MS and Hypertension Social History Does patient currently use any type of tobacco product: No Alcohol Use: None Do you use any recreational Drugs:: No ROS Review of Systems Constitutional: No Symptoms Reported Eyes: No Symptoms Reported ENTM: No Symptoms Reported Respiratoy: No Symptoms Reported Cardiovascular: No Symptoms Reported Gastrointestinal/Abdominal: No Symptoms Reported Genitourinary: No Symptoms Reported Neurological: No Symptoms Reported Musculoskeletal: See HPI Integumentary: See HPI All Other Systems: Reviewed and Negative PE Vital Signs Vitals: Temperature 98.6 F Pulse Rate 96 Respiratory Rate 22 Respiratory Rate 22 Blood Pressure [Left Arm] 138/64 Blood Pressure [Right Arm] 122/60 Blood Pressure 147/66 Blood Pressure 113/62 O2 Sat by Pulse Oximetry 97 General General Appearance: Alert and In No Apparent Distress Eyes Eye exam: PERRL and EOMI ENT ENT Exam: Mucous Membranes Moist Neck Neck Exam: Normal Inspection Respiratory Respiratory Exam: Normal Lung Sounds Bilat; negative Accessory Muscle Use or Respiratory Distress Cardiovascular Cardiovascular Exam: Regular Rate, Normal Rhythm and Normal Heart Sounds Extremities Extremities Exam: negative Edema Neurological Neurological Exam: Alert and Oriented X3 Other Exam Other Exam: R hand - + distal amputation of 3rd finger, 3rd finger with diffuse swelling, erythema, tenderness. + erythematous blush of dorsal R hand. + NV intact. COURSE Treatment Treatment: 66 y/o female wtih rapidly worsening cellulitis of the right hand over the past 4 days. W/u initiated. X-ray obtained, no obvious osteomyelitis changes. Labs show elevated WBC, 15K. Discussed with Dr Johnson, will admit. Will treat with IV vancomycin. Consult with surgery, Dr Mike DHALIWAL, Dr rocha consulted. ROR Labs Reviewed Laboratory Results Reviewed?: Yes Result Diagrams: 07/29/22 14:15 07/29/22 14:15 Laboratory: 07/29/22 14:54 Finger - Right Middle Wound Gram Stain - Final WBC 15.4 X10^3/uL (3.6-10.0) H 07/29/22 14:15 RBC 3.71 X10^6/uL (3.5-5.4) 07/29/22 14:15 Hgb 10.4 g/dL (12.0-16.0) L 07/29/22 14:15 Hct 31.4 % (36.0-47.0) L 07/29/22 14:15 MCV 84.8 fL (80.0-100.0) 07/29/22 14:15 MCH 28.2 pg (27.0-34.0) 07/29/22 14:15 MCHC 33.2 g/dL (33.0-35.0) 07/29/22 14:15 RDW 14.7 % (11.6-16.5) 07/29/22 14:15 Plt Count 200 X10^3/uL (150.0-450.0) 07/29/22 14:15 MPV 8.5 fL (7.4-11.0) 07/29/22 14:15 Neut % (Auto) 88.5 % (42.0-75.0) H 07/29/22 14:15 Lymph % (Auto) 4.9 % (21.0-51.0) L 07/29/22 14:15 [place] % (Auto) 6.4 % (0.0-13.0) 07/29/22 14:15 Eos % (Auto) 0.1 % (0.9-2.9) L 07/29/22 14:15 Baso % (Auto) 0.1 % (0.2-1.0) L 07/29/22 14:15 Neut # (Auto) 13.6 x10^3/uL (2.2-4.8) H 07/29/22 14:15 Lymph # (Auto) 0.8 X10^3/uL (1.3-2.9) L 07/29/22 14:15 [place] # (Auto) 1.0 x10^3/uL (0.3-0.8) H 07/29/22 14:15 Eos # (Auto) 0.0 x10^3/uL (0.0-0.2) 07/29/22 14:15 Baso # (Auto) 0.0 X10^3/uL (0.0-0.1) 07/29/22 14:15 Absolute Nucleated RBC 0.0 /100WBC 07/29/22 14:15 Sodium 136 mmol/L (136-145) 07/29/22 14:15 Corrected Sodium 142 mmol/L (136-145) 07/29/22 14:15 Potassium 4.8 mmol/L (3.5-5.1) 07/29/22 14:15 Chloride 101 mmol/L (98-107) 07/29/22 14:15 Carbon Dioxide 23.6 mmol/L (21-32) 07/29/22 14:15 BUN 53 mg/dL (7-18) H 07/29/22 14:15 Creatinine 1.65 mg/dL (0.55-1.02) H 07/29/22 14:15 Est GFR (MDRD) Af Amer 40 (>60) L 07/29/22 14:15 Est GFR (MDRD) Non-Af 33 (>60) L 07/29/22 14:15 Glucose 347 mg/dL (65-99) H 07/29/22 14:15 Lactic Acid 1.1 mmol/L (0.4-2.0) 07/29/22 14:15 Calcium 8.5 mg/dL (8.5-10.1) 07/29/22 14:15 Corrected Calcium 9.7 mg/dL (8.5-10.1) 07/29/22 14:15 Total Bilirubin 0.50 mg/dL (0.2-1.0) 07/29/22 14:15 AST 31 Units/L (15-37) 07/29/22 14:15 ALT 29 Units/L (12-78) 07/29/22 14:15 Alkaline Phosphatase 380 Units/L (46-116) H 07/29/22 14:15 Total Protein 7.0 g/dL (6.4-8.2) 07/29/22 14:15 Albumin 2.5 g/dL (3.4-5.0) L 07/29/22 14:15 Globulin 4.5 g/dL (2.5-4.5) 07/29/22 14:15 Albumin/Globulin Ratio 0.6 Ratio (1.1-2.1) L 07/29/22 14:15 Opioid Opioid Risk Tool Age (Jaden box if 16-45): No History of Preadolescent Sexual Abuse: No Total: 0 Total Score Risk Category: Low Risk Copyright: Dashawn HDEZ predicting aberrant behaviors Discharge Plan Diagnosis Discharge Problem: Cellulitis of right hand Discharge Plan Patient Disposition: 09 ADMITTED INPATIENT Condition: Stable
[2022-07-29] MEDS ORDERED: MORPHINE SULFATE INJ 4 MG IVP ONE (14:35)
[2022-07-29] MEDS ORDERED: ZOFRAN INJ 4 MG VIAL IVP ONE (14:35)
[2022-07-29] MEDS ORDERED: MORPHINE SULFATE INJ 4 MG ONE (14:41)
[2022-07-29] MEDS ORDERED: ZOFRAN INJ 4 MG VIAL ONE (14:41)
[2022-07-29 14:45] LABS: BASOPHILS % (AUTO) 0.1 % (0.2-1.0); EOSINOPHILS % (AUTO) 0.1 % (0.9-2.9); HEMATOCRIT 31.4 % (36.0-47.0); HEMOGLOBIN 10.4 g/dL (12.0-16.0); LYMPHOCYTES # (AUTO) 0.8 X10^3/uL (1.3-2.9); LYMPHOCYTES % (AUTO) 4.9 % (21.0-51.0); MEAN CORPUSCULAR HEMOGLOBIN 28.2 pg (27.0-34.0); MEAN CORPUSCULAR HGB CONC 33.2 g/dL (33.0-35.0); MEAN CORPUSCULAR VOLUME 84.8 fL (80.0-100.0); MEAN PLATELET VOLUME 8.5 fL (7.4-11.0); MONOCYTES % (AUTO) 6.4 % (0.0-13.0); NEUTROPHILS # (AUTO) 13.6 x10^3/uL (2.2-4.8); NEUTROPHILS % (AUTO) 88.5 % (42.0-75.0); PLATELET COUNT 200 X10^3/uL (150.0-450.0); RED BLOOD COUNT 3.71 X10^6/uL (3.5-5.4); RED CELL DISTRIBUTION WIDTH 14.7 % (11.6-16.5); WHITE BLOOD COUNT 15.4 X10^3/uL (3.6-10.0)
[2022-07-29 14:48] LABS: ALBUMIN 2.5 g/dL (3.4-5.0); CALCIUM 8.5 mg/dL (8.5-10.1); CARBON DIOXIDE 23.6 mmol/L (21-32); COR CA(FOR HYPOALB) 9.7 mg/dL (8.5-10.1); CREATININE 1.65 mg/dL (0.55-1.02); POTASSIUM 4.8 mmol/L (3.5-5.1)
[2022-07-29 14:51] LABS: LACTIC ACID 1.1 mmol/L (0.4-2.0)
[2022-07-29] MEDS ORDERED: VANCOMYCIN HCL IV STA (15:09)
[2022-07-29] MEDS ORDERED: VANCOMYCIN IV *PREMIX 1 G/200 ML BAG 1 G/200 ML PIGGYBACK IV ONE ×2 (15:15→15:20)
[2022-07-29] MEDS ORDERED: PHARMACY CONSULT - VANCOMYCIN XX SCH (16:02)
[2022-07-29] MEDS ORDERED: ZOFRAN INJ 4 MG VIAL IVP PRN (16:02)
[2022-07-29 16:25] VITALS: BMI 34.1
[2022-07-29] MEDS: PERCOCET TAB 5/325 MG PO PRN (18:04)
[2022-07-29] MEDS: LOVENOX INJ 40 MG SYR SC SCH (21:03)
[2022-07-29] MEDS: KLONOPIN TAB 1 MG PO PRN (21:03)
[2022-07-29] MEDS: ROXICODONE TAB 5 MG PO PRN (21:04)
[2022-07-29] MEDS: LEVEMIR SC SCH (21:05)
[2022-07-29] MEDS: SNACK - Diabetic Appropriate PO SCH (21:13)
[2022-07-29 22:35] LABS: APPEARANCE,URINE SLIGHTLY HAZY (CLEAR); COLOR,URINE PALE YELLOW (YELLOW); PROTEIN,URINE TRACE (NEGATIVE)
[2022-07-29 22:36] LABS: BILIRUBIN,URINE NEGATIVE (NEGATIVE); BLOOD/HEMOGLOBIN,URINE 1+ (NEGATIVE); GLUCOSE, URINE 4+ (NEGATIVE); KETONES,URINE NEGATIVE (NEGATIVE); LEUKOCYTE ESTERASE ,URINE 1+ (NEGATIVE); NITRITES,URINE NEGATIVE (NEGATIVE); UROBILINOGEN,URINE NORMAL (NORMAL)
[2022-07-29 22:38] LABS: BACTERIA,URINE 2+ /HPF (NEGATIVE); SQUAMOUS EPITHELIAL CELL,UR FEW /HPF (NEGATIVE)
--- NOTE | 2022-07-29 23:40 | DR.CONSULT ---
CONSULT Consultation for Day of: Date: 07/29/22 Chief Complaint Chief Complaint: Redness and swelling of right middle finger extending onto the dorsum of the right hand. Allergies Allergies Allergy/AdvReac Type Severity Reaction Status Date / Time codeine Allergy Unknown Verified 07/07/22 14:12 doxycycline Allergy Verified 07/07/22 14:12 History of Present Illness History of Present Illness: 66 yo female with history of amputation of the distal phalanx of the right 3rd finger and injury and deformation of the distal phalanx of the right second finger. She does not remember how the fingers of her right hand ended up like this . She pulled a piece of skin off of the end of the right 3rd finger 4 days ago with increasing redness, swelling and pain of the remaining right 3rd finger. Redness now spread onto the dorsum of the right hand .Hx of diabetes and coronary artery disease. Seen recently by Dr. Frazier for abscess to the foot. Past Medical History Past Medical History: COPD, Coronary Artery Disease, Dyslipidemia and Hypertension Past Surgical History Surgical History: Angioplasty/Stents Family History Family Medical History: Diabetes Mellitus, Cancer, [place] and Hypertension Social History Does patient currently use any type of tobacco product: No Have you used tobacco products in the last 12 months: No Type of Tobacco Use: None Does any household member use tobacco: No Alcohol Use: None Drug Use: None Medications Home Medications: codeine Allergy (Unknown, Verified 07/07/22 14:12) doxycycline Allergy (Verified 07/07/22 14:12) CONTINUE taking the following medications losartan 25 mg tablet 25 mg PO QDAY 07/29/22 [History] oxycodone-acetaminophen 7.5 mg-325 mg tablet 1 tab PO QID PRN 07/29/22 [History] pregabalin 100 mg capsule 100 mg PO BID 07/29/22 [History] semaglutide 2 mg/dose (8 mg/3 mL) subcutaneous pen injector (Ozempic) 2 mg subcut WEEKLY 07/29/22 [History] triamterene 37.5 mg-hydrochlorothiazide 25 mg tablet 1 tab PO QDAY 07/29/22 [History] Review of Systems Constitutional: See HPI Eyes: No Symptoms Reported ENT: No Symptoms Reported Respiratory: No Symptoms Reported Cardiovascular: No Symptoms Reported Gastrointestinal: No Symptoms Reported Genitourinary: No Symptoms Reported Musculoskeletal: See HPI Skin: See HPI Neurological: No Symptoms Reported Physical Exam Vital Signs: Temperature 98.3 F Temperature 98.6 F Pulse Rate [Left Brachial] 84 Pulse Rate 96 Respiratory Rate 18 Respiratory Rate 22 Blood Pressure [Left Arm] 132/87 Blood Pressure [Right Arm] 122/60 Blood Pressure 147/66 Blood Pressure 113/62 O2 Sat by Pulse Oximetry 97 O2 Sat by Pulse Oximetry 97 Oriented: Normal, Time, Person and Place Eyes: Normal Ear: Normal Nose: Normal Throat: Normal Respiratory: Clear Throughout Cardiovascular: Normal : Normal Auscultation: Bowel Sounds: Normal Palpation: Normal Tenderness: Normal Musculoskeletal: Hand (Significant swelling right middle finger, pus from end of finger where the distal phalanx has been amputated, redness extending onto the dorsum of the right hand , deformed distal phalanx of right index finger) Psychiatric: Normal Mood Description: Anxious Affect: Anxious Speech Pattern: Clear Plan (1) Cellulitis of right hand: Status: Acute Plan: Continue IV antibiotics. Will obtain MRI of the right hand. I am concerned she has osteomyelitis and may need at least surgical drainage of the right 3rd finger. She would rather have as he has seen her and he has cared for her in the past and recently. Dr. Frazier is out of town until next week. (2) Diabetes: Status: Acute (3) CAD (coronary artery disease): Status: Chronic Qualifiers: Coronary Disease-Associated Artery/Lesion type: [place] artery [place] vs. transplanted heart: [place] heart Associated angina: unspecified whether angina present Qualified Code(s): I25.10 - Atherosclerotic heart disease of [place] coronary artery without angina pectoris Plan: home medications
[2022-07-30 05:21] LABS: ALBUMIN 2.3 g/dL (3.4-5.0); CALCIUM 8.4 mg/dL (8.5-10.1); CARBON DIOXIDE 25.9 mmol/L (21-32); COR CA(FOR HYPOALB) 9.8 mg/dL (8.5-10.1); CREATININE 1.41 mg/dL (0.55-1.02); POTASSIUM 4.6 mmol/L (3.5-5.1); TOTAL PROTEIN 6.7 g/dL (6.4-8.2)
[2022-07-30 05:23] LABS: BASOPHILS % (AUTO) 0.1 % (0.2-1.0); EOSINOPHILS # (AUTO) 0.1 x10^3/uL (0.0-0.2); EOSINOPHILS % (AUTO) 0.4 % (0.9-2.9); HEMATOCRIT 28.8 % (36.0-47.0); HEMOGLOBIN 9.7 g/dL (12.0-16.0); LYMPHOCYTES # (AUTO) 1.1 X10^3/uL (1.3-2.9); LYMPHOCYTES % (AUTO) 7.2 % (21.0-51.0); MEAN CORPUSCULAR HEMOGLOBIN 28.5 pg (27.0-34.0); MEAN CORPUSCULAR HGB CONC 33.7 g/dL (33.0-35.0); MEAN CORPUSCULAR VOLUME 84.4 fL (80.0-100.0); MEAN PLATELET VOLUME 8.6 fL (7.4-11.0); MONOCYTES # (AUTO) 1.2 x10^3/uL (0.3-0.8); MONOCYTES % (AUTO) 7.8 % (0.0-13.0); NEUTROPHILS # (AUTO) 13.3 x10^3/uL (2.2-4.8); NEUTROPHILS % (AUTO) 84.5 % (42.0-75.0); PLATELET COUNT 225 X10^3/uL (150.0-450.0); RED BLOOD COUNT 3.41 X10^6/uL (3.5-5.4); RED CELL DISTRIBUTION WIDTH 14.8 % (11.6-16.5); WHITE BLOOD COUNT 15.7 X10^3/uL (3.6-10.0)
--- NOTE | 2022-07-30 05:43 | RAD ---
HISTORYINFECTION RIGHT THIRD FINGER Relevant Clinical InformationSTUDYHAND, RIGHTCOMPARISONFINDINGSNo acute cortical disruption or dislocation is identified. There is diffuse soft tissue swelling of the right 3rd digit. The distal phalanges of the 2nd and 3rd digit are absent. No radiopaque foreign bodies.. The carpal bones appear aligned without evidence for fracture.IMPRESSIONDiffuse soft tissue swelling of the right 3rd digit.Post amputation changes of the distal phalanges of the 2nd and 3rd digits.Electronically signed by: Sae Connell (Jul 30, 2022 05:41:42)
[2022-07-30] MEDS: PERCOCET TAB 5/325 MG PO PRN ×2 (05:45→14:17)
[2022-07-30] MEDS: ROXICODONE TAB 5 MG PO PRN ×2 (05:45→14:17)
[2022-07-30] MEDS: CYMBALTA PO SCH (08:23)
[2022-07-30] MEDS: PLAVIX PO SCH (08:23)
[2022-07-30] MEDS: LEVEMIR SC SCH ×2 (08:24→20:58)
[2022-07-30] MEDS: FLEXERIL TAB 10 MG PO PRN ×2 (08:24→20:56)
[2022-07-30] MEDS: MAXZIDE 37.5/25 MG PO SCH (08:24)
[2022-07-30] MEDS: COZAAR PO SCH (08:24)
[2022-07-30] MEDS: MAG-OX TAB PO SCH (08:25)
--- NOTE | 2022-07-30 08:59 | DR.H&P ---
H&P - History & Physical for Day of: H&P Date: 07/29/22 - Chief Complaint Chief Complaint: RIGHT HAND PAIN AND SWELLING - History of Present Illness History of Present Illness: IS A 66 YEAR OLD PATIENT OF OURS. SHE HAS A PMH OF COPD, CAD, DYSLIPIDEMIA, HTN, CARDIAC STENTS, AND TYPE 2 DM. 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 SHE PRESENTED TO THE ER WITH COMPLAINTS OF REDNESS AND SWELLING OF THE RIGHT MIDDLE FINGER. PATIENT REPORTS THAT SHE PULLED A PIECE OF SKIN OFF OF THE STUMP OF HER MIDDLE FINGER FOUR DAYS AGO. SINCE THEN, SYMPTOMS HAVE STEADILY WORSENED. SHE COMPLAINS OF THROBBING PAIN TO THE RIGHT HAND THAT IS WORSE WITH PALPATION AND RANGE OF MOTION. SHE DENIES FEVER, CHILLS, URI SYMPTOMS, BOWEL OR BLADDER COMPLAINTS. SHE DOES ADMIT TO FREQUENT CELLULITIS AND ALSO A HISTORY OF OSTEOMYELITIS IN THE PAST. ON ARRIVAL, HER VITALS WERE: 98.6-96-22-97%-147/66. LABS WERE OBTAINED. WBC 15.4, RBC 3.71, HGB 10.4, HCT 31.4, PLT COUNT 200, SODIUM 136, POTASSIUM 4.8, CHLORIDE 101, CARBON DIOXIDE 23.6, BUN 53, CREATININE 1.65, GLUCOSE 347, LACTIC ACID 1.1, CALCIUM 8.5, TOTAL BILI 0.50, AST 31, ALT 29, ALK PHOS 380, TOTAL PROTEIN 7.0, ALBUMIN 2.5. A URINALYSIS WAS OBTAINED DUE TO ADDITONAL COMPLAINTS OF URINE HAVING A FOUL ODOR. URINE WBC 20-30, RBC 3-5, LEUKOCYTES 1+, BACTERIA 2+. URINE, BLOOD, AND WOUND CULTURES WERE SET UP. AN XRAY OF THE RIGHT HAND WAS OBTAINED AND REVEALED: No acute cortical disruption or dislocation is identified. There is diffuse soft tissue swelling of the right 3rd digit. The distal phalanges of the 2nd and 3rd digit are absent. No ra diopaque foreign bodies.. The carpal bones appear aligned without evidence for fracture. IN THE ER, SHE WAS GIVEN MORPHINE 4MG IV X 1 DOSE, ZOFRAN 4MG IV X 1 DOSE, VANCOMYCIN 1G IV X 1 DOSE. SHE WAS ADMITTED TO THE HOSPITAL OBSERVATION STATUS FOR FURTHER EVALUATION AND TREATMENT OF RIGHT HAND CELLULITIS. SHE WAS STARTED ON VANCOMYCIN 1G IV DAILY, MORPHINE 4MG IV Q4H PRN PAIN, LOVENOX 40MG SC HS, ZOFRAN 4MG IV Q6H PRN NAUSEA, OTBS ACHS. WE WILL ALSO RESUME HER HOME MEDICATIONS OF KLONOPIN, PLAVIX, FLEXERIL, CYMBALTA, LEVEMIR, JARDIANCE, COZAAR, MAG-OX, PERCOCET PRN, LYRICA, AND MAXZIDE. WE CONSULTED , GENERAL SURGEON. HE PLANS TO OBTAIN A MRI OF THE RIGHT HAND TO RULE OUT OSTEOMYELITIS. WE ARE IN AGREEMENT WITH HIS PLANS. OTHERWISE, WE PLAN TO FOLLOW-UP WITH AM LABS AND CONTINUE TO MONITOR. TIME SPENT ON CLINICAL ASSESSMENT, REVIEWING LABS AND IMAGING, DECISION MAKING, AND DOCUMENTATION GREATER THAN 75 MINUTES. - Past Medical History Past Medical History: Coronary Artery Disease, Hypertension, Dyslipidemia, COPD - Past Surgical History Surgical History: Angioplasty/Stents - Family History Family Medical History: Diabetes Mellitus, Cancer, [place], Hypertension - Social History Does patient currently use any type of tobacco product: No Have you used tobacco products in the last 12 months: No Type of Tobacco Use: None Does any household member use tobacco: No Alcohol Use: None Drug Use: None - Medications Home Medications: Home Medications Medication Instructions Recorded Confirmed Type clonazepam 1 mg tablet 1 mg PO HS PRN Sleep 11/21/12 07/29/22 History clopidogrel 75 mg tablet (Plavix) 75 mg PO DAILY 02/10/18 07/29/22 History magnesium oxide 400 mg PO DAILY 02/10/18 07/29/22 History cyclobenzaprine 10 mg tablet 10 mg PO BID PRN 05/18/20 07/29/22 History empagliflozin 25 mg tablet 25 mg PO DAILY 05/18/20 07/29/22 History (Jardiance) insulin detemir U-100 100 unit/mL 10 unit subcut BID 05/18/20 07/29/22 History subcutaneous solution (Levemir U-100 Insulin) duloxetine 30 mg capsule,delayed 30 mg PO QDAY 04/25/22 07/29/22 History release losartan 25 mg tablet 25 mg PO QDAY 07/29/22 07/29/22 History oxycodone-acetaminophen 7.5 mg-325 1 tab PO QID PRN 07/29/22 07/29/22 History mg tablet pregabalin 100 mg capsule 100 mg PO BID 07/29/22 07/29/22 History semaglutide 2 mg/dose (8 mg/3 mL) 2 mg subcut WEEKLY 07/29/22 07/29/22 History subcutaneous pen injector (Ozempic) triamterene 37.5 1 tab PO QDAY 07/29/22 07/29/22 History mg-hydrochlorothiazide 25 mg tablet - Review of Systems Constitutional: Weakness. denies: Fever Eyes: No Symptoms Reported ENT: No Symptoms Reported Respiratory: No Symptoms Reported Cardiovascular: No Symptoms Reported Gastrointestinal: No Symptoms Reported Genitourinary: No Symptoms Reported Musculoskeletal: See HPI, Hand Pain (RIGHT HAND AND MIDDLE FINGER PAIN, REDNESS, AND SWELLING) Skin: See HPI Neurological: Weakness - Physical Exam Vital Signs: Temperature 99.2 F Temperature 98.6 F Pulse Rate [Apical] 82 Pulse Rate [Left Brachial] 84 Pulse Rate 96 Respiratory Rate 18 Respiratory Rate 22 Blood Pressure [Left Arm] 135/63 Blood Pressure [Right Arm] 122/60 Blood Pressure 147/66 Blood Pressure 113/62 O2 Sat by Pulse Oximetry 96 O2 Sat by Pulse Oximetry 97 Oriented: Normal, Time, Person, Place Eyes: Normal Ear: Normal Nose: Normal Throat: Normal Respiratory: Clear Throughout Cardiovascular: Normal : Normal Auscultation: Bowel Sounds: Normal Palpation: Normal Tenderness: Normal Skin: Red (RIGHT HAND ), Tender, Hot Musculoskeletal: Right, Hand (Significant swelling right middle finger, pus from end of finger where the distal phalanx has been amputated, redness extending onto the dorsum of the right hand , deformed distal phalanx of right index finger) Psychiatric: Normal Mood Description: Calm Affect: Normal Speech Pattern: Clear - Assessment/Plan (1) Cellulitis of right hand Status: Acute Plan: ADMIT, VANCOMYCIN 1G IV DAILY, MORPHINE 4MG IV Q4H PRN PAIN, LOVENOX 40MG SC HS, ZOFRAN 4MG IV Q6H PRN NAUSEA, OTBS ACHS, CONTINUE HOME MEDS (2) Abscess of finger, right Status: Acute (3) CAD (coronary artery disease) Qualifiers: Coronary Disease-Associated Artery/Lesion type: [place] artery [place] vs. transplanted heart: [place] heart Associated angina: unspecified whether angina present Qualified Code(s): I25.10 - Atherosclerotic heart disease of [place] coronary artery without angina pectoris Status: Chronic Plan: CONTINUE PLAVIX (4) Hyperlipidemia Qualifiers: Hyperlipidemia type: mixed hyperlipidemia Qualified Code(s): E78.2 - Mixed hyperlipidemia Status: Chronic Plan: CONTINUE TO MONITOR (5) Hypertension Qualifiers: Hypertension type: primary hypertension Qualified Code(s): I10 - Essential (primary) hypertension Status: Chronic Plan: CONTINUE COZAAR, CONTINUE MAXZIDE (6) Diabetes mellitus Qualifiers: Diabetes mellitus type: type 2 Diabetes mellitus jail insulin use: with jail use Diabetes mellitus complication status: with circulatory complication Diabetes mellitus complication detail: with other circulatory complications Qualified Code(s): E11.59 - Type 2 diabetes mellitus with other circulatory complications; Z79.4 - senior living (current) use of insulin Status: Chronic Plan: OTBS ACHS, CONTINUE JARDIANCE, CONTINUE LEVEMIR - Allergies Allergies/Adverse Reactions: Allergies Allergy/AdvReac Type Severity Reaction Status Date / Time codeine Allergy Unknown Verified 07/07/22 14:12 doxycycline Allergy Verified 07/07/22 14:12
[2022-07-30] MEDS ORDERED: SEMAGLUTIDE SUBCUT SCH (09:00)
[2022-07-30] MEDS ORDERED: INJECTOR SUBCUT SCH (09:00)
[2022-07-30] MEDS ORDERED: PATIENT'S HOME MEDICATION (Magnesium Oxide 400 mg magnesium Tablet) PO SCH (09:00)
[2022-07-30] MEDS: MORPHINE SULFATE INJ 4 MG IVP PRN (10:44)
[2022-07-30] MEDS: ZOSYN VIAL 3.375 GRAMS 3.375 G in NS 100 ML IV 100 ML IV SCH ×3 (14:01→21:02)
[2022-07-30] MEDS: PATIENT'S HOME MEDICATION (Empagliflozin [Jardiance] 25 mg Tablet) PO SCH (14:02)
--- NOTE | 2022-07-30 16:06 | MRI ---
HISTORYINFECTED 3RD FINGER RT HAND, CELLULITISSTUDYEXT UPPER NON-JOINT W W/O CONCOMPARISONRight hand radiograph from 07/29/2022.TECHNIQUEMultiplanar multisequence MRI of the right hand with and without contrast were obtained per protocol. 18 cc MultiHance given IV.FINDINGSThere is significant ghost artifact on the axial T2 sequences. Suboptimal spatial resolution and signal to noise on all sequences limits evaluation. There is failure of fat saturation of sagittal PD fat-sat sequence. Axial [id number]-[id number] is from the metacarpal heads through the majority of the distal digits. No T1 precontrast fat sat sequence is available which limits evaluation of enhancement.There is amputation of the 2nd and 3rd digits at the level of the distal shafts of the middle phalanges. There is replacement of normal marrow signal with T1 low signal of the 3rd middle phalanx image 16 coronal T1 consistent with osteomyelitis. There is a moderate amount of fluid about the 3rd flexor tendons from the level of the MCP joint extending distally the level of the middle phalanx. Limited evaluation for enhancement given lack of a T1 fat-sat precontrast sequence. There is moderate soft tissue edema over the dorsum of the hand at the level of the distal metacarpals and mostly about the 3rd digit. Suspect erosions of the heads of the 2nd and 4th metacarpal and base of the 4th proximal phalanx.IMPRESSIONLimited study. Osteomyelitis of the 3rd middle phalanx. Moderate fluid about the 3rd flexor tendon likely infectious tenosynovitis although evaluation is limited. Moderate subcutaneous edema about most of the hand may represent cellulitis.Suspect erosions of the heads of the 2nd and 4th metacarpal and base of the 4th proximal phalanx. These are nonspecific but could be seen with rheumatoid arthritis.Electronically signed by: Ishaan Noriega (Jul 30, 2022 16:04:58)
[2022-07-30] MEDS: VANCOMYCIN IV *PREMIX 1 G/200 ML BAG 1 G/200 ML PIGGYBACK IV SCH (17:55)
[2022-07-30] MEDS: NovoLIN R (or HumuLIN R) SUBCUT PRN ×2 (18:24→20:57)
[2022-07-30] MEDS ORDERED: SNACK - Diabetic Appropriate PO SCH (20:00)
[2022-07-30] MEDS: LOVENOX INJ 40 MG SYR SC SCH (20:48)
[2022-07-30] MEDS: KLONOPIN TAB 1 MG PO PRN (20:56)
[2022-07-30] MEDS: SNACK - Diabetic Appropriate PO SCH (21:01)
--- NOTE | 2022-07-30 23:31 | NOTE.SOAP ---
Soap Note Note for Day of Date of Exam: 07/30/22 Subjective Data Subjective Data: Redness rightn middle finger and right hand not significantly improved. Objective Data Temperature: 98.3 F Pulse Rate: 107 Respiratory Rate: 18 Blood Pressure: 145/60 O2 Sat by Pulse Oximetry: 97 Objective Data: Finger still red and swollen. MRI right hand shows moderate fluid around distal flexor tendon and osteomyelitis of middle phalanx. Assessment Assessment: Cellulitis/ abscess/osteomyelitis right middle finger Plan Plan: I think she needs to see a hand surgeon soon.
[2022-07-31] MEDS: ZOSYN VIAL 3.375 GRAMS 3.375 G in NS 100 ML IV 100 ML IV SCH ×3 (05:56→22:19)
[2022-07-31] MEDS: ROXICODONE TAB 5 MG PO PRN ×3 (05:57→22:00)
[2022-07-31] MEDS: PERCOCET TAB 5/325 MG PO PRN ×3 (06:00→22:00)
[2022-07-31 06:39] LABS: BASOPHILS % (AUTO) 0.3 % (0.2-1.0); EOSINOPHILS # (AUTO) 0.3 x10^3/uL (0.0-0.2); EOSINOPHILS % (AUTO) 2.4 % (0.9-2.9); HEMOGLOBIN 9.4 g/dL (12.0-16.0); LYMPHOCYTES % (AUTO) 7.1 % (21.0-51.0); MEAN CORPUSCULAR HEMOGLOBIN 28.4 pg (27.0-34.0); MEAN CORPUSCULAR HGB CONC 33.7 g/dL (33.0-35.0); MEAN CORPUSCULAR VOLUME 84.5 fL (80.0-100.0); MEAN PLATELET VOLUME 8.5 fL (7.4-11.0); MONOCYTES # (AUTO) 1.1 x10^3/uL (0.3-0.8); MONOCYTES % (AUTO) 8.2 % (0.0-13.0); NEUTROPHILS # (AUTO) 11.4 x10^3/uL (2.2-4.8); PLATELET COUNT 236 X10^3/uL (150.0-450.0); RED BLOOD COUNT 3.32 X10^6/uL (3.5-5.4); RED CELL DISTRIBUTION WIDTH 14.9 % (11.6-16.5); WHITE BLOOD COUNT 13.9 X10^3/uL (3.6-10.0)
[2022-07-31 06:48] LABS: ALBUMIN 2.1 g/dL (3.4-5.0); CARBON DIOXIDE 23.5 mmol/L (21-32); COR CA(FOR HYPOALB) 9.5 mg/dL (8.5-10.1); CREATININE 1.44 mg/dL (0.55-1.02); POTASSIUM 4.8 mmol/L (3.5-5.1); TOTAL PROTEIN 6.5 g/dL (6.4-8.2)
[2022-07-31] MEDS: NovoLIN R (or HumuLIN R) SUBCUT PRN ×4 (07:11→23:22)
[2022-07-31] MEDS: COZAAR PO SCH (08:49)
[2022-07-31] MEDS: PLAVIX PO SCH (08:49)
[2022-07-31] MEDS: CYMBALTA PO SCH (08:49)
[2022-07-31] MEDS: MAG-OX TAB PO SCH (08:50)
[2022-07-31] MEDS: PATIENT'S HOME MEDICATION (Empagliflozin [Jardiance] 25 mg Tablet) PO SCH (08:50)
[2022-07-31] MEDS: LEVEMIR SC SCH ×2 (08:50→21:17)
[2022-07-31] MEDS: MAXZIDE 37.5/25 MG PO SCH (08:50)
[2022-07-31] MEDS: FLEXERIL TAB 10 MG PO PRN ×2 (08:50→23:21)
[2022-07-31] MEDS: MORPHINE SULFATE INJ 4 MG IVP PRN (08:56)
[2022-07-31] MEDS: FARXIGA PO SCH (11:53)
[2022-07-31] MEDS: VANCOMYCIN IV *PREMIX 1 G/200 ML BAG 1 G/200 ML PIGGYBACK IV SCH (16:09)
--- NOTE | 2022-07-31 17:25 | PCM.PROG ---
Progress Note - Progress Note for Day of Date of Exam: 07/31/22 - Subjective Subjective: IS CURRENTLY INPATIENT STATUS FOR TREATMENT OF RIGHT HAND AND RIGHT MIDDLE FINGER CELLULITIS AND ABSCESS OF THE RIGHT MIDDLE FINGER. SHE HAS A PMH OF COPD, CAD, DYSLIPIDEMIA, HTN, CARDIAC STENTS, AND TYPE 2 DM. 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 TODAY, SHE IS ALERT AND ORIENTED, LYING IN BED ON MORNING ROUNDS. SHE CONTINUES TO COMPLAIN OF PAIN AND SWELLING TO THE RIGHT HAND. SHE REPORTS SLIGHT IMPROVEMENT IN PAIN SINCE ADMISSION. ON EXAMINATION, HEART IS REGULAR IN RATE AND RHYTHM. BILATERAL LUNGS ARE CLEAR TO AUSCULTATION. ABDOMEN IS ROUND, SOFT, AND NON-TENDER WITH NORMAL BOWEL SOUNDS NOTED IN ALL QUADRANTS. THERE CONTINUES TO BE MODERATE ERYTHEMA AND EDEMA OF THE RIGHT HAND AND MIDDLE FINGER. NO DRAINAGE NOTED THIS MORNING. GOOD MOVEMENT NOTED TO ALL EXTREMITIES. NO LOWER EXTREMITY EDEMA NOTED. HER VITALS THIS MORNING ARE: 97.6-100-18-96%-127/73. LABS WERE OBTAINED. WBC 13.9, RBC 3.32, HGB 9.4, HCT 28.0, PLT COUNT 236, SODIUM 134, POTASSIUM 4.8, CHLORIDE 102, BUN 42, CREATININE 1.44, GLUCOSE 220, CALCIUM 8.0, AST 14, ALT 19, ALK PHOS 305, TOTAL PROTEIN 6.5, ALBUMIN 2.1. BLOOD CULTURES ARE PENDING. WOUND CULTURES ARE POSITIVE FOR GROWTH OF MRSA. URINE CULTURE IS POSITIVE FOR GROWTH OF KLEBSIELLA PNEUMONIAE. MRI OF THE RIGHT HAND WAS OBTAINED YESTERDAY. IT REVEALED: Limited study. Osteomyelitis of the 3rd middle phalanx. Moderate fluid about the 3rd flexor tendon likely infectious tenosynovitis although evaluation is limited. Moderate subcutaneous edema about most of the hand may represent cellulitis. Suspect erosions of the heads of the 2nd and 4th metacarpal and base of the 4th proximal phalanx. These nonspecific but could be seen with rheumatoid arthritis. I SUSPECT THAT PATIENT WILL LIKELY REQUIRE FURTHER AMPUTATION OF THE MIDDLE FINGER, BUT WE WILL GO AHEAD AND GET HER A REFERRAL TO THE HAND SURGEON AND CONTINUE WITH ANTIBIOTICS AT THIS TIME. SHE IS CURRENTLY RECEIVING VANCOMYCIN 1G IV DAILY, ZOSYN 3.375G IV TID, MORPHINE 4MG IV Q4H PRN PAIN, LOVENOX 40MG SC HS, ZOFRAN 4MG IV Q6H PRN NAUSEA, OTBS ACHS. WE WILL ALSO RESUME HER HOME MEDICATIONS OF KLONOPIN, PLAVIX, FLEXERIL, CYMBALTA, LEVEMIR, COZAAR, MAG-OX, PERCOCET PRN, LYRICA, AND MAXZIDE. WE WILL CONTINUE CURRENT PLAN OF CARE TODAY. OTHERWISE, WE PLAN TO FOLLOW-UP WITH AM LABS AND CONTINUE TO MONITOR. TIME SPENT ON CLINICAL ASSESSMENT, REVIEWING LABS AND IMAGING, DECISION MAKING, AND DOCUMENTATION GREATER THAN 45 MINUTES. - Past Medical Family Social History Past Med/Fam/Surg Hx: No changes since H&P Allergies: Allergies codeine Allergy (Unknown, Verified 07/07/22 14:12) Reason: Drug allergy doxycycline Allergy (Verified 07/07/22 14:12) - Review of Systems ROS: No change since H&P - Vital Signs and I&O's Vital Signs: Temperature 97.9 F Temperature 98.3 F Pulse Rate [Apical] 80 Pulse Rate [Left Brachial] 84 Pulse Rate 107 Respiratory Rate 18 Respiratory Rate 18 Blood Pressure [Left Arm] 137/60 Blood Pressure [Right Arm] 122/60 Blood Pressure 145/60 Blood Pressure 113/62 O2 Sat by Pulse Oximetry 96 O2 Sat by Pulse Oximetry 97 Intake and Output: Intake & Output 07/29/22 07/30/22 07/31/22 08/01/22 11:59 11:59 11:59 11:59 Intake Total 1080 / 1080 1110 / 1110 Output Total 700 / 700 Balance -690 / -690 1080 / 1080 1110 / 1110 - Physical Exam Oriented: Normal, Time, Person, Place Eyes: Normal Ear: Normal Nose: Normal Throat: Normal Respiratory: Normal Cardiovascular: Normal : Normal Auscultation: Bowel Sounds: Normal Palpation: Normal Tenderness: Normal Skin: Red (RIGHT HAND ), Tender, Hot Musculoskeletal: Right, Hand (Significant swelling right middle finger, pus from end of finger where the distal phalanx has been amputated, redness extending onto the dorsum of the right hand , deformed distal phalanx of right index finger) Psychiatric: Normal Mood Description: Calm Affect: Normal Speech Pattern: Clear, Appropriate - Laboratory and Diagnostics Result Diagrams: 07/31/22 05:28 07/31/22 05:28 Labs: 07/31/22 11:55 Foot - Left Wound Gram Stain - Final 07/29/22 21:49 Urine,Clean Catch Urine Culture - Final Klebsiella Pneumoniae 07/29/22 14:54 Finger - Right Middle Wound Gram Stain - Final 07/29/22 14:54 Finger - Right Middle Wound Culture - Preliminary Methicillin Resis Staph Aureus 07/29/22 14:25 Blood Blood Culture - Preliminary 07/29/22 14:15 Blood Blood Culture - Preliminary Laboratory WBC 13.9 X10^3/uL (3.6-10.0) H 07/31/22 05:28 RBC 3.32 X10^6/uL (3.5-5.4) L 07/31/22 05:28 Hgb 9.4 g/dL (12.0-16.0) L 07/31/22 05:28 Hct 28.0 % (36.0-47.0) L 07/31/22 05:28 MCV 84.5 fL (80.0-100.0) 07/31/22 05:28 MCH 28.4 pg (27.0-34.0) 07/31/22 05:28 MCHC 33.7 g/dL (33.0-35.0) 07/31/22 05:28 RDW 14.9 % (11.6-16.5) 07/31/22 05:28 Plt Count 236 X10^3/uL (150.0-450.0) 07/31/22 05:28 MPV 8.5 fL (7.4-11.0) 07/31/22 05:28 Neut % (Auto) 82.0 % (42.0-75.0) H 07/31/22 05:28 Lymph % (Auto) 7.1 % (21.0-51.0) L 07/31/22 05:28 Iron % (Auto) 8.2 % (0.0-13.0) 07/31/22 05:28 Eos % (Auto) 2.4 % (0.9-2.9) 07/31/22 05:28 Baso % (Auto) 0.3 % (0.2-1.0) 07/31/22 05:28 Neut # (Auto) 11.4 x10^3/uL (2.2-4.8) H 07/31/22 05:28 Lymph # (Auto) 1.0 X10^3/uL (1.3-2.9) L 07/31/22 05:28 Iron # (Auto) 1.1 x10^3/uL (0.3-0.8) H 07/31/22 05:28 Eos # (Auto) 0.3 x10^3/uL (0.0-0.2) H 07/31/22 05:28 Baso # (Auto) 0.0 X10^3/uL (0.0-0.1) 07/31/22 05:28 Absolute Nucleated RBC 0.0 /100WBC 07/31/22 05:28 Sodium 134 mmol/L (136-145) L 07/31/22 05:28 Corrected Sodium 137 mmol/L (136-145) 07/31/22 05:28 Potassium 4.8 mmol/L (3.5-5.1) 07/31/22 05:28 Chloride 102 mmol/L (98-107) 07/31/22 05:28 Carbon Dioxide 23.5 mmol/L (21-32) 07/31/22 05:28 BUN 42 mg/dL (7-18) H 07/31/22 05:28 Creatinine 1.44 mg/dL (0.55-1.02) H 07/31/22 05:28 Est GFR (MDRD) Af Amer 47 (>60) L 07/31/22 05:28 Est GFR (MDRD) Non-Af 38 (>60) L 07/31/22 05:28 Glucose 220 mg/dL (65-99) H 07/31/22 05:28 POC Glucose (mg/dL) 221 mg/dL (65-99) H 07/31/22 17:04 Lactic Acid 1.1 mmol/L (0.4-2.0) 07/29/22 14:15 Calcium 8.0 mg/dL (8.5-10.1) L 07/31/22 05:28 Corrected Calcium 9.5 mg/dL (8.5-10.1) 07/31/22 05:28 Total Bilirubin 0.40 mg/dL (0.2-1.0) 07/31/22 05:28 AST 14 Units/L (15-37) L 07/31/22 05:28 ALT 19 Units/L (12-78) 07/31/22 05:28 Alkaline Phosphatase 305 Units/L (46-116) H 07/31/22 05:28 Total Protein 6.5 g/dL (6.4-8.2) 07/31/22 05:28 Albumin 2.1 g/dL (3.4-5.0) L 07/31/22 05:28 Globulin 4.4 g/dL (2.5-4.5) 07/31/22 05:28 Albumin/Globulin Ratio 0.5 Ratio (1.1-2.1) L 07/31/22 05:28 Specimen Type Clean catch urine 07/29/22 21:49 Urine Color Pale yellow (YELLOW) 07/29/22 21:49 Urine Appearance Slightly hazy (CLEAR) 07/29/22 21:49 Urine pH 5.0 (5.0 - 8.0) 07/29/22 21:49 Ur Specific [place] 1.015 (1.000-1.030) 07/29/22 21:49 Urine Protein Trace (NEGATIVE) 07/29/22 21:49 Urine Glucose (UA) 4+ (NEGATIVE) 07/29/22 21:49 Urine Ketones Negative (NEGATIVE) 07/29/22 21:49 Urine Blood 1+ (NEGATIVE) 07/29/22 21:49 Urine Nitrite Negative (NEGATIVE) 07/29/22 21:49 Urine Bilirubin Negative (NEGATIVE) 07/29/22 21:49 Urine Urobilinogen Normal (NORMAL) 07/29/22 21:49 Ur Leukocyte Esterase 1+ (NEGATIVE) 07/29/22 21:49 Urine RBC 3-5 /HPF (0-3) A 07/29/22 21:49 Urine WBC 20-30 /HPF (0-5) A 07/29/22 21:49 Ur Squamous Epith Cells Few /HPF (NEGATIVE) 07/29/22 21:49 Urine Bacteria 2+ /HPF (NEGATIVE) 07/29/22 21:49 Ur Culture Indicated? Yes/culture set up 07/29/22 21:49 - Plan (1) Osteomyelitis of finger Status: None Plan: VANCOMYCIN 1G IV DAILY, ZOSYN 3.375G IV TID, MORPHINE 4MG IV Q4H PRN PAIN, LOVENOX 40MG SC HS, ZOFRAN 4MG IV Q6H PRN NAUSEA, OTBS ACHS. CONTINUE HOME MEDS. REFERRAL TO HAND SURGEON (2) Cellulitis of right hand Status: Acute (3) Abscess of finger, right Status: Acute (4) CAD (coronary artery disease) Status: Chronic Qualifiers: Coronary Disease-Associated Artery/Lesion type: [place] artery [place] vs. transplanted heart: [place] heart Associated angina: unspecified whether angina present Qualified Code(s): I25.10 - Atherosclerotic heart disease of [place] coronary artery without angina pectoris Plan: CONTINUE PLAVIX (5) Hyperlipidemia Status: Chronic Qualifiers: Hyperlipidemia type: mixed hyperlipidemia Qualified Code(s): E78.2 - Mixed hyperlipidemia Plan: CONTINUE TO MONITOR (6) Hypertension Status: Chronic Qualifiers: Hypertension type: primary hypertension Qualified Code(s): I10 - Essential (primary) hypertension Plan: CONTINUE COZAAR, CONTINUE MAXZIDE (7) Diabetes mellitus Status: Chronic Qualifiers: Diabetes mellitus type: type 2 Diabetes mellitus intermediate frame tender insulin use: with intermediate frame tender use Diabetes mellitus complication status: with circulatory complication Diabetes mellitus complication detail: with other circulatory complications Qualified Code(s): E11.59 - Type 2 diabetes mellitus with other circulatory complications; Z79.4 - intermediate manager (current) use of insulin Plan: OTBS ACHS, CONTINUE LEVEMIR
[2022-07-31] MEDS: SNACK - Diabetic Appropriate PO SCH (20:16)
[2022-07-31] MEDS: LOVENOX INJ 40 MG SYR SC SCH (21:19)
[2022-07-31] MEDS: KLONOPIN TAB 1 MG PO PRN (21:21)
[2022-08-01] MEDS: MILK OF MAGNESIA PO PRN ×2 (00:30→18:10)
--- NOTE | 2022-08-01 01:01 | NOTE.SOAP ---
Soap Note Note for Day of Date of Exam: 07/31/22 Subjective Data Subjective Data: No change Objective Data Temperature: 98.3 F Pulse Rate: 88 Respiratory Rate: 19 Blood Pressure: 124/64 O2 Sat by Pulse Oximetry: 96 Objective Data: Redness right hand and right middle finger not improving. Blood cultures still negative . Wound cultures growing MRSA. Assessment Assessment: Osteomyelitis right 3rd finger middle phalanx, Plan Plan: Agree with plan of Dr. Johnson to continue IV antibiotics and seek hand surgeon consult.
[2022-08-01] MEDS: MORPHINE SULFATE INJ 4 MG IVP PRN ×3 (04:36→21:02)
[2022-08-01 05:36] LABS: BASOPHILS % (AUTO) 0.3 % (0.2-1.0); EOSINOPHILS # (AUTO) 0.5 x10^3/uL (0.0-0.2); EOSINOPHILS % (AUTO) 4.2 % (0.9-2.9); HEMOGLOBIN 9.8 g/dL (12.0-16.0); LYMPHOCYTES # (AUTO) 1.3 X10^3/uL (1.3-2.9); LYMPHOCYTES % (AUTO) 10.9 % (21.0-51.0); MEAN CORPUSCULAR HEMOGLOBIN 28.4 pg (27.0-34.0); MEAN CORPUSCULAR HGB CONC 33.8 g/dL (33.0-35.0); MEAN PLATELET VOLUME 8.2 fL (7.4-11.0); MONOCYTES % (AUTO) 8.8 % (0.0-13.0); NEUTROPHILS % (AUTO) 75.8 % (42.0-75.0); PLATELET COUNT 288 X10^3/uL (150.0-450.0); RED BLOOD COUNT 3.46 X10^6/uL (3.5-5.4); RED CELL DISTRIBUTION WIDTH 14.8 % (11.6-16.5); WHITE BLOOD COUNT 11.9 X10^3/uL (3.6-10.0)
[2022-08-01] MEDS: ZOSYN VIAL 3.375 GRAMS 3.375 G in NS 100 ML IV 100 ML IV SCH ×3 (05:48→21:04)
[2022-08-01 05:53] LABS: ALBUMIN 2.2 g/dL (3.4-5.0); CALCIUM 8.5 mg/dL (8.5-10.1); CARBON DIOXIDE 28.5 mmol/L (21-32); COR CA(FOR HYPOALB) 9.9 mg/dL (8.5-10.1); CREATININE 1.64 mg/dL (0.55-1.02); POTASSIUM 4.7 mmol/L (3.5-5.1); TOTAL PROTEIN 6.9 g/dL (6.4-8.2)
[2022-08-01] MEDS: FARXIGA PO SCH (08:41)
[2022-08-01] MEDS: CYMBALTA PO SCH (08:42)
[2022-08-01] MEDS: MAG-OX TAB PO SCH (08:42)
[2022-08-01] MEDS: ROXICODONE TAB 5 MG PO PRN ×3 (08:42→18:10)
[2022-08-01] MEDS: PERCOCET TAB 5/325 MG PO PRN ×3 (08:43→18:10)
[2022-08-01] MEDS: COZAAR PO SCH (08:43)
[2022-08-01] MEDS: PLAVIX PO SCH (08:43)
[2022-08-01] MEDS: MAXZIDE 37.5/25 MG PO SCH (08:44)
[2022-08-01] MEDS: FLEXERIL TAB 10 MG PO PRN ×2 (08:44→21:01)
[2022-08-01] MEDS: LEVEMIR SC SCH ×2 (08:44→22:00)
[2022-08-01] MEDS: NovoLIN R (or HumuLIN R) SUBCUT PRN ×2 (11:56→22:00)
[2022-08-01] MEDS: KLONOPIN TAB 1 MG PO PRN ×2 (12:29→21:01)
[2022-08-01] MEDS ORDERED: PHARMACY COMMENT IV SCH (14:30)
[2022-08-01] MEDS: VANCOMYCIN IV *PREMIX 1 G/200 ML BAG 1 G/200 ML PIGGYBACK IV SCH (15:31)
--- NOTE | 2022-08-01 15:58 | DR.CARTERD ---
- Discharge Summary for: Discharge Summary for Date of:: 08/01/22 - Admission Date Date of Admission: 07/29/22 - Admission Diagnoses Admission Diagnosis: (1) Cellulitis of right hand. (2) Abscess of finger, right. (3) CAD (coronary artery disease). (4) Hyperlipidemia. (5) Hypertension. (6) Diabetes mellitus - Discharge Date Discharge Date: 08/01/22 - Discharge Diagnoses Discharge Diagnosis: (1)Osteomyelitis of finger (2) Cellulitis of right hand (3) Abscess of finger, right (4) CAD (coronary artery disease) (5) Hyperlipidemia (6) Hypertension (7) Diabetes mellitus - Hospital Course Hospital Course: DAY 1 AND 2: IS A 66 YEAR OLD PATIENT OF OURS WITH A HX OF COPD, CAD, DYSLIPIDEMIA, HTN, CARDIAC STENTS, AND TYPE 2 DM. 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 SHE PRESENTED TO THE ER WITH COMPLAINTS OF REDNESS AND SWELLING OF THE RIGHT MIDDLE FINGER. PATIENT REPORTS THAT SHE PULLED A PIECE OF SKIN OFF OF THE STUMP OF HER MIDDLE FINGER FOUR DAYS PRIOR TO PRESENTATION. SINCE THEN, SYMPTOMS HAVE STEADILY WORSENED. SHE COMPLAINED OF THROBBING PAIN TO THE RIGHT HAND THAT IS WORSE WITH PALPATION AND RANGE OF MOTION. SHE DENIED FEVER, CHILLS, URI SYMPTOMS, BOWEL OR BLADDER COMPLAINTS. SHE DID ADMIT TO FREQUENT CELLULITIS AND ALSO A HISTORY OF OSTEOMYELITIS IN THE PAST. ON ARRIVAL, HER VITALS WERE: 98.6-96-22-97%-147/66. LABS WERE OBTAINED. WBC 15.4, RBC 3.71, HGB 10.4, HCT 31.4, PLT COUNT 200, SODIUM 136, POTASSIUM 4.8, CHLORIDE 101, CARBON DIOXIDE 23.6, BUN 53, CREATININE 1.65, GLUCOSE 347, LACTIC ACID 1.1, CALCIUM 8.5, TOTAL BILI 0.50, AST 31, ALT 29, ALK PHOS 380, TOTAL PROTEIN 7.0, ALBUMIN 2.5. A URINALYSIS WAS OBTAINED DUE TO ADDITONAL COMPLAINTS OF URINE HAVING A FOUL ODOR. URINE WBC 20-30, RBC 3-5, LEUKOCYTES 1+, BACTERIA 2+. URINE, BLOOD, AND WOUND CULTURES WERE SET UP. AN XRAY OF THE RIGHT HAND WAS OBTAINED AND REVEALED: No acute cortical disruption or dislocation is identified. There is diffuse soft tissue swelling of the right 3rd digit. The distal phalanges of the 2nd and 3rd digit are absent. No radiopaque foreign bodies.. The carpal bones appear aligned without evidence for fracture. IN THE ER, SHE WAS GIVEN MORPHINE 4MG IV X 1 DOSE, ZOFRAN 4MG IV X 1 DOSE, VANCOMYCIN 1G IV X 1 DOSE. SHE WAS ADMITTED TO THE HOSPITAL OBSERVATION STATUS FOR FURTHER EVALUATION AND TREATMENT OF RIGHT HAND CELLULITIS. SHE WAS STARTED ON VANCOMYCIN 1G IV DAILY, MORPHINE 4MG IV Q4H PRN PAIN, LOVENOX 40MG SC HS, ZOFRAN 4MG IV Q6H PRN NAUSEA, OTBS ACHS. WE WILL PLANNED TO RESUME HER HOME MEDICATIONS OF KLONOPIN, PLAVIX, FLEXERIL, CYMBALTA, LEVEMIR, JARDIANCE, COZAAR, MAG-OX, PERCOCET PRN, LYRICA, AND MAXZIDE. WE CONSULTED GENERAL Uriel RUDOLPH. HE PLANNED TO OBTAIN A MRI OF THE RIGHT HAND TO RULE OUT OSTEOMYELITIS. WE WERE IN AGREEMENT WITH HIS PLANS. OTHERWISE, WE PLANNED TO FOLLOW-UP WITH AM LABS AND CONTINUE TO MONITOR. DAY 3: WAS ALERT AND ORIENTED, LYING IN BED ON MORNING ROUNDS. SHE CONTINUED TO COMPLAIN OF PAIN AND SWELLING TO THE RIGHT HAND. SHE REPORTED SLIGHT IMPROVEMENT IN PAIN SINCE ADMISSION. ON EXAMINATION, HEART WAS REGULAR IN RATE AND RHYTHM. BILATERAL LUNGS WERE CLEAR TO AUSCULTATION. ABDOMEN IS ROUND, SOFT, AND NON-TENDER WITH NORMAL BOWEL SOUNDS NOTED IN ALL QUADRANTS. THERE CONTINUED TO BE MODERATE ERYTHEMA AND EDEMA OF THE RIGHT HAND AND MIDDLE FINGER. NO DRAINAGE NOTED. GOOD MOVEMENT NOTED TO ALL EXTREMITIES. NO LOWER EXTREMITY EDEMA NOTED. HER VITALS THIS MORNING WERE: 97.6-100-18-96%-127/73. LABS WERE OBTAINED. WBC 13.9, RBC 3.32, HGB 9.4, HCT 28.0, PLT COUNT 236, SODIUM 134, POTASSIUM 4.8, CHLORIDE 102, BUN 42, CREATININE 1.44, GLUCOSE 220, CALCIUM 8.0, AST 14, ALT 19, ALK PHOS 305, TOTAL PROTEIN 6.5, ALBUMIN 2.1. BLOOD CULTURES PENDING. WOUND CULTURES POSITIVE FOR GROWTH OF MRSA. URINE CULTURE IS POSITIVE FOR GROWTH OF KLEBSIELLA PNEUMONIAE. MRI OF THE RIGHT HAND WAS OBTAINED ON 07/30/22. IT REVEALED: Limited study. Osteomyelitis of the 3rd middle phalanx. Moderate fluid about the 3rd flexor tendon likely infectious tenosynovitis although evaluation is limited. Moderate subcutaneous edema about most of the hand may represent cellulitis. Suspect erosions of the heads of the 2nd and 4th metacarpal and base of the 4th proximal phalanx. These nonspecific but could be seen with rheumatoid arthritis. I SUSPECTED THAT PATIENT WILL LIKELY REQUIRE FURTHER AMPUTATION OF THE MIDDLE FINGER, BUT WE PLANNED GO AHEAD AND GET HER A REFERRAL TO THE HAND SURGEON AND CONTINUE WITH ANTIBIOTICS FOR THE TIME BEING. SHE CONTINUED TO RECEIVE VANCOMYCIN 1G IV DAILY, ZOSYN 3.375G IV TID, MORPHINE 4MG IV Q4H PRN PAIN, LOVENOX 40MG SC HS, ZOFRAN 4MG IV Q6H PRN NAUSEA, OTBS ACHS. WE WILL ALSO RESUME HER HOME MEDICATIONS OF KLONOPIN, PLAVIX, FLEXERIL, CYMBALTA, LEVEMIR, COZAAR, MAG-OX, PERCOCET PRN, LYRICA, AND MAXZIDE. SHE WAS CHANGED TO INPATIENT STATUS THIS DAY. OTHERWISE, WE PLANED TO FOLLOW-UP WITH AM LABS AND CONTINUE TO MONITOR. DAY 4: PATIENT IS ALERT AND ORIENTED, LYING IN BED ON MORNING ROUNDS. SHE COMPLAINED OF INCREASED PAIN TO THE RIGHT MIDDLE FINGER. SHE DENIED IMPROVEMENT IN SYMPTOMS SINCE YESTERDAY. ON EXAMINATION, REDNESS TO THE RIGHT MIDDLE FINGER APPEARED TO BE WORSE. THERE ARE NOW BLISTERS TO THE SIDES OF THE FINGERS. THERE IS PUSTULAR DRAINAGE NOTED FROM THE END OF THE DIGIT. SWELLING APPEARS TO BE WORSE THIS MORNING. PATIENT REQUESTED THAT WE GO AHEAD AND TRANSFER TO A HAND SURGEON. WE ARE IN AGREEMENT WITH HER WISHES. HER VITALS THIS MORNING ARE: 97. 6-105-18-96%-127/73. LABS WERE OBTAINED. WBC 11.9, RBC 3.46, HGB 9.8, HCT 29.0, PLT COUNT 288, SODIUM 139, POTASSIUM 4.7, CHLORIDE 103, BUN 44, CREATININE 1.64, GLUCOSE 135, CALCIUM 8.5, TOTAL BILI 0.40, AST 11, ALT 20, ALK PHOS 304, TOTAL PROTEIN 6.9, ALBUMIN 2.2. WOUND CULTURES WERE POSITIVE FOR GROWTH OF MRSA. URINE CULTURE POSITIVE FOR GROWTH OF KLEBSIELLA PNEUMONIAE. WE FEEL LIKE PATIENT WOULD BENEFIT FROM ORTHOPEDIC/VASCULAR CONSULT NOW RATHER THAN WAITING UNTIL AN OUTPATIENT APPOINTMENT BECOMES AVAILABLE. WE SPOKE WITH DR.TIMOTHY MONTANO AT [facility] IN [place], [place]. HE ACCEPTED PATIENT A TRANSFER FOR SURGICAL EVALUATION. PATIENT WILL BE TRANSFERRED VIA EMS IN STABLE CONDITION. TIME SPENT ON CLINICAL ASSESSMENT, REVIEWING LABS AND IMAGING, DECISION MAKING, ARRANGING TRANSFER, CALLING REPORT, AND DOCUMENTATION GREATER THAN 75 MINUTES. - Discharge Medications Discharge Medications: Home Medication List losartan 25 mg tablet 25 mg PO QDAY 07/29/22 [History] oxycodone-acetaminophen 7.5 mg-325 mg tablet 1 tab PO QID PRN 07/29/22 [History] pregabalin 100 mg capsule 100 mg PO BID 07/29/22 [History] semaglutide 2 mg/dose (8 mg/3 mL) subcutaneous pen injector (Ozempic) 2 mg subcut WEEKLY 07/29/22 [History] triamterene 37.5 mg-hydrochlorothiazide 25 mg tablet 1 tab PO QDAY 07/29/22 [History] Prescriptions: - Discharge Disposition Discharge Disposition: discharge to [facility] in [place], [place] to services of Dr.TIMOTHY MONTANO. - Discharge Diagnoses Health Concerns: Post Hospitalization: new medications and changes needed to prevent readmission or further decline. Pt educated and given instructions on all concerns. Care Plan Goals: Problem: Infection Goal: Temperature within normal limits. Resolved infection. Instructions: Follow provided instructions. Follow up with primary physician as directed. Contact primary care physician or report to the closest Emergency Room if condition worsens. Plan of Treatment: Continue with present treatment and follow up plan. Pt is to keep follow up appointment as instructed and take medications as ordered.
[2022-08-01] MEDS: LOVENOX INJ 40 MG SYR SC SCH (21:03)
[2022-08-01] MEDS: SNACK - Diabetic Appropriate PO SCH (21:04)
[2022-08-02] MEDS: PERCOCET TAB 5/325 MG PO PRN ×2 (04:27→08:17)
[2022-08-02] MEDS: ROXICODONE TAB 5 MG PO PRN ×2 (04:27→08:19)
[2022-08-02 05:29] LABS: BASOPHILS % (AUTO) 0.3 % (0.2-1.0); EOSINOPHILS # (AUTO) 0.4 x10^3/uL (0.0-0.2); EOSINOPHILS % (AUTO) 4.5 % (0.9-2.9); HEMATOCRIT 30.5 % (36.0-47.0); HEMOGLOBIN 10.3 g/dL (12.0-16.0); LYMPHOCYTES # (AUTO) 1.2 X10^3/uL (1.3-2.9); LYMPHOCYTES % (AUTO) 12.1 % (21.0-51.0); MEAN CORPUSCULAR HEMOGLOBIN 28.6 pg (27.0-34.0); MEAN CORPUSCULAR HGB CONC 33.8 g/dL (33.0-35.0); MEAN CORPUSCULAR VOLUME 84.7 fL (80.0-100.0); MEAN PLATELET VOLUME 8.3 fL (7.4-11.0); MONOCYTES # (AUTO) 0.9 x10^3/uL (0.3-0.8); MONOCYTES % (AUTO) 8.8 % (0.0-13.0); NEUTROPHILS # (AUTO) 7.4 x10^3/uL (2.2-4.8); NEUTROPHILS % (AUTO) 74.3 % (42.0-75.0); PLATELET COUNT 304 X10^3/uL (150.0-450.0)
[2022-08-02] MEDS: ZOSYN VIAL 3.375 GRAMS 3.375 G in NS 100 ML IV 100 ML IV SCH (05:30)
[2022-08-02 05:50] LABS: ALBUMIN 2.2 g/dL (3.4-5.0); CALCIUM 8.4 mg/dL (8.5-10.1); CARBON DIOXIDE 27.9 mmol/L (21-32); COR CA(FOR HYPOALB) 9.8 mg/dL (8.5-10.1); CREATININE 1.59 mg/dL (0.55-1.02); POTASSIUM 4.8 mmol/L (3.5-5.1); TOTAL PROTEIN 6.9 g/dL (6.4-8.2)
[2022-08-02] MEDS: FLEXERIL TAB 10 MG PO PRN (08:18)
[2022-08-02] MEDS: PLAVIX PO SCH (08:18)
[2022-08-02] MEDS: FARXIGA PO SCH (08:18)
[2022-08-02] MEDS: COZAAR PO SCH (08:18)
[2022-08-02] MEDS: CYMBALTA PO SCH (08:18)
[2022-08-02] MEDS: MAG-OX TAB PO SCH (08:18)
[2022-08-02] MEDS: KLONOPIN TAB 1 MG PO PRN (08:19)
[2022-08-02] MEDS: MAXZIDE 37.5/25 MG PO SCH (08:19)
[2022-08-02] MEDS: LEVEMIR SC SCH (08:19)
[2022-08-02 08:38] VITALS: BP 125/64; PULSE 98; TEMP 98.4; O2SAT 96
[2022-08-03] MEDS ORDERED: SEMAGLUTIDE SUBCUT SCH (09:00)
[2022-08-03] MEDS ORDERED: INJECTOR SUBCUT SCH (09:00)
== END 2022-08-02 09:20 | disposition short-term general hospital (02) | DRG 603 ==
LOC: ER 13:42 → MED/SURG 13:42
PROVIDERS: ADMIT Internal Medicine; ATTEND Internal Medicine
DX: R26.89 Other abnormalities of gait and mobility; L02.511 Cutaneous abscess of right hand; I25.10 Atherosclerotic heart disease of native coronary artery without angina pectoris; Z89.021 Acquired absence of right finger(s); I10 Essential (primary) hypertension; L03.113 Cellulitis of right upper limb; E11.69 Type 2 diabetes mellitus with other specified complication; E11.65 Type 2 diabetes mellitus with hyperglycemia; E78.2 Mixed hyperlipidemia; B95.62 Methicillin resistant Staphylococcus aureus infection as the cause of diseases classified elsewhere; J44.9 Chronic obstructive pulmonary disease, unspecified; B96.5 Pseudomonas (aeruginosa) (mallei) (pseudomallei) as the cause of diseases classified elsewhere; M86.8X4 Other osteomyelitis, hand; Z79.4 Long term (current) use of insulin; B96.1 Klebsiella pneumoniae [K. pneumoniae] as the cause of diseases classified elsewhere